=== PATIENT | female | born 1960 | race Caucasian/White ===

== ENCOUNTER 2016-08-21 08:09 | Day surgery (SDC) | payer BC, OTHER ==
[2016-08-13 08:59] VITALS: BMI 27.1
[~2016-08-21 08:09] MED LIST: DEXAMETHASONE SOD PHOSPHATE 10 MG/ML 1 ML VIAL IV ONE; HYDROmorphone 1 MG/ML 1 ML SYRINGE IVP PRN; LACTATED RINGERS 1,000 ML IV SCH; MIDAZOLAM 2 MG/2 ML VIAL IV PRN; ONDANSETRON 4 MG/2 ML VIAL IVP ONE; SCOPOLAMINE 1.5MG/72HR PATCH TRANSDERM ONE; ceFAZolin 2 GM in SODIUM CHLORIDE 0.9% 100 ML IVPB ONE
[2016-08-21 08:30] VITALS: RESP 16; TEMP 97.1
[2016-08-21] MEDS ORDERED: LIDOCAINE 1% 20 ML VIAL (10MG/ML) FOR IV START INTRADERMA ONE (08:32)
[2016-08-21] MEDS ORDERED: SODIUM CHLORIDE 0.9% 100 ML BAG ONE (08:53)
[2016-08-21] MEDS ORDERED: LIDOCAINE 1% INJ 10MG/ML (20 ML MDV) ONE (08:53)
[2016-08-21] MEDS ORDERED: fentaNYL (PF) 50 MCG/ML 2 ML AMP ONE (08:53)
[2016-08-21] MEDS ORDERED: KETAMINE 10 MG/ML 20 ML VIAL ONE (08:53)
[2016-08-21] MEDS ORDERED: PROPOFOL 10 MG/ML 20 ML VIAL IV ONE (08:53)
[2016-08-21] MEDS ORDERED: MIDAZOLAM 2 MG/2 ML VIAL ONE (08:53)
[2016-08-21] MEDS ORDERED: SODIUM CHLORIDE 0.9% 100 ML with CLINDAMYCIN 600 MG IV ONE ×2 (09:00)
[2016-08-21] MEDS ORDERED: BUPIVACAIN-EPI 0.25%-1:200,000 30 ML VIAL SQ ONE ×2 (09:22)
[2016-08-21] MEDS ORDERED: HEPARIN SODIUM,PORCINE 100 UNIT/ML 5 ML VIAL IV ONE ×2 (09:27→09:39)
--- NOTE | 2016-08-21 10:11 | P.OP ---
Date of Procedure: 08/21/16 Preoperative Diagnosis: Locally advanced left breast cancer Postoperative Diagnosis: Same Procedure(s) Performed: Insertion of 8-Bulgarian Mediport, single-lumen right internal jugular vein under fluoroscopic and SonoSite guidance Implants: BARD Powerport 8F Anesthesia: MAC, local Surgeon: Jazlyn Allen Estimated Blood Loss (ml): 5 Pathology: none sent Condition: stable Disposition: PACU Indications for Procedure: 55 years old female with locally advanced breast cancer the left breast presents for neoadjuvant chemotherapy. She elected to undergo right internal jugular Mediport placement under fluoroscopic and SonoSite guidance. The risks , benefits and potential complications including bleeding, infection, inadvertent pneumothorax were explained patient did undergo the procedure Operative Findings: Total fluoroscopy time was 11 minutes. Postprocedure chest x-ray showed good position of the MediPort Description of Procedure: The patient was brought to the operating room and placed in supine position with both arms tucked. A footboard was placed. Chlorhexidine was used to prep the neck followed by application of sterile drapes and an Ioban dressing . A timeout was performed to verify correct patient and correct procedure. Patient was confirmed to receive perioperative IV antibiotics and VTE prophylaxis. An ultrasound was performed of the right neck to identify the carotid artery and internal jugular vein. The internal jugular vein was compressible and patent . Photodocumentation was made. Local anesthetic was infiltrated to create a field block. Seldinger technique was used and the internal jugular vein was accessed under direct ultrasound guidance. There was good backflow of dark venous blood. The guidewire was inserted and fluoroscopic images obtained to confirm the tip in SVC. The needle was removed followed by insertion of a dilator peel-away sheath. Local anesthetic was infiltrated along the inferior aspect of the right clavicle. A 2.5 cm skin incision was made and dissection was carried up to the pectoralis major muscle. A pocket was created for the port. The catheter tubing was connected to the port using the conector after flushing both the port and the catheter with normal saline. The tunneling device was connected to the end of the catheter and after placement of the port in the subcutaneous pocket the tunneling device was passed from the lower incision to the counter incision in the neck. The catheter was measured at the junction of SVC and right atrium. The inner cannula of the peel-away sheath was removed and catheter was gradually inserted. The peel-away sheath was gradually removed. Fluoroscopic image confirmed the tip of the catheter at the junction of SVC and right atrium. There was no kink, fold or torsion of the catheter and the port. The Lyon needle was used to access the port and easy backflow was obtained. This was flushed with 10 mL of normal saline and 10 mL of Hep-Lock was inserted. The skin incision was closed in 3 layers using 3-0 Vicryl interrupted stitches and a running suture of 4-0 Monocryl. Counter incision in the neck was also closed using 3-0 Vicryl followed by 4-0 Monocryl. Dermabond skin glue was applied followed by Telfa and Tegaderm dressing. The sponge, instrument and needle count were correct x 2 Patient tolerated the procedure well and was taken to post anesthesia care unit in stable condition Final chest x-ray showed the tip of the catheter in SVC and no pneumothorax. Total fluoroscopic time was 11 seconds
--- NOTE | 2016-08-21 10:43 | XR ---
EXAMINATION TYPE: XR chest 1V confirm line [facility] DATE OF EXAM: 08/21/2016 10:25 AM COMPARISON: NONE HISTORY: Port placement TECHNIQUE: Single frontal view of the chest is obtained. FINDINGS: There is subsegmental changes at the left lung. There is no Pleural effusion, or pneumotho rax seen. The cardiac silhouette size is within normal limits. The osseous structures are intact. Port is seen overlying the right hemithorax with the tip overlying the SVC. IMPRESSION: 1. Port appears in good position. No postprocedural complication. 2. Subsegmental changes left lung base. Atelectasis favored over infiltrate.
[2016-08-21 10:56] VITALS: BP 127/91; PULSE 80
--- NOTE | 2016-08-21 11:45 | FL ---
EXAMINATION TYPE: FL guidance operating room DATE OF EXAM: 08/21/2016 11:28 AM CLINICAL HISTORY: Port-A-Cath insertion for cancer treatment TECHNIQUE: Fluoroscopy. COMPARISON: None. FINDINGS: Fluoroscopic guidance was provided during Port-A-Cath insertion procedure performed by Dr. Allen. A total of 11 seconds of fluoroscopic time was utilized during the procedure and one spot image is acquired. Single intraoperative image acquired shows right internal jugular Mediport cathet er with tip in SVC. IMPRESSION: As Above.
== END 2016-08-21 11:13 | disposition home or self-care (01) ==
LOC: OR 08:09
PROVIDERS: ATTEND Surgery
DX: Z45.2 Encounter for adjustment and management of vascular access device (principal); C50.912 Malignant neoplasm of unspecified site of left female breast; C76.1 Malignant neoplasm of thorax; F17.200 Nicotine dependence, unspecified, uncomplicated; Z79.891 Long term (current) use of opiate analgesic; Z79.899 Other long term (current) drug therapy; Z88.5 Allergy status to narcotic agent; Z88.0 Allergy status to penicillin
CPT/HCPCS: 36561; C1788; J2250; J1642; J1100; J2405; J2001; J3010; J2704; 99152; 99153

== ENCOUNTER → 2016-08-27 | Outpatient (CLI) | payer BC, OTHER ==
--- NOTE | 2016-08-28 00:28 | MR ---
EXAMINATION TYPE: MR liver wo/w con DATE OF EXAM: 08/27/2016 7:17 PM COMPARISON: NONE HISTORY: Breast ca 2016, spot seen on liver CONTRAST: Standard multiplanar, multisequence MRI departmental protocol utilizing 15 mL intravenous MultiHance gadolinium contrast. FINDINGS: Liver has normal size and contour. Spleen appears normal. There is no sign of a pancreatic mass. Bile ducts are not dilated. There is a rounded area of slight increased signal on the T2 images in the lower pole left kidney and measures 1.5 cm and is probably a cortical cyst. There is a 1 cm high signal focus in the anterior left lobe of the liver consistent with simple cyst. There is a 2 cm rounded and oval-shaped mass in the superior posterior right lobe of the liver. This shows enhancement with the contrast and central vasculature. This is most likely a hemangioma. There is noted a multilobulated large mass involving the left breast. There is no evidence of retroperitoneal adenopathy. There is no hydronephrosis. IMPRESSION: Small cyst in the anterior left lobe of the liver. 2 cm enhancing mass in the right lobe of the liver most likely related to hemangioma. I do not see a ring enhancement pattern to suggest metastatic disease.
== END | disposition home or self-care (01) ==
LOC: RADMRIMAIN 18:00
PROVIDERS: ATTEND Internal Medicine Hematology & Oncology
DX: K76.89 Other specified diseases of liver (principal); R16.0 Hepatomegaly, not elsewhere classified
CPT/HCPCS: 74183; A9577

== ENCOUNTER 2016-09-06 23:14 | Emergency (ER) | payer BC, OTHER ==
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
[2016-09-07 02:19] VITALS: BP 128/89; PULSE 100; RESP 16; TEMP 98.3
== END 2016-09-07 02:29 | disposition home or self-care (01) ==
LOC: SUPCPDRO 23:14 → EC 23:14
DX: N64.52 Nipple discharge (principal); D05.92 Unspecified type of carcinoma in situ of left breast; Z88.5 Allergy status to narcotic agent; Z88.0 Allergy status to penicillin; Z79.899 Other long term (current) drug therapy; Z87.891 Personal history of nicotine dependence
CPT/HCPCS: 99282

== ENCOUNTER → 2016-12-01 | Outpatient (CLI) | payer BC ==
[2016-12-01 11:19] LABS: Blood Urea Nitrogen 13 mg/dL (7-17); Non-African American GFR(MDRD) >60 (>60 ml/min/1.73 sqM)
--- NOTE | 2016-12-01 12:16 | CT ---
EXAMINATION TYPE: CT angio chest DATE OF EXAM: 12/01/2016 12:08 PM COMPARISON: NONE HISTORY: Breast cancer, tachycardia, SOB CT DLP: 519 mGycm CONTRAST: CT chest with contrast and 3D reconstruction with MIP imaging is performed with IV Contrast, patient injected with 100 mL of Omnipaque 350. Contrast-enhanced CT of the chest was performed through the course of the pulmonary arteries with charlie g and mediastinal window settings submitted. 3D reconstruction with MIP imaging was also performed. PULMONARY ARTERIES: The pulmonary arteries and their major tributaries are patent. I do not see ha dence for sizable filling defect to suggest pulmonary embolic process. LUNGS: The lungs are clear and free of infiltrate. No evidence for atelectasis. No pulmonary nodule or mass is detected. No pleural effusion. MEDIASTINUM: Thoracic aorta is of normal caliber . The heart is not enlarged. No evidence for media stinal mass. No mediastinal lymph nodes greater than 1cm. HILAR STRUCTURES: No evidence for mass. No hilar lymph nodes greater than 1 cm. UPPER ABDOMEN: Stable hyperdense lesion within the liver may reflect hemangioma. Other: Soft tissue density left breast as well as skin thickening. IMPRESSION: 1. No evidence for Pulmonary embolism at this time.
== END | disposition home or self-care (01) ==
LOC: RADPROMAIN 10:26
PROVIDERS: ATTEND Internal Medicine Hematology & Oncology
DX: C50.812 Malignant neoplasm of overlapping sites of left female breast (principal); R00.0 Tachycardia, unspecified
CPT/HCPCS: 82565; 84520; 71275; Q9967

== ENCOUNTER 2016-12-24 13:11 | Emergency (ER) | payer BC ==
[2016-12-24] MEDS ORDERED: SODIUM CHLORIDE 0.9% 1,000 ML IV STA ×2 (13:47)
[2016-12-24] MEDS ORDERED: ONDANSETRON 4 MG/2 ML VIAL IVP STA (13:47)
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
[2016-12-24 14:45] LABS: Anisocytosis Slight; Basophils % (A) 0 %; CH 35.9; CHCM 34.7; Eosinophils % (A) 0 %; HCT 31.7 % (34.0-46.0); HDW 3.56; HGB 10.8 gm/dL (11.4-16.0); Luc # (Auto) 0.04; Luc % (Auto) 1; Lymphocytes # (A) 0.3 k/uL (1.0-4.8); Lymphocytes % (A) 8 %; MCH 35.2 pg (25.0-35.0); MCV 103.7 fL (80.0-100.0); Macrocytosis Moderate; Mean Platelet Volume 8.1; Monocytes # (A) 0.2 k/uL (0-1.0); Monocytes % (A) 4 %; Neutrophils # (A) 3.7 k/uL (1.3-7.7); Neutrophils % (A) 87 %; Poikilocytosis Slight; RBC 3.06 m/uL (3.80-5.40); RDW 16.6 % (11.5-15.5); WBC 4.2 k/uL (3.8-10.6); WBC (Perox) 4.22
[2016-12-24 14:53] LABS: ALT 29 U/L (9-52); AST 25 U/L (14-36); Alkaline Phosphatase 77 U/L (38-126); Amylase 36 U/L (30-110); Anion Gap 9 mmol/L; Blood Urea Nitrogen 16 mg/dL (7-17); Carbon Dioxide 26 mmol/L (22-30); Chloride 101 mmol/L (98-107); Non-African American GFR(MDRD) >60 (>60 ml/min/1.73 sqM); Sodium 136 mmol/L (137-145); Total Bilirubin 0.6 mg/dL (0.2-1.3); Total Protein 5.7 g/dL (6.3-8.2)
[2016-12-24 15:00] LABS: Glucose 120 mg/dL (74-99)
[2016-12-24] MEDS ORDERED: POTASSIUM CHLORIDE ER 20 MEQ TAB.ER PO STA ×2 (15:15→16:01)
--- NOTE | 2016-12-24 15:37 | XR ---
EXAMINATION TYPE: XR chest 2V DATE OF EXAM: 12/24/2016 3:31 PM COMPARISON: August 21, 2016 HISTORY: Shortness of breath TECHNIQUE: Frontal and lateral views of the chest are obtained. FINDINGS: Scattered senescent parenchymal changes noted. Hyperinflation compatible with COPD. Prominent perihilar interstitial markings may reflect pneumonitis or viral pneumonia. Correlate clini lizzette and consider progress studies. Heart size is stable. Mediastinal structures are stable and grossly unremarkable. No evidence for hilar prominence. Degenerative changes dorsal spine. Mediport catheter unchanged. Left mastectomy changes. IMPRESSION: 1. Prominent perihilar interstitial markings may reflect pneumonitis or viral pneumonia. Correlate cl inically and consider progress studies.
[2016-12-24 16:20] VITALS: BP 106/70; PULSE 94; RESP 18; TEMP 97.7
[2016-12-25 05:45] LABS: Potassium 2.9 mmol/L (3.5-5.1)
== END 2016-12-24 16:20 | disposition home or self-care (01) ==
LOC: EC 13:11
DX: J18.9 Pneumonia, unspecified organism (principal); E87.6 Hypokalemia; R11.2 Nausea with vomiting, unspecified; R19.7 Diarrhea, unspecified; R00.0 Tachycardia, unspecified; Z87.891 Personal history of nicotine dependence; Z79.899 Other long term (current) drug therapy; Z88.0 Allergy status to penicillin; Z88.5 Allergy status to narcotic agent; Z88.8 Allergy status to other drugs, medicaments and biological substances; Z85.3 Personal history of malignant neoplasm of breast; Z95.828 Presence of other vascular implants and grafts
CPT/HCPCS: 99284; 96374; 96361 ×3; 36415; 80053; 82150; 83690; 85025; 71020; J2405

== ENCOUNTER → 2017-02-09 | Outpatient (CLI) | payer BC ==
--- NOTE | 2017-02-09 13:56 | BMR ---
EXAMINATION TYPE: MR breast BILAT wo/w con DATE OF EXAM: 02/09/2017 COMPARISON: MR liver 08/27/2016 CT 08/14/2016, mammogram 07/20/2016, left breast ultrasound 07/20/2016 HISTORY: Breast Ca TECHNIQUE: A series of fat and water weighted images in the long and short axis views of both breasts are obtained in conjunction with dynamic contrast MRI with subtraction technique. The patient was i njected with 15 mL intravenous MultiHance gadolinium contrast. Three-dimensional and additional pos tprocessing imaging is created on independent workstation and reviewed during official interpretation of this study. FINDINGS: Right breast: No suspicious abnormal enhancement. There is no evident adenopathy. Mild fibr oglandular tissue noted. Port-A-Cath present in the right chest. Left breast: Extensive T2 weighted signal abnormality present corresponding to patient's known tumor burden, there is extension of the abnormal signal to the muscle wall as noted on prior CT. There is s kin thickening, nipple retraction. Abnormal multiple nodular enhancement is present within the left b reast compatible with patient's known breast carcinoma. Abnormal soft tissue extends to the muscle of the anterior chest wall. There is interval improvement in the size of the patient's left axillary no glen. No evident internal mammary adenopathy. IMPRESSION: Left breast BI-RADS 6, known carcinoma. Findings suggestive of chest wall involvement. Axillary adeno katherine appears to have improved in the interval, nodes show fatty hilus and are not enlarged. Right breast benign, BI-RADS 2 Recommendation surgical and oncologic follow up
== END | disposition home or self-care (01) ==
LOC: RADMRIMAIN 09:37
PROVIDERS: ATTEND Surgery
DX: C50.912 Malignant neoplasm of unspecified site of left female breast (principal); R59.9 Enlarged lymph nodes, unspecified
CPT/HCPCS: 77059; 0159T; A9577

== ENCOUNTER 2017-07-14 08:10 | Day surgery (SDC) | payer BC ==
[2017-07-14 08:46] VITALS: TEMP 98.1
--- NOTE | 2017-07-14 09:36 | US ---
Ultrasound-guided seroma drainage catheter insertion. DATE OF EXAM: 07/14/2017 CLINICAL HISTORY: Post left mastectomy seroma The procedure was discussed with the patient. The risks, complications, benefits, and alternatives we re discussed and any questions were answered. Informed consent was obtained. The patient was placed s upine on the ultrasound table and prepped and draped in the usual sterile fashion. All elements of maximal barrier technique were utilized. Under ultrasound guidance, access into the left chest wall seroma was obtained, and risks placement 8 Turkish drainage catheter. Repeat imaging d emonstrated ideal placement of the catheter. The patient was stable throughout the procedure and remained stable upon discharge from Department o f Radiology. IMPRESSION: Successful ultrasound-guided seroma catheter insertion..
[2017-07-14 09:59] VITALS: BP 139/77; PULSE 68; RESP 18
== END 2017-07-14 09:45 | disposition home or self-care (01) ==
LOC: RADPROMAIN 08:10
PROVIDERS: ATTEND Surgery
DX: M96.843 Postprocedural seroma of a musculoskeletal structure following other procedure (principal); Y83.8 Other surgical procedures as the cause of abnormal reaction of the patient, or of later complication, without mention of misadventure at the time of the procedure
CPT/HCPCS: 10030; 76942

== ENCOUNTER 2017-08-11 08:03 | Day surgery (SDC) | payer BC ==
[2017-08-11 08:45] VITALS: PULSE 90; RESP 16; TEMP 97.8
[2017-08-11 10:15] VITALS: BP 141/89
--- NOTE | 2017-08-11 11:26 | US ---
EXAMINATION TYPE: US guided soft tissue drainage DATE OF EXAM: 08/11/2017 HISTORY: Seroma postmastectomy FINDINGS: Maximal barrier technique was utilized. Indwelling drain was removed without incident. The skin overlying a suitable path to the fluid was localized with ultrasound and the overlying skin prep ped and draped. Lidocaine was used for local anesthesia. A skin pamela made with a scalpel. Access w as gained under direct ultrasound guidance to the fluid with a 21-gauge needle. Ultrasound was utiliz ed using sterile technique. A 0.018 inch wire was advanced. Access site was dilated and an 8.5-Fren ch catheter advanced into the seroma. Sanguinous serous fluid returned. Catheter fixed to the skin. Hemostasis achieved. No immediate complication and the patient remained in stable condition. IMPRESSION: STATUS POST ULTRASOUND GUIDED SEROMA DRAINAGE, THIS PROCEDURE WAS PERFORMED BY THE UNDERS IGNED.
== END 2017-08-11 09:55 | disposition home or self-care (01) ==
LOC: RADPROMAIN 08:03
PROVIDERS: ATTEND Radiology Diagnostic Radiology
DX: L76.34 Postprocedural seroma of skin and subcutaneous tissue following other procedure (principal)
CPT/HCPCS: 10030; 76942

== ENCOUNTER 2017-08-25 07:51 | Day surgery (SDC) | payer BC ==
[2017-08-25 08:28] VITALS: BP 125/94; PULSE 96; RESP 14; TEMP 98.1
--- NOTE | 2017-08-25 09:24 | USB ---
Reason for exam: clinical finding. History: Patient is postmenopausal and has history of breast cancer at age 55. Malignant US breast needle core addl LT of the left breast, July 23, 2016. Malignant US biopsy breast VAD LT of the left breast, July 23, 2016. US Breast Axilla LT Left breast axilla ultrasound demonstrates fluid collection with drainage tube visualized, probable abscess. Assessed real time by Dr. Allen. These results were verbally communicated with the patient and result sheet given to the patient on 08/25/17. ASSESSMENT: Probably benign, BI-RAD 3 RECOMMENDATION: Clinical management of the left breast. Manage patient on a clinical basis. Consider open surgical management. MTDD
--- NOTE | 2017-08-25 11:38 | P.PN ---
Progress Note - Text Progress Note Date: 08/25/17 Patient examined in ultrasound department. Drainage catheter has minimal output. Ultrasound performed at bedside showed complex multiloculated fluid collection. The drainage catheter was removed. There was some serosanguineous fluid that was expressed out from the drain site. A urostomy bag was applied. Persistent redness and pain along the left chest wall. Discussed findings with patient and her . Plan for surgical exploration with incision and drainage and possible drain placement.
== END 2017-08-25 10:05 | disposition home or self-care (01) ==
LOC: RADPROMAIN 07:51
PROVIDERS: ATTEND Radiology Diagnostic Radiology
DX: N64.59 Other signs and symptoms in breast (principal); Z46.89 Encounter for fitting and adjustment of other specified devices; L53.8 Other specified erythematous conditions; R07.89 Other chest pain; Z78.0 Asymptomatic menopausal state; Z85.3 Personal history of malignant neoplasm of breast
CPT/HCPCS: 76642; A5071

== ENCOUNTER → 2017-08-27 | Day surgery (SDC) | payer BC ==
[2017-08-26 10:01] VITALS: BMI 28.6
[~2017-08-27] MED LIST changes: +CLINDAMYCIN 600 MG in DEXTROSE 5% IN WATER 50 ML IVPB STA; -HYDROmorphone 1 MG/ML 1 ML SYRINGE IVP PRN; +LIDOCAINE 1% 20 ML VIAL (10MG/ML) FOR IV START INTRADERMA ONE; +LIDOCAINE 1% INJ 10MG/ML (20 ML MDV) ONE; +PHENYLEPHRINE-0.9% NACL SYG 1 MG/10 ML SYRINGE ONE; +PROPOFOL 10 MG/ML 20 ML VIAL IV ONE; +Pre Op ABX Message 1 EACH MISC MISCELLANE ONE; +SUCCINYLCHOLINE CHLORIDE 100 MG/5 ML SYR IV ONE; +VANCOMYCIN 1,000 MG in SODIUM CHLORIDE 0.9% 250 ML IVPB STA; -ceFAZolin 2 GM in SODIUM CHLORIDE 0.9% 100 ML IVPB ONE; +ePHEDrine SULFATE/0.9% NACL/PF 50 MG/5 ML SYRINGE IV ONE; +fentaNYL (PF) 50 MCG/ML 2 ML AMP ONE
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
[2017-08-27] MEDS: MORPHINE SULFATE 4 MG/ML SYRINGE IV PRN ×2 (17:53→18:04)
[2017-08-27 17:57] VITALS: RESP 16; TEMP 97
[2017-08-27 18:39] VITALS: BP 129/78; PULSE 87
--- NOTE | 2017-08-30 12:57 | P.OP ---
Date of Procedure: 08/27/17 Preoperative Diagnosis: Left chest wall cellulitis Left breast cancer status post neoadjuvant chemo and radiation and left modified radical mastectomy Postoperative Diagnosis: Same Procedure(s) Performed: Incision and drainage of left chest wall seroma Anesthesia: ANAY Surgeon: Jazlyn Allen Pathology: other Condition: stable Disposition: PACU Indications for Procedure: 56 years old female status post left wrist cancer treatment. She had neoadjuvant chemotherapy and radiation therapy followed by left modified radical mastectomy. She had left chest wall seroma which was drained and catheter was replaced . She then developed increasing cellulitis, redness, pain and fever and hypotension requiring hospital admission and IV antibiotics. Patient was discharged home on by mouth antibiotics and continues to have redness along the left chest spreading toward the right breast. Informed consent obtained and patient elected to undergo incision and drainage of left chest wall seroma, cultures and drain placement. The risks, benefits and potential complications including bleeding, infection, open wound and poor wound healing secondary to preoperative radiation were discussed with the patient. Operative Findings: The old surgical incision was opened up at 2 sites. Suction catheter was inserted and 50 mL of serosanguineous blood drained. Aerobic and anaerobic cultures sent. Description of Procedure: This was brought to the operating room and placed in supine position with both arms out. Gen. anesthesia with endotracheal intubation was performed as per anesthesia team . A timeout was performed to verify correct patient and correct procedure. There is persistent cellulitis of the left chest wall spreading across the midline towards the right breast. Chlorhexidine was used to prep the skin followed by application of sterile drapes. A 1.5 cm incision was made along the medial corner of the incision. A small elliptical skin incision was made and sent as full-thickness skin biopsy .Suction drainage catheter was inserted. 10 mL of serosanguineous fluid drained. Aerobic and anaerobic cultures sent. The incision was approximated using skin radha. Along the lateral aspect of the incision another 1.5 cm full-thickness skin incision was made. A drainage catheter inserted and additional 40 mL of serosanguineous fluid drained. There was no purulent drainage. Aerobic and anaerobic cultures sent. The redness did regress but did not resolve completely. A EDISON drain was left in the left chest wall and was sutured to the skin. The drain was attached to bulb suction. Clean dressings applied. The sponge, instrument and needle count were correct 2. Patient tolerated the procedure well and was discharged home with home health care. Infectious disease doctor Dr. Carmona was consulted and recommended IV vancomycin via left MediPort
== END | disposition home health service (06) ==
LOC: OR 13:18
PROVIDERS: ATTEND Surgery
DX: M96.842 Postprocedural seroma of a musculoskeletal structure following a musculoskeletal system procedure (principal); L03.313 Cellulitis of chest wall; K21.9 Gastro-esophageal reflux disease without esophagitis; M19.90 Unspecified osteoarthritis, unspecified site; Z85.3 Personal history of malignant neoplasm of breast; Z79.899 Other long term (current) drug therapy; Z88.6 Allergy status to analgesic agent; Z88.5 Allergy status to narcotic agent; Z88.0 Allergy status to penicillin; Z87.891 Personal history of nicotine dependence; Z92.21 Personal history of antineoplastic chemotherapy; Z92.3 Personal history of irradiation; Z90.12 Acquired absence of left breast and nipple; Z90.711 Acquired absence of uterus with remaining cervical stump
CPT/HCPCS: 10060; 88305; 87070; 87205; 87075; J3370; J2270; J1100; J2405; J2001; J3010; J2370; J0330; J2704

== ENCOUNTER → 2017-09-16 | Outpatient (CLI) | payer BC ==
[~2017-09-16] MED LIST changes: -CLINDAMYCIN 600 MG in DEXTROSE 5% IN WATER 50 ML IVPB STA; -DEXAMETHASONE SOD PHOSPHATE 10 MG/ML 1 ML VIAL IV ONE; -LACTATED RINGERS 1,000 ML IV SCH; -LIDOCAINE 1% 20 ML VIAL (10MG/ML) FOR IV START INTRADERMA ONE; -LIDOCAINE 1% INJ 10MG/ML (20 ML MDV) ONE; -MIDAZOLAM 2 MG/2 ML VIAL IV PRN; -ONDANSETRON 4 MG/2 ML VIAL IVP ONE; -PHENYLEPHRINE-0.9% NACL SYG 1 MG/10 ML SYRINGE ONE; -PROPOFOL 10 MG/ML 20 ML VIAL IV ONE; -Pre Op ABX Message 1 EACH MISC MISCELLANE ONE; -SCOPOLAMINE 1.5MG/72HR PATCH TRANSDERM ONE; +SODIUM CHLORIDE 0.9% 500 ML in EMPTY BAG 1 BAG IV PRN; -SUCCINYLCHOLINE CHLORIDE 100 MG/5 ML SYR IV ONE; -VANCOMYCIN 1,000 MG in SODIUM CHLORIDE 0.9% 250 ML IVPB STA; +ZOLEDRONIC ACID 4 MG in SODIUM CHLORIDE 0.9% 100 ML IV ONE; -ePHEDrine SULFATE/0.9% NACL/PF 50 MG/5 ML SYRINGE IV ONE; -fentaNYL (PF) 50 MCG/ML 2 ML AMP ONE
[2017-09-16 14:33] VITALS: BP 150/85; PULSE 84; RESP 16; TEMP 97.7
== END | disposition home or self-care (01) ==
LOC: PROCWHC3 11:51
PROVIDERS: ATTEND Internal Medicine Hematology & Oncology
DX: C50.812 Malignant neoplasm of overlapping sites of left female breast (principal); Z79.811 Long term (current) use of aromatase inhibitors
CPT/HCPCS: 96365; J1642; J3489

== ENCOUNTER 2017-09-17 02:03 | Emergency (ER) | payer BC ==
[2017-09-17] MEDS ORDERED: MORPHINE SULFATE 2 MG/ML SYRINGE IVP ONE (02:20)
[2017-09-17] MEDS ORDERED: SODIUM CHLORIDE 0.9% 1,000 ML IV ONE (02:20)
[2017-09-17] MEDS ORDERED: ONDANSETRON 4 MG/2 ML VIAL IVP STA ×2 (02:20→03:44)
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
[2017-09-17 02:47] LABS: HCT 41.2 % (34.0-46.0); HGB 13.9 gm/dL (11.4-16.0); MCHC 33.6 g/dL (31.0-37.0); MCV 92.2 fL (80.0-100.0); Mean Platelet Volume 6.9; Platelet Count 186 k/uL (150-450); RBC 4.47 m/uL (3.80-5.40); RDW 13.5 % (11.5-15.5); WBC 7.3 k/uL (3.8-10.6)
[2017-09-17 02:58] LABS: ALT 34 U/L (9-52); AST 26 U/L (14-36); Albumin 3.8 g/dL (3.5-5.0); Alkaline Phosphatase 92 U/L (38-126); Anion Gap 9 mmol/L; Blood Urea Nitrogen 13 mg/dL (7-17); Calcium 9.6 mg/dL (8.4-10.2); Carbon Dioxide 26 mmol/L (22-30); Chloride 105 mmol/L (98-107); Glucose 116 mg/dL (74-99); Potassium 3.7 mmol/L (3.5-5.1); Sodium 140 mmol/L (137-145); Total Bilirubin 0.2 mg/dL (0.2-1.3); Total Protein 6.5 g/dL (6.3-8.2)
[2017-09-17 03:05] LABS: Eosinophils # (M) 1.39 k/uL (0-0.7); Lymphocytes # (M) 1.02 k/uL (1.0-4.8); Monocytes # (M) 0.44 k/uL (0-1.0); Neutrophils # (M) 4.45 k/uL (1.3-7.7); Neutrophils % (M) 61 %; Nucleated Red Blood Cells 0 /100 WBC (0-0); Total Cells Counted 100
--- NOTE | 2017-09-17 03:33 | CT ---
EXAM: CT Head Without Intravenous Contrast CLINICAL HISTORY: Reason: pain TECHNIQUE: Axial computed tomography images of the head/brain without intravenous contrast. CTDI is 57.4 mGy and DLP is 943.8 mGy-cm. This CT exam was performed using one or more of the following dose reduction techniques: automated exposure control, adjustment of the mA and/or kV according to patient size, and/or use of iterative reconstruction technique. COMPARISON: No relevant prior studies available. FINDINGS: Brain: There is a 3.1 x 4.0 x 3.5 cm heterogeneous circumscribed mass in the right temporal lobe with a large amount of vasogenic edema. There is associated right to left midline shift of approximately 1.1 cm. There is near complete effacement of the right lateral ventricle and ambient cistern. No hemorrhage. No significant white matter disease. Bones/joints: Unremarkable. No acute fracture. Soft tissues: Unremarkable. Sinuses: Unremarkable as visualized. No acute sinusitis. Mastoid air cells: Unremarkable as visualized. No mastoid effusion. IMPRESSION: 4.0 cm heterogeneous mass in the right temporal lobe with a large amount of vasogenic edema. Concerning for metastatic lesion given clinical history of breast cancer. There is associated midline shift to the left of approximately 1.1 cm. Near complete effacement of the right lateral ventricle and ambient cistern. Recommend neurosurgical consultation and consider follow-up MRI to further characterize as clinically warranted. EXAM: CT Cervical Spine Without Intravenous Contrast CLINICAL HISTORY: Reason: pain TECHNIQUE: Axial computed tomography images of the cervical spine without intravenous contrast. CTDI is 15.7 mGy and DLP is 286.5 mGy-cm. This CT exam was performed using one or more of the following dose reduction techniques: automated exposure control, adjustment of the mA and/or kV according to patient size, and/or use of iterative reconstruction technique. COMPARISON: No relevant prior studies available. FINDINGS: Vertebrae: There is loss of cervical lordosis. No acute fracture. Discs/spinal canal/neural foramina: Moderate degenerative diseases disease at the C5-C6 level. No spinal canal stenosis. Soft tissues: Unremarkable. Lung apices: Unremarkable as visualized. IMPRESSION: No fracture or subluxation. Loss of cervical lordosis may be due to patient positioning versus muscle spasm. Degenerative disc disease at the C5-C6 level. . [employer] 09/17/17 03:31 Call Doctor Regarding Brain or Cord Tumor with Significant Mass Effect, called XIOMARA Gallagher on 09/17 03:31 (-05:00)
[2017-09-17] MEDS ORDERED: HYDROmorphone 4 MG/ML 1 ML SYRINGE IVP STA (03:37)
[2017-09-17] MEDS ORDERED: DEXAMETHASONE SOD PHOSPHATE 10 MG/ML 1 ML VIAL IV STA (03:49)
[2017-09-17 03:51] VITALS: RESP 18; TEMP 98.2
[2017-09-17] MEDS ORDERED: METOCLOPRAMIDE 5 MG/ML 2 ML VIAL IVP STA (04:38)
[2017-09-17 04:40] VITALS: BP 141/90; PULSE 84
== END 2017-09-17 04:40 | disposition other institution (70) ==
LOC: EC 02:03
DX: C79.31 Secondary malignant neoplasm of brain (principal); Z85.3 Personal history of malignant neoplasm of breast; K21.9 Gastro-esophageal reflux disease without esophagitis; Z87.891 Personal history of nicotine dependence; Z79.899 Other long term (current) drug therapy; Z88.6 Allergy status to analgesic agent; Z88.5 Allergy status to narcotic agent; Z88.8 Allergy status to other drugs, medicaments and biological substances; Z88.0 Allergy status to penicillin
CPT/HCPCS: 99285; 96374; 96375 ×4; 96376; 96361 ×2; 36415; 80053; 83605; 85025; 87040; 72125; 70450; J1100; J2765; J2405; J2270; J1170

== ENCOUNTER → 2017-10-08 | Outpatient (CLI) | payer BC ==
--- NOTE | 2017-10-08 13:24 | CT ---
EXAMINATION TYPE: CT ChestAbdPelvis w con DATE OF EXAM: 10/08/2017 COMPARISON: Prior CT chest dated 12/01/2016, 02/17/2017 and breast MR 02/09/2017 HISTORY: breast CA CT DLP: 676.2 mGycm Automated exposure control for dose reduction was used. CONTRAST: CT scan of the chest, abdomen and pelvis is performed with Oral Contrast and with IV Contrast, patien t injected with 100 mL of Omnipaque 300. FINDINGS: Patient is status post left mastectomy, there is associated chest wall defect, minimal sero ma may be present, surgical clips present in the left axilla, there is a small enhancing mass likely lymph node present in the left axilla measuring approximately 12 mm x 10 mm x 15 mm central low atten uation compatible with residual node which is thought likely to be increased in size, an interval fin ding. LUNGS: The lungs are remarkable for some interstitial changes at the level of the patient's mastectom y likely due to post radiation change., there is no concerning parenchymal mass or nodule identified. There is no pleural effusion or pneumothorax seen. The tracheobronchial tree is patent. MEDIASTINUM: There are no greater than 1 cm hilar or mediastinal lymph nodes. No pericardial effusi on is seen. AORTA: No significant abnormality is seen. OTHER: Small focus of increased soft tissue present along the left pleural margin posterior laterall y on axial image 27, 26 and 28 is indeterminate and measures approximately 1 cm x 3 mm in size adjace nt to the sixth rib. LIVER/GB: Gallbladder shows stones. On prior CT chest there was an ill-defined focus of increased att enuation in the posterior right lobe of the liver which is not seen definitively on today's exam, sarai er MRI may be of benefit for increased sensitivity. PANCREAS: No significant abnormality is seen. SPLEEN: No significant abnormality is seen. ADRENALS: No significant abnormality is seen. KIDNEYS: Cortical cyst present at the lower pole left kidney. It measures approximately 15 mm, smalle r subcentimeter cysts present in the posterior mid pole left kidney REPRODUCTIVE ORGANS: Not seen is the uterus, ovaries thought to be present and unremarkable BOWEL: No significant abnormality is seen. FREE AIR: No Free Air visible. ASCITES: None seen. RETROPERITONEAL ADENOPATHY: No retroperitoneal adenopathy is seen. LYMPH NODES: No greater than 1 cm abdominal or pelvic lymph nodes are appreciated. URINARY BLADDER: No significant abnormality is seen. PELVIC ADENOPATHY: None visualized. OSSEOUS STRUCTURES: No significant abnormality is seen. IMPRESSION: There is a lymph node in the left axilla not seen on prior exam as described above which is indeterminate. Postop changes to the left chest, post radiation change suspected in the lung. Chol elithiasis. Indeterminate abnormality seen in the posterior right lobe of liver on prior CTA of the c hest is not seen on today's exam as described. Pleural abnormality was not seen on prior exam as desc ribed above adjacent to the sixth rib. Follow-up is recommended.
--- NOTE | 2017-10-08 15:19 | NM ---
EXAMINATION TYPE: NM bone scan whole body DATE OF EXAM: 10/08/2017 COMPARISON: CT chest abdomen pelvis same date HISTORY: Breast cancer Delayed whole-body scanning was performed following the injection of 23.0 mCi Tc 99m MDP. Images acq uired 3 hours post injection. FINDINGS: No areas of abnormal increased or decreased reaffirms of uptake to suggest metastatic disease. Soft t issue uptake is normal. There is a mild spinal curvature. Uptake within the sternoclavicular joints, shoulders, wrists, cervical spine and feet is likely degenerative. IMPRESSION: Metastatic disease is not evident.
== END | disposition home or self-care (01) ==
LOC: RADNMMAIN 10:43
PROVIDERS: ATTEND Internal Medicine Hematology & Oncology
DX: K80.20 Calculus of gallbladder without cholecystitis without obstruction (principal); C50.812 Malignant neoplasm of overlapping sites of left female breast; Z98.890 Other specified postprocedural states
CPT/HCPCS: 71260; 74177; 78306; A9503; Q9967; J1642

== ENCOUNTER → 2017-12-14 | Outpatient (CLI) | payer BC ==
--- NOTE | 2017-12-15 10:48 | MR ---
EXAMINATION TYPE: MR brain wo/w con DATE OF EXAM: 12/14/2017 COMPARISON: Outside report from MR brain dated 09/17/2017 demonstrating intra-axial right temporal lobe mass with large amount of vasogenic edema and midline shift. Outside report dated 09/22/[address] MR brain dated 09/23/2017 demonstrating irregular peripheral enhancement around the postsurgic al bed and 8 mm midline shift. HISTORY: Secondary malignant neoplasm of brain. History of breast cancer with intracranial metastasis . TECHNIQUE: Multiplanar, multisequence images of the brain and brainstem is performed without and with IV contras t, utilizing 7.5 mL intravenous Gadavist . FINDINGS: Diffusion weighted images demonstrate no evidence of a recent infarct or other diffusion ab normality. There is a nonenhancing right temporal extra-axial fluid collection that is entirely T2 hyperintense and T1 hypointense likely representing a postsurgical subdural seroma/hygroma. There remains nodular enhancement along the postsurgical cavity with the postsurgical bed measuring approximately 3.5 x 1.9 x 2.7 cm (measured at 3.4 x 3.2 x 3.9 cm on the outside report). At the inferior margin of the posts urgical bed such as on image 45 there is more homogeneous enhancement. There is also focal dural enha ncement along the superior postsurgical margin and along the temporal lobe. The remainder of the lept omeninges demonstrate no abnormal enhancement. There is no precontrast T1 hyperintensity to indicate hemorrhage. Surrounding vasogenic edema is seen without effacement of the temporal horn of the right lateral ventricle. The previously seen midline shift has resolved in the interim. The bone marrow appears unremarkable in signal. No new enhancing intracranial foci are seen to sugges t new sites of intracranial metastasis. No new areas of vasogenic edema are noted. Within the subcuta neous tissues overlying the craniotomy defect susceptibility artifact is seen from metallic surgical clips. Intracranial vasculature unremarkable. Intracranial flow voids are maintained. Polypoid mucosal thickening is seen within the bilateral maxillary sinuses, moderate degree on the le ft and mild degree on the right. Remaining paranasal sinuses and mastoid air cells are well aerated. Orbits and midline structures are grossly unremarkable. IMPRESSION: 1. Nodular enhancement along the right temporal postsurgical bed measures approximately 3.5 x 1.9 x 2 .7 cm and previously measured 3.4 x 3.2 x 3.9 cm on the outside report (Note images are not available for comparison). Given the decrease in size findings may represent treatment necrosis and granulatio n tissue. However, nodular enhancement and more solid inferior enhancement are present therefore resi dual tumor remains possible. Continued follow-up could be performed. Alternatively reevaluation with MR spectroscopy could be performed. Some surrounding vasogenic edema is seen although in comparison t o the prior report this is thought to have decreased in the interim. Additionally the previously seen surgical cavity hemorrhage and midline shift have resolved in the interim. 2. No new enhancing intracranial masses to suggest new metastatic foci. 3. Pachymeningeal enhancement along the postsurgical cavity, likely related to granulation tissue rat her than metastasis. Remainder the brain demonstrates no leptomeningeal or pachymeningeal enhancement . 4. Small extra-axial nonenhancing simple appearing temporal subdural likely postsurgical seroma/hygro ma.
== END | disposition home or self-care (01) ==
LOC: RADMRIMAIN 14:47
PROVIDERS: ATTEND Radiology Radiation Oncology
DX: C79.31 Secondary malignant neoplasm of brain (principal)
CPT/HCPCS: 70553; A9581

== ENCOUNTER → 2017-12-30 | Outpatient (CLI) | payer BC ==
[2017-12-30 14:02] VITALS: BP 150/92; PULSE 96; RESP 18
--- NOTE | 2017-12-30 14:27 | P.PAINPG ---
Subjective Principal diagnosis: Myofascial pain syndrome Is a very pleasant 57 history of metastatic breast cancer who has undergone left radical mastectomy and lymph node dissection. She complains of pain in her posterior scapular area as well as latissimus and the left side. She also complains of significant sensitivity over the breast bed. She reports being involved in physical therapy and performing lots of stretches and maneuvers. She says that this ends of hurting her quite a lot. She also uses ice over her breast area and occasionally puts heat on her posterior scapula. She says that heat is helpful but she has been advised not to do this by her physical therapy practitioners. She also has her rub icy hot over her back shoulder and latissimus area. She says this is very helpful too. She currently takes morphine as this was started less than 2 weeks ago and hydrocodone. Objective - Vital Signs Vital signs: Vital Signs Temp Pulse 96 12/30/17 13:51 Resp 18 12/30/17 13:51 BP 150/92 12/30/17 13:51 Pulse Ox 95 12/30/17 13:51 Intake & Output 12/29/17 12/30/17 12/30/17 18:59 06:59 18:59 Weight 76.204 kg - Exam Gen: WDWN, AAOx3, NAD HEENT: NCAT, EOMI, hearing grossly normal Pulm: resp unlabored Abd: soft, NT, ND Neck: supple, trachea midline ROM in flexion cervical spine: Normal ROM in extension cervical spine: Normal Cervical paravertebral tenderness: Minimal in the cervical region Cervical Facet tenderness: No Cervical facet tenderness The patient has well-healed scars on her left breast area from previous mastectomy and lymph node dissection. There is some fullness and swelling in her left axilla. She demonstrates a decreased range of motion for shoulder abduction. She is very tender to palpation over her scapular border on the left side. She does have some allodynia over the breast bed. Neuro: normal strength in the upper and lower extremities PQRS Measure Charge Sheet Measure #130: Documentation of Current Meds in Medical Chart: Patient's medications documented in chart Measure #226: Tobacco Use: Screen & Cessation Intervention: Pt not a tobacco user Measure #111: Pneumonia Vaccination: Pneumococcal vaccine NOT administered or previously given Measure #47: Advance Care Plan: Advance care planning discussed & documented, pt chose/unable to give Measure #412: Opioid Treatment Agreement: No documentation of signed opioid treatment agreement Measure #408: Opioid Therapy Follow-up Evaluation: Patient had NO f/u eval minimum every 3 months during opioid therapy Measure #317: Preventitive Care & Scrn High Bld Press & F/U: Pre-hypertensive or hypertensive BP documented, pt will f/u with PCP Measure #128: Body Mass Index (BMI) Screening & Follow-up: BMI documented ABOVE normal parameters - f/u documented Measure #131: Pain Assessment & Follow-up: Pain positive & plan documented Measure #431: Unhealthy Alcohol Use Preventative Care & Scrn: Patient not identified as an unhealthy alcohol user PQRS Narrative: Smoking Status Former smoker Do You Want the Pneumonia No Vaccine AT THIS TIME? Blood Pressure 150/92 Pain Intensity [Generalized] 8 Scale Used Numeric (1 - 10) Hx Alcohol Use (MH) No Home Medications: Ambulatory Orders Ibuprofen [Motrin] 200 - 400 mg PO Q4-6H PRN 01/05/17 Anastrozole [Arimidex] 1 mg PO DAILY 08/11/17 Cholecalciferol [Vitamin D3] 2,000 unit PO DAILY 08/12/17 Omeprazole [PriLOSEC] 40 mg PO DAILY 08/12/17 levETIRAcetam [Keppra] 750 mg PO BID 11/03/17 HYDROcodone/APAP 10-325MG [[place] 10-325] 1 tab PO Q6H PRN 12/30/17 Morphine Sulfate ER [Ms Contin] 1 tab PO Q12H 12/30/17 Controlled Substance Measures - Controlled Substance Measures Is patient prescribed a controlled substance at discharge?: No If prescribed controlled substance>3 days was MAPS reviewed?: No When asked, does pt state using other controlled substances?: No Vital Signs - Respirations Respiratory Rate: 18 O2 Sat by Pulse Oximetry: 95
== END | disposition home or self-care (01) ==
LOC: PNWHC3 13:06
PROVIDERS: ATTEND Pain Medicine Pain Medicine
DX: M79.1 Myalgia (principal); M25.512 Pain in left shoulder; Z85.3 Personal history of malignant neoplasm of breast; Z79.891 Long term (current) use of opiate analgesic; Z79.1 Long term (current) use of non-steroidal anti-inflammatories (NSAID); Z87.891 Personal history of nicotine dependence; Z90.12 Acquired absence of left breast and nipple; Z79.899 Other long term (current) drug therapy
CPT/HCPCS: 99211

== ENCOUNTER 2018-01-27 06:58 | Day surgery (SDC) | payer BC ==
[2018-01-21 12:25] VITALS: BMI 27.0
[~2018-01-27 06:58] MED LIST changes: +LACTATED RINGERS 1,000 ML IV SCH; -SODIUM CHLORIDE 0.9% 500 ML in EMPTY BAG 1 BAG IV PRN; -ZOLEDRONIC ACID 4 MG in SODIUM CHLORIDE 0.9% 100 ML IV ONE
[2018-01-27 07:19] VITALS: RESP 16; TEMP 97.8
[2018-01-27] MEDS ORDERED: LACTATED RINGERS 1,000 ML IV ONE (07:23)
[2018-01-27] MEDS ORDERED: IV FLUID CONTINUATION 1,000 ML IV ONE (07:50)
--- NOTE | 2018-01-27 07:54 | P.PCN ---
Date of Procedure: 01/27/18 Preoperative Diagnosis: Post-mastectomy neuralgia Postoperative Diagnosis: Post-mastectomy neuralgia Procedure(s) Performed: PECS I and II Block under ultrasound guidance Condition: stable Disposition: no change Description of Procedure: Patient was brought to procedure room after physical exam identified likely post -mastectomy neuralgia, ultrasound was utilized to visualize the pectoralis major and pectoralis minor muscles as well as a second and third intercostal space. The area was prepped with ChloraPrep, sterile gloves mask and Were utilized. Under direct ultrasound guidance, local anesthesia was used with 25- gauge 1-1/2 inch needle 3 ML's was injected under direct visualization. Then a 21-gauge 2 inch pajunke needle was advanced between the pectoralis major and pectoralis minor muscles under direct ultrasound visualization. A solution consisting of 9 ML's of 0.25% ropivacaine +40 mg Kenalog was formulated, and 5 mL was injected just lateral to the thoraco-acromial artery after aspiration was negative for blood between the pectoralis major and pectoralis minor muscles. Needle was then advanced into the plane between the pectoralis minor and the serratus anterior at the third intercostal space under direct ultrasound guidance after negative aspiration 5 ML's of solution was injected. Patient tolerated procedure well with no complications. VAS pre-procedure: 10/10 VAS post-procedure: 0/10 Disposition: Patient return to clinic in 4 weeks to evaluate effectiveness of pectoralis 1 and 2 blocks. ,
[2018-01-27 08:12] VITALS: BP 136/78; PULSE 81
== END 2018-01-27 08:25 | disposition home or self-care (01) ==
LOC: ORPAIN 06:58
PROVIDERS: ATTEND Anesthesiology
DX: G89.28 Other chronic postprocedural pain (principal); M79.2 Neuralgia and neuritis, unspecified; Z90.12 Acquired absence of left breast and nipple; Z88.6 Allergy status to analgesic agent; Z88.0 Allergy status to penicillin; Z88.8 Allergy status to other drugs, medicaments and biological substances
CPT/HCPCS: 64450; J2250; J3301; J2001; J3010; Q9966

== ENCOUNTER → 2018-02-08 | Outpatient (CLI) | payer BC ==
--- NOTE | 2018-02-08 15:20 | BD ---
EXAMINATION TYPE: Axial Bone Density DATE OF EXAM: 02/08/2018 CLINICAL HISTORY: C50.812Breast CA..Z79.890 Post mami w/hrt Height: 65 Weight: 162 FRAX RISK QUESTIONS: Alcohol (3 or more units per day): no Family History (Parent hip fracture): unsure Glucocorticoids (More than 3mos): no (Ex: prednisone, prednisolone, methylprednisolone, dexamethasone, and hydrocortisone). History of Fracture in Adulthood: clavicle, hip (with pin), knee(with pin)-left in [place] as child... Secondary Osteoporosis: 1. Type 1 Diabetes: no 2. Hyperthyroidism: no 3. Menopause before 45: hysterectomy age 34, menopause age 51 4. Malnutrition: no 5. Chronic liver disease: no Rheumatoid Arthritis: no Current Tobacco Use: not now RISK FACTORS HISTORY OF: Hip Fracture (Left): yes When: as child...AA Surgery to Hip(left): yes When: as child Family History of Osteoporosis: no Active: yes Diet low in dairy products/other sources of calcium: no Postmenopausal woman: yes Take estrogen and/or progesterone medications: no Lost more than 2 inches in height since high school: no Frequent falls: no Poor Health: somewhat Hyperparathyroidism: no Adrenal Insufficiency: no MEDICATIONS: Prednisone or other steroids: no Thyroid Medications: no Osteoporosis Medications: no Additional Medications: VitD ; unable to recall meds other than pain pills...may be taking an antineo plastic Additional History: Breast CA...radiation/chemo; secondary malignant neoplasm of brain EXAM MEASUREMENTS: Bone mineral densitometry was performed using the [employer] System. Bone mineral density as measured about the Lumbar spine is: ----- L1-L4(G/cm2): 1.121 T Score Values are as follows: ----- L2: -0.4 ----- L3: 0.4 ----- L4: -0.9 ----- L1-L4: -0.5 Bone mineral density has: Decreased -0.9% since study of:06/20/2014 Bone mineral density about the R hip (g/cm2): 0.914 T Score values are as follows: -----R Neck: -0.9 -----R Total: -0.1 Bone mineral density has: Increased 2.1% since study of: 06/20/2014 IMPRESSION: No evidence for osteoporosis or osteopenia NOTE: T-SCORE=SD OF THE YOUNG ADULT MEAN.
== END | disposition home or self-care (01) ==
LOC: RADBDWWP 09:43
PROVIDERS: ATTEND Internal Medicine Hematology & Oncology
DX: C50.812 Malignant neoplasm of overlapping sites of left female breast (principal); N95.1 Menopausal and female climacteric states; Z88.0 Allergy status to penicillin; Z88.5 Allergy status to narcotic agent
CPT/HCPCS: 77080

== ENCOUNTER → 2018-02-17 | Outpatient (CLI) | payer BC ==
[2018-02-17 14:48] VITALS: PULSE 89; RESP 16
--- NOTE | 2018-02-19 21:57 | P.PAINPG ---
Subjective Progress Note Date: 02/17/18 Principal diagnosis: chest wall pain This is a very pleasant 57-year-old woman with a history of metastatic breast cancer. This includes brain metastasis. She has been in remission since August according to her report. I saw her a short time ago in the office related her left chest wall pain. I assessed her and believe she had significant myofascial components to this pain. I recommended she undergo injection therapy. She did this. She presents today complaining of worsening pain after this procedure. This includes paying down her arm on the left side. She reports her functional capacity has been reduced since the time of her injection procedure. She denies a problem with our bladder dysfunction. She denies any other radicular symptoms in her arms or legs. She is tearful and frustrated. She reports that her pain level did reduce after she had the procedure for a few hours. Then a few hours after the procedure she experienced the intense pain she is currently dealing with. It has been unremittingly since then. Objective - Vital Signs Vital signs: Vital Signs Temp Pulse 89 02/17/18 14:35 Resp 16 02/17/18 14:35 BP Pulse Ox - Exam General: patient is alert and oriented. She is upset. She is not sedated. She answered all questions appropriately. She appears at this appointment with her . HEENT: NCNT respiratory: no audible wheezes cardiac: regular in rate and rhythm abdomen: nontender nondistended chest: well healed scars consistent with previous surgical history. Tender to palpation over the pectoralis muscle. The area is not warm or reddened. Extremities: no clubbing cyanosis or edema musculoskeletal: the patient has a difficult time abducting her left shoulder. This appears due to discomfort. She also is globally weaker in her left arm. Much of this seems to be related to pain she experiences while activating these motor groups. Assessment and Plan (1) Chest wall pain following surgery Narrative/Plan: At this time, my working diagnosis is an inflammation from her procedure on top of her baseline pain. I advised patient to watch for signs or symptoms of any infection. Currently, none of these exist. I will discontinue the patient's [place] and start her on Percocet. Hopefully the stronger pain medication will help with her symptoms. I reviewed her mass report as well as her most recent urine drug screen. These reveal no unexpected results. I will also prescribe a Medrol Dosepak to help with her inflammation. She feels receive benefit from this treatment plan, we will order an EMG of her left upper extremity. Imaging might also be indicated that point time. Given the patient's previous history of breast cancer, one of my concerns in addition to complications related to the procedure would include Recurrence of metastatic disease. She will follow-up in our clinic in 2 to 3 weeks time. She is welcome to call us earlier if something in her clinical condition changes. Current Visit: Yes Status: Acute Code(s): R07.89 - OTHER CHEST PAIN; G89.18 - OTHER ACUTE POSTPROCEDURAL PAIN SNOMED Code(s): 068834740 (2) Myofascial pain syndrome Current Visit: Yes Status: Acute Code(s): M79.1 - MYALGIA SNOMED Code(s): 422037817 (3) Breast cancer, left breast Current Visit: No Status: Acute Code(s): C50.912 - MALIGNANT NEOPLASM OF UNSPECIFIED SITE OF LEFT FEMALE BREAST SNOMED Code(s): 855673839 PQRS Measure Charge Sheet Measure #130: Documentation of Current Meds in Medical Chart: Patient's medications documented in chart Measure #226: Tobacco Use: Screen & Cessation Intervention: Pt not a tobacco user Measure #111: Pneumonia Vaccination: Pneumococcal vaccine NOT administered or previously given Measure #47: Advance Care Plan: Advance care planning discussed & documented, pt chose/unable to give Measure #412: Opioid Treatment Agreement: Documented signed opioid trtmnt agreemnt min once during opioid trtmnt Measure #408: Opioid Therapy Follow-up Evaluation: Patient had f/u eval minimum every 3 months during opioid therapy Measure #317: Preventitive Care & Scrn High Bld Press & F/U: Normal blood pressure, f/u not required Measure #128: Body Mass Index (BMI) Screening & Follow-up: BMI documented within normal parameters Measure #131: Pain Assessment & Follow-up: Pain positive & plan documented Measure #431: Unhealthy Alcohol Use Preventative Care & Scrn: Patient not identified as an unhealthy alcohol user PQRS Narrative: Smoking Status Former smoker Do You Want the Pneumonia No Vaccine AT THIS TIME? Pain Intensity [Left Arm] 4 Pain Intensity [Left Chest] 9 Scale Used Numeric (1 - 10) Hx Alcohol Use (MH) No Home Medications: Ambulatory Orders Ibuprofen [Motrin] 200 - 400 mg PO Q4-6H PRN 01/05/17 Anastrozole [Arimidex] 1 mg PO DAILY 08/11/17 Cholecalciferol [Vitamin D3] 2,000 unit PO DAILY 08/12/17 Omeprazole [PriLOSEC] 40 mg PO DAILY 08/12/17 HYDROcodone/APAP 10-325MG [[place] 10-325] 1 tab PO Q6H PRN 12/30/17 methylPREDNISolone Dose Pack [Medrol Dose Pack] 4 mg PO DIRECTED 02/17/18 oxyCODONE-APAP 10-325MG [Percocet 10-325 mg] 1 tab PO Q8HR PRN 02/17/18 Controlled Substance Measures - Controlled Substance Measures Is patient prescribed a controlled substance at discharge?: Yes When asked, does pt state using other controlled substances?: No If Rx opioid, was Start Talking consent form obtained?: Yes
== END | disposition home or self-care (01) ==
LOC: PNWHC3 13:43
PROVIDERS: ATTEND Pain Medicine Pain Medicine
DX: R07.89 Other chest pain (principal); M79.1 Myalgia; C50.912 Malignant neoplasm of unspecified site of left female breast; Z87.891 Personal history of nicotine dependence; Z79.891 Long term (current) use of opiate analgesic; Z79.1 Long term (current) use of non-steroidal anti-inflammatories (NSAID); Z79.811 Long term (current) use of aromatase inhibitors
CPT/HCPCS: 99211

== ENCOUNTER → 2018-02-21 | Outpatient (CLI) | payer BC ==
--- NOTE | 2018-02-22 06:38 | MR ---
EXAMINATION TYPE: MR brain wo/w con DATE OF EXAM: 02/21/2018 COMPARISON: Prior MRI brain December 14, 2017. HISTORY: Metastatic breast cancer TECHNIQUE: Multiplanar, multisequence imaging of the brain and brainstem is performed without IV cont rast. FINDINGS: Current exam noted suboptimal as is degraded by patient motion. Diffusion weighted images demonstrate no evidence of a recent infarct or other diffusion abnormality. There is redemonstration of a irregular thick walled enhancing lateral right temporal lesion of T1 hy pointensity and slight T2 hyperintensity measuring approximately 4.1 x 1.9 cm axial image 27, stable or slightly smaller versus prior exam. Area shows surrounding T2 hyperintensity or suspected vasogeni c edema similar prior. Slightly more homogeneous enhancement inferiorly is redemonstrated. Superiorly there is redemonstration of dural enhancement or extension near axial images 35 through 38 similar t o the prior. No midline shift is seen currently. Slight ex vacuo dilatation of temporal horn right la teral ventricle near axial image 12 series 4 1 remains present without significant interval change. There is new vague area of enhancement difficult to accurately characterize due to motion artifact bu t is in region of fourth ventricle along right aspect axial image 22 correlating with sagittal postco ntrast image 41, this area appears isointense on T1 and T2-weighted images near level of the yecenia and cerebellar peduncle. There is believed extra-axial in nature. Cannot exclude new leptomeningeal focu s. The craniocervical junction appears within normal limits. Normal vascular flow voids are present. The visualized sinuses are clear and the globes are intact. IMPRESSION: Suspicious lateral right temporal region is grossly stable, residual tumor cannot be excl uded and is suspected as detailed above. New extra-axial leptomeningeal focus is suspected though the re is significant artifact degradation seen making evaluation suboptimal.
== END | disposition home or self-care (01) ==
LOC: RADMRIMAIN 15:52
PROVIDERS: ATTEND Radiology Radiation Oncology
DX: C79.31 Secondary malignant neoplasm of brain (principal)
CPT/HCPCS: 70553; A9581

== ENCOUNTER → 2018-02-26 | Outpatient (CLI) | payer BC ==
--- NOTE | 2018-02-26 17:30 | PE ---
EXAMINATION TYPE: PET CT fusion skull to thigh DATE OF EXAM: 02/26/2018 COMPARISON: CT chest abdomen and pelvis and bone scan October 08, 2017. HISTORY: Left-sided breast cancer diagnosed July 2016 completed chemotherapy February 2017 with radia tion to the head September 2017 due to metastatic disease . TECHNIQUE: Following the intravenous administration of 14.963 mCi of F-18 FDG, whole body images are performed from the skull base to the midthigh. Images are reviewed on the computer in the coronal, axial, and sagittal planes. Reconstructed rotating images are created on independent workstation and reviewed on the computer. A noncontrast CT is performed in conjunction with the PET scan. SCAN: Subsequent Scan ?? FINDINGS: SKULL BASE AND NECK: There appears to be asymmetric increased metabolic uptake lateral right tempora l region axial image 8 and 13 at sites of suspicious enhancement on recent MRI brain study. There are abnormal left supraclavicular hypermetabolic masses including largest superior anterior lat eral 2.3 x 1.6 cm lesion axial image 52 with max SUV of 24.92. CHEST, MEDIASTINUM, AND HILAR REGION: There is abnormal hypermetabolic right axillary lymph nodes or metastatic lesions, for reference inferior lesion measures 1.2 x 1.1 cm axial image 96 with max SUV o f 6.96. These are new from prior CT. There are multifocal abnormal areas of hypermetabolic uptake involving the left pleura, for reference curvilinear hypermetabolic lesion is seen at level of left T5 neural foramina measuring 2.1 x 1.1 cm on axial image 76 with max SUV of 20.28. Areas of involvement lateral left lung pleura are identifie d. There is involvement in the anterior chest wall with 1.3 x 0.8 cm hypermetabolic nodule axial imag e 102, max SUV is 5.28. There are abnormal hypermetabolic supraclavicular masses bilaterally, left greater than right. ABDOMEN AND PELVIS: There is new heterogeneous hypodense liver lesion axial image 120 measuring roug hly 4.6 cm long axis, max SUV is 15.8. There is abnormal metastatic mass or adenopathy anterior to right adrenal gland measuring 2.6 x 1.5 c m axial image 135 with max SUV of 16.44. There are prominent but subcentimeter hypermetabolic retroperitoneal lymph nodes near level of aorta axial image 152. Max SUV is 6.61 left periaortic level. OSSEOUS STRUCTURES: There is early new osseous metastatic disease, for reference there is sclerotic h ypermetabolic right proximal femur lesion axial image 233 with max SUV of 8.16. OTHER CT: Right temporal craniotomy changes are redemonstrated. There is persistent right internal jugular Mediport catheter. There is 4 mm calculus left kidney lower pole level axial image 145 redemonstrated. There is mild calcified plaque of aorta extending into branch vessels. Uterus is surgically absent. Scattered pelvic phleboliths are seen. There is sigmoid diverticulosis redemonstrated. IMPRESSION: Further marked progression from CT October 08 of diffuse metastatic disease as detailed above.
== END | disposition home or self-care (01) ==
LOC: RADPETMAIN 11:42
PROVIDERS: ATTEND Internal Medicine Hematology & Oncology
DX: C50.812 Malignant neoplasm of overlapping sites of left female breast (principal)
CPT/HCPCS: 78815; A9552

== ENCOUNTER 2018-02-28 08:00 | Day surgery (SDC) | payer BC ==
[2018-02-28 08:33] VITALS: RESP 20; TEMP 97.7
[2018-02-28 10:05] VITALS: BP 144/97; PULSE 85
--- NOTE | 2018-02-28 10:52 | US ---
EXAMINATION TYPE: US biopsy lymph node DATE OF EXAM: 02/28/2018 HISTORY: Left supraclavicular mass. FINDINGS: Maximal barrier technique was utilized. The skin overlying a suitable path to the patient' s mass was localized with ultrasound and the overlying skin prepped and draped. Ultrasound was utili zed with sterile technique. Lidocaine was used for local anesthesia. A skin pamela was made with a sc alpel. An 20-gauge needle was advanced under direct ultrasound guidance and core specimen obtained o f the mass. Specimen submitted in formalin to Pathology. Following the procedure, hemostasis achiev ed and the patient is discharged in stable condition without complication. IMPRESSION:STATUS POST ULTRASOUND GUIDED CORE BIOPSY OF left supraclavicular MASS, PATHOLOGY IS PENDI NG. THIS PROCEDURE IS PERFORMED BY THE UNDERSIGNED.
== END 2018-02-28 10:08 | disposition home or self-care (01) ==
LOC: RADPROMAIN 08:00
PROVIDERS: ATTEND Internal Medicine Hematology & Oncology
DX: C77.0 Secondary and unspecified malignant neoplasm of lymph nodes of head, face and neck (principal); C50.812 Malignant neoplasm of overlapping sites of left female breast; Z88.5 Allergy status to narcotic agent; Z88.0 Allergy status to penicillin
CPT/HCPCS: 38505; 76942; 88305; 88341; 88342

== ENCOUNTER → 2018-03-09 | Outpatient (CLI) | payer BC ==
[2018-03-09 15:31] VITALS: BP 145/98; PULSE 91
--- NOTE | 2018-03-09 15:46 | P.PN ---
Progress Note - Text Progress Note Date: 03/09/18 This is a very pleasant 57-year-old woman with a history of metastatic breast cancer. Patient has recurrence of cancer along the area of her previous metastatic breast cancer location. 2 months back she had a PEC block which reduced her pain on the day of the procedure however she did have complaints afterward of worsening pain in that area and also numbness and tingling down her left arm. She reports complete weakness in her left arm, states that she can even utilize it or even rest it straight down. She states that she has sharp shooting pain down her left arm to her fingers, also pain that radiates from the suprascapular area to her posterior scapular area. She had further workup to the causes of her recurrent left chest pain and an pain down her arm. She has a left supraclavicular mass that has been enlarging over the past few months. A biopsy was taken and was shown to be positive for cancer. Her signs and symptoms to correlate with compression of the supraclavicular nerve bundle. She was given a prescription for Percocet on her last visit and states that it helps with her pain overall. Also prescribe her Neurontin 300 mg 3 times a day to help the sharp shooting pain associated with compression of the supraclavicular nerve bundle. She denies any side effects of the medication Objective Vital signs reviewed and in EMR - Exam General: patient is alert and oriented. She is upset. She is not sedated. She answered all questions appropriately. She appears at this appointment with her . HEENT: NCNT respiratory: no audible wheezes cardiac: regular in rate and rhythm abdomen: nontender nondistended chest: well healed scars consistent with previous surgical history. Tender to palpation over the pectoralis muscle. The area is not warm or reddened. Extremities: no clubbing cyanosis or edema musculoskeletal: the patient has a difficult time abducting her left shoulder. Arm is in a sling This appears due to discomfort. She also is globally weaker in her left arm. Much of this seems to be related to pain she experiences while activating these motor groups. There is a large mass above her clavicle on her left Assessment and Plan (1) Chest wall pain following surgery Narrative/Plan: At this time, my working diagnosis is an inflammation from her procedure on top of her baseline pain. I advised patient to watch for signs or symptoms of any infection. Currently, none of these exist. I will discontinue the patient's [place] and start her on Percocet. Hopefully the stronger pain medication will help with her symptoms. I reviewed her mass report as well as her most recent urine drug screen. These reveal no unexpected results. I will also prescribe a Medrol Dosepak to help with her inflammation. She feels receive benefit from this treatment plan, we will order an EMG of her left upper extremity. Imaging might also be indicated that point time. Given the patient's previous history of breast cancer, one of my concerns in addition to complications related to the procedure would include Recurrence of metastatic disease. She will follow-up in our clinic in 2 to 3 weeks time. She is welcome to call us earlier if something in her clinical condition changes. Current Visit: Yes Status: Acute Code(s): R07.89 - OTHER CHEST PAIN; G89.18 - OTHER ACUTE POSTPROCEDURAL PAIN SNOMED Code(s): 297109285 (2) Myofascial pain syndrome Current Visit: Yes Status: Acute Code(s): M79.1 - MYALGIA SNOMED Code(s): 892335404 (3) Breast cancer, left breast Current Visit: No Status: Acute Code(s): C50.912 - MALIGNANT NEOPLASM OF UNSPECIFIED SITE OF LEFT FEMALE BREAST SNOMED Code(s): 497304368 PQRS Measure Charge Sheet Measure #130: Documentation of Current Meds in Medical Chart: Patient's medications documented in chart Measure #226: Tobacco Use: Screen & Cessation Intervention: Pt not a tobacco user Measure #111: Pneumonia Vaccination: Pneumococcal vaccine NOT administered or previously given Measure #47: Advance Care Plan: Advance care planning discussed & documented, pt chose/unable to give Measure #412: Opioid Treatment Agreement: Documented signed opioid trtmnt agreemnt min once during opioid trtmnt Measure #408: Opioid Therapy Follow-up Evaluation: Patient had f/u eval minimum every 3 months during opioid therapy Measure #317: Preventitive Care & Scrn High Bld Press & F/U: Normal blood pressure, f/u not required Measure #128: Body Mass Index (BMI) Screening & Follow-up: BMI documented within normal parameters Measure #131: Pain Assessment & Follow-up: Pain positive & plan documented Measure #431: Unhealthy Alcohol Use Preventative Care & Scrn: Patient not identified as an unhealthy alcohol user PQRS Narrative: Smoking Status Former smoker Do You Want the Pneumonia No Vaccine AT THIS TIME? Pain Intensity [Left Arm] 4 Pain Intensity [Left Chest] 9 Scale Used Numeric (1 - 10) Hx Alcohol Use (MH) No Home Medications: Ambulatory Orders Ibuprofen [Motrin] 200 - 400 mg PO Q4-6H PRN 01/05/17 Anastrozole [Arimidex] 1 mg PO DAILY 08/11/17 Cholecalciferol [Vitamin D3] 2,000 unit PO DAILY 08/12/17 Omeprazole [PriLOSEC] 40 mg PO DAILY 08/12/17 HYDROcodone/APAP 10-325MG [[place] 10-325] 1 tab PO Q6H PRN 12/30/17 methylPREDNISolone Dose Pack [Medrol Dose Pack] 4 mg PO DIRECTED 02/17/18 oxyCODONE-APAP 10-325MG [Percocet 10-325 mg] 1 tab PO Q8HR PRN 02/17/18 Controlled Substance Measures - Controlled Substance Measures Is patient prescribed a controlled substance at discharge?: Yes When asked, does pt state using other controlled substances?: No If Rx opioid, was Start Talking consent form obtained?: Yes
== END | disposition home or self-care (01) ==
LOC: PNWHC3 13:31
PROVIDERS: ATTEND Anesthesiology
DX: C50.912 Malignant neoplasm of unspecified site of left female breast (principal); R07.89 Other chest pain; M79.1 Myalgia; Z87.891 Personal history of nicotine dependence; Z79.1 Long term (current) use of non-steroidal anti-inflammatories (NSAID); Z79.811 Long term (current) use of aromatase inhibitors; Z79.899 Other long term (current) drug therapy; Z79.891 Long term (current) use of opiate analgesic
CPT/HCPCS: 99211

== ENCOUNTER → 2018-03-18 | Outpatient (CLI) | payer BC ==
--- NOTE | 2018-03-20 13:59 | MR ---
EXAMINATION TYPE: MR brain wo/w con DATE OF EXAM: 03/18/2018 COMPARISON: 02/21/2018 HISTORY: Prior brain tumor, Secondary malignant neoplasm of brain CONTRAST: Performed utilizing 7.5 mL intravenous Gadavist gadolinium contrast. TECHNIQUE: Multiplanar, multiecho imaging on a 3.0 Lola magnet is performed through the brain. Stud y is performed within 24 hours of arrival to the hospital. The craniovertebral junction is normal. The pituitary is normal. Diffusion-weighted imaging is performed. No abnormal hyperintensity is present to suggest an acute i ntracranial infarct or acute ischemic change. Within the anterior and lateral aspects of the right temporal lobe there is heterogenous increased si gnal on T2 and inversion recovery weighted sequences. This appears more confluent on T2 and FLAIR leesa ges. Postcontrast imaging is performed which has some mild enhancement through the inferior right tem poral lobe extending towards the anterior lateral aspect. An area of enhancement extending from the d istal right middle cerebral artery branches along the extra-axial space at the anterior lateral right temporal lobe measures approximately 1.1 x 2.8 cm. This is slightly longer than prior examination of normal though thickening has occurred over the interval. Previous masslike area which was irregular thick-walled enhancement more inferior to the dural area of enhancement just described is not identif ied. There appear to be postsurgical changes in this region. Previous right posterior lateral irregular enhancement to the yecenia is not identified on the current s tudy. Prior temporal craniotomy is evident. The temporal horn of the right lateral ventricle appears normal . Lateral ventricles are normal and symmetrical. Third ventricle is midline. Vascular structures exte nding towards this heterogenous signal area appear normal. Ventricles and sulci away from the right temporal lobe are appropriate for the patient age. There is mild prominence of sulci in the region of the abnormal signal within the right temporal lobe. IMPRESSIONS: 1. Essentially stable area of dural enhancement right temporal region. 2. Inferior lateral right temporal mass is not clearly identified. There is heterogenous signal in th is region felt to most likely be postsurgical change. Suspicious focal enhancement is not identified. Small amounts of residual metastasis be difficult to exclude. Continued monitoring is recommended.
== END | disposition home or self-care (01) ==
LOC: RADMRIMAIN 16:31
PROVIDERS: ATTEND Radiology Radiation Oncology
DX: R90.89 Other abnormal findings on diagnostic imaging of central nervous system (principal); C79.31 Secondary malignant neoplasm of brain; C50.412 Malignant neoplasm of upper-outer quadrant of left female breast; Z17.0 Estrogen receptor positive status [ER+]; Z90.12 Acquired absence of left breast and nipple
CPT/HCPCS: 70553; A9581

== ENCOUNTER 2018-04-06 10:37 | Inpatient (IN) | payer BC ==
[2018-04-06] MEDS ORDERED: SODIUM CHLORIDE 0.9% 500 ML IV STA (11:01)
[2018-04-06] MEDS ORDERED: HYDROmorphone 1 MG/ML 1 ML SYRINGE IVP STA (11:01)
[2018-04-06] MEDS ORDERED: ONDANSETRON 4 MG/2 ML VIAL IVP STA (11:01)
[2018-04-06] MEDS ORDERED: SODIUM CHLORIDE 0.9% 500 ML IV ONE (11:16)
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
[2018-04-06 11:26] LABS: Basophils % (A) 0 %; Eosinophils % (A) 1 %; HGB 18.3 gm/dL (11.4-16.0); Lymphocytes # (A) 0.3 k/uL (1.0-4.8); Lymphocytes % (A) 4 %; MCH 30.5 pg (25.0-35.0); MCHC 32.2 g/dL (31.0-37.0); MCV 94.9 fL (80.0-100.0); Mean Platelet Volume 6.8; Monocytes # (A) 0.1 k/uL (0-1.0); Monocytes % (A) 1 %; Neutrophils # (A) 7.1 k/uL (1.3-7.7); Neutrophils % (A) 94 %; Platelet Count 178 k/uL (150-450); RBC 5.99 m/uL (3.80-5.40); RDW 14.1 % (11.5-15.5); WBC 7.6 k/uL (3.8-10.6)
[2018-04-06 11:27] LABS: HCT 56.8 % (34.0-46.0)
[2018-04-06 11:28] LABS: ALT 164 U/L (9-52); AST 41 U/L (14-36); Alkaline Phosphatase 160 U/L (38-126); Amylase <30 U/L (30-110); Anion Gap 11 mmol/L; Blood Urea Nitrogen 22 mg/dL (7-17); Calcium 8.4 mg/dL (8.4-10.2); Carbon Dioxide 25 mmol/L (22-30); Chloride 99 mmol/L (98-107); Glucose 157 mg/dL (74-99); Lipase 15 U/L (23-300); Potassium 3.9 mmol/L (3.5-5.1); Sodium 135 mmol/L (137-145); Total Bilirubin 1.4 mg/dL (0.2-1.3); Total Protein 5.5 g/dL (6.3-8.2)
--- NOTE | 2018-04-06 11:48 | CT ---
EXAMINATION TYPE: CT abdomen pelvis w con DATE OF EXAM: 04/06/2018 COMPARISON: 11/05/2017 HISTORY: dehydration, constipation, breast CA CT DLP: 1158 mGycm CONTRAST: CT scan of the abdomen and pelvis is performed without Oral Contrast and with IV Contrast, patient in jected with 100 mL of Isovue 300. FINDINGS: LUNG BASES-: No visible nodule. No infiltrate. Pneumomediastinum. LIVER/GB: No calcified gallstones. Hepatic mass medial segment left hepatic lobe measuring 5.9 x 4.2 cm compatible with metastatic disea se. Additional new lesion within the dome of the liver measuring 1.4 cm and an adjacent nodule measur ing 2 cm. Biliary tree is of normal caliber. PANCREAS: No inflammation. No distinct mass. SPLEEN: No splenic enlargement. No lesion seen. ADRENALS: No nodule. No thickening. KIDNEYS/BLADDER: No hydronephrosis. No nephrolithiasis. Subcentimeter cyst lower pole left kidney. Urinary bladder grossly unremarkable. BOWEL: There is wall thickening at the rectosigmoid junction with extensive surrounding inflammatory change. There is abscess noted to the left of midline measuring 5.8 x 4.0 cm with internal foci of ai r. There is also air identified adjacent to the rectum and the cecum extending into the retroperitone um, about the left kidney and into the epigastric region. There is evidence of pneumomediastinum. SPE CT and additional smaller abscess adjacent to the sigmoid colon measuring 3.1 x 2.4 cm. Moderate feca l stasis. Small bowel is of normal caliber. GENITAL ORGANS: No gross abnormality. LYMPH NODES: No greater than 1cm abdominal or pelvic lymph nodes are appreciated. AORTA: No significant abnormality. OSSEOUS STRUCTURES: No significant abnormality is seen. OTHER: No significant additional abnormality is seen. IMPRESSION: 1. Suspect perforated diverticulitis at the rectosigmoid junction with adjacent dominant abscess and smaller superior abscess. There is perforation with air extending into the retroperitoneum with air dissection into the mediastinum. Perforated neoplasm is difficult to exclude. Correlate clinically. 2. New lesions within the liver are felt to reflect metastatic disease. Site of origin is difficult t o elucidate although the patient has a history of breast carcinoma. Colonic neoplasm additional possi bility.
[2018-04-06] MEDS ORDERED: LEVOFLOXACIN 750MG-D5W PMX 750 MG in DEXTROSE/WATER 1 150ML.BAG IVPB STA (12:23)
[2018-04-06] MEDS ORDERED: SODIUM CHLORIDE 0.9% 1,200 ML IV STA (12:32)
[2018-04-06 12:50] LABS: Appearance,Urine Clear (Clear); Bilirubin,Urine Negative (Negative); Blood,Urine Negative (Negative); Color,Urine Yellow; Glucose,Urine (UA) Negative (Negative); Ketones,Urine Negative (Negative); Leukocyte Esterase,Urine Negative (Negative); Nitrite,Urine Negative (Negative); PH, Urine 6.5 (5.0-8.0); Protein,Urine Trace (Negative)
[2018-04-06 13:19] LABS: Specific Gravity,Urine >1.050 (1.001-1.035)
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
[2018-04-06] MEDS ORDERED: IV FLUID CONTINUATION 1,000 ML IV ONE (15:41)
[2018-04-06] MEDS ORDERED: LACTATED RINGERS 1,000 ML IV ONE ×2 (15:50→16:12)
[2018-04-06] MEDS: ONDANSETRON 4 MG/2 ML VIAL IVP PRN (15:55)
[2018-04-06] MEDS ORDERED: SCOPOLAMINE 1.5MG/72HR PATCH TRANSDERM ONE (15:55)
[2018-04-06] MEDS ORDERED: fentaNYL (PF) 50 MCG/ML 2 ML AMP IVP ONE ×2 (16:17→16:28)
[2018-04-06] MEDS: HYDROmorphone 1 MG/ML 1 ML SYRINGE IVP ONE ×4 (20:45→21:15)
[2018-04-06] MEDS ORDERED: NALOXONE 0.4 MG/ML 1 ML VIAL IV PRN (20:49)
[2018-04-06] MEDS ORDERED: ACETAMINOPHEN IV (For NPO) 1,000 MG in EMPTY BAG 1 BAG IVPB ONE (20:49)
--- NOTE | 2018-04-06 21:13 | P.OP ---
Date of Procedure: 04/06/18 Description of Procedure: SURGEON: JACOB PEREZ MD PREOPERATIVE DIAGNOSES: 1. Perforated viscus 2. History of left breast cancer with metastases 3. New liver lesions suspicious for metastases 4. Chronic pain syndrome 5. History of recent chemoradiation 6. Gastro-esophageal reflux disease 7. Chronic constipation 8. Family history colon cancer POSTOPERATIVE DIAGNOSES: 1. Perforated viscus 2. History of left breast cancer with metastases 3. New liver lesions suspicious for metastases 4. Chronic pain syndrome 5. History of recent chemoradiation 6. Gastro-esophageal reflux disease 7. Chronic constipation 8. Family history colon cancer 9. Perforated mid to proximal rectum ANESTHESIA: General ESTIMATED BLOOD LOSS: 250 mL. SPECIMENS REMOVED: Sigmoid colon, aerobic and anaerobic culture pelvic abscess COMPLICATIONS: None. OPERATION: 1. Exploratory laparotomy with sigmoid resection for perforated proximal to mid rectum 2. Descending colostomy. 3. Devitalized rectal stump. 4. Fred's procedure for perforated rectum 5. Peritoneal lavage over 6 liters 6. Placement of intraabdominal #19 James drain along the right lower pelvis. 7. Placement of 25-cm PREVENA wound VAC system FINDINGS: 1. Perforated viscus along the mid to proximal rectum 2. Moderate stool found within the colon consistent with chronic constipation. 3. Moderate redundant sigmoid colon with contained olman stool content/abscess in the pelvis INDICATIONS: The patient is a 57-year-old female is currently undergoing chemoradiation. She is a personal history of positive results from left breast cancer. She regular sees her oncologist. She reports lysed by developing acute onset lower pelvic abdominal pain. Separately, she has a strong family history of colon cancer in her mother. Last colonoscopy was more than 5-10 years ago. She had additional studies including a CT of the abdomen and pelvis confirmed free air including on the retroperitoneum. Surgical intervention was described. All questions were answered and risks were reviewed with the patient including her at bedside. Informed consent was obtained. DESCRIPTION: Patient was brought to the operating room after moderate IV hydration. She was started on IV antibiotics as well. The patient was placed in supine position whereby general induction was performed. Abdomen had been prepped and draped in the standard sterile fashion with placement of nasogastric tube and Mendenhall catheter. Ioban draping was also placed to minimize any contamination to the skin. Next, using #10 blade, the abdomen was entered along the midline whereby an incision was made just above the umbilicus down to the pubis. The abdomen was inspected whereby the small bowel was unremarkable. The mesentery was also unremarkable. Moderate stool was palpated along the ascending transverse and descending colon. Separately, the liver surface was palpated and a unremarkable. No peritoneal studding was identified. No diverticular disease was found along the colon. Next, self-retaining [place] retractor was placed with a bladder blade. The descending colon and sigmoid colon was mobilized along the medial and lateral attachments with care to avoid any injury to the ureters along the usual anatomical landmarks. Carefully the sigmoid colon was identified and mobilized. The sigmoid colon was moderately redundant with a contained perforation just above the bladder deep into the pelvis. Using digital palpation and pocket was entered and olman stool was evacuated from the abdominal cavity. Moderate inflammation was found along the mesentery including of the bowel wall which was also thickened. The sigmoid colon was mobilized along the mesentery where a window was made along the mesentery and the colon was divided such that the descending colon was prepared for maturation of a colostomy. Next, the rest of the colon was mobilized down to the rectum. Just distal to the edematous changes of the mesenteric thickened bowel wall, along the sigmoid colon, the rectum was encountered. Perforation was confirmed along the mid to distal rectum. The colon was divided just proximal using [employer]ien End[employer] [place] 2 black radha and a contour stapler. The specimen was passed off. Hemostasis was checked with electro Bovie cautery including Enseal. To address the low perforation, the pocket was copiously irrigated with 6 L of normal saline solution. With these findings, a permanent colostomy was proposed. A round #19 drain was placed after tagging the rectal stump using 0 Prolene. The perforated site was addressed with placement of drain. Next, attention was brought to the delivering and creating of the descending colostomy. A point along the abdominal wall and rectus muscle was selected for the colostomy. Lin was used to elevate the skin and a #10 blade was taken across in tangential manner to create the skin defect of approximately quarter-size. The fat of the skin was mobilized using a small rich. The rectus muscle was identified and scored with a cruciate scoring of electro- Bovie cautery. Next, using a muscle-splitting technique with a hemostat, the peritoneum was entered. The peritoneum was widened such that 2 fingerbreadths could easily pass for delivering and evaginating the descending portion of the colon through the skin. The abdominal cavity was copiously irrigated as described until completely clear. Round number #19 James drain was entered along the right lower abdomen and exited through the skin. The drain was placed along the pelvis as all irrigation fluid was accounted for. Next, the EDISON drain was tacked along the skin using a 2-0 nylon. The midline incision was closed using double-stranded 0 PDS. Next, the subcutaneous tissue was copiously irrigated with normal saline and hydrogen peroxide. About the umbilicus interrupted 3-0 Vicryl dermal sutures were placed as to avoid any radha around the umbilicus. For the rest of the incision, stainless steel skin radha were applied. The midline incision was covered using PREVENA wound VAC and attention was brought to maturation of the colostomy. The staple edge was divided and removed. Next quadrant sutures at 12 o'clock, 3 o'clock, 6 o'clock, and 9 o'clock position was made using serosa, mucosal and dermal bites using 2-0 Vicryl. Interrupted 3-0 Vicryl was placed in between all quadrants sutures to completely mature the ostomy. Hemostasis was checked. A Coloplast was then placed. At the end of the procedure, needle, sponge, and instrument count had been verified correct by cardiovascular surgical tech. The patient's family was updated on level of care.
[2018-04-06 22:04] VITALS: BMI 25.2
[2018-04-06] MEDS: HYDROmorphone 1 MG/ML 1 ML SYRINGE IVP PRN (22:08)
[2018-04-06] MEDS: KETOROLAC 30 MG/ML 1 ML VIAL IVP SCH (22:18)
[2018-04-06] MEDS: SODIUM CHLORIDE 0.9% 1,000 ML IV SCH ×2 (22:18→22:28)
[2018-04-06] MEDS: D5-0.45% NACL WITH KCL 20MEQ/L 1,000 ML IV SCH (22:19)
[2018-04-06] MEDS: metroNIDAZOLE-NS PMX 500 MG in SALINE 1 100ML.BAG IVPB SCH (23:10)
[2018-04-07] MEDS: HYDROmorphone 1 MG/ML 1 ML SYRINGE IVP PRN ×2 (01:34→05:30)
[2018-04-07] MEDS: KETOROLAC 30 MG/ML 1 ML VIAL IVP SCH ×4 (03:11→21:33)
[2018-04-07] MEDS: metroNIDAZOLE-NS PMX 500 MG in SALINE 1 100ML.BAG IVPB SCH ×3 (05:27→21:35)
[2018-04-07 07:12] LABS: Basophils % (A) 0 %; Eosinophils % (A) 0 %; HCT 43.8 % (34.0-46.0); Lymphocytes # (A) 0.2 k/uL (1.0-4.8); Lymphocytes % (A) 4 %; MCH 31.4 pg (25.0-35.0); MCHC 33.5 g/dL (31.0-37.0); MCV 93.8 fL (80.0-100.0); Mean Platelet Volume 7.3; Monocytes # (A) 0.1 k/uL (0-1.0); Monocytes % (A) 1 %; Neutrophils # (A) 4.2 k/uL (1.3-7.7); Neutrophils % (A) 94 %; Platelet Count 129 k/uL (150-450); RBC 4.67 m/uL (3.80-5.40); RDW 13.7 % (11.5-15.5); WBC 4.5 k/uL (3.8-10.6)
[2018-04-07 07:15] LABS: HGB 14.7 gm/dL (11.4-16.0)
[2018-04-07 07:31] LABS: Anion Gap 4 mmol/L; Blood Urea Nitrogen 16 mg/dL (7-17); Calcium 6.6 mg/dL (8.4-10.2); Carbon Dioxide 25 mmol/L (22-30); Chloride 106 mmol/L (98-107); Glucose 132 mg/dL (74-99); Magnesium 1.9 mg/dL (1.6-2.3); Phosphorus 1.9 mg/dL (2.5-4.5); Potassium 3.8 mmol/L (3.5-5.1); Sodium 135 mmol/L (137-145)
[2018-04-07] MEDS: SODIUM CHLORIDE 0.9% 1,000 ML IV SCH ×3 (08:14→22:59)
[2018-04-07] MEDS: D5-0.45% NACL WITH KCL 20MEQ/L 1,000 ML IV SCH ×2 (08:16→21:35)
[2018-04-07] MEDS: PANTOPRAZOLE 40 MG/10 ML VIAL IVP SCH (08:19)
[2018-04-07] MEDS: ENOXAPARIN 40 MG/0.4 ML SYRINGE SQ SCH (08:19)
[2018-04-07] MEDS: LEVOFLOXACIN 500MG-D5W PMX 500 MG in DEXTROSE/WATER 1 100ML.BAG IVPB SCH (08:28)
[2018-04-07] MEDS ORDERED: SODIUM CHLORIDE 0.9% 1,000 ML IV ONE (13:08)
[2018-04-07] MEDS ORDERED: Phosphorus Replacement Protoco 1 EACH MISC MISCELLANE PRN (13:34)
--- NOTE | 2018-04-07 13:49 | P.PN ---
Subjective Progress Note Date: 04/07/18 57-year-old female who presented to the emergency room after she had some blood work completed at the [facility] secondary to history of breast cancer. Apparently, the patient told the staff she was having a lot of abdominal pain. She was referred to the emergency room for further evaluation. The patient states she has been having abdominal pain for about seven days. Reports constipation. She states her appetite has been good but has been experiencing some nausea. Denies emesis. Denies shortness of breath or cough. Denies chest pain or pressure. Denies fever or chills. The patient has a history of left breast cancer with mastectomy. She underwent chemo and radiation. She also has a history of GERD and osteoarthritis. The patient is a former cigarette smoker and quit smoking in 2016. CT abdomen and pelvis: suspect perforated diverticulitis at the rectosigmoid junction with adjacent dominant abscess and smaller superior abscess. There is perforation with air extending into the retroperitoneum with dissection into the mediastinum. Perforated neoplasm is difficult to exclude. New lesions within the liver are felt to reflect metastatic disease. Laboratory data upon admission reveals white count of 7.6. Hemoglobin 18.3. Platelet count 178. Sodium 135. Potassium 3.9. BUN 22. Creatinine 0.96. Glucose 154. total bilirubin 1.4. AST 41. ALT 164. Alkaline phosphatase 160. Amylase less than 30. Lipase 15. Lactic acid 4.2. The patient was admitted to the hospital under the care of Dr. Angel. Consultations were placed to Dr. Yates, who was present at the bedside as well. Patient is scheduled for exploratory laparotomy with colostomy and possible liver biopsy this afternoon. 04/07/2018 Patient seen and examined at the bedside on rounds with Dr. Angel. Patient underwent exploratory laparotomy with sigmoid resection secondary to perforated rectum with creation of colostomy. Pathology pending. Patient has NG tube intact to LIS. Patient tolerating ice chips. Xiong intact. EDISON drain to right lower quadrant with serosanguineous drainage noted. Prevena wound vac to surgical site. Colostomy with small amount of soft brown stool noted. Patient states her pain is tolerable at this time. Denies nausea. Denies shortness of breath. Denies chest pain. Objective - Vital Signs Vital signs: Vital Signs Temp 97.9 F 04/07/18 08:30 Pulse 100 04/07/18 08:30 Resp 16 04/07/18 08:30 BP 110/77 04/07/18 08:30 Pulse Ox 95 04/07/18 08:30 Intake & Output 04/06/18 04/07/18 04/07/18 18:59 06:59 18:59 Intake Total 1400 250 100 Output Total 800 Balance 1400 -550 100 Weight 68.946 kg Intake: IV 1400 Intake, IV Titration 250 100 Amount Levofloxacin 500Mg-D5w 100 Pmx 500 mg In Dextrose/ Water 1 100ml.bag @ 100 mls/hr IVPB Q24HR [facility] Rx# :[id number] Sodium Chloride 0.9% 1, 250 000 ml @ 125 mls/hr IV . Q8H [facility] Rx#:[id number] Output: Drainage 50 Abdomen 50 Urine 500 Estimated Blood Loss 250 Other: Voiding Method Indwelling Catheter Indwelling Catheter - Exam GENERAL: This is a 57-year-old female in no apparent distress at the time of examination. Pleasant and cooperative. HEENT: NG tube intact to low intermittent suction. Head is atraumatic, normocephalic. Pupils are equal, round, and reactive to light. Sclerae anicteric. Conjunctivae are clear. Mucus membranes of the mouth are moist. Neck is supple. RESPIRATORY: Clear to ausculation. No wheezes, rales, or rhonchi. No use of accessory muscles. Patient maintaining oxygen saturation greater than 92%. No chest wall tenderness is noted on palpation or with deep breathing. CARDIOVASCULAR: Regular rate and rhythm. S1 and S2 noted. No systolic or diastolic murmur auscultated. No JVD noted. No S3 or S4 noted. GASTROINTESTINAL/: Hypoactive bowel sounds auscultated. Colostomy with small amount of soft brown stool noted. NG to low intermittent suction. EDISON drain to right lower quadrant with serosanguineous drainage. Prevena wound vac to midline. Xiong intact. INTEGUMENTARY: No cyanosis. No jaundice. No rashes noted. No cellulitis noted. EXTREMITIES: 2+ peripheral pulses. No evidence of peripheral edema. No calf tenderness noted. NEUROLOGIC: Cranial nerves II-XII intact. PSYCHIATRIC: Awake, alert, and oriented X 3. Appropriate affect. Intact judgement and insight. - Labs CBC & Chem 7: 04/07/18 06:26 08/23/18 06:26 Labs: Abnormal Lab Results - Last 24 Hours (Table) 04/06/18 04/06/18 04/06/18 Range/Units 10:50 10:50 11:50 RBC 5.99 H (3.80-5.40) m/uL Hgb 18.3 H (11.4-16.0) gm/dL Hct 56.8 H (34.0-46.0) % Plt Count (150-450) k/uL Lymphocytes # 0.3 L (1.0-4.8) k/uL Sodium 135 L (137-145) mmol/L BUN 22 H (7-17) mg/dL Glucose 157 H (74-99) mg/dL Plasma Lactic Acid Angel 4.2 H* (0.7-2.0) mmol/L Calcium (8.4-10.2) mg/dL Phosphorus (2.5-4.5) mg/dL Total Bilirubin 1.4 H (0.2-1.3) mg/dL AST 41 H (14-36) U/L ALT 164 H (9-52) U/L Alkaline Phosphatase 160 H (38-126) U/L Total Protein 5.5 L (6.3-8.2) g/dL Albumin 3.0 L (3.5-5.0) g/dL Amylase <30 L (30-110) U/L Lipase 15 L (23-300) U/L Ur Specific [place] (1.001-1.035) Urine Protein (Negative) 04/06/18 04/07/18 04/07/18 Range/Units 12:35 06:26 06:26 RBC (3.80-5.40) m/uL Hgb (11.4-16.0) gm/dL Hct (34.0-46.0) % Plt Count 129 L (150-450) k/uL Lymphocytes # 0.2 L (1.0-4.8) k/uL Sodium 135 L (137-145) mmol/L BUN (7-17) mg/dL Glucose 132 H (74-99) mg/dL Plasma Lactic Acid Angel (0.7-2.0) mmol/L Calcium 6.6 L (8.4-10.2) mg/dL Phosphorus 1.9 L (2.5-4.5) mg/dL Total Bilirubin (0.2-1.3) mg/dL AST (14-36) U/L ALT (9-52) U/L Alkaline Phosphatase (38-126) U/L Total Protein (6.3-8.2) g/dL Albumin (3.5-5.0) g/dL Amylase (30-110) U/L Lipase (23-300) U/L Ur Specific [place] >1.050 H (1.001-1.035) Urine Protein Trace H (Negative) Microbiology - Last 24 Hours (Table) 04/06/18 19:19 Gram Stain - Preliminary Other - Other Wound Culture - Preliminary 04/06/18 19:19 Anaerobic Culture - Preliminary Other - Other Assessment and Plan Plan: ASSESSMENT: Perforated bowel at the rectosigmoid junction with adjacent abscess, possible neoplasm, s/p exploratory laparotomy with sigmoid resection secondary to perforated rectum with creation of colostomy Lactic acidosis and sepsis, present on admission, secondary to above, improving Metastatic lesions to the liver, pt to follow up outpatient with oncology History of left breast cancer with mastectomy, chemotherapy, and radiation Gastroesophageal reflux disease Osteoarthritis History of nicotine dependence, patient quit smoking in 2015 PLAN: [place] on consult. Consult appreciated. NPO except for ice chips and popsicles per surgery. Hold home meds at this time. Patient to follow up with oncology outpatient regarding metastatic liver lesions Ostomy nurse on consult Continue xiong until patient is ambulatory or until discontinued per surgery Pain control Monitor labs Replace phosphorus per protocol GI prophylaxis: Protonix 40 mg IV daily DVT prophylaxis: SCDs to bilateral LE and Lovenox 40mg sq daily Monitor vital signs and address as appropriate Discharge planning: Patient to return home when stable Further recommendations pending patient's course Nurse practitioner note has been reviewed by physician. Signing provider agrees with the documented findings, assessment, and plan of care.
[2018-04-07] MEDS: POTASSIUM PHOSPHATE 10 MMOL in SODIUM CHLORIDE 0.9% 100 ML IV SCH ×2 (15:27→18:03)
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
--- NOTE | 2018-04-07 17:49 | P.PN ---
Subjective Progress Note Date: 04/07/18 The patient is status post exploratory laparotomy including permanent descending colostomy due to perforated rectum, postoperative day 1. She is doing remarkably well. She has stool in ostomy. Her pain is controlled. She is tolerating ice chips. She is ambulating. She does have baseline confusion. I had the opportunity to speak to the patient's over the phone. Objective - Vital Signs Vital signs: Vital Signs Temp 98.4 F 04/07/18 15:00 Pulse 66 04/07/18 15:00 Resp 16 04/07/18 15:00 BP 113/76 04/07/18 15:00 Pulse Ox 93 L 04/07/18 15:00 Intake & Output 04/06/18 04/07/18 04/07/18 18:59 06:59 18:59 Intake Total 1400 250 100 Output Total 800 10 Balance 1400 -550 90 Weight 68.946 kg Intake: IV 1400 Intake, IV Titration 250 100 Amount Levofloxacin 500Mg-D5w 100 Pmx 500 mg In Dextrose/ Water 1 100ml.bag @ 100 mls/hr IVPB Q24HR [facility] Rx# :[id number] Sodium Chloride 0.9% 1, 250 000 ml @ 125 mls/hr IV . Q8H [facility] Rx#:[id number] Output: Drainage 50 10 Abdomen 50 10 Urine 500 Estimated Blood Loss 250 Other: Voiding Method Indwelling Catheter Indwelling Catheter - Exam GENERAL: Well developed and in no acute distress. Pleasant. HEENT: No sclera icterus. Extraocular movements grossly intact. Moist buccal mucosa. Head is atraumatic, normocephalic. Hears conversational speech. No nasal drainage. NECK: Supple without lymphadenopathy. CHEST: Non-labored respirations and equal bilateral excursions. CARDIOVASCULAR: Regular rate and rhythm. Palpable 2+ radial pulses. ABDOMEN: Soft, nondistended. Improved midline incisional pain compared to yesterday. Ostomy pink patent functioning at the left lower quadrant with stool. Minimal flatus in Coloplast. Ostomy nurse present during assessment. MUSCULOSKELETAL: No clubbing, cyanosis or edema. NEUROLOGIC: No focal or lateralizing signs. : Clear urine. Mendenhall catheter present PSYCH: Appropriate affect. Alert and oriented to person. SKIN: Good skin turgor. Well perfused. - Labs CBC & Chem 7: 04/07/18 06:26 04/07/18 06:26 Labs: Abnormal Lab Results - Last 24 Hours (Table) 04/07/18 04/07/18 Range/Units 06:26 06:26 Plt Count 129 L (150-450) k/uL Lymphocytes # 0.2 L (1.0-4.8) k/uL Sodium 135 L (137-145) mmol/L Glucose 132 H (74-99) mg/dL Calcium 6.6 L (8.4-10.2) mg/dL Phosphorus 1.9 L (2.5-4.5) mg/dL Microbiology - Last 24 Hours (Table) 04/06/18 19:19 Gram Stain - Preliminary Other - Other Wound Culture - Preliminary 04/06/18 19:19 Anaerobic Culture - Preliminary Other - Other Assessment and Plan (1) Intra-abdominal abscess Current Visit: Yes Status: Acute Code(s): K65.1 - PERITONEAL ABSCESS SNOMED Code(s): 86311119 (2) Metastatic cancer to liver Current Visit: Yes Status: Acute Code(s): C78.7 - SECONDARY MALIG NEOPLASM OF LIVER AND INTRAHEPATIC BILE DUCT SNOMED Code(s): 47757569 (3) Perforated bowel Current Visit: Yes Status: Acute Code(s): K63.1 - PERFORATION OF INTESTINE ( NONTRAUMATIC) SNOMED Code(s): 24835639 (4) Breast cancer, left breast Current Visit: No Status: Acute Code(s): C50.912 - MALIGNANT NEOPLASM OF UNSPECIFIED SITE OF LEFT FEMALE BREAST SNOMED Code(s): 832023128 Plan: 1. NG tube discontinued at bedside. 2. Clear liquid diet. 3. Plan for ostomy change including dressing change on Wednesday, postoperative day 4 4. Discontinue Mendenhall in the morning 5. Potentially cleared for discharge by surgery by Wednesday/Wednesday
[2018-04-08] MEDS: metroNIDAZOLE-NS PMX 500 MG in SALINE 1 100ML.BAG IVPB SCH ×5 (01:45→23:13)
[2018-04-08] MEDS: D5-0.45% NACL WITH KCL 20MEQ/L 1,000 ML IV SCH (04:01)
[2018-04-08] MEDS: KETOROLAC 30 MG/ML 1 ML VIAL IVP SCH ×3 (04:03→15:53)
[2018-04-08] MEDS: ONDANSETRON 4 MG/2 ML VIAL IVP PRN ×2 (04:10→23:22)
[2018-04-08 07:57] LABS: Basophils % (A) 0 %; Eosinophils % (A) 0 %; HCT 41.2 % (34.0-46.0); HGB 13.2 gm/dL (11.4-16.0); Lymphocytes # (A) 0.2 k/uL (1.0-4.8); Lymphocytes % (A) 4 %; MCV 93.9 fL (80.0-100.0); Mean Platelet Volume 6.7; Monocytes # (A) 0.1 k/uL (0-1.0); Monocytes % (A) 2 %; Neutrophils # (A) 3.5 k/uL (1.3-7.7); Neutrophils % (A) 93 %; Platelet Count 112 k/uL (150-450); RBC 4.38 m/uL (3.80-5.40); RDW 14.2 % (11.5-15.5); WBC 3.8 k/uL (3.8-10.6)
[2018-04-08] MEDS: SODIUM CHLORIDE 0.9% 1,000 ML IV SCH (08:11)
[2018-04-08 08:40] LABS: Anion Gap 6 mmol/L; Blood Urea Nitrogen 15 mg/dL (7-17); Carbon Dioxide 20 mmol/L (22-30); Chloride 107 mmol/L (98-107); Glucose 105 mg/dL (74-99); Potassium 3.6 mmol/L (3.5-5.1); Sodium 133 mmol/L (137-145)
[2018-04-08] MEDS ORDERED: MAG HYDROX/AL HYDROX/SIMETH 30 ML CUP PO PRN (08:49)
[2018-04-08 08:50] LABS: Calcium 6.3 mg/dL (8.4-10.2)
[2018-04-08] MEDS: LEVOFLOXACIN 500MG-D5W PMX 500 MG in DEXTROSE/WATER 1 100ML.BAG IVPB SCH (09:06)
[2018-04-08] MEDS: ENOXAPARIN 40 MG/0.4 ML SYRINGE SQ SCH (09:06)
[2018-04-08] MEDS: PANTOPRAZOLE 40 MG/10 ML VIAL IVP SCH (09:07)
[2018-04-08] MEDS: ANASTROZOLE 1 MG TAB PO SCH (09:07)
[2018-04-08 10:41] LABS: Albumin 1.9 g/dL (3.5-5.0); Magnesium 1.9 mg/dL (1.6-2.3)
[2018-04-08 11:04] LABS: Phosphorus 1.1 mg/dL (2.5-4.5)
[2018-04-08 11:24] LABS: Ionized Calcium 4.1 mg/dL (4.5-5.3)
[2018-04-08] MEDS: POTASSIUM PHOSPHATE 10 MMOL in SODIUM CHLORIDE 0.9% 250 ML IV SCH ×3 (11:37→15:53)
[2018-04-08] MEDS ORDERED: CALCIUM GLUCONATE 1,000 MG in SODIUM CHLORIDE 0.9% 100 ML IVPB ONE (12:00)
[2018-04-08] MEDS: DEXTROSE 5%-LACTATED RINGERS 1,000 ML IV SCH ×2 (12:41→20:24)
--- NOTE | 2018-04-08 12:42 | P.PN ---
Subjective Progress Note Date: 04/08/18 57-year-old female who presented to the emergency room after she had some blood work completed at the [facility] secondary to history of breast cancer. Apparently, the patient told the staff she was having a lot of abdominal pain. She was referred to the emergency room for further evaluation. The patient states she has been having abdominal pain for about seven days. Reports constipation. She states her appetite has been good but has been experiencing some nausea. Denies emesis. Denies shortness of breath or cough. Denies chest pain or pressure. Denies fever or chills. The patient has a history of left breast cancer with mastectomy. She underwent chemo and radiation. She also has a history of GERD and osteoarthritis. The patient is a former cigarette smoker and quit smoking in 2016. CT abdomen and pelvis: suspect perforated diverticulitis at the rectosigmoid junction with adjacent dominant abscess and smaller superior abscess. There is perforation with air extending into the retroperitoneum with dissection into the mediastinum. Perforated neoplasm is difficult to exclude. New lesions within the liver are felt to reflect metastatic disease. Laboratory data upon admission reveals white count of 7.6. Hemoglobin 18.3. Platelet count 178. Sodium 135. Potassium 3.9. BUN 22. Creatinine 0.96. Glucose 154. total bilirubin 1.4. AST 41. ALT 164. Alkaline phosphatase 160. Amylase less than 30. Lipase 15. Lactic acid 4.2. The patient was admitted to the hospital under the care of Dr. Angel. Consultations were placed to Dr. Yates, who was present at the bedside as well. Patient is scheduled for exploratory laparotomy with colostomy and possible liver biopsy this afternoon. 04/07/2018 Patient seen and examined at the bedside on rounds with Dr. Angel. Patient underwent exploratory laparotomy with sigmoid resection secondary to perforated rectum with creation of colostomy. Pathology pending. Patient has NG tube intact to LIS. Patient tolerating ice chips. Mendenhall intact. EDISON drain to right lower quadrant with serosanguineous drainage noted. Prevena wound vac to surgical site. Colostomy with small amount of soft brown stool noted. Patient states her pain is tolerable at this time. Denies nausea. Denies shortness of breath. Denies chest pain. 04/08/2018 Patient seen and examined at the bedside. Patient is awake and alert. Patient reports her pain is controlled. Urinary catheter was discontinued this morning. Patient is due to void. NG tube was discontinued yesterday evening. Patient c/o heartburn after eating a purple popsicle. Denies nausea or vomiting. Prevena wound vac intact. EDISON drain to RLQ intact. Patient reports she was running a fever last night, but per nursing documentation patient has been afebrile. Objective - Vital Signs Vital signs: Vital Signs Temp 97.7 F 04/08/18 01:31 Pulse 94 04/08/18 01:31 Resp 18 04/08/18 01:31 BP 145/93 04/08/18 01:31 Pulse Ox 94 L 04/08/18 01:31 Intake & Output 04/07/18 04/08/18 04/08/18 18:59 06:59 18:59 Intake Total 100 800 Output Total 10 820 500 Balance 90 -20 -500 Intake: Intake, IV Titration 100 800 Amount D5-0.45% NaCl with KCl 800 20Meq/l 1,000 ml @ 100 mls/hr IV .Q10H [facility] Rx#: [id number] Levofloxacin 500Mg-D5w 100 Pmx 500 mg In Dextrose/ Water 1 100ml.bag @ 100 mls/hr IVPB Q[facility]HR [facility] Rx# :[id number] Output: Drainage 10 20 Abdomen 10 20 Urine 800 500 Uretheral (Mendenhall) 500 Other: Voiding Method Indwelling Catheter Indwelling Catheter - Exam GENERAL: This is a 57-year-old female in no apparent distress at the time of examination. Pleasant and cooperative. HEENT: Head is atraumatic, normocephalic. Pupils are equal, round, and reactive to light. Sclerae anicteric. Conjunctivae are clear. Mucus membranes of the mouth are moist. Neck is supple. RESPIRATORY: Clear to ausculation. No wheezes, rales, or rhonchi. No use of accessory muscles. Patient maintaining oxygen saturation greater than 92%. No chest wall tenderness is noted on palpation or with deep breathing. CARDIOVASCULAR: Regular rate and rhythm. S1 and S2 noted. No systolic or diastolic murmur auscultated. No JVD noted. No S3 or S4 noted. GASTROINTESTINAL/: Bowel sounds auscultated x 4 quadrants. Colostomy with small amount of soft brown stool noted. EDISON drain to right lower quadrant with serosanguineous drainage. Prevena wound vac to midline. Mendenhall intact. INTEGUMENTARY: No cyanosis. No jaundice. No rashes noted. No cellulitis noted. EXTREMITIES: 2+ peripheral pulses. No evidence of peripheral edema. No calf tenderness noted. NEUROLOGIC: Cranial nerves II-XII intact. PSYCHIATRIC: Awake, alert, and oriented X 3. Appropriate affect. Intact judgement and insight. - Labs CBC & Chem 7: 04/08/18 07:22 04/08/18 07:22 Labs: Abnormal Lab Results - Last 24 Hours (Table) 04/08/18 Range/Units 07:22 Plt Count 112 L (150-450) k/uL Lymphocytes # 0.2 L (1.0-4.8) k/uL Microbiology - Last 24 Hours (Table) 04/06/18 19:19 Gram Stain - Preliminary Other - Other Wound Culture - Preliminary Gram Neg Bacilli Assessment and Plan Plan: ASSESSMENT: Perforated bowel at the rectosigmoid junction with adjacent abscess, s/p exploratory laparotomy with sigmoid resection secondary to perforated rectum with creation of permanent colostomy Lactic acidosis and sepsis, present on admission, secondary to above, improving Metastatic lesions to the liver, pt to follow up outpatient with oncology History of left breast cancer with mastectomy, chemotherapy, and radiation Gastroesophageal reflux disease Osteoarthritis History of nicotine dependence, patient quit smoking in 2016 Hypocalcemia Hypophosphatemia Hypoalbuminemia Mild hyponatremia PLAN: Dr. Yates on consult. Consult appreciated. Continue clear liquid diet. Advance per surgery. Patient to follow up with oncology outpatient regarding metastatic liver lesions Patient may continue Arimidex, but hold Ibrance per oncology Ostomy nurse on consult Replace phosphorus 1 g calcium gluconate x 1 Change IV fluids to D5LR at 100cc/hr Consult dietitian to evaluate. Recommend protein supplements Pain control Monitor labs GI prophylaxis: Protonix 40 mg IV daily DVT prophylaxis: SCDs to bilateral LE and Lovenox 40mg sq daily Monitor vital signs and address as appropriate Discharge planning: Patient to return home when stable Further recommendations pending patient's course Nurse practitioner note has been reviewed by physician. Signing provider agrees with the documented findings, assessment, and plan of care.
[2018-04-08] MEDS: NYSTATIN 100,000 UNIT/ML SUSP 500,000 UNIT/5 ML CUP PO SCH ×3 (13:45→20:23)
[2018-04-08] MEDS ORDERED: PANTOPRAZOLE 40 MG/10 ML VIAL IVP SCH (13:45)
--- NOTE | 2018-04-08 13:52 | P.PN ---
<Peggy Nguyenne M - Last Filed: 04/08/18 13:52> Subjective Progress Note Date: 04/08/18 57 show female seen on rounds current resting comfortably in bed states pain medication effective for pain control chief complaint heartburn sensation states taking the Maalox helps but it still elena and hurts to swallow has been ongoing for the past several days states urinating no difficulty. States no nausea no vomiting and tolerating a clear liquid diet Status post April 08 Fred procedure for perforated rectum, exploratory laparotomy with sigmoid resection for perforated proximal to mid rectum placement prevena wound VAC system for perforated viscus. Objective - Vital Signs Vital signs: Vital Signs Temp 98.7 F 04/08/18 07:10 Pulse 98 04/08/18 07:10 Resp 18 04/08/18 07:10 BP 153/101 04/08/18 07:10 Pulse Ox 94 L 04/08/18 07:10 Intake & Output 04/07/18 04/08/18 04/08/18 18:59 06:59 18:59 Intake Total 100 800 240 Output Total 10 820 500 Balance 90 -20 -260 Intake: Intake, IV Titration 100 800 Amount D5-0.45% NaCl with KCl 800 20Meq/l 1,000 ml @ 100 mls/hr IV .Q10H [facility] Rx#: [id number] Levofloxacin 500Mg-D5w 100 Pmx 500 mg In Dextrose/ Water 1 100ml.bag @ 100 mls/hr IVPB Q24HR [facility] Rx# :[id number] Oral 240 Output: Drainage 10 20 Abdomen 10 20 Urine 800 500 Uretheral (Mendenhall) 500 Other: Voiding Method Indwelling Catheter Indwelling Catheter Indwelling Catheter - Exam Physical exam 57-year-old female resting in bed states has been up ambulating 3 times this morning Lungs adequate air movement bilaterally room air Heart S1-S2 audible regular no murmur Abdomen surgical dressing site dry. Ostomy left lower quadrant scant amount of brown liquid stool noted surgical dressing dry tolerating clear liquid diet prevena system in place with a EDISON drain nondistended surgical tenderness appropriate Extremities no edema noted - Labs CBC & Chem 7: 04/08/18 07:22 04/08/18 07:22 Labs: Abnormal Lab Results - Last 24 Hours (Table) 04/08/18 04/08/18 04/08/18 Range/Units 07:22 07:22 09:45 Plt Count 112 L (150-450) k/uL Lymphocytes # 0.2 L (1.0-4.8) k/uL Sodium 133 L (137-145) mmol/L Carbon Dioxide 20 L (22-30) mmol/L Creatinine 0.48 L (0.52-1.04) mg/dL Glucose 105 H (74-99) mg/dL Calcium 6.3 L* (8.4-10.2) mg/dL Ionized Calcium Jolynn 4.1 L (4.5-5.3) mg/dL Phosphorus 1.1 L* (2.5-4.5) mg/dL Albumin 1.9 L (3.5-5.0) g/dL Microbiology - Last 24 Hours (Table) 04/06/18 19:19 Gram Stain - Preliminary Other - Other Wound Culture - Preliminary Gram Neg Bacilli Assessment and Plan Assessment: Impression Perforated bowel at the rectosigmoid junction with adjacent abscess, s/p exploratory laparotomy with sigmoid resection secondary to perforated rectum with creation of permanent colostomy done on April 07 Lactic acidosis and sepsis, present on admission, secondary to above, improving History of left breast cancer with metastasis to the liver Gastroesophageal reflux disease Osteoarthritis Chronic pain History of nicotine dependence, patient quit smoking in 2015 Perforated bowel Hypocalcemia Hypophosphatemia Hypoalbuminemia Mild hyponatremia Chronic pain opiate dependency Plan Electrolytes have been corrected will follow Continue postop surgical care Continue wound care as ordered Pain control Continue the PPI as ordered Will add nystatin swish and swallow DVT and GI prophylaxis Increase activity as tolerated The above impression and plan of care have been discussed and directed by signing physician. Nohemi Nguyen nurse practitioner acting as scribe for signing physician. <Connie aYtes N - Last Filed: 04/08/18 19:40> Objective - Vital Signs Vital signs: Vital Signs Temp 99.8 F H 04/08/18 14:51 Pulse 104 H 04/08/18 14:51 Resp 16 04/08/18 14:51 BP 150/91 04/08/18 14:51 Pulse Ox 95 04/08/18 14:51 Intake & Output 04/08/18 04/08/18 04/09/18 06:59 18:59 06:59 Intake Total 800 480 Output Total 820 530 Balance -20 -50 Weight 68.946 kg Intake: Intake, IV Titration 800 Amount D5-0.45% NaCl with KCl 800 20Meq/l 1,000 ml @ 100 mls/hr IV .Q10H [facility] Rx#: [id number] Oral 480 Output: Drainage 20 30 Abdomen 20 30 Urine 800 500 Uretheral (Mendenhall) 500 Other: Voiding Method Indwelling Catheter Indwelling Catheter # Voids 3 - Labs CBC & Chem 7: 04/08/18 07:22 04/08/18 07:22 Labs: Abnormal Lab Results - Last 24 Hours (Table) 04/08/18 04/08/18 04/08/18 Range/Units 07:22 07:22 09:45 Plt Count 112 L (150-450) k/uL Lymphocytes # 0.2 L (1.0-4.8) k/uL Sodium 133 L (137-145) mmol/L Carbon Dioxide 20 L (22-30) mmol/L Creatinine 0.48 L (0.52-1.04) mg/dL Glucose 105 H (74-99) mg/dL Calcium 6.3 L* (8.4-10.2) mg/dL Ionized Calcium Jolynn 4.1 L (4.5-5.3) mg/dL Phosphorus 1.1 L* (2.5-4.5) mg/dL Albumin 1.9 L (3.5-5.0) g/dL Microbiology - Last 24 Hours (Table) 04/06/18 19:19 Gram Stain - Preliminary Other - Other Wound Culture - Preliminary Gram Neg Bacilli Assessment and Plan (1) Intra-abdominal abscess Current Visit: Yes Status: Acute Code(s): K65.1 - PERITONEAL ABSCESS SNOMED Code(s): 61163935 (2) Metastatic cancer to liver Current Visit: Yes Status: Acute Code(s): C78.7 - SECONDARY MALIG NEOPLASM OF LIVER AND INTRAHEPATIC BILE DUCT SNOMED Code(s): 91663639 (3) Perforated bowel Current Visit: Yes Status: Acute Code(s): K63.1 - PERFORATION OF INTESTINE ( NONTRAUMATIC) SNOMED Code(s): 92638819 (4) Breast cancer, left breast Current Visit: No Status: Acute Code(s): C50.912 - MALIGNANT NEOPLASM OF UNSPECIFIED SITE OF LEFT FEMALE BREAST SNOMED Code(s): 566745937
--- NOTE | 2018-04-08 15:20 | P.PN ---
Subjective Progress Note Date: 04/08/18 Principal diagnosis: Pneumoperitoneum status Post surgical intervention Patient seen and examined this am, at bedside Objective - Vital Signs Vital signs: Vital Signs Temp 99.8 F H 04/08/18 14:51 Pulse 104 H 04/08/18 14:51 Resp 16 04/08/18 14:51 BP 150/91 04/08/18 14:51 Pulse Ox 95 04/08/18 14:51 Intake & Output 04/07/18 04/08/18 04/08/18 18:59 06:59 18:59 Intake Total 100 800 480 Output Total 10 820 500 Balance 90 -20 -20 Weight 68.946 kg Intake: Intake, IV Titration 100 800 Amount D5-0.45% NaCl with KCl 800 20Meq/l 1,000 ml @ 100 mls/hr IV .Q10H [facility] Rx#: [id number] Levofloxacin 500Mg-D5w 100 Pmx 500 mg In Dextrose/ Water 1 100ml.bag @ 100 mls/hr IVPB Q24HR [facility] Rx# :[id number] Oral 480 Output: Drainage 10 20 Abdomen 10 20 Urine 800 500 Uretheral (Mendenhall) 500 Other: Voiding Method Indwelling Catheter Indwelling Catheter Indwelling Catheter # Voids 3 - Exam - Constitutional General appearance: cooperative, no acute distress, obese - EENT Eyes: anicteric sclerae, EOMI, normal appearance ENT: hearing grossly normal, normal oropharynx - Neck Neck: no lymphadenopathy - Respiratory Respiratory: bilateral: CTA - Cardiovascular Heart sounds: normal: S1, S2 leg Peripheral Edema: bilateral: None - Gastrointestinal midline incision approximated, LLQ ostomy has brown stool, no blood noted in ostomy. Mild abd distension General gastrointestinal: decreased bowel sounds, tenderness (mild, not unrealistic) - Integumentary Integumentary: normal - Neurologic Neurologic: CNII-XII intact - Musculoskeletal Musculoskeletal: strength equal bilaterally - Psychiatric some difficulties with past dates Psychiatric: A&O x's 3, appropriate affect, intact judgment & insight - Labs CBC & Chem 7: 04/08/18 07:22 04/08/18 07:22 Labs: Abnormal Lab Results - Last 24 Hours (Table) 04/08/18 04/08/18 04/08/18 Range/Units 07:22 07:22 09:45 Plt Count 112 L (150-450) k/uL Lymphocytes # 0.2 L (1.0-4.8) k/uL Sodium 133 L (137-145) mmol/L Carbon Dioxide 20 L (22-30) mmol/L Creatinine 0.48 L (0.52-1.04) mg/dL Glucose 105 H (74-99) mg/dL Calcium 6.3 L* (8.4-10.2) mg/dL Ionized Calcium Jolynn 4.1 L (4.5-5.3) mg/dL Phosphorus 1.1 L* (2.5-4.5) mg/dL Albumin 1.9 L (3.5-5.0) g/dL Microbiology - Last 24 Hours (Table) 04/06/18 19:19 Gram Stain - Preliminary Other - Other Wound Culture - Preliminary Gram Neg Bacilli Assessment and Plan Plan: Assessment and Plan (1) Metastatic breast cancer Narrative/Plan: Pt just finished radiation to metastatic disease in the brain, she was started on Ibrance and arimidex 7 days ago, last dose was Wednesday. - Plan is to continue arimidex, hold Ibrance until surgical incision healed. CBC reviewed, pt was not on meds long enough to impact CBC but, will monitor while inpatient. - Pain in abdomen still present, post-surgical pain. - Continue monitoring and post-operative care
[2018-04-09] MEDS: HYDROmorphone 1 MG/ML 1 ML SYRINGE IVP PRN ×2 (03:56→14:59)
[2018-04-09] MEDS: metroNIDAZOLE-NS PMX 500 MG in SALINE 1 100ML.BAG IVPB SCH ×4 (05:09→23:52)
[2018-04-09 07:30] LABS: Anion Gap 7 mmol/L; Basophils % (A) 0 %; Blood Urea Nitrogen 15 mg/dL (7-17); Calcium 6.7 mg/dL (8.4-10.2); Carbon Dioxide 20 mmol/L (22-30); Chloride 105 mmol/L (98-107); Eosinophils % (A) 1 %; Glucose 104 mg/dL (74-99); HCT 36.4 % (34.0-46.0); Lymphocytes # (A) 0.2 k/uL (1.0-4.8); Lymphocytes % (A) 8 %; MCH 30.9 pg (25.0-35.0); MCHC 32.9 g/dL (31.0-37.0); MCV 93.8 fL (80.0-100.0); Mean Platelet Volume 7.8; Monocytes # (A) 0.1 k/uL (0-1.0); Monocytes % (A) 3 %; Neutrophils # (A) 1.7 k/uL (1.3-7.7); Neutrophils % (A) 88 %; Phosphorus 1.3 mg/dL (2.5-4.5); Potassium 3.4 mmol/L (3.5-5.1); RBC 3.88 m/uL (3.80-5.40); RDW 14.2 % (11.5-15.5); Sodium 132 mmol/L (137-145)
[2018-04-09 07:32] LABS: WBC 1.9 k/uL (3.8-10.6)
[2018-04-09 07:53] LABS: Platelet Count 70 k/uL (150-450); Polychromasia Present
[2018-04-09] MEDS: ANASTROZOLE 1 MG TAB PO SCH (09:11)
[2018-04-09] MEDS: ENOXAPARIN 40 MG/0.4 ML SYRINGE SQ SCH (09:12)
[2018-04-09] MEDS: PANTOPRAZOLE 40 MG/10 ML VIAL IVP SCH (09:12)
[2018-04-09] MEDS: LEVOFLOXACIN 500MG-D5W PMX 500 MG in DEXTROSE/WATER 1 100ML.BAG IVPB SCH (09:13)
[2018-04-09] MEDS: NYSTATIN 100,000 UNIT/ML SUSP 500,000 UNIT/5 ML CUP PO SCH ×4 (09:14→21:35)
[2018-04-09] MEDS: DEXTROSE 5%-LACTATED RINGERS 1,000 ML IV SCH ×3 (10:17→13:31)
--- NOTE | 2018-04-09 10:42 | P.PN ---
Subjective Progress Note Date: 04/09/18 Metastatic breast cancer. Bowel perforation status post surgery. The patient is progressing well clinically. She is having some output in her ostomy. She is tolerating her diet. Pain is controlled. No fever/chills/ nausea/vomiting/change in respiratory status Objective - Vital Signs Vital signs: Vital Signs Temp 98.8 F 04/09/18 07:00 Pulse 102 H 04/09/18 07:00 Resp 18 04/09/18 07:00 BP 134/82 04/09/18 07:00 Pulse Ox 96 04/09/18 07:00 Intake & Output 04/08/18 04/09/18 04/09/18 18:59 06:59 18:59 Intake Total 480 1600 Output Total 530 30 Balance -50 1570 Weight 68.946 kg Intake: Intake, IV Titration 1600 Amount Dextrose 5%-Lactated 1600 Ringers 1,000 ml @ 100 mls/hr IV .Q10H [facility] Rx#: [id number] Oral 480 Output: Drainage 30 30 Abdomen 30 30 Urine 500 Uretheral (Mendenhall) 500 Other: Voiding Method Indwelling Catheter # Voids 3 4 - Constitutional General appearance: Present: no acute distress - EENT Eyes: Present: EOMI ENT: Present: hearing grossly normal, normal oropharynx - Respiratory Respiratory: bilateral: CTA - Cardiovascular Rhythm: regular Heart sounds: normal: S1, S2 - Gastrointestinal Gastrointestinal Comment(s): Ostomy left lower quadrant, with semisolid stool General gastrointestinal: Present: normal bowel sounds - Integumentary Integumentary: Present: normal - Neurologic Neurologic: Present: CNII-XII intact - Musculoskeletal Musculoskeletal: Present: generalized weakness, strength equal bilaterally - Psychiatric Psychiatric: Present: A&O x's 3, appropriate affect - Labs CBC & Chem 7: 04/09/18 06:21 04/09/18 06:21 Labs: Abnormal Lab Results - Last 24 Hours (Table) 04/08/18 04/09/18 04/09/18 Range/Units 09:45 06:21 06:21 WBC 1.9 L* (3.8-10.6) k/uL Plt Count 70 L (150-450) k/uL Lymphocytes # 0.2 L (1.0-4.8) k/uL Sodium 132 L (137-145) mmol/L Potassium 3.4 L (3.5-5.1) mmol/L Carbon Dioxide 20 L (22-30) mmol/L Creatinine 0.40 L (0.52-1.04) mg/dL Glucose 104 H (74-99) mg/dL Calcium 6.7 L (8.4-10.2) mg/dL Ionized Calcium Jolynn 4.1 L (4.5-5.3) mg/dL Phosphorus 1.1 L* 1.3 L (2.5-4.5) mg/dL Albumin 1.9 L (3.5-5.0) g/dL Microbiology - Last 24 Hours (Table) 04/06/18 19:19 Gram Stain - Final Other - Other Wound Culture - Final Escherichia coli Assessment and Plan (1) Perforated bowel Narrative/Plan: The patient is progressing well with repair and ostomy placement. Bowel function has returned. Pain is well controlled. She is tolerating diet well. Defer to surgery for continued management Current Visit: Yes Status: Acute Code(s): K63.1 - PERFORATION OF INTESTINE ( NONTRAUMATIC) SNOMED Code(s): 33052947 (2) Bicytopenia Narrative/Plan: The patient was noted to have a significant drop in her white count and platelets today. She has been on the evidence only for a short period, but this is likely due to Ibrance effect, as well as additional inflammation in the postsurgical state. Counts are will within a safe range. Filgrastim will be started to prevent further drops in the WBC. Continue to monitor Current Visit: Yes Status: Acute Code(s): D75.89 - OTHER SPECIFIED DISEASES OF BLOOD AND BLOOD-FORMING ORGANS SNOMED Code(s): 855163471 (3) Metastatic breast cancer Narrative/Plan: As bowel function has returned, the patient can resume aromatase inhibitor. Continue to hold Ibrance, till she is felt to have recovered sufficiently from the surgery Current Visit: Yes Status: Acute Priority: High Code(s): C50.919 - MALIGNANT NEOPLASM OF UNSP SITE OF UNSPECIFIED FEMALE BREAST SNOMED Code(s): 153008464
[2018-04-09] MEDS: FILGRASTIM-SNDZ 300 MCG/0.5 ML SYRINGE SQ SCH (11:44)
--- NOTE | 2018-04-09 12:33 | P.PN ---
Subjective 57-year-old female who presented to the emergency room after she had some blood work completed at the [facility] secondary to history of breast cancer. Apparently, the patient told the staff she was having a lot of abdominal pain. She was referred to the emergency room for further evaluation. The patient states she has been having abdominal pain for about seven days. Reports constipation. She states her appetite has been good but has been experiencing some nausea. Denies emesis. Denies shortness of breath or cough. Denies chest pain or pressure. Denies fever or chills. The patient has a history of left breast cancer with mastectomy. She underwent chemo and radiation. She also has a history of GERD and osteoarthritis. The patient is a former cigarette smoker and quit smoking in 2016. CT abdomen and pelvis: suspect perforated diverticulitis at the rectosigmoid junction with adjacent dominant abscess and smaller superior abscess. There is perforation with air extending into the retroperitoneum with dissection into the mediastinum. Perforated neoplasm is difficult to exclude. New lesions within the liver are felt to reflect metastatic disease. Laboratory data upon admission reveals white count of 7.6. Hemoglobin 18.3. Platelet count 178. Sodium 135. Potassium 3.9. BUN 22. Creatinine 0.96. Glucose 154. total bilirubin 1.4. AST 41. ALT 164. Alkaline phosphatase 160. Amylase less than 30. Lipase 15. Lactic acid 4.2. The patient was admitted to the hospital under the care of Dr. Angel. Consultations were placed to Dr. Yates, who was present at the bedside as well. Patient is scheduled for exploratory laparotomy with colostomy and possible liver biopsy this afternoon. 04/07/2018 Patient seen and examined at the bedside on rounds with Dr. Angel. Patient underwent exploratory laparotomy with sigmoid resection secondary to perforated rectum with creation of colostomy. Pathology pending. Patient has NG tube intact to LIS. Patient tolerating ice chips. Mendenhall intact. EDISON drain to right lower quadrant with serosanguineous drainage noted. Prevena wound vac to surgical site. Colostomy with small amount of soft brown stool noted. Patient states her pain is tolerable at this time. Denies nausea. Denies shortness of breath. Denies chest pain. 04/08/2018 Patient seen and examined at the bedside. Patient is awake and alert. Patient reports her pain is controlled. Urinary catheter was discontinued this morning. Patient is due to void. NG tube was discontinued yesterday evening. Patient c/o heartburn after eating a purple popsicle. Denies nausea or vomiting. Prevena wound vac intact. EDISON drain to RLQ intact. Patient reports she was running a fever last night, but per nursing documentation patient has been afebrile. 04/09/2018: Patient remains afebrile. Blood pressure minimally elevated. Pulse ox adequate at greater than 93% on room air. Pulse is borderline tachycardic. She is tolerating clear liquids at this time. Colostomy bag and site are intact. Pain is controlled with Dilaudid, currently 08/25. She is tolerating Levaquin and Flagyl antibiotics. She is passing flatus. She denies any chest pains, pressures, shortness of breath, nausea or recent vomiting. Objective - Vital Signs Vital signs: Vital Signs Temp 98.8 F 04/09/18 07:00 Pulse 102 H 04/09/18 07:00 Resp 18 04/09/18 07:00 BP 134/82 04/09/18 07:00 Pulse Ox 96 04/09/18 07:00 Intake & Output 04/08/18 04/09/18 04/09/18 18:59 06:59 18:59 Intake Total 480 1600 Output Total 530 30 Balance -50 1570 Weight 68.946 kg Intake: Intake, IV Titration 1600 Amount Dextrose 5%-Lactated 1600 Ringers 1,000 ml @ 100 mls/hr IV .Q10H [facility] Rx#: [id number] Oral 480 Output: Drainage 30 30 Abdomen 30 30 Urine 500 Uretheral (Mendenhall) 500 Other: Voiding Method Indwelling Catheter # Voids 3 4 - Exam GENERAL: This is a 57-year-old female in no apparent distress at the time of examination. Pleasant and cooperative. She is supine in bed HEENT: Mucus membranes of the mouth are moist. Neck:supple. No thyromegaly, no lymphadenopathy RESPIRATORY: Clear to ausculation. No wheezes, rales, or rhonchi. No use of accessory muscles. Patient maintaining oxygen saturation greater than 92%. No chest wall tenderness is noted on palpation or with deep breathing. CARDIOVASCULAR: Regular rate and rhythm. S1 and S2 noted. No systolic or diastolic murmur auscultated. No JVD noted. No S3 or S4 noted. GASTROINTESTINAL/: Bowel sounds auscultated x 4 quadrants. Colostomy with small amount of soft brown stool noted. EDISON drain to right lower quadrant with serosanguineous drainage. Prevena wound vac to midline. Mendenhall intact. INTEGUMENTARY: No cyanosis. No jaundice. No rashes noted. No cellulitis noted. EXTREMITIES: 2+ peripheral pulses. No evidence of peripheral edema. No calf tenderness noted. NEUROLOGIC: Cranial nerves II-XII intact. PSYCHIATRIC: Awake, alert, and oriented X 3. Appropriate affect. Intact judgement and insight. - Labs CBC & Chem 7: 04/09/18 06:21 04/09/18 06:21 Labs: Abnormal Lab Results - Last 24 Hours (Table) 04/09/18 04/09/18 Range/Units 06:21 06:21 WBC 1.9 L* (3.8-10.6) k/uL Plt Count 70 L (150-450) k/uL Lymphocytes # 0.2 L (1.0-4.8) k/uL Sodium 132 L (137-145) mmol/L Potassium 3.4 L (3.5-5.1) mmol/L Carbon Dioxide 20 L (22-30) mmol/L Creatinine 0.40 L (0.52-1.04) mg/dL Glucose 104 H (74-99) mg/dL Calcium 6.7 L (8.4-10.2) mg/dL Phosphorus 1.3 L (2.5-4.5) mg/dL Microbiology - Last 24 Hours (Table) 04/06/18 19:19 Gram Stain - Final Other - Other Wound Culture - Final Escherichia coli Assessment and Plan (1) Hypophosphatemia Current Visit: Yes Status: Acute Code(s): E83.39 - OTHER DISORDERS OF PHOSPHORUS METABOLISM SNOMED Code(s): 6252392 (2) Mild protein malnutrition Current Visit: Yes Status: Acute Code(s): E44.1 - MILD PROTEIN-CALORIE MALNUTRITION SNOMED Code(s): 325017515 (3) Hypocalcemia Current Visit: Yes Status: Acute Code(s): E83.51 - HYPOCALCEMIA SNOMED Code(s): 9521783 (4) Bicytopenia Current Visit: Yes Status: Acute Code(s): D75.89 - OTHER SPECIFIED DISEASES OF BLOOD AND BLOOD-FORMING ORGANS SNOMED Code(s): 813184659 (5) Intra-abdominal abscess Current Visit: Yes Status: Acute Code(s): K65.1 - PERITONEAL ABSCESS SNOMED Code(s): 65874073 (6) Metastatic breast cancer Current Visit: Yes Status: Acute Priority: High Code(s): C50.919 - MALIGNANT NEOPLASM OF UNSP SITE OF UNSPECIFIED FEMALE BREAST SNOMED Code(s): 587214184 (7) Metastatic cancer to liver Current Visit: Yes Status: Acute Code(s): C78.7 - SECONDARY MALIG NEOPLASM OF LIVER AND INTRAHEPATIC BILE DUCT SNOMED Code(s): 17625166 (8) Perforated bowel Current Visit: Yes Status: Acute Code(s): K63.1 - PERFORATION OF INTESTINE ( NONTRAUMATIC) SNOMED Code(s): 74100640 (9) Chest wall pain following surgery Current Visit: No Status: Acute Code(s): R07.89 - OTHER CHEST PAIN; G89.18 - OTHER ACUTE POSTPROCEDURAL PAIN SNOMED Code(s): 158337857 (10) GERD (gastroesophageal reflux disease) Current Visit: No Status: Acute Code(s): K21.9 - GASTRO-ESOPHAGEAL REFLUX DISEASE WITHOUT ESOPHAGITIS SNOMED Code(s): 451589343 Plan: Dr. Yates on consult. Consult appreciated. Continue clear liquid diet. Advance per surgery. Patient to follow up with oncology regarding metastatic liver lesions and bicytopenia. Patient may continue Arimidex, but hold Ibrance per oncology Ostomy nurse on consult On her calcium and phosphorus Change IV fluids to D5LR at 100cc/hr Consult dietitian to evaluate. Recommend protein supplements Pain control Monitor labs GI prophylaxis: Protonix 40 mg IV daily DVT prophylaxis: SCDs to bilateral LE and Lovenox 40mg sq daily Monitor vital signs and address as appropriate Discharge planning: Patient to return home when stable She will be reevaluated in the next 24 hours
[2018-04-09] MEDS ORDERED: Phosphorus Replacement Protoco 1 EACH MISC MISCELLANE PRN (14:53)
--- NOTE | 2018-04-09 15:16 | P.PN ---
Subjective Progress Note Date: 04/09/18 The patient is status post exploratory laparotomy including permanent descending colostomy due to perforated rectum, postoperative day 3. Her is at bedside. She has flatus in her ostomy. She is eager to start diet. She has been transferred to the oncology floor for leukopenia precautions. Objective - Vital Signs Vital signs: Vital Signs Temp 98.8 F 04/09/18 07:00 Pulse 102 H 04/09/18 07:00 Resp 18 04/09/18 07:00 BP 134/82 04/09/18 07:00 Pulse Ox 96 04/09/18 07:00 Intake & Output 04/08/18 04/09/18 04/09/18 18:59 06:59 18:59 Intake Total 480 1600 800 Output Total 530 30 Balance -50 1570 800 Weight 68.946 kg Intake: Intake, IV Titration 1600 800 Amount Dextrose 5%-Lactated 1600 600 Ringers 1,000 ml @ 100 mls/hr IV .Q10H [facility] Rx#: [id number] Levofloxacin 500Mg-D5w 100 Pmx 500 mg In Dextrose/ Water 1 100ml.bag @ 100 mls/hr IVPB Q24HR [facility] Rx# :[id number] metroNIDAZOLE-NS PMX 500 100 mg In Saline 1 100ml.bag @ 100 mls/hr IVPB Q6HR [facility] Rx#:[id number] Oral 480 Output: Drainage 30 30 Abdomen 30 30 Urine 500 Uretheral (Mendenhall) 500 Other: Voiding Method Indwelling Catheter # Voids 3 4 - Exam GENERAL: Well developed and in no acute distress. Pleasant. HEENT: No sclera icterus. Extraocular movements grossly intact. Moist buccal mucosa. Head is atraumatic, normocephalic. Hears conversational speech. No nasal drainage. NECK: Supple without lymphadenopathy. CHEST: Non-labored respirations and equal bilateral excursions. CARDIOVASCULAR: Regular rate and rhythm. Palpable 2+ radial pulses. ABDOMEN: Soft, nondistended. Ostomy pink patent and functioning with stool and flatus in the bag. Wound VAC dressing clean dry and intact. MUSCULOSKELETAL: No clubbing, cyanosis or edema. NEUROLOGIC: No focal or lateralizing signs. : Clear urine. Mendenhall catheter present PSYCH: Appropriate affect. Alert and oriented to person. SKIN: Good skin turgor. Well perfused. - Labs CBC & Chem 7: 04/09/18 06:21 04/09/18 06:21 Labs: Abnormal Lab Results - Last 24 Hours (Table) 04/09/18 04/09/18 Range/Units 06:21 06:21 WBC 1.9 L* (3.8-10.6) k/uL Plt Count 70 L (150-450) k/uL Lymphocytes # 0.2 L (1.0-4.8) k/uL Sodium 132 L (137-145) mmol/L Potassium 3.4 L (3.5-5.1) mmol/L Carbon Dioxide 20 L (22-30) mmol/L Creatinine 0.40 L (0.52-1.04) mg/dL Glucose 104 H (74-99) mg/dL Calcium 6.7 L (8.4-10.2) mg/dL Phosphorus 1.3 L (2.5-4.5) mg/dL Microbiology - Last 24 Hours (Table) 04/06/18 19:19 Gram Stain - Final Other - Other Wound Culture - Final Escherichia coli Assessment and Plan (1) Intra-abdominal abscess Current Visit: Yes Status: Acute Code(s): K65.1 - PERITONEAL ABSCESS SNOMED Code(s): 43818714 (2) Metastatic cancer to liver Current Visit: Yes Status: Acute Code(s): C78.7 - SECONDARY MALIG NEOPLASM OF LIVER AND INTRAHEPATIC BILE DUCT SNOMED Code(s): 60339617 (3) Perforated bowel Current Visit: Yes Status: Acute Code(s): K63.1 - PERFORATION OF INTESTINE ( NONTRAUMATIC) SNOMED Code(s): 68503577 (4) Breast cancer, left breast Current Visit: No Status: Acute Code(s): C50.912 - MALIGNANT NEOPLASM OF UNSPECIFIED SITE OF LEFT FEMALE BREAST SNOMED Code(s): 933749426 (5) Leukopenia due to antineoplastic chemotherapy Current Visit: Yes Status: Acute Code(s): D70.1 - AGRANULOCYTOSIS SECONDARY TO CANCER CHEMOTHERAPY; T45.1X5A - ADVERSE EFFECT OF ANTINEOPLASTIC AND IMMUNOSUP DRUGS, INIT SNOMED Code(s): 019808984 Plan: 1. Recommend infectious disease for antibiotic management, including history of immunosuppression and multiple drug ALLERGIES 2. May start regular diet. 3. Discharge management pending medical stability. 4. Patient may be clear for discharge from a surgical standpoint after antibiotic management.
[2018-04-09] MEDS: POTASSIUM PHOSPHATE 10 MMOL in SODIUM CHLORIDE 0.9% 100 ML IV SCH ×3 (15:26→20:46)
[2018-04-10] MEDS: HYDROmorphone 1 MG/ML 1 ML SYRINGE IVP PRN ×4 (00:38→21:27)
[2018-04-10] MEDS: DEXTROSE 5%-LACTATED RINGERS 1,000 ML IV SCH ×3 (03:18→22:38)
[2018-04-10] MEDS: metroNIDAZOLE-NS PMX 500 MG in SALINE 1 100ML.BAG IVPB SCH ×4 (05:58→23:34)
[2018-04-10 07:36] LABS: Basophils % (A) 0 %; Eosinophils % (A) 1 %; HCT 38.2 % (34.0-46.0); HGB 12.4 gm/dL (11.4-16.0); Lymphocytes # (A) 0.2 k/uL (1.0-4.8); Lymphocytes % (A) 6 %; MCH 30.4 pg (25.0-35.0); MCHC 32.4 g/dL (31.0-37.0); MCV 93.8 fL (80.0-100.0); Mean Platelet Volume 7.8; Monocytes # (A) 0.1 k/uL (0-1.0); Monocytes % (A) 3 %; Neutrophils # (A) 2.4 k/uL (1.3-7.7); Neutrophils % (A) 90 %; RBC 4.07 m/uL (3.80-5.40); RDW 14.4 % (11.5-15.5); WBC 2.6 k/uL (3.8-10.6)
[2018-04-10 07:37] LABS: Platelet Count 79 k/uL (150-450)
[2018-04-10 07:44] LABS: Anion Gap 5 mmol/L; Blood Urea Nitrogen 10 mg/dL (7-17); Calcium 6.7 mg/dL (8.4-10.2); Carbon Dioxide 22 mmol/L (22-30); Chloride 105 mmol/L (98-107); Glucose 89 mg/dL (74-99); Magnesium 1.8 mg/dL (1.6-2.3); Phosphorus 1.3 mg/dL (2.5-4.5); Potassium 3.6 mmol/L (3.5-5.1); Sodium 132 mmol/L (137-145)
[2018-04-10] MEDS: NYSTATIN 100,000 UNIT/ML SUSP 500,000 UNIT/5 ML CUP PO SCH ×4 (08:42→21:35)
[2018-04-10] MEDS: LEVOFLOXACIN 500MG-D5W PMX 500 MG in DEXTROSE/WATER 1 100ML.BAG IVPB SCH (08:42)
[2018-04-10] MEDS: PANTOPRAZOLE 40 MG/10 ML VIAL IVP SCH (08:43)
[2018-04-10] MEDS: ENOXAPARIN 40 MG/0.4 ML SYRINGE SQ SCH (08:43)
[2018-04-10] MEDS: ANASTROZOLE 1 MG TAB PO SCH (08:43)
--- NOTE | 2018-04-10 09:54 | P.PN ---
Subjective 57-year-old female who presented to the emergency room after she had some blood work completed at the [facility] secondary to history of breast cancer. Apparently, the patient told the staff she was having a lot of abdominal pain. She was referred to the emergency room for further evaluation. The patient states she has been having abdominal pain for about seven days. Reports constipation. She states her appetite has been good but has been experiencing some nausea. Denies emesis. Denies shortness of breath or cough. Denies chest pain or pressure. Denies fever or chills. The patient has a history of left breast cancer with mastectomy. She underwent chemo and radiation. She also has a history of GERD and osteoarthritis. The patient is a former cigarette smoker and quit smoking in 2016. CT abdomen and pelvis: suspect perforated diverticulitis at the rectosigmoid junction with adjacent dominant abscess and smaller superior abscess. There is perforation with air extending into the retroperitoneum with dissection into the mediastinum. Perforated neoplasm is difficult to exclude. New lesions within the liver are felt to reflect metastatic disease. Laboratory data upon admission reveals white count of 7.6. Hemoglobin 18.3. Platelet count 178. Sodium 135. Potassium 3.9. BUN 22. Creatinine 0.96. Glucose 154. total bilirubin 1.4. AST 41. ALT 164. Alkaline phosphatase 160. Amylase less than 30. Lipase 15. Lactic acid 4.2. The patient was admitted to the hospital under the care of Dr. Angel. Consultations were placed to Dr. Yates, who was present at the bedside as well. Patient is scheduled for exploratory laparotomy with colostomy and possible liver biopsy this afternoon. 04/07/2018 Patient seen and examined at the bedside on rounds with Dr. Angel. Patient underwent exploratory laparotomy with sigmoid resection secondary to perforated rectum with creation of colostomy. Pathology pending. Patient has NG tube intact to LIS. Patient tolerating ice chips. Mendenhall intact. EDISON drain to right lower quadrant with serosanguineous drainage noted. Prevena wound vac to surgical site. Colostomy with small amount of soft brown stool noted. Patient states her pain is tolerable at this time. Denies nausea. Denies shortness of breath. Denies chest pain. 04/08/2018 Patient seen and examined at the bedside. Patient is awake and alert. Patient reports her pain is controlled. Urinary catheter was discontinued this morning. Patient is due to void. NG tube was discontinued yesterday evening. Patient c/o heartburn after eating a purple popsicle. Denies nausea or vomiting. Prevena wound vac intact. EDISON drain to RLQ intact. Patient reports she was running a fever last night, but per nursing documentation patient has been afebrile. 04/09/2018: Patient remains afebrile. Blood pressure minimally elevated. Pulse ox adequate at greater than 93% on room air. Pulse is borderline tachycardic. She is tolerating clear liquids at this time. Colostomy bag and site are intact. Pain is controlled with Dilaudid, currently 1/10. She is tolerating Levaquin and Flagyl antibiotics. She is passing flatus. She denies any chest pains, pressures, shortness of breath, nausea or recent vomiting. 04/10/2018: Patient remains afebrile. Blood pressure minimally elevated. Pulse ox adequate at greater than 93% on room air. Pulse is borderline tachycardic. She is somewhat tolerating regular diets at this time. Colostomy bag and site are intact with feces noted. Pain is controlled with Dilaudid, currently 0/10. She is tolerating Levaquin and Flagyl antibiotics. Cultures + for ECOLI, susceptible to LEvaquin. Surery requesting ID consult She denies any chest pains, pressures, shortness of breath. She has had min nausea and recent vomiting this AM.. Objective - Vital Signs Vital signs: Vital Signs Temp 97.1 F L 04/09/18 22:30 Pulse 118 H 04/09/18 22:30 Resp 16 04/09/18 22:30 BP 120/81 04/09/18 22:30 Pulse Ox 93 L 04/09/18 22:30 Intake & Output 04/09/18 04/10/18 04/10/18 18:59 06:59 18:59 Intake Total 800 1989 Output Total 30 Balance 770 1989 Intake: Intake, IV Titration 800 1400 Amount Dextrose 5%-Lactated 600 1000 Ringers 1,000 ml @ 100 mls/hr IV .Q10H [facility] Rx#: [id number] Levofloxacin 500Mg-D5w 100 Pmx 500 mg In Dextrose/ Water 1 100ml.bag @ 100 mls/hr IVPB Q24HR [facility] Rx# :[id number] Potassium Phosphate 10 200 mmol In Sodium Chloride 0 .9% 100 ml @ 50 mls/hr IV Q2H [facility] Rx#:[id number] metroNIDAZOLE-NS PMX 500 100 200 mg In Saline 1 100ml.bag @ 100 mls/hr IVPB Q6HR [facility] Rx#:[id number] Oral 590 Output: Drainage 30 Abdomen 30 Other: Voiding Method Toilet # Voids 2 - Exam GENERAL: This is a 57-year-old female in no apparent distress at the time of examination. Pleasant and cooperative. She is supine in bed HEENT: Mucus membranes of the mouth are moist. Neck:supple. No thyromegaly, no lymphadenopathy RESPIRATORY: Clear to ausculation. No wheezes, rales, or rhonchi. No use of accessory muscles. Patient maintaining oxygen saturation greater than 92%. No chest wall tenderness is noted on palpation or with deep breathing. CARDIOVASCULAR: Regular rate and rhythm. S1 and S2 noted. No systolic or diastolic murmur auscultated. No JVD noted. No S3 or S4 noted. GASTROINTESTINAL/: Bowel sounds auscultated x 4 quadrants. Colostomy with small amount of soft brown stool noted. EDISON drain to right lower quadrant with serosanguineous drainage. wound vac to midline. Mendenhall intact. INTEGUMENTARY: No cyanosis. No jaundice. No rashes noted. No cellulitis noted. EXTREMITIES: 2+ peripheral pulses. No evidence of peripheral edema. No calf tenderness noted. NEUROLOGIC: Cranial nerves II-XII intact. PSYCHIATRIC: Awake, alert, and oriented X 3. Appropriate affect. Intact judgement and insight. - Labs CBC & Chem 7: 04/10/18 07:16 04/10/18 07:16 Labs: Abnormal Lab Results - Last 24 Hours (Table) 04/10/18 04/10/18 Range/Units 07:16 07:16 WBC 2.6 L (3.8-10.6) k/uL Plt Count 79 L (150-450) k/uL Lymphocytes # 0.2 L (1.0-4.8) k/uL Sodium 132 L (137-145) mmol/L Creatinine 0.44 L (0.52-1.04) mg/dL Calcium 6.7 L (8.4-10.2) mg/dL Phosphorus 1.3 L (2.5-4.5) mg/dL Microbiology - Last 24 Hours (Table) 04/06/18 19:19 Anaerobic Culture - Final Other - Other Anaerobic Gm Negative Bacilli Assessment and Plan (1) Hypophosphatemia Current Visit: Yes Status: Acute Code(s): E83.39 - OTHER DISORDERS OF PHOSPHORUS METABOLISM SNOMED Code(s): 0466484 (2) Mild protein malnutrition Current Visit: Yes Status: Acute Code(s): E44.1 - MILD PROTEIN-CALORIE MALNUTRITION SNOMED Code(s): 312604234 (3) Hypocalcemia Current Visit: Yes Status: Acute Code(s): E83.51 - HYPOCALCEMIA SNOMED Code(s): 5245447 (4) Bicytopenia Current Visit: Yes Status: Acute Code(s): D75.89 - OTHER SPECIFIED DISEASES OF BLOOD AND BLOOD-FORMING ORGANS SNOMED Code(s): 819508464 (5) Intra-abdominal abscess Current Visit: Yes Status: Acute Code(s): K65.1 - PERITONEAL ABSCESS SNOMED Code(s): 70714820 (6) Metastatic breast cancer Current Visit: Yes Status: Acute Priority: High Code(s): C50.919 - MALIGNANT NEOPLASM OF UNSP SITE OF UNSPECIFIED FEMALE BREAST SNOMED Code(s): 848729325 (7) Metastatic cancer to liver Current Visit: Yes Status: Acute Code(s): C78.7 - SECONDARY MALIG NEOPLASM OF LIVER AND INTRAHEPATIC BILE DUCT SNOMED Code(s): 53601427 (8) Perforated bowel Current Visit: Yes Status: Acute Code(s): K63.1 - PERFORATION OF INTESTINE ( NONTRAUMATIC) SNOMED Code(s): 74039331 (9) Chest wall pain following surgery Current Visit: No Status: Acute Code(s): R07.89 - OTHER CHEST PAIN; G89.18 - OTHER ACUTE POSTPROCEDURAL PAIN SNOMED Code(s): 591364816 (10) GERD (gastroesophageal reflux disease) Current Visit: No Status: Acute Code(s): K21.9 - GASTRO-ESOPHAGEAL REFLUX DISEASE WITHOUT ESOPHAGITIS SNOMED Code(s): 420315587 Plan: Dr. Yates on consult, Pt s/p EXP LAP with Colostomy POD 4 Continue regular diet as tolerated ID consult requested from surgery for + cultures and immunosupression Hx Patient to follow up with oncology regarding metastatic liver lesions and bicytopenia. Patient may continue Arimidex, but hold Ibrance per oncology Ostomy nurse on consult Replace calcium and phosphorus continue IV fluids to D5LR at 100cc/hr Pain control Monitor labs GI prophylaxis: Protonix 40 mg IV daily DVT prophylaxis: SCDs to bilateral LE and Lovenox 40mg sq daily Discharge planning: Patient to return home when stable She will be reevaluated in the next 24 hours
[2018-04-10] MEDS: FILGRASTIM-SNDZ 300 MCG/0.5 ML SYRINGE SQ SCH (13:34)
--- NOTE | 2018-04-10 13:57 | P.PN ---
Subjective Progress Note Date: 04/10/18 The patient is status post exploratory laparotomy including permanent descending colostomy due to perforated rectum, postoperative day 4. Her is at bedside. She reports tolerating regular diet. From a surgical standpoint, she have recovered very well. Today, dressing changes are being performed. Her pain is well-controlled. No reports of fevers or chills. She does have underlying leukopenia. Cultures and growth are available. Infectious disease consultation is obtained secondary to severe immunosuppression following chemotherapy and appropriate post discharge antibiotics management. Objective - Vital Signs Vital signs: Vital Signs Temp 97.1 F L 04/09/18 22:30 Pulse 118 H 04/09/18 22:30 Resp 16 04/09/18 22:30 BP 120/81 04/09/18 22:30 Pulse Ox 93 L 04/09/18 22:30 Intake & Output 04/09/18 04/10/18 04/10/18 18:59 06:59 18:59 Intake Total 800 1989 Output Total 30 Balance 770 1989 Intake: Intake, IV Titration 800 1400 Amount Dextrose 5%-Lactated 600 1000 Ringers 1,000 ml @ 100 mls/hr IV .Q10H [facility] Rx#: [id number] Levofloxacin 500Mg-D5w 100 Pmx 500 mg In Dextrose/ Water 1 100ml.bag @ 100 mls/hr IVPB Q24HR [facility] Rx# :[id number] Potassium Phosphate 10 200 mmol In Sodium Chloride 0 .9% 100 ml @ 50 mls/hr IV Q2H [facility] Rx#:[id number] metroNIDAZOLE-NS PMX 500 100 200 mg In Saline 1 100ml.bag @ 100 mls/hr IVPB Q6HR [facility] Rx#:[id number] Oral 590 Output: Drainage 30 Abdomen 30 Other: Voiding Method Toilet Toilet # Voids 2 - Exam GENERAL: Well developed and in no acute distress. Pleasant. HEENT: No sclera icterus. Extraocular movements grossly intact. Moist buccal mucosa. Head is atraumatic, normocephalic. Hears conversational speech. No nasal drainage. NECK: Supple without lymphadenopathy. CHEST: Non-labored respirations and equal bilateral excursions. CARDIOVASCULAR: Regular rate and rhythm. Palpable 2+ radial pulses. ABDOMEN: Soft, nondistended. Midline dressing discontinued of PREVENA. New Optifoam dressing placed. EDISON serosanguineous. Ostomy pink patent and functioning with stool and air in Coloplast MUSCULOSKELETAL: No clubbing, cyanosis or edema. NEUROLOGIC: No focal or lateralizing signs. : Clear urine. Mendenhall catheter present PSYCH: Appropriate affect. Alert and oriented to person. SKIN: Good skin turgor. Well perfused. - Labs CBC & Chem 7: 04/10/18 07:16 04/10/18 07:16 Labs: Abnormal Lab Results - Last 24 Hours (Table) 04/10/18 04/10/18 Range/Units 07:16 07:16 WBC 2.6 L (3.8-10.6) k/uL Plt Count 79 L (150-450) k/uL Lymphocytes # 0.2 L (1.0-4.8) k/uL Sodium 132 L (137-145) mmol/L Creatinine 0.44 L (0.52-1.04) mg/dL Calcium 6.7 L (8.4-10.2) mg/dL Phosphorus 1.3 L (2.5-4.5) mg/dL Microbiology - Last 24 Hours (Table) 04/06/18 19:19 Anaerobic Culture - Final Other - Other Anaerobic Gm Negative Bacilli Assessment and Plan (1) Intra-abdominal abscess Current Visit: Yes Status: Acute Code(s): K65.1 - PERITONEAL ABSCESS SNOMED Code(s): 80420364 (2) Metastatic cancer to liver Current Visit: Yes Status: Acute Code(s): C78.7 - SECONDARY MALIG NEOPLASM OF LIVER AND INTRAHEPATIC BILE DUCT SNOMED Code(s): 12857153 (3) Perforated bowel Current Visit: Yes Status: Acute Code(s): K63.1 - PERFORATION OF INTESTINE ( NONTRAUMATIC) SNOMED Code(s): 55846167 (4) Breast cancer, left breast Current Visit: No Status: Acute Code(s): C50.912 - MALIGNANT NEOPLASM OF UNSPECIFIED SITE OF LEFT FEMALE BREAST SNOMED Code(s): 693442848 (5) Leukopenia due to antineoplastic chemotherapy Current Visit: Yes Status: Acute Code(s): D70.1 - AGRANULOCYTOSIS SECONDARY TO CANCER CHEMOTHERAPY; T45.1X5A - ADVERSE EFFECT OF ANTINEOPLASTIC AND IMMUNOSUP DRUGS, INIT SNOMED Code(s): 658692144 Plan: 1. Please review infectious disease recommendations regarding antibiotic management as patient is ALLERGIC to penicillin and is immune compromised 2. Saud will continue at least 2 weeks postprocedure and removed through the patient's family. 3. Patient will be discharged with EDISON drain. 4. Diet as tolerated. 5. Ostomy care per ostomy nurse 6. Patient is clear for discharge from a surgical standpoint when medically stable. 7. Anticipated follow-up in the office 04/26/18
[2018-04-10] MEDS ORDERED: SODIUM CHLORIDE 0.9% 1,000 ML IV ONE (13:58)
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
[2018-04-10] MEDS: METOPROLOL TARTRATE 25 MG TAB PO SCH (22:38)
[2018-04-11] MEDS: HYDROmorphone 1 MG/ML 1 ML SYRINGE IVP PRN ×2 (01:16→05:40)
[2018-04-11] MEDS: metroNIDAZOLE-NS PMX 500 MG in SALINE 1 100ML.BAG IVPB SCH (05:40)
[2018-04-11 07:21] LABS: Basophils % (A) 0 %; Eosinophils % (A) 1 %; HCT 34.2 % (34.0-46.0); HGB 11.7 gm/dL (11.4-16.0); Lymphocytes # (A) 0.2 k/uL (1.0-4.8); Lymphocytes % (A) 8 %; MCH 31.7 pg (25.0-35.0); MCHC 34.3 g/dL (31.0-37.0); MCV 92.5 fL (80.0-100.0); Mean Platelet Volume 8.6; Monocytes # (A) 0.1 k/uL (0-1.0); Monocytes % (A) 4 %; Neutrophils # (A) 1.6 k/uL (1.3-7.7); Neutrophils % (A) 86 %; RDW 14.1 % (11.5-15.5)
[2018-04-11 07:31] LABS: ALT 52 U/L (9-52); AST 33 U/L (14-36); Albumin 1.9 g/dL (3.5-5.0); Alkaline Phosphatase 119 U/L (38-126); Anion Gap 4 mmol/L; Blood Urea Nitrogen 9 mg/dL (7-17); Calcium 6.6 mg/dL (8.4-10.2); Carbon Dioxide 25 mmol/L (22-30); Chloride 104 mmol/L (98-107); Glucose 89 mg/dL (74-99); Magnesium 1.7 mg/dL (1.6-2.3); Phosphorus 1.4 mg/dL (2.5-4.5); Potassium 3.3 mmol/L (3.5-5.1); Sodium 133 mmol/L (137-145); Total Bilirubin 0.6 mg/dL (0.2-1.3); Total Protein 3.8 g/dL (6.3-8.2)
[2018-04-11 07:36] LABS: WBC 1.8 k/uL (3.8-10.6)
[2018-04-11 07:37] LABS: Platelet Count 58 k/uL (150-450)
[2018-04-11] MEDS: METOPROLOL TARTRATE 25 MG TAB PO SCH (07:52)
[2018-04-11] MEDS: LEVOFLOXACIN 500MG-D5W PMX 500 MG in DEXTROSE/WATER 1 100ML.BAG IVPB SCH (07:54)
[2018-04-11] MEDS: ANASTROZOLE 1 MG TAB PO SCH (07:55)
[2018-04-11] MEDS: ENOXAPARIN 40 MG/0.4 ML SYRINGE SQ SCH (07:55)
[2018-04-11] MEDS: NYSTATIN 100,000 UNIT/ML SUSP 500,000 UNIT/5 ML CUP PO SCH ×2 (07:55→07:58)
[2018-04-11] MEDS: PANTOPRAZOLE 40 MG/10 ML VIAL IVP SCH (07:55)
[2018-04-11] MEDS: POTASSIUM CHLORIDE ER 20 MEQ TAB.ER PO SCH ×2 (10:36→11:38)
[2018-04-11] MEDS: FILGRASTIM-SNDZ 300 MCG/0.5 ML SYRINGE SQ SCH (10:36)
[2018-04-11] MEDS: POTASSIUM PHOSPHATE 10 MMOL in SODIUM CHLORIDE 0.9% 250 ML IV SCH ×3 (10:36→15:08)
--- NOTE | 2018-04-11 13:33 | P.DS ---
Providers Date of admission: 04/06/18 12:56 Expected date of discharge: 04/11/18 Attending physician: Kushal Angel Consults: 04/06/18 12:56 Consult Physician Urgent Consulting Provider: Connie Yaets Consult Reason/Comments: Abdominal Abscess, Free Air Do you want consulting provider notified?: Yes 04/06/18 14:41 Consult Physician Routine Consulting Provider: Nika Martinez Consult Reason/Comments: liver lesions, possible colon neoplasm, hx of breast cancer Do you want consulting provider notified?: Yes 04/09/18 11:22 Consult Physician Urgent Consulting Provider: Niraj Aguillon Consult Reason/Comments: leukopenia Do you want consulting provider notified?: Yes Primary care physician: [facility] Course: 57-year-old female who presented to the emergency room after she had some blood work completed at the [facility] secondary to history of breast cancer. Apparently, the patient told the staff she was having a lot of abdominal pain. She was referred to the emergency room for further evaluation. The patient states she has been having abdominal pain for about seven days. Reports constipation. She states her appetite has been good but has been experiencing some nausea. Denies emesis. Denies shortness of breath or cough. Denies chest pain or pressure. Denies fever or chills. The patient has a history of left breast cancer with mastectomy. She underwent chemo and radiation. She also has a history of GERD and osteoarthritis. The patient is a former cigarette smoker and quit smoking in 2016. CT abdomen and pelvis: suspect perforated diverticulitis at the rectosigmoid junction with adjacent dominant abscess and smaller superior abscess. There is perforation with air extending into the retroperitoneum with dissection into the mediastinum. Perforated neoplasm is difficult to exclude. New lesions within the liver are felt to reflect metastatic disease. Laboratory data upon admission reveals white count of 7.6. Hemoglobin 18.3. Platelet count 178. Sodium 135. Potassium 3.9. BUN 22. Creatinine 0.96. Glucose 154. total bilirubin 1.4. AST 41. ALT 164. Alkaline phosphatase 160. Amylase less than 30. Lipase 15. Lactic acid 4.2. The patient underwent exploratory laparotomy with sigmoid resection secondary to perforated rectum with creation of colostomy. Pathology is benign. No liver biopsy was performed during OR. Patient had an NG tube which was removed. She is tolerating PO intake. No nausea or vomiting. Prevena wound vac was discontinued per surgery. Colostomy teaching was performed per ostomy nurse. EDISON drain remains intact and patient to be discharged home with EDISON drain. Oncology was following due to patients history. Patient is to continue her Arimidex but discontinue her Ibrance until she is evaluated by her oncologist outpatient. Patients WBC did decline during hospitalization. She was started on Neupogen. Patient is to follow up at her oncologist office tomorrow for another neupogen shot. Patient was evaluated by Dr. Aguillon during hospitalization. Dr. Aguillon recommends patient continue Levaquin and Flagyl for 14 days at the time of discharge. The patient was deemed stable for discharge home today with home care. Prescriptions were sent to the patients preferred pharmacy for Levaquin, Flagyl , Lopressor, and Nystatin swish and swallow. The patients electrolytes were supplemented on the day of discharge. Patient is to have a CBC, CMP, and phosphorus drawn in 3 days. Script for blood work given to patient. DISCHARGE DIAGNOSIS: Perforated bowel at the rectosigmoid junction with adjacent abscess, s/p exploratory laparotomy with sigmoid resection secondary to perforated rectum with creation of permanent colostomy Lactic acidosis and sepsis, present on admission, secondary to above, resolved Bicytopenia, secondary to Ibrance Metastatic lesions to the liver, pt to follow up outpatient with oncology History of left breast cancer with mastectomy, chemotherapy, and radiation Gastroesophageal reflux disease Osteoarthritis History of nicotine dependence, patient quit smoking in 2016 Hypocalcemia Hypophosphatemia Hypoalbuminemia Mild hyponatremia Nurse practitioner note has been reviewed by physician. Signing provider agrees with the documented findings, assessment, and plan of care. Plan - Discharge Summary Discharge Rx Participant: Yes New Discharge Prescriptions: New Levofloxacin [Levaquin] 500 mg PO DAILY 14 Days #14 tab metroNIDAZOLE [Flagyl] 500 mg PO QID #56 tab Metoprolol Tartrate [Lopressor] 25 mg PO BID #60 tab Nystatin 100,000 Unit/ml Susp [Mycostatin Oral Susp] 500,000 unit PO QID #40 cup Continue Ibuprofen [Motrin] 200 - 400 mg PO Q4-6H PRN PRN Reason: Mild To Moderate Pain Anastrozole [Arimidex] 1 mg PO DAILY Cholecalciferol [Vitamin D3] 1,000 unit PO BID Omeprazole [PriLOSEC] 40 mg PO DAILY HYDROcodone/APAP 10-325MG [Bayside 10-325] 1 tab PO Q6H PRN PRN Reason: Pain Control oxyCODONE-APAP 10-325MG [Percocet 10-325 mg] 1 tab PO Q8HR PRN PRN Reason: Moderate To Severe Pain Discontinued Palbociclib [Ibrance] 125 mg PO DAILY Discharge Medication List Ibuprofen [Motrin] 200 - 400 mg PO Q4-6H PRN 01/05/17 [History] Anastrozole [Arimidex] 1 mg PO DAILY 08/11/17 [History] Cholecalciferol [Vitamin D3] 1,000 unit PO BID 08/12/17 [History] Omeprazole [PriLOSEC] 40 mg PO DAILY 08/12/17 [History] HYDROcodone/APAP 10-325MG [Bayside 10-325] 1 tab PO Q6H PRN 12/30/17 [History] oxyCODONE-APAP 10-325MG [Percocet 10-325 mg] 1 tab PO Q8HR PRN 02/17/18 [History ] Levofloxacin [Levaquin] 500 mg PO DAILY 14 Days #14 tab 04/11/18 [Rx] Metoprolol Tartrate [Lopressor] 25 mg PO BID #60 tab 04/11/18 [Rx] Nystatin 100,000 Unit/ml Susp [Mycostatin Oral Susp] 500,000 unit PO QID #40 cup 04/11/18 [Rx] metroNIDAZOLE [Flagyl] 500 mg PO QID #56 tab 04/11/18 [Rx] Follow up Appointment(s)/Referral(s): Leland Haro Jr, DO [Primary Care Provider] - 1 Week Connie Yates MD [STAFF PHYSICIAN] - 04/26/18 [facility], [NON-STAFF] - Nika Martinez MD [STAFF PHYSICIAN] - 04/13/18 3:30 pm Ambulatory/Diagnostic Orders: Complete Blood Count w/diff [LAB.AMB] Time Frame: 3 Days, Location: None Selected Comprehensive Metabolic Panel [LAB.AMB] Time Frame: 3 Days, Location: None Selected Patient Instructions/Handouts: Colostomy Care (GEN), Emmanuel-Auguste Drain Care ( GEN), Colectomy Diet (DC) Activity/Diet/Wound Care/Special Instructions: Continue Arimdex at discharge. Do not take your Ibrance until you are evaluated by your oncologist. NESSA Whiting from oncology to make appointment for patient to receive Neupogen injection tomorrow at their office DO NOT REMOVE ABDOMINAL SURGICAL DRESSING UNTIL 04/17/18. NO BATH TUB SOAKS. SPONGE BATH ONLY. EDISON drain to remain in place at discharge until evaluated by Dr. Yates outpatient. Empty when 1/2 full. Keep a log of amount drained and bring with you to follow up appointment. Saud to remain in place for at least two weeks per Dr. Yates Colostomy Care Instructions for Discharge: Last Day of Colostomy pouching system change: 04/10/2018 Mrs Mckay will have the following ostomy supplies for home: Convatec flange (wafers) #[id number] (three from the hospital) Convatec pouch with filter #[id number] (three from the hospital) Also One piece Convatec Cut to fit appliance #[id number] (two from the hospital) No Sting prep pads (12 from the hospital) Ostomy powder (1 from the hospital) Change the entire pouching system every 3-5 days Empty the pouch sitting on the toilet or facing the toilet when the pouch is 1/ 2 to 1/3 full. Mrs Mckay will be receiving sample supplies from [employer] of both one piece cut to fit and two piece appliances in 4- 6 days post discharge to her home.. Mrs Mckay desires transparent pouches with filter Home Health please assist Mrs Mckay in two weeks to arrange for her permanent osotmy applaince prescription with Dr Randall. (Precut appliances) Discharge Disposition: HOME WITH HOME HEALTH SERVICES
--- NOTE | 2018-04-11 13:52 | P.PN ---
Subjective Progress Note Date: 04/11/18 Principal diagnosis: Pneumoperitoneum status Post surgical intervention Patient seen and examined this am, she is overall feeling better. There is pink tinged fluid from ostomy. pain is controlled hemoglobin stable. Her WBC have not recovered, actually decreased mildly, although not dangerously low as they are above 1.2. She will receive Zarxio today and if discharged home will be set up to receive in office Wednesday and Wednesday and see ANIMATION ARTIST in office on Wednesday to re-assess CBC and continue on CSF if needed. Objective - Vital Signs Vital signs: Vital Signs Temp 98.7 F 04/11/18 06:00 Pulse 117 H 04/11/18 07:55 Resp 16 04/11/18 07:55 BP 120/81 04/11/18 06:00 Pulse Ox 92 L 04/11/18 06:00 Intake & Output 04/10/18 04/11/18 04/11/18 18:59 06:59 18:59 Intake Total 825 Output Total 75 10 50 Balance -75 815 -50 Weight 68.946 kg Intake: Intake, IV Titration 825 Amount Dextrose 5%-Lactated 825 Ringers 1,000 ml @ 75 mls /hr IV .[id number] [facility] Rx#: [id number] Output: Drainage 25 10 Abdomen 25 10 Stool 50 50 Other: Voiding Method Toilet Toilet Toilet - Exam - Constitutional General appearance: cooperative, no acute distress, obese - EENT Eyes: anicteric sclerae, EOMI, normal appearance ENT: hearing grossly normal, normal oropharynx - Neck Neck: no lymphadenopathy - Respiratory Respiratory: bilateral: CTA - Cardiovascular Heart sounds: normal: S1, S2 leg Peripheral Edema: bilateral: None - Gastrointestinal midline incision approximated, LLQ ostomy has brown stool, no blood noted in ostomy. Mild abd distension General gastrointestinal: decreased bowel sounds, tenderness (mild, not unrealistic) - Integumentary Integumentary: normal - Neurologic Neurologic: CNII-XII intact - Musculoskeletal Musculoskeletal: strength equal bilaterally - Psychiatric some difficulties with past dates Psychiatric: A&O x's 3, appropriate affect, intact judgment & insight - Labs CBC & Chem 7: 04/11/18 06:35 04/11/18 06:35 Labs: Abnormal Lab Results - Last 24 Hours (Table) 04/11/18 04/11/18 Range/Units 06:35 06:35 WBC 1.8 L* (3.8-10.6) k/uL RBC 3.70 L (3.80-5.40) m/uL Plt Count 58 L (150-450) k/uL Lymphocytes # 0.2 L (1.0-4.8) k/uL Sodium 133 L (137-145) mmol/L Potassium 3.3 L (3.5-5.1) mmol/L Creatinine 0.45 L (0.52-1.04) mg/dL Calcium 6.6 L (8.4-10.2) mg/dL Phosphorus 1.4 L (2.5-4.5) mg/dL Total Protein 3.8 L (6.3-8.2) g/dL Albumin 1.9 L (3.5-5.0) g/dL Microbiology - Last 24 Hours (Table) 04/06/18 19:19 Anaerobic Culture - Final Other - Other Anaerobic Gm Negative Bacilli Anaerobic Gm Negative Bacilli#2 Anaerobic Gram Positive Cocci Assessment and Plan Plan: Assessment and Plan (1) Metastatic breast cancer Narrative/Plan: Pt just finished radiation to metastatic disease in the brain, she was started on Ibrance and arimidex 7 days ago, last dose was Wednesday. - Plan is to continue arimidex, hold Ibrance until surgical incision healed. CBC reviewed, pt was not on meds long enough to impact CBC but, will monitor while inpatient. - Pain in abdomen still present, post-surgical pain. - Continue monitoring and post-operative care - We will continue to hold Ibrance, Contiue on Arimidex at discharge - She will be seen in office in 2 days for recheck CBC. (2) Pancytopenia: - Multifactoral, Recent Acute Illness, stress on body and recent exposure to Ibrance - Zarxio prior to discharge and set up in office for zarxio on Wednesday and Wednesday, see ANIMATION ARTIST in office to recheck CBC and assess for continuing or discontinuing Zarxio at that time.
[2018-04-11] MEDS ORDERED: HYDROcodone/APAP 10-325MG 1 EACH TAB PO PRN (14:30)
--- NOTE | 2018-04-11 14:45 | P.PN ---
Subjective Progress Note Date: 04/11/18 57-year-old female sitting up in bed. Did note the white blood cell count is down to 1.8 with a potassium 3.3 phosphorus at 1.4 Patient states she's anxious to be discharged today. Is passing stool and gas through the ostomy. EDISON drain putting out serous drainage surgical dressing dry status post exploratory laparotomy including permanent descending colostomy due to perforated rectum, postoperative day 5 done on April 06 Objective - Vital Signs Vital signs: Vital Signs Temp 98.7 F 04/11/18 06:00 Pulse 117 H 04/11/18 07:55 Resp 16 04/11/18 07:55 BP 120/81 04/11/18 06:00 Pulse Ox 92 L 04/11/18 06:00 Intake & Output 04/10/18 04/11/18 04/11/18 18:59 06:59 18:59 Intake Total 825 Output Total 75 10 50 Balance -75 815 -50 Weight 68.946 kg Intake: Intake, IV Titration 825 Amount Dextrose 5%-Lactated 825 Ringers 1,000 ml @ 75 mls /hr IV .[id number] [facility] Rx#: [id number] Output: Drainage 25 10 Abdomen 25 10 Stool 50 50 Other: Voiding Method Toilet Toilet Toilet - Exam Physical exam 57-year-old female resting in bed family at bedside Lungs adequate air movement bilaterally room air Heart S1-S2 audible regular no murmur Abdomen surgical dressing site dry. Ostomy left lower moderate amount brown liquid stool noted surgical dressing dry with a EDISON drain nondistended surgical tenderness appropriate Extremities no edema noted - Labs CBC & Chem 7: 04/11/18 06:35 04/11/18 06:35 Labs: Abnormal Lab Results - Last 24 Hours (Table) 04/11/18 04/11/18 Range/Units 06:35 06:35 WBC 1.8 L* (3.8-10.6) k/uL RBC 3.70 L (3.80-5.40) m/uL Plt Count 58 L (150-450) k/uL Lymphocytes # 0.2 L (1.0-4.8) k/uL Sodium 133 L (137-145) mmol/L Potassium 3.3 L (3.5-5.1) mmol/L Creatinine 0.45 L (0.52-1.04) mg/dL Calcium 6.6 L (8.4-10.2) mg/dL Phosphorus 1.4 L (2.5-4.5) mg/dL Total Protein 3.8 L (6.3-8.2) g/dL Albumin 1.9 L (3.5-5.0) g/dL Microbiology - Last 24 Hours (Table) 04/06/18 19:19 Anaerobic Culture - Final Other - Other Anaerobic Gm Negative Bacilli Anaerobic Gm Negative Bacilli#2 Anaerobic Gram Positive Cocci Assessment and Plan Assessment: Impression Perforated bowel at the rectosigmoid junction with adjacent abscess, s/p exploratory laparotomy with sigmoid resection secondary to perforated rectum with creation of permanent colostomy done on April 07 Lactic acidosis and sepsis, present on admission, secondary to above, improving History of left breast cancer with metastasis to the liver Gastroesophageal reflux disease Osteoarthritis Chronic pain History of nicotine dependence, patient quit smoking in 2015 Perforated bowel Hypocalcemia Hypophosphatemia Hypoalbuminemia Mild hyponatremia Chronic pain opiate dependency Leukopenia Plan Okay to proceed with a discharge from a surgical perspective defer to the timing to the attending Ostomy teaching reinforced Continue postop surgical care Continue wound care as ordered Pain control The above impression and plan of care have been discussed and directed by signing physician. Nohemi Nguyen nurse practitioner acting as scribe for signing physician.
[2018-04-11 14:59] VITALS: BP 129/89; PULSE 119; RESP 15; TEMP 98.1
--- NOTE | 2018-04-11 19:52 | P.PN ---
Subjective Progress Note Date: 04/11/18 Very pleasant 57-year-old female who is a very complex past medical history regarding her history of left breast carcinoma that was treated with chemotherapy and radiation in 2016 at the time of the diagnosis. The patient is been doing modestly well however she presents to the emergency center complaining of severe abdominal pain that was associated with several days of constipation she was having nausea but no significant emesis does not believe she had high-grade fever or chills and no rigors were noted. There was feeling poorly enough that she presents the emergency center where computed tomography scan was performed that revealed evidence of a perforated diverticuli at the rectosigmoid junction evidence of abscess at that area that evidence of free air in the peritoneum. The patient was seen by Dr. Randall of surgery and with her acute status she was taken to the operating room and an exploratory laparotomy was performed. There was evidence of the perforated viscus at the sigmoid colon or sigmoid resection was performed and a descending colostomy was placed. Jade's procedure was performed for the perforated rectum. The PREVENA wound system was applied and is now been removed. The patient is feeling modestly well now 4 days after surgery. There was concerns to a new liver mass and apparently this will be addressed in the outpatient setting with interventional biopsy being performed. The patient at this time is denying acute pain. She has been able to sit up and get to the commode. The wound ostomy nurses present to change her ostomy pouch entrained patient and . 04/11/2018 patient is now considerably improved. The abdominal pain that she was suffering from is much improved. The silver foam dressing has been effective for the midline incision. She is doing well with her ostomy care. She denying difficulties such as fevers or chills. Objective - Vital Signs Vital signs: Vital Signs Temp 98.1 F 04/11/18 14:58 Pulse 119 H 04/11/18 15:47 Resp 15 04/11/18 15:47 BP 129/89 04/11/18 14:58 Pulse Ox 94 L 04/11/18 14:58 Intake & Output 04/11/18 04/11/18 04/12/18 06:59 18:59 06:59 Intake Total 825 350 Output Total 10 60 Balance 815 290 Weight 68.946 kg Intake: Intake, IV Titration 825 350 Amount Dextrose 5%-Lactated 825 Ringers 1,000 ml @ 75 mls /hr IV .[id number] [facility] Rx#: [id number] Potassium Phosphate 10 250 mmol In Sodium Chloride 0 .9% 250 ml @ 125 mls/hr IV Q2H [facility] Rx#:[id number] metroNIDAZOLE-NS PMX 500 100 mg In Saline 1 100ml.bag @ 100 mls/hr IVPB Q6HR [facility] Rx#:[id number] Output: Drainage 10 10 Abdomen 10 10 Stool 50 Other: Voiding Method Toilet Toilet - Exam Pleasant 57-year-old woman who is in no acute distress at this time HEENT: Anicteric conjunctiva are pink and moist nasal mucosa grossly intact without significant lesions, there is no thrush. Neck: The neck is supple without significant lymphadenopathy or thyromegaly. Lungs: Good bilateral air entry without significant crackles or wheezing. There is no significant bronchial sounds. There is no egophony or dullness. Heart: Regular rate and rhythm with an audible S1-S2, no S3 no S4. There is no significant murmur click or rub, PMI was nondisplaced. Abdomen: Positive bowel sounds are noted, abdomen is soft there's only minimal tenderness. The ostomy is intact with evidence of thin pasty brown stool. Midline incision is intact without significant amounts of drainage at this time. No palpable masses are noted. Abdomen is nonrigid in the postoperative time frame. Extremities: The upper extremities have excellent pulses they are symmetric, no significant petechiae or telangiectasia. No splinter hemorrhages were noted. The lower extremities are free from significant edema. The peripheral pulses were 2+ and symmetric. Neuro: Awake alert oriented to person place and time. - Labs CBC & Chem 7: 04/11/18 06:35 04/11/18 06:35 Labs: Abnormal Lab Results - Last 24 Hours (Table) 04/10/18 04/11/18 04/11/18 Range/Units 07:16 06:35 06:35 WBC 1.8 L* (3.8-10.6) k/uL RBC 3.70 L (3.80-5.40) m/uL Plt Count 58 L (150-450) k/uL Lymphocytes # 0.2 L (1.0-4.8) k/uL Sodium 133 L (137-145) mmol/L Potassium 3.3 L (3.5-5.1) mmol/L Creatinine 0.45 L (0.52-1.04) mg/dL Calcium 6.6 L (8.4-10.2) mg/dL Phosphorus 1.4 L (2.5-4.5) mg/dL Total Protein 3.8 L (6.3-8.2) g/dL Albumin 1.9 L (3.5-5.0) g/dL Prealbumin <5.0 L (18.0-42.0) mg/dL Microbiology - Last 24 Hours (Table) 04/06/18 19:19 Anaerobic Culture - Final Other - Other Anaerobic Gm Negative Bacilli Anaerobic Gm Negative Bacilli#2 Anaerobic Gram Positive Cocci Laboratory Results WBC 1.8 k/uL (3.8-10.6) L* 04/11/18 06:35 RBC 3.70 m/uL (3.80-5.40) L 04/11/18 06:35 Hgb 11.7 gm/dL (11.4-16.0) 04/11/18 06:35 Hct 34.2 % (34.0-46.0) 04/11/18 06:35 MCV 92.5 fL (80.0-100.0) 04/11/18 06:35 MCH 31.7 pg (25.0-35.0) 04/11/18 06:35 MCHC 34.3 g/dL (31.0-37.0) 04/11/18 06:35 RDW 14.1 % (11.5-15.5) 04/11/18 06:35 Plt Count 58 k/uL (150-450) L 04/11/18 06:35 Neutrophils % 86 % 04/11/18 06:35 Lymphocytes % 8 % 04/11/18 06:35 Monocytes % 4 % 04/11/18 06:35 Eosinophils % 1 % 04/11/18 06:35 Basophils % 0 % 04/11/18 06:35 Neutrophils # 1.6 k/uL (1.3-7.7) 04/11/18 06:35 Lymphocytes # 0.2 k/uL (1.0-4.8) L 04/11/18 06:35 Monocytes # 0.1 k/uL (0-1.0) 04/11/18 06:35 Eosinophils # 0.0 k/uL (0-0.7) 04/11/18 06:35 Basophils # 0.0 k/uL (0-0.2) 04/11/18 06:35 Manual Slide Review Performed 04/06/18 10:50 RBC Morphology Normal 04/06/18 10:50 Polychromasia Present 04/09/18 06:21 Sodium 133 mmol/L (137-145) L 04/11/18 06:35 Potassium 3.3 mmol/L (3.5-5.1) L 04/11/18 06:35 Chloride 104 mmol/L (98-107) 04/11/18 06:35 Carbon Dioxide 25 mmol/L (22-30) 04/11/18 06:35 Anion Gap 4 mmol/L 04/11/18 06:35 BUN 9 mg/dL (7-17) 04/11/18 06:35 Creatinine 0.45 mg/dL (0.52-1.04) L 04/11/18 06:35 Est GFR (CKD-EPI)AfAm >90 (>60 ml/min/1.73 sqM) 04/11/18 06:35 Est GFR (CKD-EPI)NonAf >90 (>60 ml/min/1.73 sqM) 04/11/18 06:35 Glucose 89 mg/dL (74-99) 04/11/18 06:35 Lactic Ac Sepsis Rflx Y 04/06/18 12:30 Plasma Lactic Acid Angel 1.6 mmol/L (0.7-2.0) 04/06/18 16:25 Calcium 6.6 mg/dL (8.4-10.2) L 04/11/18 06:35 Ionized Calcium Jolynn 4.1 mg/dL (4.5-5.3) L 04/08/18 09:45 Phosphorus 1.4 mg/dL (2.5-4.5) L 04/11/18 06:35 Magnesium 1.7 mg/dL (1.6-2.3) 04/11/18 06:35 Total Bilirubin 0.6 mg/dL (0.2-1.3) 04/11/18 06:35 AST 33 U/L (14-36) 04/11/18 06:35 ALT 52 U/L (9-52) 04/11/18 06:35 Alkaline Phosphatase 119 U/L (38-126) 04/11/18 06:35 Total Protein 3.8 g/dL (6.3-8.2) L 04/11/18 06:35 Albumin 1.9 g/dL (3.5-5.0) L 04/11/18 06:35 Prealbumin <5.0 mg/dL (18.0-42.0) L 04/10/18 07:16 Amylase <30 U/L (30-110) L 04/06/18 10:50 Lipase 15 U/L (23-300) L 04/06/18 10:50 Urine Color Yellow 04/06/18 12:35 Urine Appearance Clear (Clear) 04/06/18 12:35 Urine pH 6.5 (5.0-8.0) 04/06/18 12:35 Ur Specific [place] >1.050 (1.001-1.035) H 04/06/18 12:35 Urine Protein Trace (Negative) H 04/06/18 12:35 Urine Glucose (UA) Negative (Negative) 04/06/18 12:35 Urine Ketones Negative (Negative) 04/06/18 12:35 Urine Blood Negative (Negative) 04/06/18 12:35 Urine Nitrite Negative (Negative) 04/06/18 12:35 Urine Bilirubin Negative (Negative) 04/06/18 12:35 Urine Urobilinogen 2.0 mg/dL (<2.0) 04/06/18 12:35 Ur Leukocyte Esterase Negative (Negative) 04/06/18 12:35 Blood Type A Negative 04/06/18 14:20 Blood Type Confirm A Negative 04/06/18 14:22 Blood Type Recheck CABO Indicated 04/06/18 14:20 Antibody Screen NEGATIVE 04/06/18 14:20 Spec Expiration Date 04/09/2018 - 7840 04/06/18 14:20 Microbiology 04/06/18 19:19 Other - Other Anaerobic Culture - Final Anaerobic Gm Negative Bacilli Anaerobic Gm Negative Bacilli#2 Anaerobic Gram Positive Cocci 04/06/18 19:19 Other - Other Gram Stain - Final 04/06/18 19:19 Other - Other Wound Culture - Final Escherichia coli Assessment and Plan (1) Intra-abdominal abscess Narrative/Plan: 57 year old female who presented to hospital with abdominal pain. Without evidence of rectosigmoid perforation requiring placement of the colostomy and Jade's procedure to the rectal stump. She is feeling considerably better at this time. Will be receiving further training of her ostomy care at home from the ostomy nurse at this time. The patient has had some difficulty with leukopenia and has been seen by oncology and thought to be from her Imbrance therapy which is now on hold. We'll expect with nutrition and resolution of infection that her low white count should improve rapidly. She has been given some filgrastim to stimulate her marrow to help her recover more rapidly from this acute issue. She fortunately responded very well to antimicrobial therapy of Levaquin and metronidazole. She does not have ALLERGIES to penicillin , in the current regiment will be ideal because it will transition well to oral therapy for home which should be continued for a total of 14 days given her relative immunocompromise status. Wound care is currently with the silver foam dressing and this will likely continue when she is discharged home with the care of home care. The cultures do show evidence of E. coli that is prather susceptible and anaerobic gram-negative bacilli likely Bacteroides for which the metronidazole will be effective for. 04/11/2018 patient has now had significant overall improvement after her surgical intervention. She has had good recovery she is eating without difficulties and is able to ambulate independently. Surgery is clear for discharge to home. For the abdominal sepsis with E. coli and the anaerobic gram -negative bacilli oral outpatient antibiotic therapy has been center pharmacy with Levaquin and metronidazole. She'll follow up with the surgeon in the office if there is any further needs. Home care is been arranged to help with the ostomy needs in the outpatient setting as she is adjusting, as well as for local wound care. Is been followed by the oncologist and is having medications held which should allow her relative neutropenia to resolve, she also received a few doses of zarixo should allow further recovery of the lower limits of held and will be following up with the oncologist in the future. Status: Acute Code(s): K65.1 - PERITONEAL ABSCESS SNOMED Code(s): 31468356 (2) Perforated rectum Status: Acute Code(s): K63.1 - PERFORATION OF INTESTINE (NONTRAUMATIC) SNOMED Code(s): 91356717 (3) Colostomy in place Status: Acute Code(s): Z93.3 - COLOSTOMY STATUS SNOMED Code(s): 622610527 (4) Leukopenia Status: Acute Code(s): D72.819 - DECREASED WHITE BLOOD CELL COUNT, UNSPECIFIED SNOMED Code(s): 95220036
== END 2018-04-11 17:53 | disposition home health service (06) | DRG 853 ==
LOC: EC 10:37 → 3SUR 12:56 → 5ONC 04-09 09:40
PROVIDERS: ADMIT Family Medicine; ATTEND Family Medicine
PROC: 0D1M0Z4 Bypass Descending Colon to Cutaneous, Open Approach (ICD-10-PCS; principal; 2018-04-06 13:20)
PROC: 0DTN0ZZ Resection of Sigmoid Colon, Open Approach (ICD-10-PCS; principal; 2018-04-06 13:20)
DX: A41.51 Sepsis due to Escherichia coli [E. coli] (principal); K65.1 Peritoneal abscess; K63.1 Perforation of intestine (nontraumatic); C78.7 Secondary malignant neoplasm of liver and intrahepatic bile duct; Q43.8 Other specified congenital malformations of intestine; E87.1 Hypo-osmolality and hyponatremia; F11.20 Opioid dependence, uncomplicated; E87.2 Acidosis; C79.31 Secondary malignant neoplasm of brain; E44.1 Mild protein-calorie malnutrition; G89.4 Chronic pain syndrome; K21.9 Gastro-esophageal reflux disease without esophagitis; M19.90 Unspecified osteoarthritis, unspecified site; E83.51 Hypocalcemia; E83.39 Other disorders of phosphorus metabolism; E88.09 Other disorders of plasma-protein metabolism, not elsewhere classified; D70.1 Agranulocytosis secondary to cancer chemotherapy; T45.1X5A Adverse effect of antineoplastic and immunosuppressive drugs, initial encounter; E86.0 Dehydration; K59.09 Other constipation; Z85.3 Personal history of malignant neoplasm of breast; Z80.0 Family history of malignant neoplasm of digestive organs; Z92.3 Personal history of irradiation; Z92.21 Personal history of antineoplastic chemotherapy; Z90.12 Acquired absence of left breast and nipple; Z87.891 Personal history of nicotine dependence; Z90.710 Acquired absence of both cervix and uterus; Z88.5 Allergy status to narcotic agent; Z88.0 Allergy status to penicillin; Z88.8 Allergy status to other drugs, medicaments and biological substances; Z17.0 Estrogen receptor positive status [ER+]; Z79.811 Long term (current) use of aromatase inhibitors
CPT/HCPCS: 36415; 74177; 80048; 80053; 81003; 82040; 82150; 82330; 83605; 83690; 83735; 84100; 84134; 85025; 86850; 86900; 86901; 87070; 87075; 87077; 87186; 87205; 88307; 93005; 96361; 96365; 96375; 99285

== ENCOUNTER 2018-04-29 21:47 | Inpatient (IN) | payer BC ==
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
[2018-04-29] MEDS ORDERED: IOPAMIDOL-300 CONTRAST 30 ML VIAL (ORAL USE) PO PRN (22:28)
[2018-04-29] MEDS ORDERED: SODIUM CHLORIDE 0.9% 2,000 ML IV STA (22:28)
[2018-04-29] MEDS ORDERED: LEVOFLOXACIN 500MG-D5W PMX 500 MG in DEXTROSE/WATER 1 100ML.BAG IVPB STA (22:33)
[2018-04-29] MEDS ORDERED: metroNIDAZOLE-NS PMX 500 MG in SALINE 1 100ML.BAG IVPB STA (22:33)
[2018-04-29 22:39] LABS: Anisocytosis Slight; Basophils % (A) 0 %; Eosinophils # (A) 0.1 k/uL (0-0.7); Eosinophils % (A) 1 %; HCT 34.3 % (34.0-46.0); Lymphocytes # (A) 0.4 k/uL (1.0-4.8); Lymphocytes % (A) 5 %; MCH 30.5 pg (25.0-35.0); MCHC 32.1 g/dL (31.0-37.0); MCV 94.8 fL (80.0-100.0); Mean Platelet Volume 8.3; Monocytes # (A) 0.4 k/uL (0-1.0); Monocytes % (A) 5 %; Neutrophils % (A) 86 %; Platelet Count 320 k/uL (150-450); RBC 3.62 m/uL (3.80-5.40); RDW 16.1 % (11.5-15.5); WBC 8.1 k/uL (3.8-10.6)
[2018-04-29 22:48] LABS: ALT 24 U/L (9-52); AST 51 U/L (14-36); Albumin 2.4 g/dL (3.5-5.0); Alkaline Phosphatase 180 U/L (38-126); Anion Gap 9 mmol/L; Blood Urea Nitrogen 8 mg/dL (7-17); Calcium 8.8 mg/dL (8.4-10.2); Carbon Dioxide 27 mmol/L (22-30); Chloride 95 mmol/L (98-107); Glucose 109 mg/dL (74-99); Potassium 2.9 mmol/L (3.5-5.1); Sodium 131 mmol/L (137-145); Total Bilirubin 0.5 mg/dL (0.2-1.3); Total Protein 4.5 g/dL (6.3-8.2)
[2018-04-29] MEDS ORDERED: Potassium Replacement Protocol 1 EACH MISC MISCELLANE PRN (23:17)
[2018-04-29] MEDS: POTASSIUM CHLORIDE 10 MEQ in WATER FOR INJECTION 1 100ML.BAG IVPB SCH (23:51)
[2018-04-30] MEDS ORDERED: MORPHINE SULFATE 4 MG/ML SYRINGE IVP STA (00:13)
[2018-04-30] MEDS: POTASSIUM CHLORIDE ER 20 MEQ TAB.ER PO SCH ×4 (01:03→16:40)
--- NOTE | 2018-04-30 01:05 | CT ---
EXAMINATION TYPE: CT abdomen pelvis w con DATE OF EXAM: 04/30/2018 COMPARISON: 04/06/2018 HISTORY: Abdominal pain. Colostomy. CT DLP: mGycm Automated exposure control for dose reduction was used. TECHNIQUE: Helical acquisition of images was performed from the lung bases through the pelvis. CONTRAST: Isovue 100 mL. FINDINGS: The lung bases are clear of consolidation. There is no pleural effusion. There are multiple variable- sized hypodense masses in the liver consistent with metastatic disease. The largest measures 5.5 cm. The bile ducts are not dilated. Spleen appears normal. There is no pancreatic mass. Gallbladder is co ntracted. There is no ascites. There is a left mid abdominal colostomy. This is at the descending colon. There is drainage catheter in the abdomen with the tip in the pelvis posteriorly on the left side. There is complex fluid in the pelvis posteriorly on the left side. There appears to be a 5 cm extraluminal co mplex fluid collection adjacent to the drainage catheter and consistent with an abscess. There appear s to be some surgical clips at the rectosigmoid junction. The sigmoid colon ends blindly. There is no evidence of a bowel obstruction. There is no free air. There is small ventral hernia that contains f at. Kidneys show satisfactory contrast opacification. There is no hydronephrosis. There is no adrenal mas s. There is no retroperitoneal adenopathy. IMPRESSION: COMPLEX FLUID COLLECTION IN THE PELVIS CONSISTENT WITH AN ABSCESS THAT IS SMALLER THAN OLD CT SCAN. T HERE IS APPARENT RESECTION OF THE SIGMOID COLON. THERE IS A DESCENDING COLOSTOMY THAT APPEARS FUNCTIO GISSELLE. NO EVIDENCE OF A BOWEL OBSTRUCTION. THERE IS EVIDENCE OF EXTENSIVE HEPATIC METASTATIC DISEASE W ITH MASSES THAT APPEAR LARGER THAN OLD CT SCAN. DRAINAGE CATHETER IS ADJACENT TO THE APPARENT PELVIC ABSCESS.
[2018-04-30] MEDS: POTASSIUM CHLORIDE 10 MEQ in WATER FOR INJECTION 1 100ML.BAG IVPB SCH ×5 (01:06→12:00)
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
[2018-04-30] MEDS ORDERED: NALOXONE 0.4 MG/ML 1 ML VIAL IV PRN (01:47)
[2018-04-30 03:12] VITALS: BMI 25.8
[2018-04-30] MEDS: METOPROLOL TARTRATE 25 MG TAB PO SCH ×2 (08:35→19:41)
[2018-04-30] MEDS: 0.9% NACL WITH KCL 20 MEQ/L 1,000 ML IV SCH ×2 (14:10→19:37)
--- NOTE | 2018-04-30 14:37 | P.PN ---
Subjective Progress Note Date: 04/30/18 CHIEF COMPLAINT: Right lower quadrant abdominal pain HISTORY OF PRESENT ILLNESS: The patient is a 57-year-old female who is over 3 weeks out following perforation of the rectum after getting chemotherapy and descending colostomy creation. She had a complicated course where she has intolerance to multiple antibiotics. She had completed a course of antibiotics less than 48 hours ago when she developed acute onset right lower quadrant abdominal pain. She started to develop more purulent drainage from her EDISON in the last 4 days as well. She was admitted for severe hypokalemia and tachycardia. Since admission, abdominal pain has improved. Her ostomy is now functioning with flatus and stool. She has changed this twice. Family is at bedside. Incidentally, is pending to see Dr. Aguillon for potential adjustment of her antibiotics. PHYSICAL EXAM: GENERAL: Well-developed in no distress. HEENT: No scleral icterus. Extraocular movements grossly intact. Hears conversational speech. No nasal drainage. NECK: Supple without lymphadenopathy. CHEST: Nonlabored respirations with equal bilateral excursions. CARDIOVASCULAR: Regular rate and regular rhythm. Distal 2+ pulses. ABDOMEN: His tenderness right lower quadrant. No peritonitis. Midline incision granulated. Ostomy pink patent function with stool and flatus and Coloplast. MUSCULOSKELETAL: No clubbing, cyanosis, or edema. Gross strength 5/5 distal lower extremities. NEURO: No focal or lateralizing signs. Cranial nerves 2 through 12 grossly within normal limits. PSYCH: Appropriate affect. Alert and oriented to person, place and time. SKIN: Good skin turgor. Well perfused. ASSESSMENT: 1. Hypokalemia 2. History of perforated rectum with descending colostomy 3. Pelvic abscess 4. History of chemotherapy with sequelae of perforated rectum 5. Breast cancer PLAN: 1. Recommend consultation to infectious disease with complicated pelvic abscess and continued antibiotic treatment 2. Correction of hypokalemia 3. Abdominal binder for comfort 4. Diet as tolerated 5. For pelvic abscess, EDISON drain is in communication with the area. No additional surgical intervention needed Objective - Vital Signs Vital signs: Vital Signs Temp 98 F 04/30/18 03:13 Pulse 117 H 04/30/18 03:13 Resp 17 04/30/18 03:13 BP 121/83 04/30/18 03:13 Pulse Ox 95 04/30/18 03:13 Intake & Output 04/29/18 04/30/18 04/30/18 18:59 06:59 18:59 Intake Total 300 Balance 300 Weight 70.5 kg Intake: Intake, IV Titration 300 Amount Potassium Chloride 10 meq 200 In Water For Injection 1 100ml.bag @ 100 mls/hr IVPB Q1HR [facility] Rx#: [id number] Sodium Chloride 0.9% 2, 100 000 ml @ 999 mls/hr IV . Q2H1M [facility] Rx#:[id number] Other: Voiding Method Toilet # Voids 2 - Labs CBC & Chem 7: 04/29/18 22:30 04/29/18 22:30 Labs: Abnormal Lab Results - Last 24 Hours (Table) 04/29/18 04/29/18 Range/Units 22:30 22:30 RBC 3.62 L (3.80-5.40) m/uL Hgb 11.0 L (11.4-16.0) gm/dL RDW 16.1 H (11.5-15.5) % Lymphocytes # 0.4 L (1.0-4.8) k/uL Sodium 131 L (137-145) mmol/L Potassium 2.9 L (3.5-5.1) mmol/L Chloride 95 L (98-107) mmol/L Creatinine 0.42 L (0.52-1.04) mg/dL Glucose 109 H (74-99) mg/dL AST 51 H (14-36) U/L Alkaline Phosphatase 180 H (38-126) U/L Total Protein 4.5 L (6.3-8.2) g/dL Albumin 2.4 L (3.5-5.0) g/dL - Imaging and Cardiology CT scan - abdomen: report reviewed, image reviewed CT scan - pelvis: report reviewed, image reviewed (Pelvic abscess with communication with EDISON drain) Assessment and Plan (1) Pelvic abscess Current Visit: Yes Status: Acute Code(s): HFD5384 - SNOMED Code(s): 688256374 (2) Abdominal pain Current Visit: Yes Status: Acute Code(s): R10.9 - UNSPECIFIED ABDOMINAL PAIN SNOMED Code(s): 94238815 (3) Breast cancer, left breast Current Visit: Yes Status: Acute Code(s): C50.912 - MALIGNANT NEOPLASM OF UNSPECIFIED SITE OF LEFT FEMALE BREAST SNOMED Code(s): 034127216 (4) Colostomy in place Current Visit: Yes Status: Acute Code(s): Z93.3 - COLOSTOMY STATUS SNOMED Code(s): 733667301 (5) Hypokalemia due to inadequate potassium intake Current Visit: Yes Status: Acute Code(s): E87.6 - HYPOKALEMIA SNOMED Code( s): 71040661 (6) Metastatic cancer to liver Current Visit: Yes Status: Acute Code(s): C78.7 - SECONDARY MALIG NEOPLASM OF LIVER AND INTRAHEPATIC BILE DUCT SNOMED Code(s): 36223843 (7) Perforated rectum Current Visit: No Status: Acute Code(s): K63.1 - PERFORATION OF INTESTINE ( NONTRAUMATIC) SNOMED Code(s): 84463172 (8) Tachycardia Current Visit: Yes Status: Acute Code(s): R00.0 - TACHYCARDIA, UNSPECIFIED SNOMED Code(s): 8281812
[2018-04-30] MEDS ORDERED: cefTRIAXone 2,000 MG in SODIUM CHLORIDE 0.9% 100 ML IVPB SCH (15:15)
[2018-04-30 16:06] LABS: Anion Gap 4 mmol/L; Blood Urea Nitrogen 6 mg/dL (7-17); Calcium 8.3 mg/dL (8.4-10.2); Carbon Dioxide 25 mmol/L (22-30); Chloride 106 mmol/L (98-107); Glucose 98 mg/dL (74-99); Potassium 4.9 mmol/L (3.5-5.1); Sodium 135 mmol/L (137-145)
[2018-04-30] MEDS: MAGNESIUM SULFATE-D5W PMX 1 GM in DEXTROSE/WATER 1 100ML.BAG IVPB SCH ×2 (16:44→19:43)
[2018-04-30] MEDS: cefTRIAXone IN SWFI 2,000 MG/20 ML SYRINGE IVP SCH (16:44)
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
[2018-04-30] MEDS: metroNIDAZOLE-NS PMX 500 MG in SALINE 1 100ML.BAG IVPB SCH ×2 (18:17→23:17)
[2018-04-30] MEDS ORDERED: LEVOFLOXACIN 500MG-D5W PMX 500 MG in DEXTROSE/WATER 1 100ML.BAG IVPB SCH (21:00)
[2018-05-01] MEDS: 0.9% NACL WITH KCL 20 MEQ/L 1,000 ML IV SCH ×3 (00:51→16:18)
[2018-05-01] MEDS: HYDROmorphone 1 MG/ML 1 ML SYRINGE IVP PRN (04:50)
[2018-05-01] MEDS: metroNIDAZOLE-NS PMX 500 MG in SALINE 1 100ML.BAG IVPB SCH ×4 (05:11→23:34)
[2018-05-01 07:32] LABS: Anisocytosis Slight; Basophils % (A) 1 %; Eosinophils # (A) 0.1 k/uL (0-0.7); Eosinophils % (A) 1 %; HCT 32.1 % (34.0-46.0); HGB 9.9 gm/dL (11.4-16.0); Hypochromasia Slight; Lymphocytes # (A) 0.4 k/uL (1.0-4.8); Lymphocytes % (A) 5 %; MCH 30.3 pg (25.0-35.0); MCV 97.6 fL (80.0-100.0); Macrocytosis Slight; Mean Platelet Volume 7.9; Monocytes # (A) 0.4 k/uL (0-1.0); Monocytes % (A) 6 %; Neutrophils # (A) 6.1 k/uL (1.3-7.7); Neutrophils % (A) 85 %; Platelet Count 293 k/uL (150-450); RBC 3.29 m/uL (3.80-5.40); RDW 16.1 % (11.5-15.5); WBC 7.2 k/uL (3.8-10.6)
[2018-05-01 07:45] LABS: Anion Gap 6 mmol/L; Blood Urea Nitrogen 4 mg/dL (7-17); Calcium 7.5 mg/dL (8.4-10.2); Carbon Dioxide 22 mmol/L (22-30); Chloride 108 mmol/L (98-107); Glucose 88 mg/dL (74-99); Potassium 4.3 mmol/L (3.5-5.1); Sodium 136 mmol/L (137-145)
[2018-05-01] MEDS: METOPROLOL TARTRATE 25 MG TAB PO SCH ×2 (08:33→21:07)
--- NOTE | 2018-05-01 08:56 | CONS ---
CONSULTATION DATE OF SERVICE: 04/30/2018. REASON FOR CONSULTATION: Pelvic abscess. HISTORY OF PRESENT ILLNESS: The patient is a 57 -year-old female with past medical history significant for metastatic breast cancer with metastases to the brain in a patient who did have a recently admitted to the hospital with colonic perforation requiring emergent colectomy. The patient who did have exploratory laparotomy with sigmoid resection for perforated rectum and descending colostomy devitalized . The procedure was done on 04/06/[address] Yates. Patient cultures from abdomen was positive for an E coli that was sensitive pathogen in addition to the anaerobic gram-negative bacilli. The patient was discharged to rehab on 04/11/2018 with a 2 week course of oral Levaquin and Flagyl which the patient has been tolerating. Patient seems to have right lower quadrant abdominal pain, severe and unbearable pain has pain dull at times colicky, almost 7 to 8 out of 10 and no radiation. The patient denies having any vomiting. Did have some nausea with it, did not have any output from the colostomy bag. the description of EDISON drainage. With these symptoms, the patient was brought back to the hospital. The patient did have a CT of abdomen and pelvis completed which did show complex fluid collection in the pelvis consistent with an abscess that is smaller CT scan, appears resection of the sigmoid colon. Evidence of extensive hepatic metastatic disease with that appears larger than old CT scan. Drainage catheter is adjacent to the apparent pelvic abscess. The patient did not have any fever during this admission. White count was 8.1. The patient has been started on Levaquin and Flagyl. Infectious Disease was consulted for further recommendation regarding this pelvic abscess. REVIEW OF SYSTEMS: CONSTITUTIONAL: Positive for weakness and chills. No high-grade fever. Eyes no complaint. ENT no complaint. Respiratory no complaint. Cardiovascular no complaint. Genitourinary no complaint. Gastrointestinal: As per HPI. Musculoskeletal no complaint. INTEGUMENTARY: No complaint. PSYCHOLOGICAL: No complaint. ENDOCRINE: No complaint. Neurologic no complaint. PAST MEDICAL HISTORY: Left breast cancer, metastatic with mets to the brain. The patient did have a perforated rectum and secondary peritonitis and pelvic abscess, gastroesophageal reflux disease, osteoarthritis. PAST SURGICAL HISTORY: Hysterectomy, breast surgery, tonsillectomy, laparotomy with perforated bowel. SOCIAL HISTORY: Quit smoking in July 2016, has pack years of smoking. No drinking or drug use. FAMILY HISTORY: Mother with history of colon cancer. Father history of lung cancer. ALLERGIES: DIPHENHYDRAMINE, PENICILLIN, CODEINE, TYLENOL. MEDICATION: Medications include the patient is currently on Levaquin, Lopressor, Flagyl, Narcan, and IV fluids. PHYSICAL EXAMINATION: Her blood pressure is 134/93 with a pulse of 137, temperature 97.4. She is 98% on room air. General description is a middle aged female lying in bed in no distress. No tachypnea or accessory muscle of respiration use. HEENT: Shows pallor. No scleral icterus. Oral mucosa membranes are moist. No pharyngeal erythema or thrush. NECK: Trachea central. No thyromegaly. LUNGS: Unlabored breathing. Decreased breath sounds. No wheeze. No wheeze or crackle. Heart S1, S2. Tachycardic. ABDOMEN: Soft, no guarding. No rigidity. No organomegaly. Extremities: No edema of the feet. Skin examination: No rash or mass palpable. Neurological: Patient is awake, alert, oriented times three. Mood and affect normal. LABS: Hemoglobin is 11, white count 8.1, BUN of 6, creatinine 0.38. CT scan of abdomen and pelvis report as mentioned above. DIAGNOSTIC IMPRESSION AND PLAN: 1. Patient with pelvic abscess in a patient who did have a history of perforated rectum status post laparotomy and drainage of this abscess. Culture done on April 06 did show an E coli and anaerobic gram negative as well as gram-positive cocci that has been treated with a 2 week course of oral Levaquin and Flagyl. The E coli with sensitive pathogen with CT done this admission shows decrease in size but not complete resolution of this abscess. 2. Patient with a PENICILLIN ALLERGY that will limit the number of antibiotics that could be safely used. PLAN: 1. Discontinue the Levaquin. 2. Start the patient on 2 g IV piggyback and continue. 3. Flagyl [address] every [address] will be reviewed with radiologist to see if the fluid is being drained with current drainage catheter or the patient will get a new CT-guided drainage procedure. 5. We will follow up on clinical condition and culture to further adjust medication if needed. Thank you for this consultation. We will follow this patient with you. MMODL / IJN: [id number] /
--- NOTE | 2018-05-01 12:15 | P.PN ---
Subjective Progress Note Date: 05/01/18 CHIEF COMPLAINT: Right lower quadrant abdominal pain HISTORY OF PRESENT ILLNESS: The patient is a 57-year-old female who is over 3 weeks out following perforation of the rectum after getting chemotherapy and descending colostomy creation. The right lower quadrant abdominal pain is resolved. She has moderate output from her ostomy including liquid stool and flatus. EDISON purulent with over 30 mL drainage in 12 hours. PHYSICAL EXAM: GENERAL: Well-developed in no distress. HEENT: No scleral icterus. Extraocular movements grossly intact. Hears conversational speech. No nasal drainage. NECK: Supple without lymphadenopathy. CHEST: Nonlabored respirations with equal bilateral excursions. CARDIOVASCULAR: Regular rate and regular rhythm. Distal 2+ pulses. ABDOMEN: Right lower quadrant tenderness resolved No peritonitis. Midline incision granulated. Ostomy pink patent function with stool and flatus in Coloplast. MUSCULOSKELETAL: No clubbing, cyanosis, or edema. NEURO: No focal or lateralizing signs. Cranial nerves 2 through 12 grossly within normal limits. PSYCH: Appropriate affect. Alert and oriented to person, place and time. SKIN: Good skin turgor. Well perfused. ASSESSMENT: 1. History of perforated rectum with descending colostomy 2. Pelvic abscess 3. History of chemotherapy with sequelae of perforated rectum 4. Breast cancer PLAN: 1. Continue EDISON for drainage of pelvic abscess. Outputs and recordings needed for goals of care 2. Infectious disease consultation for antibiotic management 3. Abdominal binder for comfort 4. Disposition home pending adjustment of antibiotics. Objective - Vital Signs Vital signs: Vital Signs Temp 97.8 F 05/01/18 05:00 Pulse 128 H 05/01/18 05:00 Resp 16 05/01/18 05:00 BP 126/75 05/01/18 05:00 Pulse Ox 92 L 05/01/18 05:00 Intake & Output 04/30/18 05/01/18 05/01/18 18:59 06:59 18:59 Intake Total 300 1010 Balance 300 1010 Intake: Intake, IV Titration 300 Amount Potassium Chloride 10 meq 300 In Water For Injection 1 100ml.bag @ 100 mls/hr IVPB Q1HR [facility] Rx#: [id number] Oral 1010 Other: Voiding Method Toilet Toilet Toilet # Voids 3 - Labs CBC & Chem 7: 05/01/18 06:57 09/16/18 06:57 Labs: Abnormal Lab Results - Last 24 Hours (Table) 04/30/18 05/01/18 05/01/18 Range/Units 15:34 06:57 06:57 RBC 3.29 L (3.80-5.40) m/uL Hgb 9.9 L (11.4-16.0) gm/dL Hct 32.1 L (34.0-46.0) % RDW 16.1 H (11.5-15.5) % Lymphocytes # 0.4 L (1.0-4.8) k/uL Sodium 135 L 136 L (137-145) mmol/L Chloride 108 H (98-107) mmol/L BUN 6 L 4 L (7-17) mg/dL Creatinine 0.38 L 0.41 L (0.52-1.04) mg/dL Calcium 8.3 L 7.5 L (8.4-10.2) mg/dL Assessment and Plan (1) Pelvic abscess Current Visit: Yes Status: Acute Code(s): MNK4114 - SNOMED Code(s): 153695669 (2) Abdominal pain Current Visit: Yes Status: Acute Code(s): R10.9 - UNSPECIFIED ABDOMINAL PAIN SNOMED Code(s): 21327839 (3) Breast cancer, left breast Current Visit: Yes Status: Acute Code(s): C50.912 - MALIGNANT NEOPLASM OF UNSPECIFIED SITE OF LEFT FEMALE BREAST SNOMED Code(s): 198606144 (4) Colostomy in place Current Visit: Yes Status: Acute Code(s): Z93.3 - COLOSTOMY STATUS SNOMED Code(s): 171930639 (5) Hypokalemia due to inadequate potassium intake Current Visit: Yes Status: Acute Code(s): E87.6 - HYPOKALEMIA SNOMED Code( s): 22473453 (6) Metastatic cancer to liver Current Visit: Yes Status: Acute Code(s): C78.7 - SECONDARY MALIG NEOPLASM OF LIVER AND INTRAHEPATIC BILE DUCT SNOMED Code(s): 54124694 (7) Perforated rectum Current Visit: No Status: Acute Code(s): K63.1 - PERFORATION OF INTESTINE ( NONTRAUMATIC) SNOMED Code(s): 14503679 (8) Tachycardia Current Visit: Yes Status: Acute Code(s): R00.0 - TACHYCARDIA, UNSPECIFIED SNOMED Code(s): 8734067
[2018-05-01] MEDS: cefTRIAXone IN SWFI 2,000 MG/20 ML SYRINGE IVP SCH (16:18)
--- NOTE | 2018-05-01 17:17 | P.PN ---
Subjective Inna is a 57-year-old female with new h/o medical history of metastatic breast cancer to the liver and recent colonic perforation requiring an emergent colectomy and subsequent admission to hospital. Patient returned to the emergency department yesterday with complaint of worsening abdominal pain and no stool in colostomy. She also had redness to her drain site, oposite her osotmy and RLQ pain for the past one day. she's been drinking plenty of fluids and states that she drinks multiple large bottles of water every day. However she has been having difficulty eating solid foods, she states that there is been some taste changes and that most foods don't taste well and have an odd mouth feel which is secondary to the chemotherapy. This has limited her her desire to eat solid foods. She also c/o trouble swallowing meat. Patient denies any fevers, chills, nausea or vomiting. She has has a h/o chemotherapy and radiation. currently, she feels better. He last K was 2.9 on admission. Replacement protocol in place 05/01/2018: Patient continues to complain of some dysphagia with meats. Her potassium is now 4.3. She is on replace protocol. Infectious disease consult and new antibiotics noted Flagyl and Rocephin. I discussed the case with Dr. Yates. Early Inna has no chest pains, pressures, shortness of breath, or abdominal pain. He is complaining of some pain with urination. Objective - Vital Signs Vital signs: Vital Signs Temp 98 F 05/01/18 13:00 Pulse 112 H 05/01/18 13:00 Resp 16 05/01/18 13:00 BP 116/82 05/01/18 13:00 Pulse Ox 95 05/01/18 13:00 Intake & Output 04/30/18 05/01/18 05/01/18 18:59 06:59 18:59 Intake Total 300 1010 Output Total 315 Balance 300 1010 -315 Intake: Intake, IV Titration 300 Amount Potassium Chloride 10 meq 300 In Water For Injection 1 100ml.bag @ 100 mls/hr IVPB Q1HR [facility] Rx#: [id number] Oral 1010 Output: Drainage 15 Abdomen 15 Urine/Stool Mix 300 Other: Voiding Method Toilet Toilet Bedside Commode # Voids 3 3 - Exam General: The patient is awake and alert, in no distress, and does not appear acutely ill. Neck: The neck is supple, there is no thyromegaly, lymphadenopathy, tenderness or JVD. Cardiovascular: S1S2 is normal, There is a regular rate and rhythm. No murmur, rub or gallop is appreciated. Respiratory: Lungs are clear to auscultation bilaterally, respirations are non -labored, breath sounds are equal. GASTROINTESTINAL/: Bowel sounds auscultated x 4 quadrants. Colostomy with small amount of soft brown stool noted. EDISON drain to right lower quadrant with serosanguineous drainage. Musculoskeletal: Normal ROM, no tenderness, There is no pedal edema. There is no calf tenderness or swelling. No cords were appreciated. Neurological: CN II-XII intact, there are no obvious motor or sensory deficits. Coordination appears grossly intact. Speech is normal. Skin: Skin is warm and dry and no rashes or lesions are noted. - Labs CBC & Chem 7: 05/01/18 06:57 05/01/18 06:57 Labs: Abnormal Lab Results - Last 24 Hours (Table) 05/01/18 05/01/18 Range/Units 06:57 06:57 RBC 3.29 L (3.80-5.40) m/uL Hgb 9.9 L (11.4-16.0) gm/dL Hct 32.1 L (34.0-46.0) % RDW 16.1 H (11.5-15.5) % Lymphocytes # 0.4 L (1.0-4.8) k/uL Sodium 136 L (137-145) mmol/L Chloride 108 H (98-107) mmol/L BUN 4 L (7-17) mg/dL Creatinine 0.41 L (0.52-1.04) mg/dL Calcium 7.5 L (8.4-10.2) mg/dL Assessment and Plan (1) Anemia Current Visit: Yes Status: Acute Code(s): D64.9 - ANEMIA, UNSPECIFIED SNOMED Code(s): 404133100 (2) Abdominal pain Current Visit: Yes Status: Acute Code(s): R10.9 - UNSPECIFIED ABDOMINAL PAIN SNOMED Code(s): 37684263 (3) Breast cancer, left breast Current Visit: Yes Status: Acute Code(s): C50.912 - MALIGNANT NEOPLASM OF UNSPECIFIED SITE OF LEFT FEMALE BREAST SNOMED Code(s): 687870015 (4) Colostomy in place Current Visit: Yes Status: Acute Code(s): Z93.3 - COLOSTOMY STATUS SNOMED Code(s): 599338740 (5) Hypokalemia due to inadequate potassium intake Current Visit: Yes Status: Acute Code(s): E87.6 - HYPOKALEMIA SNOMED Code( s): 14863157 (6) Intra-abdominal abscess Current Visit: Yes Status: Acute Code(s): K65.1 - PERITONEAL ABSCESS SNOMED Code(s): 26772766 (7) Metastatic cancer to liver Current Visit: Yes Status: Acute Code(s): C78.7 - SECONDARY MALIG NEOPLASM OF LIVER AND INTRAHEPATIC BILE DUCT SNOMED Code(s): 80098180 (8) Dysphagia Current Visit: Yes Status: Acute Code(s): R13.10 - DYSPHAGIA, UNSPECIFIED SNOMED Code(s): 32535627 Plan: I'll wait on her swallow evaluation and her urinalysis. She'll continue on antibiotics per infectious disease. Abscess management per Dr. Randall. Recheck her labs in a.m. SHe'll be reevaluated in the next 24 hours.
[2018-05-01 18:41] LABS: Appearance,Urine Clear (Clear); Bilirubin,Urine Negative (Negative); Blood,Urine Negative (Negative); Color,Urine Yellow; Glucose,Urine (UA) Negative (Negative); Ketones,Urine Negative (Negative); Leukocyte Esterase,Urine Negative (Negative); Nitrite,Urine Negative (Negative); Protein,Urine Negative (Negative); Specific Gravity,Urine 1.006 (1.001-1.035); Urobilinogen,Urine <2.0 mg/dL (<2.0)
--- NOTE | 2018-05-01 23:02 | PN ---
PROGRESS NOTE DATE OF SERVICE: 05/01/2018 REASON FOR FOLLOWUP: Pelvic abscess. INTERVAL HISTORY: The patient is afebrile. The patient overall has pain into the lower abdominal area which is improved. Denies having any chest pain. No shortness of breath or cough. No nausea or vomiting. EXAMINATION: Blood pressure 113/82 with a pulse of 112, temperature 98, she is 95% on room air. GENERAL DESCRIPTION: A middle-aged female lying in bed in no distress. RESPIRATORY SYSTEM: Unlabored breathing. Clear to auscultation anteriorly. HEART: S1, S2. Regular rate and rhythm. LABS: UA has been negative. BUN of 4, creatinine 0.41. Hemoglobin 9. White count 7.2. DIAGNOSTIC IMPRESSION AND PLAN: Patient admitted to the hospital with abdominal pain. The patient did have a history of pelvic abscess from perforated rectum, status post operative repair and drainage of the pelvic abscess. Culture did grow E coli and multiple anaerobes including gram- positive with gram-negative and patient treated with Levaquin and Flagyl at this time. At this time the patient continues on Rocephin and Flagyl to which her symptoms have responded and may benefit from a further course of IV oral antibiotic therapy until this abscess has resolved. Continue supportive care. Dr. Aguillon will follow this patient tomorrow. MMODL / IJN: [id number] /
[2018-05-02] MEDS: 0.9% NACL WITH KCL 20 MEQ/L 1,000 ML IV SCH ×2 (02:06→11:17)
[2018-05-02] MEDS: metroNIDAZOLE-NS PMX 500 MG in SALINE 1 100ML.BAG IVPB SCH ×4 (06:04→23:49)
[2018-05-02 08:05] LABS: Anisocytosis Slight; Basophils % (A) 1 %; Eosinophils % (A) 1 %; HCT 33.3 % (34.0-46.0); HGB 10.5 gm/dL (11.4-16.0); Hypochromasia Slight; Lymphocytes # (A) 0.4 k/uL (1.0-4.8); Lymphocytes % (A) 6 %; MCH 31.1 pg (25.0-35.0); MCHC 31.5 g/dL (31.0-37.0); MCV 98.7 fL (80.0-100.0); Macrocytosis Slight; Mean Platelet Volume 7.5; Monocytes # (A) 0.4 k/uL (0-1.0); Monocytes % (A) 6 %; Neutrophils # (A) 5.4 k/uL (1.3-7.7); Neutrophils % (A) 85 %; Platelet Count 280 k/uL (150-450); RBC 3.37 m/uL (3.80-5.40); RDW 16.6 % (11.5-15.5); WBC 6.3 k/uL (3.8-10.6)
[2018-05-02 08:24] LABS: Anion Gap 5 mmol/L; Blood Urea Nitrogen 3 mg/dL (7-17); Calcium 7.4 mg/dL (8.4-10.2); Carbon Dioxide 20 mmol/L (22-30); Chloride 111 mmol/L (98-107); Glucose 88 mg/dL (74-99); Sodium 136 mmol/L (137-145)
[2018-05-02] MEDS: METOPROLOL TARTRATE 25 MG TAB PO SCH ×2 (08:24→22:40)
[2018-05-02] MEDS: HYDROmorphone 1 MG/ML 1 ML SYRINGE IVP PRN ×3 (08:32→22:40)
[2018-05-02] MEDS ORDERED: ONDANSETRON 4 MG/2 ML VIAL IVP PRN (10:08)
--- NOTE | 2018-05-02 10:24 | P.PN ---
Subjective Progress Note Date: 05/02/18 Inna is a 57-year-old female with new h/o medical history of metastatic breast cancer to the liver and recent colonic perforation requiring an emergent colectomy and subsequent admission to hospital. Patient returned to the emergency department yesterday with complaint of worsening abdominal pain and no stool in colostomy. She also had redness to her drain site, oposite her osotmy and RLQ pain for the past one day. she's been drinking plenty of fluids and states that she drinks multiple large bottles of water every day. However she has been having difficulty eating solid foods, she states that there is been some taste changes and that most foods don't taste well and have an odd mouth feel which is secondary to the chemotherapy. This has limited her her desire to eat solid foods. She also c/o trouble swallowing meat. Patient denies any fevers, chills, nausea or vomiting. She has has a h/o chemotherapy and radiation. currently, she feels better. He last K was 2.9 on admission. Replacement protocol in place 05/01/2018: Patient continues to complain of some dysphagia with meats. Her potassium is now 4.3. She is on replace protocol. Infectious disease consult and new antibiotics noted Flagyl and Rocephin. I discussed the case with Dr. Yates. Early Inna has no chest pains, pressures, shortness of breath, or abdominal pain. He is complaining of some pain with urination. Above notes per Dr. Angel 05/02/2018 Patient seen and examined at the bedside. Patient is awake and alert. She states she drank some of her ensure this morning and then had an episode of emesis. She denies nausea at the time of examination. Patient did undergo swallow evaluation at the bedside by nursing which she passed. However, she continues to complain of occasional dysphasia. Patient remains on Rocephin and Flagyl. Infectious disease on consult. Objective - Vital Signs Vital signs: Vital Signs Temp 98.2 F 05/02/18 05:00 Pulse 72 05/02/18 05:00 Resp 16 05/02/18 05:00 BP 133/84 05/02/18 05:00 Pulse Ox 95 05/02/18 05:00 Intake & Output 09/16/18 09/17/18 09/17/18 18:59 06:59 18:59 Intake Total 1375 Output Total 315 Balance -315 1375 Intake: Intake, IV Titration 1375 Amount 0.9% NaCl with KCl 20 Meq 1275 /l 1,000 ml @ 125 mls/hr IV .Q8H [facility] Rx#:[id number] metroNIDAZOLE-NS PMX 500 100 mg In Saline 1 100ml.bag @ 100 mls/hr IVPB Q6HR [facility] Rx#:[id number] Output: Drainage 15 Abdomen 15 Urine/Stool Mix 300 Other: Voiding Method Bedside Commode Bedside Commode # Voids 3 - Exam GENERAL: This is a 57-year-old in no apparent distress at the time of examination. HEENT: Head is atraumatic, normocephalic. Sclerae anicteric. Conjunctivae are clear. Mucus membranes of the mouth are moist. Neck is supple. RESPIRATORY: Clear to ausculation. No wheezes, rales, or rhonchi. No use of accessory muscles. Patient maintaining oxygen saturation greater than 92% CARDIOVASCULAR: Regular rate and rhythm. S1 and S2 noted. No systolic or diastolic murmur auscultated. No JVD noted. No S3 or S4 noted. GASTROINTESTINAL: Colostomy to left lower quadrant with stool noted. EDISON drain to right lower quadrant with purulent drainage noted. No distention noted. Abdomen soft and round. Normal active bowel sounds auscultated x 4 quadrants. No pain or tenderness noted upon palpation. INTEGUMENTARY: No cyanosis. No jaundice. No rashes noted. No cellulitis noted. EXTREMITIES: 2+ peripheral pulses. No evidence of peripheral edema. No calf tenderness noted. NEUROLOGIC: Cranial nerves grossly intact. PSYCHIATRIC: Awake, alert, and oriented X 2-3. Appropriate affect. - Labs CBC & Chem 7: 05/02/18 07:34 05/02/18 07:34 Labs: Abnormal Lab Results - Last 24 Hours (Table) 05/02/18 05/02/18 Range/Units 07:34 07:34 RBC 3.37 L (3.80-5.40) m/uL Hgb 10.5 L (11.4-16.0) gm/dL Hct 33.3 L (34.0-46.0) % RDW 16.6 H (11.5-15.5) % Lymphocytes # 0.4 L (1.0-4.8) k/uL Sodium 136 L (137-145) mmol/L Chloride 111 H (98-107) mmol/L Carbon Dioxide 20 L (22-30) mmol/L BUN 3 L (7-17) mg/dL Creatinine 0.37 L (0.52-1.04) mg/dL Calcium 7.4 L (8.4-10.2) mg/dL Assessment and Plan Plan: ASSESSMENT: Intra-abdominal abscess Recent hospitalization for perforated bowel with adjacent abscess, status post expiratory laparotomy with sigmoid resection secondary to perforated rectum with creation of permanent colostomy, March 2018 Hypokalemia Dysphasia History of left breast cancer with mastectomy, chemotherapy, and radiation with metastatic lesions to the liver Gastroesophageal reflux disease Osteoarthritis History of nicotine dependence, patient quit smoking in 2015 PLAN: General surgery, Dr. Yates on consult. Appreciate recommendations and input Continue to monitor EDISON drainage and record amount Infectious disease on consult Continue Rocephin and Flagyl Await further recommendations from ID regarding antibiotic regimen and possibility of midline catheter Consult speech for swallow evaluation Home meds as appropriate Monitor labs GI prophylaxis: Pepcid 20mg IV BID DVT prophylaxis: SCDs to bilateral lower extremities Monitor vital signs and address as appropriate Discharge planning: Patient to return home when stable. With home care if IV antibiotics are ordered. Further recommendations pending patient's course Nurse practitioner note has been reviewed by physician. Signing provider agrees with the documented findings, assessment, and plan of care.
[2018-05-02] MEDS: SODIUM CHLORIDE 0.9% 1,000 ML IV SCH (11:20)
--- NOTE | 2018-05-02 13:37 | CDI ---
Last Revision, July 2017 Documentation Clarification Form Date: 05/02/2018 1:27:23 PM From: Nely Tri RN, CCDS Admit Date: 04/30/2018 1:58:00 AM Patient Name: Inna Mckay Visit Number: [id number] ATTENTION: The Clinical Documentation Specialists (CDI) and [facility] Coding Staff appreciate your assistance in clarifying documentation. Please respond to the clarification below the line at the bottom and electronically sign. The CDI & [facility] Coding staff will review the response and follow-up if needed. Please note: Queries are made part of the Legal Health Record. If you have any questions, please contact the author of this message via ITS. Kushal Butcher MD A diagnosis of anemia lacks specificity to accurately reflect your patients severity of condition and clarification is needed. History/Risk Factors: Hx of perf rectum following chemo w a colostomy, fecal Peritonitis, immunocompromised state Clinical indicators: 05/01 Att: "Anemia" Hemoglobin: 11/9.9/10.5 Hematocrit: 34.3/32.1/33.3 Treatment: Lab monitoring daily 0.9% NS @ 50 cc/hr In order to capture the severity of condition, please clarify the type of anemia and etiology if known: Acute blood loss anemia Acute on chronic blood loss anemia Chronic blood loss anemia Iron deficiency anemia Drug induced anemia --------->>>>>>>>>>>>>>>>>>>>>>>>>>>>>>>>>>Anemia due to malignancy Nutritional anemia Anemia of chronic disease Unable to determine Other, please specify Please continue to document in your progress notes and discharge summary in order to capture severity of illness and risk of mortality. Include clinical findings that support your diagnosis. MTDD
[2018-05-02] MEDS: cefTRIAXone IN SWFI 2,000 MG/20 ML SYRINGE IVP SCH (16:48)
--- NOTE | 2018-05-02 20:59 | P.PN ---
Subjective Progress Note Date: 05/02/18 Beth 57-year-old woman well-known to the Service due to her recent hospitalization. She has a very complex past medical history regarding her left breast carcinoma that was treated with chemotherapy and radiation in 2016. She relatively well but March presented emergency center complaining of severe abdominal pain and several days of constipation as well as nausea but not with significant emesis. She thought she was feeling poorly because the constipation she wasn't having significant fevers or chills eventually abdominal pain was severe enough that she presented to the emergency center where there is evidence of the perforated diverticulum of the rectosigmoid junction and evidence of an abscess. There was free air in the peritoneum also being noted. Dr. Randall of surgery saw her and she was taken to the operating room and exploratory laparotomy was performed. The sigmoid colon was perforated and descending colostomy and Jade's procedure was performed for the perforated rectum. She had improvement and was discharged home on Levaquin and Flagyl for the isolated E. coli and anaerobic gram-negative bacilli. Josy comes back to Hospital worse fever and abdominal pain, but also having tachycardia as well as markedly decreased output from her colostomy. Subsequent was admitted there was concerns for ileus and concerns antibiotic therapy was ineffective. He was seen by the ID service and antibiotic therapy was changed to Rocephin and Flagyl. Tolerating this well. Objective - Vital Signs Vital signs: Vital Signs Temp 98.6 F 05/02/18 13:00 Pulse 110 H 05/02/18 16:00 Resp 16 05/02/18 16:00 BP 117/82 05/02/18 13:00 Pulse Ox 96 05/02/18 13:00 Intake & Output 05/02/18 05/02/18 05/03/18 06:59 18:59 06:59 Intake Total 1375 Output Total 25 Balance 1375 -25 Weight 70.5 kg Intake: Intake, IV Titration 1375 Amount 0.9% NaCl with KCl 20 Meq 1275 /l 1,000 ml @ 60 mls/hr IV .[id number] ABHISHEK Rx#: [id number] metroNIDAZOLE-NS PMX 500 100 mg In Saline 1 100ml.bag @ 100 mls/hr IVPB Q6HR ABH[facility]K Rx#:[id number] Output: Drainage 25 Abdomen 25 Other: Voiding Method Bedside Commode Bedside Commode # Voids 3 - Exam Pleasant 57-year-old woman who is in no acute distress at this time HEENT: Anicteric conjunctiva are pink and moist nasal mucosa grossly intact without significant lesions, there is no thrush. Neck: The neck is supple without significant lymphadenopathy or thyromegaly. Lungs: Good bilateral air entry without significant crackles or wheezing. There is no significant bronchial sounds. There is no egophony or dullness. Heart: Regular rate and rhythm with an audible S1-S2, no S3 no S4. There is no significant murmur click or rub, PMI was nondisplaced. Abdomen: Positive bowel sounds are noted, abdomen is soft there's only minimal tenderness. The ostomy is intact with evidence of thin pasty brown stool. Midline incision is healing well without any significant drainage No palpable masses are noted. Abdomen is nonrigid in the postoperative time frame. Extremities: The upper extremities have excellent pulses they are symmetric, no significant petechiae or telangiectasia. No splinter hemorrhages were noted. The lower extremities are free from significant edema. The peripheral pulses were 2+ and symmetric. Neuro: Awake alert oriented to person place and time. There are no acute new gross focal sensory motor deficits. - Labs CBC & Chem 7: 05/02/18 07:34 05/02/18 07:34 Labs: Abnormal Lab Results - Last 24 Hours (Table) 05/02/18 05/02/18 Range/Units 07:34 07:34 RBC 3.37 L (3.80-5.40) m/uL Hgb 10.5 L (11.4-16.0) gm/dL Hct 33.3 L (34.0-46.0) % RDW 16.6 H (11.5-15.5) % Lymphocytes # 0.4 L (1.0-4.8) k/uL Sodium 136 L (137-145) mmol/L Chloride 111 H (98-107) mmol/L Carbon Dioxide 20 L (22-30) mmol/L BUN 3 L (7-17) mg/dL Creatinine 0.37 L (0.52-1.04) mg/dL Calcium 7.4 L (8.4-10.2) mg/dL Laboratory Results WBC 6.3 k/uL (3.8-10.6) 05/02/18 07:34 RBC 3.37 m/uL (3.80-5.40) L 05/02/18 07:34 Hgb 10.5 gm/dL (11.4-16.0) L 05/02/18 07:34 Hct 33.3 % (34.0-46.0) L 05/02/18 07:34 MCV 98.7 fL (80.0-100.0) 05/02/18 07:34 MCH 31.1 pg (25.0-35.0) 05/02/18 07:34 MCHC 31.5 g/dL (31.0-37.0) 05/02/18 07:34 RDW 16.6 % (11.5-15.5) H 05/02/18 07:34 Plt Count 280 k/uL (150-450) 05/02/18 07:34 Neutrophils % 85 % 05/02/18 07:34 Lymphocytes % 6 % 05/02/18 07:34 Monocytes % 6 % 05/02/18 07:34 Eosinophils % 1 % 05/02/18 07:34 Basophils % 1 % 05/02/18 07:34 Neutrophils # 5.4 k/uL (1.3-7.7) 05/02/18 07:34 Lymphocytes # 0.4 k/uL (1.0-4.8) L 05/02/18 07:34 Monocytes # 0.4 k/uL (0-1.0) 05/02/18 07:34 Eosinophils # 0.0 k/uL (0-0.7) 05/02/18 07:34 Basophils # 0.0 k/uL (0-0.2) 05/02/18 07:34 Hypochromasia Slight 05/02/18 07:34 Anisocytosis Slight 05/02/18 07:34 Macrocytosis Slight 05/02/18 07:34 Sodium 136 mmol/L (137-145) L 05/02/18 07:34 Potassium 4.0 mmol/L (3.5-5.1) 05/02/18 07:34 Chloride 111 mmol/L (98-107) H 05/02/18 07:34 Carbon Dioxide 20 mmol/L (22-30) L 05/02/18 07:34 Anion Gap 5 mmol/L 05/02/18 07:34 BUN 3 mg/dL (7-17) L 05/02/18 07:34 Creatinine 0.37 mg/dL (0.52-1.04) L 05/02/18 07:34 Est GFR (CKD-EPI)AfAm >90 (>60 ml/min/1.73 sqM) 05/02/18 07:34 Est GFR (CKD-EPI)NonAf >90 (>60 ml/min/1.73 sqM) 05/02/18 07:34 Glucose 88 mg/dL (74-99) 05/02/18 07:34 Calcium 7.4 mg/dL (8.4-10.2) L 05/02/18 07:34 Magnesium 1.9 mg/dL (1.6-2.3) 04/29/18 22:30 Total Bilirubin 0.5 mg/dL (0.2-1.3) 04/29/18 22:30 AST 51 U/L (14-36) H 04/29/18 22:30 ALT 24 U/L (9-52) 04/29/18 22:30 Alkaline Phosphatase 180 U/L (38-126) H 04/29/18 22:30 Total Protein 4.5 g/dL (6.3-8.2) L 04/29/18 22:30 Albumin 2.4 g/dL (3.5-5.0) L 04/29/18 22:30 Urine Color Yellow 05/01/18 18:31 Urine Appearance Clear (Clear) 05/01/18 18:31 Urine pH 7.0 (5.0-8.0) 05/01/18 18:31 Ur Specific [place] 1.006 (1.001-1.035) 05/01/18 18:31 Urine Protein Negative (Negative) 05/01/18 18:31 Urine Glucose (UA) Negative (Negative) 05/01/18 18:31 Urine Ketones Negative (Negative) 05/01/18 18:31 Urine Blood Negative (Negative) 05/01/18 18:31 Urine Nitrite Negative (Negative) 05/01/18 18:31 Urine Bilirubin Negative (Negative) 05/01/18 18:31 Urine Urobilinogen <2.0 mg/dL (<2.0) 05/01/18 18:31 Ur Leukocyte Esterase Negative (Negative) 05/01/18 18:31 Assessment and Plan (1) Abdominal pain Narrative/Plan: 57-year-old female presents to Hospital increasing abdominal pain which is very significant given her recent history of intra-abdominal infection related to a perforated rectum and surgical intervention. She is feeling relatively well until the severe worsening of her symptoms was thought to have at least a partial difficulty with ileus. Now feeling slightly better, with no further fever or chills. Abdominal pains improved. Able to ingest some full liquids without nausea or emesis. With failure of oral outpatient antibiotic therapy will arrange for PICC line to be placed and initiate outpatient intravenous antibiotic therapy likely with Invanz with once a day. We'll have close follow-up with oncology and radiation oncology and her surgeon. Current Visit: Yes Status: Acute Code(s): R10.9 - UNSPECIFIED ABDOMINAL PAIN SNOMED Code(s): 71346789 (2) Metastatic cancer to liver Current Visit: Yes Status: Acute Code(s): C78.7 - SECONDARY MALIG NEOPLASM OF LIVER AND INTRAHEPATIC BILE DUCT SNOMED Code(s): 47474597
[2018-05-02] MEDS: FAMOTIDINE 20 MG/2 ML VIAL IV SCH (22:40)
[2018-05-03] MEDS: metroNIDAZOLE-NS PMX 500 MG in SALINE 1 100ML.BAG IVPB SCH (05:48)
[2018-05-03 05:53] VITALS: BP 119/81; PULSE 136; RESP 16; TEMP 99.1
[2018-05-03 08:32] LABS: Anion Gap 6 mmol/L; Carbon Dioxide 16 mmol/L (22-30); Chloride 113 mmol/L (98-107); Glucose 89 mg/dL (74-99); Sodium 135 mmol/L (137-145)
[2018-05-03 08:34] LABS: Potassium 4.9 mmol/L (3.5-5.1)
[2018-05-03 08:35] LABS: Blood Urea Nitrogen 4 mg/dL (7-17); Calcium 8.3 mg/dL (8.4-10.2)
[2018-05-03 08:43] LABS: Anisocytosis Slight; Basophils # (A) 0.1 k/uL (0-0.2); Basophils % (A) 1 %; Eosinophils # (A) 0.1 k/uL (0-0.7); Eosinophils % (A) 1 %; HCT 33.6 % (34.0-46.0); HGB 10.7 gm/dL (11.4-16.0); Hypochromasia Slight; Lymphocytes # (A) 0.4 k/uL (1.0-4.8); Lymphocytes % (A) 6 %; MCH 31.1 pg (25.0-35.0); MCHC 31.7 g/dL (31.0-37.0); Macrocytosis Slight; Mean Platelet Volume 7.6; Monocytes # (A) 0.4 k/uL (0-1.0); Monocytes % (A) 6 %; Neutrophils # (A) 5.2 k/uL (1.3-7.7); Neutrophils % (A) 84 %; Platelet Count 283 k/uL (150-450); RBC 3.43 m/uL (3.80-5.40); RDW 16.4 % (11.5-15.5); WBC 6.1 k/uL (3.8-10.6)
[2018-05-03] MEDS ORDERED: ERTAPENEM 1 GM in SODIUM CHLORIDE 0.9% 50 ML IVPB STA (08:47)
[2018-05-03] MEDS: METOPROLOL TARTRATE 25 MG TAB PO SCH (09:17)
[2018-05-03] MEDS: FAMOTIDINE 20 MG/2 ML VIAL IV SCH (09:17)
[2018-05-03] MEDS: SODIUM CHLORIDE 0.9% 1,000 ML IV SCH (10:34)
--- NOTE | 2018-05-03 12:44 | P.DS ---
Providers Date of admission: 04/30/18 01:58 Expected date of discharge: 05/03/18 Attending physician: Kushal Angel Consults: 04/30/18 01:48 Consult Physician Routine Consulting Provider: Connie Yates Consult Reason/Comments: established patient, post op Do you want consulting provider notified?: Already Contacted 04/30/18 14:01 Consult Physician Routine Consulting Provider: Niraj Aguillon Consult Reason/Comments: Antibiotic management pelvic abscess Do you want consulting provider notified?: Yes Primary care physician: [facility] Course: Inna is a 57-year-old female with new h/o medical history of metastatic breast cancer to the liver and recent colonic perforation requiring an emergent colectomy and subsequent admission to hospital. Patient returned to the emergency department yesterday with complaint of worsening abdominal pain and no stool in colostomy. She also had redness to her drain site, oposite her osotmy and RLQ pain for the past one day. she's been drinking plenty of fluids and states that she drinks multiple large bottles of water every day. However she has been having difficulty eating solid foods, she states that there is been some taste changes and that most foods don't taste well and have an odd mouth feel which is secondary to the chemotherapy. This has limited her her desire to eat solid foods. She also c/o trouble swallowing meat. Patient denies any fevers, chills, nausea or vomiting. She has has a h/o chemotherapy and radiation. currently, she feels better. He last K was 2.9 on admission. Replacement protocol in place 05/01/2018: Patient continues to complain of some dysphagia with meats. Her potassium is now 4.3. She is on replace protocol. Infectious disease consult and new antibiotics noted Flagyl and Rocephin. I discussed the case with Dr. Yates. Early Inna has no chest pains, pressures, shortness of breath, or abdominal pain. He is complaining of some pain with urination. Above notes per Dr. Angel 05/02/2018 Patient seen and examined at the bedside. Patient is awake and alert. She states she drank some of her ensure this morning and then had an episode of emesis. She denies nausea at the time of examination. Patient did undergo swallow evaluation at the bedside by nursing which she passed. However, she continues to complain of occasional dysphasia. Patient remains on Rocephin and Flagyl. Infectious disease on consult. 05/03/2018 Patient was evaluated by Dr. Aguillon yesterday who recommends Invanz 1 gram daily for 14 days. Patient has port in place for antibiotic infusion. EDISON drain with minimal purulent fluid. Patient denies any further episodes of emesis. Patient underwent a swallow evaluation yesterday by speech therapy which she passed. is at the bedside who states he is familiar with IV antibiotic infusions as he has done them before for the patient. The patient was deemed stable for discharge. She is to follow up on an outpatient basis with her PCP and all consulting providers. 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 Signing provider agrees with the documented findings, assessment, and plan of care. Patient Condition at Discharge: Stable Plan - Discharge Summary Discharge Rx Participant: Yes New Discharge Prescriptions: New Ertapenem [INVanz] 1 gm IVPB Q24H #14 bag Continue RX: Cholecalciferol [Vitamin D3] 1,000 unit PO BID RX: Metoprolol Tartrate [Lopressor] 25 mg PO BID #60 tab RX: Nystatin 100,000 Unit/ml Susp [Mycostatin Oral Susp] 500,000 unit PO QID #40 cup Discharge Medication List RX: Cholecalciferol [Vitamin D3] 1,000 unit PO BID 08/12/17 [History] RX: Metoprolol Tartrate [Lopressor] 25 mg PO BID #60 tab 04/11/18 [Rx] RX: Nystatin 100,000 Unit/ml Susp [Mycostatin Oral Susp] 500,000 unit PO QID # 40 cup 04/11/18 [Rx] Ertapenem [INVanz] 1 gm IVPB Q24H #14 bag 05/03/18 [Rx] Follow up Appointment(s)/Referral(s): Leland Haro Jr, [Primary Care Provider] - 05/09/18 1:00 pm Niraj Aguillon MD [STAFF PHYSICIAN] - 05/18/18 10:15 am Connie Yates MD [STAFF PHYSICIAN] - 05/17/18 9:15 am [facility], [NON-STAFF] - Nika Martinez MD [STAFF PHYSICIAN] - 05/17/18 11:45 am Ambulatory/Diagnostic Orders: Complete Blood Count w/diff [LAB.AMB] Time Frame: 1 Week, Location: None Selected Comprehensive Metabolic Panel [LAB.AMB] Time Frame: 1 Week, Location: None Selected Patient Instructions/Handouts: Ertapenem (By injection), Colostomy Care (DC), Colectomy (DC), Abscess (GEN) Activity/Diet/Wound Care/Special Instructions: [facility] will be providing the in home antibiotics. If any questions you can reach them through Dr Aguillon office at [phone]. Discharge Disposition: HOME WITH HOME HEALTH SERVICES
--- NOTE | 2018-05-04 07:04 | P.PN ---
Subjective Progress Note Date: 05/02/18 CHIEF COMPLAINT: Right lower quadrant abdominal pain HISTORY OF PRESENT ILLNESS: The patient is a 57-year-old female who is over 3 weeks out following perforation of the rectum after getting chemotherapy and descending colostomy creation. No further abdominal pain. EDISON is draining her pelvic abscess. No fevers or chills. PHYSICAL EXAM: GENERAL: Well-developed in no distress. HEENT: No scleral icterus. Extraocular movements grossly intact. Hears conversational speech. No nasal drainage. NECK: Supple without lymphadenopathy. CHEST: Nonlabored respirations with equal bilateral excursions. CARDIOVASCULAR: Regular rate and regular rhythm. Distal 2+ pulses. ABDOMEN: Soft. Non-tender. Ostomy pink patent with stool and flatus MUSCULOSKELETAL: No clubbing, cyanosis, or edema. NEURO: No focal or lateralizing signs. Cranial nerves 2 through 12 grossly within normal limits. PSYCH: Appropriate affect. Alert and oriented to person, place and time. SKIN: Good skin turgor. Well perfused. ASSESSMENT: 1. History of perforated rectum with descending colostomy 2. Pelvic abscess 3. History of chemotherapy with sequelae of perforated rectum 4. Breast cancer PLAN: 1. Antibiotic management per infectious disease 2. Abdominal binder for comfort 3. Patient stable from a surgical standpoint Objective - Vital Signs Vital signs: Vital Signs Temp 98.2 F 05/02/18 05:00 Pulse 72 05/02/18 05:00 Resp 16 05/02/18 05:00 BP 133/84 05/02/18 05:00 Pulse Ox 95 05/02/18 05:00 Intake & Output 05/01/18 05/02/18 05/02/18 18:59 06:59 18:59 Intake Total 1375 Output Total 315 Balance -315 1375 Intake: Intake, IV Titration 1375 Amount 0.9% NaCl with KCl 20 Meq 1275 /l 1,000 ml @ 125 mls/hr IV .Q8H [facility]HISHEK Rx#:[id number] metroNIDAZOLE-NS PMX 500 100 mg In Saline 1 100ml.bag @ 100 mls/hr IVPB Q6HR [facility]HIS[facility]K Rx#:[id number] Output: Drainage 15 Abdomen 15 Urine/Stool Mix 300 Other: Voiding Method Bedside Commode Bedside Commode # Voids 3 - Labs CBC & Chem 7: 05/03/18 08:25 05/03/18 07:43 Labs: Abnormal Lab Results - Last 24 Hours (Table) 05/03/18 05/03/18 Range/Units 07:43 08:25 RBC 3.43 L (3.80-5.40) m/uL Hgb 10.7 L (11.4-16.0) gm/dL Hct 33.6 L (34.0-46.0) % RDW 16.4 H (11.5-15.5) % Lymphocytes # 0.4 L (1.0-4.8) k/uL Sodium 135 L (137-145) mmol/L Chloride 113 H (98-107) mmol/L Carbon Dioxide 16 L (22-30) mmol/L BUN 4 L (7-17) mg/dL Creatinine 0.43 L (0.52-1.04) mg/dL Calcium 8.3 L (8.4-10.2) mg/dL Labs CBC & Chem 7: 05/02/18 07:34 Labs: Abnormal Lab Results - Last 24 Hours (Table) 05/02/18 05/02/18 Range/Units 07:34 07:34 RBC 3.37 L (3.80-5.40) m/uL Hgb 10.5 L (11.4-16.0) gm/dL Hct 33.3 L (34.0-46.0) % RDW 16.6 H (11.5-15.5) % Lymphocytes # 0.4 L (1.0-4.8) k/uL Sodium 136 L (137-145) mmol/L Chloride 111 H (98-107) mmol/L Carbon Dioxide 20 L (22-30) mmol/L BUN 3 L (7-17) mg/dL Creatinine 0.37 L (0.52-1.04) mg/dL Calcium 7.4 L (8.4-10.2) mg/dL Assessment and Plan (1) Pelvic abscess Status: Acute Code(s): RMS6715 - SNOMED Code(s): 622526515 (2) Abdominal pain Status: Acute Code(s): R10.9 - UNSPECIFIED ABDOMINAL PAIN SNOMED Code(s): 09834005 (3) Breast cancer, left breast Status: Acute Code(s): C50.912 - MALIGNANT NEOPLASM OF UNSPECIFIED SITE OF LEFT FEMALE BREAST SNOMED Code(s): 691354917 (4) Colostomy in place Status: Acute Code(s): Z93.3 - COLOSTOMY STATUS SNOMED Code(s): 184551778 (5) Hypokalemia due to inadequate potassium intake Status: Acute Code(s): E87.6 - HYPOKALEMIA SNOMED Code(s): 72420184 (6) Metastatic cancer to liver Status: Acute Code(s): C78.7 - SECONDARY MALIG NEOPLASM OF LIVER AND INTRAHEPATIC BILE DUCT SNOMED Code(s): 60136557 (7) Perforated rectum Status: Acute Code(s): K63.1 - PERFORATION OF INTESTINE (NONTRAUMATIC) SNOMED Code(s): 83785788 (8) Tachycardia Status: Acute Code(s): R00.0 - TACHYCARDIA, UNSPECIFIED SNOMED Code(s): 5815156
== END 2018-05-03 14:00 | disposition home health service (06) | DRG 372 ==
LOC: EC 21:47 → 5ONC 04-30 01:58
PROVIDERS: ADMIT Family Medicine; ATTEND Family Medicine
DX: K65.1 Peritoneal abscess (principal); C78.7 Secondary malignant neoplasm of liver and intrahepatic bile duct; C79.31 Secondary malignant neoplasm of brain; C50.912 Malignant neoplasm of unspecified site of left female breast; D63.0 Anemia in neoplastic disease; D64.81 Anemia due to antineoplastic chemotherapy; E87.6 Hypokalemia; K21.9 Gastro-esophageal reflux disease without esophagitis; K59.00 Constipation, unspecified; M19.90 Unspecified osteoarthritis, unspecified site; R13.10 Dysphagia, unspecified; R47.02 Dysphasia; R63.3 Feeding difficulties; T45.1X5A Adverse effect of antineoplastic and immunosuppressive drugs, initial encounter; Z79.811 Long term (current) use of aromatase inhibitors; Z80.0 Family history of malignant neoplasm of digestive organs; Z80.1 Family history of malignant neoplasm of trachea, bronchus and lung; Z87.891 Personal history of nicotine dependence; Z88.0 Allergy status to penicillin; Z90.12 Acquired absence of left breast and nipple; Z90.710 Acquired absence of both cervix and uterus; Z92.3 Personal history of irradiation; Z93.3 Colostomy status
CPT/HCPCS: 36415; 74177; 80048; 80053; 81003; 83735; 85025; 93005; 96365; 96366; 96367; 99285

== ENCOUNTER 2018-05-10 04:57 | Emergency (ER) | payer BC ==
[2018-05-10] MEDS ORDERED: SODIUM CHLORIDE 0.9% 500 ML IV STA (04:59)
[2018-05-10] MEDS ORDERED: LORazepam 2 MG/ML INJ IV STA (05:00)
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
[2018-05-10 05:07] VITALS: TEMP 98.8
[2018-05-10 05:11] LABS: Glucose,Whole Blood 156 mg/dL (75-99)
[2018-05-10] MEDS ORDERED: levETIRAcetam IV 1,500 MG in SALINE 1 100ML.BAG IVPB STA (05:28)
[2018-05-10] MEDS ORDERED: SODIUM CHLORIDE 0.9% 1,000 ML IV ONE (05:34)
[2018-05-10 05:35] LABS: Anisocytosis Slight; Basophils % (A) 0 %; Eosinophils % (A) 0 %; HGB 12.5 gm/dL (11.4-16.0); Lymphocytes # (A) 0.3 k/uL (1.0-4.8); Lymphocytes % (A) 3 %; MCH 31.8 pg (25.0-35.0); MCV 96.1 fL (80.0-100.0); Mean Platelet Volume 7.4; Monocytes # (A) 0.3 k/uL (0-1.0); Monocytes % (A) 3 %; Neutrophils # (A) 9.4 k/uL (1.3-7.7); Neutrophils % (A) 92 %; Platelet Count 361 k/uL (150-450); RBC 3.95 m/uL (3.80-5.40); WBC 10.1 k/uL (3.8-10.6)
--- NOTE | 2018-05-10 05:38 | CT ---
EXAMINATION TYPE: CT brain wo con DATE OF EXAM: 05/10/2018 COMPARISON: None HISTORY: seizure activity CT DLP: 892.10 mGycm Automated exposure control for dose reduction was used. FINDINGS: There is right temporal craniotomy defect. There is patchy hypodensity involving most of the right te mporal lobe consistent with white matter edema and encephalomalacia. Ventricles of normal size. There is no midline shift. There is no sign of intracranial hemorrhage. The calvarium is intact. IMPRESSION: THERE IS RIGHT TEMPORAL LOBE EDEMA WITH RIGHT TEMPORAL CRANIOTOMY DEFECT NOTED. NO HEMORRHAGE. NO MAS S EFFECT. EDEMA IS PROBABLY WORSE THAN PREVIOUS MR SCAN OF 03/18/2018.
[2018-05-10] MEDS ORDERED: DEXAMETHASONE SOD PHOSPHATE 10 MG/ML 1 ML VIAL IV STA (05:45)
[2018-05-10 05:49] LABS: ALT 105 U/L (9-52); AST 130 U/L (14-36); Albumin 3.2 g/dL (3.5-5.0); Alkaline Phosphatase 407 U/L (38-126); Anion Gap 8 mmol/L; Blood Urea Nitrogen 11 mg/dL (7-17); Calcium 8.8 mg/dL (8.4-10.2); Carbon Dioxide 25 mmol/L (22-30); Chloride 98 mmol/L (98-107); Glucose 168 mg/dL (74-99); Potassium 3.5 mmol/L (3.5-5.1); Sodium 131 mmol/L (137-145); Total Bilirubin 0.5 mg/dL (0.2-1.3); Total Protein 6.2 g/dL (6.3-8.2)
[2018-05-10 05:53] LABS: INR 1.1 (<1.2); Prothrombin Time 10.4 sec (9.0-12.0)
[2018-05-10 05:57] VITALS: BP 156/111; PULSE 150; RESP 16
[2018-05-10 07:00] LABS: Partial Thromboplastin Time 20.3 sec (22.0-30.0)
== END 2018-05-10 06:30 | disposition other institution (70) ==
LOC: EC 04:57
DX: G93.6 Cerebral edema (principal); R56.9 Unspecified convulsions; Z85.3 Personal history of malignant neoplasm of breast; Z85.841 Personal history of malignant neoplasm of brain; Z92.21 Personal history of antineoplastic chemotherapy; Z87.891 Personal history of nicotine dependence; Z90.710 Acquired absence of both cervix and uterus; Z98.890 Other specified postprocedural states
CPT/HCPCS: 99291; 96374; 96375; 96361; 36415; 93005; 80053; 83605; 83735; 84484; 85025; 85610; 85730; 70450; J2060; J1100; J1953

== ENCOUNTER → 2018-05-26 | Outpatient (CLI) | payer BC ==
[2018-05-26 08:53] LABS: Blood Urea Nitrogen 22 mg/dL (7-17)
--- NOTE | 2018-05-26 10:18 | CT ---
EXAMINATION TYPE: CT abdomen pelvis w con DATE OF EXAM: 05/26/2018 HISTORY: Patient has peritoneal abscess. Follow-up exam. CT DLP: 508.7mGycm Automated Exposure Control for Dose Reduction was Utilized. CONTRAST: CT scan of the abdomen and pelvis is performed with IV Contrast, patient injected with 100 mL of Isov ue 300. COMPARISON: 04/30/2018. FINDINGS: LUNG BASES: Bilateral pleural thickening is redemonstrated with punctate pleural calcification on the right. LIVER/GB: Multiple heterogenous but predominantly hypoattenuated hepatic lesions are seen again carolynn tible with metastatic disease, the largest of which is seen in segment 8 measuring approximately 5.8 x 5.5 cm which appears to have enlarged in comparison to the prior of 04/30/2018. Gallbladder wall hyp eremia and is likely reactive and partially due to gallbladder contraction. PANCREAS: No significant abnormality is seen. SPLEEN: No significant abnormality is seen. ADRENALS: Slight nodularity is seen in the inferior lateral limb of the left adrenal gland on image 2 7 measuring 8 mm this is nonspecific.. KIDNEYS: Nonobstructing 3 mm calculus is present within the left lower pole. Kidneys enhance homogene ously. BOWEL: Left-sided ostomy is again present. Large and small bowel loops are prominent but nondilated l ikely related to mild ileus. LYMPH NODES: Periportal adenopathy is present with 1 cm short axis lymph nodes. OSSEOUS STRUCTURES: Degenerative changes of the lumbosacral junction are present. OTHER: There is decrease in size of the pelvic abscess with only minimal central fluid attenuation an d small foci of air remaining. There are predominantly phlegmonous changes. This measures up to 4.1 x 2.9 cm. Punctate amount of contrast abuts the peripheral posterior margin however no direct fistulou s communication is identified. There is an adjacent surgical drain extending from the right lower richi drant subcutaneous soft tissues. Distal tip of the surgical drain abuts the anterior left lateral mar gin of the abscess. Phlegmonous changes extend to the left pelvic sidewall musculature creating myosi tis. Moderate calcific and noncalcific atheromatous changes are seen of the abdominal aorta and its branch es. Subcutaneous air within the left gluteal musculature likely relates to subcutaneous injections. S mall ventral hernia is seen right paracentrally with a subcentimeter neck on image 44. Ventral diasta ses recti and postsurgical midline incisional change is seen within the subcutaneous tissues. IMPRESSION: 1. Decrease in size of the pelvic abscess, decrease in central fluid component, and decrease in infla mmatory change surrounding the pelvis abscess with adjacent surgical drain. 2. Interval enlargement of the largest metastatic hepatic lesion now measuring up to to 5.8 cm. Perip ortal adenopathy is also present. 3. Prominent size of the large and small bowel compatible with ileus.
== END ==
LOC: RADCTMAIN 07:47
PROVIDERS: ATTEND Surgery Plastic and Reconstructive Surgery
DX: C78.7 Secondary malignant neoplasm of liver and intrahepatic bile duct (principal); N73.9 Female pelvic inflammatory disease, unspecified; Z88.5 Allergy status to narcotic agent; Z88.0 Allergy status to penicillin
CPT/HCPCS: 82565; 84520; 74177; 36415; Q9967

== ENCOUNTER 2018-05-27 09:56 | Inpatient (IN) | payer BC ==
[2018-05-27] MEDS ORDERED: ONDANSETRON 4 MG/2 ML VIAL IVP STA (10:18)
[2018-05-27] MEDS ORDERED: SODIUM CHLORIDE 0.9% 500 ML 500 ML IV STA (10:18)
[2018-05-27] MEDS ORDERED: HYDROmorphone 1 MG/ML 1 ML SYRINGE IVP STA (10:18)
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
[2018-05-27 11:04] LABS: Basophils % (A) 0 %; Eosinophils % (A) 0 %; HCT 42.1 % (34.0-46.0); HGB 14.2 gm/dL (11.4-16.0); Lymphocytes # (A) 0.2 k/uL (1.0-4.8); Lymphocytes % (A) 1 %; MCH 32.8 pg (25.0-35.0); MCHC 33.8 g/dL (31.0-37.0); MCV 96.8 fL (80.0-100.0); Mean Platelet Volume 7.2; Monocytes # (A) 0.3 k/uL (0-1.0); Monocytes % (A) 2 %; Neutrophils # (A) 17.1 k/uL (1.3-7.7); Neutrophils % (A) 97 %; RBC 4.35 m/uL (3.80-5.40); RDW 15.8 % (11.5-15.5); WBC 17.7 k/uL (3.8-10.6)
[2018-05-27 11:07] LABS: Platelet Count 157 k/uL (150-450)
[2018-05-27 11:08] LABS: ALT 333 U/L (9-52); AST 86 U/L (14-36); Albumin 2.4 g/dL (3.5-5.0); Alkaline Phosphatase 238 U/L (38-126); Amylase 101 U/L (30-110); Anion Gap 5 mmol/L; Blood Urea Nitrogen 19 mg/dL (7-17); Calcium 8.4 mg/dL (8.4-10.2); Carbon Dioxide 25 mmol/L (22-30); Chloride 106 mmol/L (98-107); Glucose 147 mg/dL (74-99); Lipase 388 U/L (23-300); Potassium 3.5 mmol/L (3.5-5.1); Sodium 136 mmol/L (137-145); Total Bilirubin 0.4 mg/dL (0.2-1.3); Total Protein 4.5 g/dL (6.3-8.2)
--- NOTE | 2018-05-27 11:49 | CT ---
EXAMINATION TYPE: CT brain wo con DATE OF EXAM: 05/27/2018 HISTORY: weakness, history of breast and brain CA CT DLP: 1020.3 mGycm. Automated Exposure Control for Dose Reduction was Utilized. TECHNIQUE: CT scan of the head is performed without contrast. COMPARISON: CT brain May 10, 2018 and older study September 17, 2017. FINDINGS: There is redemonstration of right temporal craniotomy change with irregular hypodense area redemonstrated. There is sulcal effacement redemonstrated. No residual hyperdense masses seen but per sistent edema at this level is felt present. There is no acute intracranial hemorrhage or midline shift identified. Ventricles and sulci are withi n normal limits in size for patient's age. The globes are intact and the visualized sinuses are krissy r. IMPRESSION: No acute intracranial hemorrhage or midline shift. There is persistent postsurgical juliet nge right temporal region with persistent temporal lobe edema identified. Etiology uncertain. No sign ificant interval change from most recent CT noted.
[2018-05-27] MEDS ORDERED: SODIUM CHLORIDE 0.9% 1,000 ML IV ONE ×2 (11:56→13:48)
[2018-05-27 13:31] LABS: Appearance,Urine Clear (Clear); Bacteria,Urine Rare /hpf; Bilirubin,Urine Negative (Negative); Blood,Urine Negative (Negative); Calcium Oxalate Crystals,Urine Moderate /hpf; Color,Urine Yellow; Glucose,Urine (UA) Negative (Negative); Ketones,Urine Negative (Negative); Leukocyte Esterase,Urine Negative (Negative); Mucus,Urine Rare /hpf; Nitrite,Urine Negative (Negative); Protein,Urine 1+ (Negative); Specific Gravity,Urine 1.024 (1.001-1.035); Squamous Epithelial Cell,Urine 1 /hpf (0-4); Urobilinogen,Urine <2.0 mg/dL (<2.0); WBC,Urine 7 /hpf (0-5)
[2018-05-27] MEDS ORDERED: NALOXONE 0.4 MG/ML 1 ML VIAL IV PRN (15:55)
[2018-05-27] MEDS ORDERED: DEXAMETHASONE 4 MG TAB PO SCH (16:00)
--- NOTE | 2018-05-27 16:03 | P.CONS ---
History of Present Illness - Reason for Consult Consult date: 05/27/18 Metastatic Breast Cancer Requesting physician: Slick Oliveira - Chief Complaint Inability to ambulate, - History of Present Illness This is a very nice 57 year old woman well known to Dr. Martinez for treatment of her metastatic Breast Cancer. SHe originally presented with papable left breast mass,she first noticed in around ,progressed in size,then she started to have bloody nipple discharge and skin changes and pain in left breast. She was evaluated by Dr Allen,had diagnostic mammograms and left breast U/S in revealing a 9 cm retroareolar mass and 4cm left axillary nodes. Core biopsies of breast mass and axilla were positive for poorly differentiated invasive ductal carcinoma,ER+(100%)/LA+(15%),HER2/OSCAR negative by FISH (2+by IHC ). On 08/14/2016,bone scan was negative for metastatic disease,CT scan of CAP revealed a liver lesion,however,liver MRI on 08/28/2016 revealed a benign cyst and hemangioma. On 08/14/2016 echo revealed normal EF. She started neoadjuvant dose dense AC on 09/08/2016 and completed 4 cycles on . She started weekly taxol on 11/03/2016,she completed 12 weeks on 01/19/2017 Repeat breast MRI on 02/09/2017 revealed improvement in her disease,however,the tumor still involving the chest wall. After discussing her care with Dr Allen and rad/onc,it was decided to start neoadjuvant radition therapy and hormonal therapy. Her last menstrual period was in her early 30's after hysterectomy,but she still has her ovaries but she developed postmenopausal symptoms few years prior, her serum estradiol and FSH done on 02/24/2017 were consistent with postmenopause. She started arimidex on 02/17/2017. She completed neoadjuvant radiation therapy on 04/07/2017 She had left mastectomy and axillary nodes resection on 04/28/2017,pathology revealed residual 10mm invasive cancer in breast,one node positive for macrometastasis and one positive for micrometastasis total 6 nodes,negative margins. She presented with severe headaches in ,had a brain CT and MRI found to have a solitary large right temporal lobe mass,had craniotomy on 2017,pathology revealed metastatic breast cancer,ER+/LA-,HER2/OSCAR was 2+,FISH was negative. Repeat CT scan of chest/abdomen/pelvis and bone scan on 10/08/2017 She completed stereotactic brain radiation on 10/20/2017 CT angiogram of chest done on 11/03/2017 (due to chest pain) was negative. On 02/26/2018,PET scan revealed suspicious uptake in left supraclavicular node, right axilla,pleural lesions,largest at level of T5 neural foramina,new liver lesions and new right femur lesion and right adrenal lesion. On 03/07/2018,biopsy of left supraclavicular node was positive for metastatic breast cancer,ER/LA+ and HER2/OSCAR negative (1+ by IHC). She continued to complain of significant left shoulder discomfort,left side upper back pain ,can't raise her arm,her pain is not controlled with percocet 4 times/day, she completed palliative XRT to left supraclavicular node in February 2018 She was started on Faslodex, Xgeva and Ibrance in March 2018. On April 06 she was sent from office after presenting with severe abdominal pain. A CT AP showed perforated viscus, free air and pelvic abscesses, she is s/ p open exp lap with sigmoid resection and colostomy creation. Her ibrance has remained on hold since this episode although XGeva and Faslodex continued (Started 03/28/18) Today 05/27/18 - she presented to Dr. Jon for evaluation of her recent metastatic disease to right temporal lobe brain, although over the past 2-3 weeks she has become weaker and weaker. She is unable to ambulate, Recent fall, and loss of sensation in bilateral lower extremities. A ct scan of head completed without contrast. Stat MRI of spine ordered and dexamethasone 6mg q6 ordered with PPI. THe case was discussed in detail with Dr. Ye today. If cord involvement or progression of brain mets will transfer back to [facility] with her established neurosurgeon. Review of Systems A 14 point review of systems assessed and completed and all negative except HPI Past Medical History Past Medical History: Cancer, GERD/Reflux, Hyperlipidemia, Osteoarthritis (OA) Additional Past Medical History / Comment(s): 2017 left breast cancer/chemo & radiation-pt states the only metastasis she might have is to L sided lymph nodes , 04/06/18 perforated bowel at rectosigmoid junction with adjacent abscess with surgery/colostomy, electrolyte disturbance, lactic acidosis/sepsis, 04/30/18 intraabdominal abscess, dysphasia-passed swallow test, anemia,. 05/10/18 [facility] ER and sent to [facility] d/t L sided weakness, inability to speak/facial twitching/seizure-states she was told she had swelling in the back of her head/ weakness and inability to speak resolved. Other hs: L chest wall cellulitis, generalized arthritis. History of Any Multi-Drug Resistant Organisms: None Reported Past Surgical History: Breast Surgery, Hysterectomy, Orthopedic Surgery, Tonsillectomy Additional Past Surgical History / Comment(s): 03/2018 exploratory laparotomy with sigmoid resection d/t perforated rectum with permanent colostomy, 2016 L breast biopsy and modified radical mastectomy, picc line, mediport, L chest drain Past Anesthesia/Blood Transfusion Reactions: Previous Problems w/ Anesthesia, Motion Sickness, Postoperative Nausea & Vomiting (PONV) Additional Past Anesthesia/Blood Transfusion Reaction / Comm: "hard time coming out" Smoking Status: Former smoker - Past Family History Mother Family Medical History: Cancer Additional Family Medical History / Comment(s): colon CA Father Family Medical History: Cancer Additional Family Medical History / Comment(s): lung cancer Medications and Allergies Home Medications Medication Instructions Recorded Confirmed Type Cholecalciferol [Vitamin D3] 1,000 unit PO BID 08/12/17 05/27/18 History Metoprolol Tartrate [Lopressor] 25 mg PO BID #60 tab 04/11/18 05/27/18 Rx Aspirin [Children's Aspirin] 81 mg PO DAILY 05/27/18 05/27/18 History Atorvastatin [Lipitor] 40 mg PO HS 05/27/18 05/27/18 History Dexamethasone [Decadron] 4 mg PO Q8H 05/27/18 05/27/18 History Ertapenem [INVanz] 1 gm IVPB HS 05/27/18 05/27/18 History levETIRAcetam [Keppra Oral 1,000 mg PO Q12H 05/27/18 05/27/18 History Solution] Allergies Allergy/AdvReac Type Severity Reaction Status Date / Time acetaminophen [From Tylenol] Allergy Mild Rash/Hives Verified 05/27/18 10:32 codeine Allergy Rash/Hives Verified 05/27/18 10:32 diphenhydramine Allergy Swelling Verified 05/27/18 10:32 [From Benadryl] Penicillins Allergy Rash/Hives Verified 05/27/18 10:32 Physical Exam Vitals: Vital Signs Temp Pulse Resp BP Pulse Ox 05/27/18 14:12 97.0 F L 91 18 106/73 97 05/27/18 12:48 97 18 104/74 96 05/27/18 10:15 97.7 F 98 18 101/64 97 Intake and Output 05/27/18 05/27/18 05/27/18 06:59 14:59 22:59 Other: Weight 63.503 kg Gen: Alert and oriented, NAD Head: NC, NT O/P: Endentulous, poor dentition Neck Supple trachea midline Lymph: No Lymphadenopathy cervical or supraclavicular Heart: Tachycardia, Regular Lungs: CTA Bilateral No increased distress or effort noted Abdomen: Evidence of recent surgical intervention, ostomy Neurological: Decreased sensation and strength in BLE, R>L Extremities: BLE Trace edema Positive pulses Skin: No Rash Results Results: ALT = 333, AST = 86 CBC & Chem 7: 05/27/18 10:43 05/27/18 10:44 Labs: Abnormal Lab Results - Last 24 Hours (Table) 05/27/18 05/27/18 05/27/18 Range/Units 10:43 10:44 10:44 WBC 17.7 H (3.8-10.6) k/uL RDW 15.8 H (11.5-15.5) % Neutrophils # 17.1 H (1.3-7.7) k/uL Lymphocytes # 0.2 L (1.0-4.8) k/uL Sodium 136 L (137-145) mmol/L BUN 19 H (7-17) mg/dL Creatinine 0.33 L (0.52-1.04) mg/dL Glucose 147 H (74-99) mg/dL Plasma Lactic Acid Angel 2.5 H* (0.7-2.0) mmol/L AST 86 H (14-36) U/L ALT 333 H (9-52) U/L Alkaline Phosphatase 238 H (38-126) U/L Total Protein 4.5 L (6.3-8.2) g/dL Albumin 2.4 L (3.5-5.0) g/dL Lipase 388 H (23-300) U/L Urine Protein (Negative) Urine WBC (0-5) /hpf Calcium Oxalate Crystal (None) /hpf Urine Bacteria (None) /hpf Urine Mucus (None) /hpf 05/27/18 Range/Units 12:45 WBC (3.8-10.6) k/uL RDW (11.5-15.5) % Neutrophils # (1.3-7.7) k/uL Lymphocytes # (1.0-4.8) k/uL Sodium (137-145) mmol/L BUN (7-17) mg/dL Creatinine (0.52-1.04) mg/dL Glucose (74-99) mg/dL Plasma Lactic Acid Angel (0.7-2.0) mmol/L AST (14-36) U/L ALT (9-52) U/L Alkaline Phosphatase (38-126) U/L Total Protein (6.3-8.2) g/dL Albumin (3.5-5.0) g/dL Lipase (23-300) U/L Urine Protein 1+ H (Negative) Urine WBC 7 H (0-5) /hpf Calcium Oxalate Crystal Moderate H (None) /hpf Urine Bacteria Rare H (None) /hpf Urine Mucus Rare H (None) /hpf Assessment and Plan Plan: 1. Inability to Ambulate, Decreased BLE Sensation: - Concern for Cord involvement - MRI of Spine and Dexamethasone increased with PPI - If evidence of cord/nerve involvement plan for transfer to [place] where established NS relationship is - MRI of Brain with contrast 2. Liver Transiminitis: - Stop Lipitor for now with increased LFTs 3. Metastatic Breast Cancer - Brain, Bone, Liver - Under the care of Dr. Martinez - Current treatment with Faslodex and Xgeva - Overall Prognosis is poor 4. Chronic Illness Myopathy: - Will require rehabilitation on discharge Physician Attestation: I have completed the full history and physical of this patient and agree with above dictation by Johanne Liu NP dictated as a scribe
[2018-05-27] MEDS ORDERED: LORazepam 1 MG TAB PO PRN (16:30)
--- NOTE | 2018-05-27 16:52 | P.HPIM ---
History of Present Illness H&P Date: 05/27/18 Chief Complaint: Abdominal pain, lower extremity weakness 57-year-old female with PMH of left breast cancer, perforated bowel s/p resection and colostomy bag complicated with intra-abdominal abscess s/p EDISON drain (on IV Ertapenem - last day tonight), Seizure disorder (presented on 05/10 and got sent to [facility] for R temporal edema with R temporal craniotomy defect) most recently discharged on 05/07 presents for generalized weakness. is at bedside to relate the story. reports that has experienced profound weakness especially in the bilateral lower extremities since being discharge from [facility] 2 weeks ago. She is unable to get out of bed, ambulate or use of washroom without the assistance of others. Patient reports feeling extremely fatigued and weak since her discharge. She also complains of abdominal pain. Abdominal pain is left-sided, sharp in nature, 8 out of 10 in severity. Pain is located with a EDISON drain is. She denies any nausea or vomiting. She denies any fever but endorses chills. Abdominal pain is not worsened with meals. Patient sees Dr. Martinez for her oncological care. She denies any headaches, cough, chest pain, shortness of breath, palpitations, changes in urination or bowel habits. No numbness or tingling of the extremities. In the ED, patient had a leukocytosis of 17.7. Her lactic acid was 2.5. CMP showed an AST of 86 and ALT of 333 with alkaline phosphatase of 238. Urinalysis showed moderate calcium oxalate crystals. CT of the brain showed no acute intracranial hemorrhage or midline shift, postsurgical right temporal region with persistent temporal lobe edema identified. Review of Systems All systems: negative Past Medical History Past Medical History: Cancer, GERD/Reflux, Hyperlipidemia, Osteoarthritis (OA) Additional Past Medical History / Comment(s): 2017 left breast cancer/chemo & radiation-pt states the only metastasis she might have is to L sided lymph nodes , 04/06/18 perforated bowel at rectosigmoid junction with adjacent abscess with surgery/colostomy, electrolyte disturbance, lactic acidosis/sepsis, 04/30/18 intraabdominal abscess, dysphasia-passed swallow test, anemia,. 05/10/18 [facility] ER and sent to [facility] d/t L sided weakness, inability to speak/facial twitching/seizure-states she was told she had swelling in the back of her head/ weakness and inability to speak resolved. Other hs: L chest wall cellulitis, generalized arthritis. History of Any Multi-Drug Resistant Organisms: None Reported Past Surgical History: Breast Surgery, Hysterectomy, Orthopedic Surgery, Tonsillectomy Additional Past Surgical History / Comment(s): 03/2018 exploratory laparotomy with sigmoid resection d/t perforated rectum with permanent colostomy, 2016 L breast biopsy and modified radical mastectomy, picc line, mediport, L chest drain Past Anesthesia/Blood Transfusion Reactions: Previous Problems w/ Anesthesia, Motion Sickness, Postoperative Nausea & Vomiting (PONV) Additional Past Anesthesia/Blood Transfusion Reaction / Comment(s): "hard time coming out" Smoking Status: Former smoker - Past Family History Mother Family Medical History: Cancer Additional Family Medical History / Comment(s): colon CA Father Family Medical History: Cancer Additional Family Medical History / Comment(s): lung cancer Medications and Allergies Home Medications Medication Instructions Recorded Confirmed Type Cholecalciferol [Vitamin D3] 1,000 unit PO BID 08/12/17 05/27/18 History Metoprolol Tartrate [Lopressor] 25 mg PO BID #60 tab 04/11/18 05/27/18 Rx Aspirin [Children's Aspirin] 81 mg PO DAILY 05/27/18 05/27/18 History Atorvastatin [Lipitor] 40 mg PO HS 05/27/18 05/27/18 History Dexamethasone [Decadron] 4 mg PO Q8H 05/27/18 05/27/18 History Ertapenem [INVanz] 1 gm IVPB HS 05/27/18 05/27/18 History levETIRAcetam [Keppra Oral 1,000 mg PO Q12H 05/27/18 05/27/18 History Solution] Allergies Allergy/AdvReac Type Severity Reaction Status Date / Time acetaminophen [From Tylenol] Allergy Mild Rash/Hives Verified 05/27/18 10:32 codeine Allergy Rash/Hives Verified 05/27/18 10:32 diphenhydramine Allergy Swelling Verified 05/27/18 10:32 [From Benadryl] Penicillins Allergy Rash/Hives Verified 05/27/18 10:32 Physical Exam Vitals: Vital Signs Temp Pulse Resp BP Pulse Ox 05/27/18 14:12 97.0 F L 91 18 106/73 97 05/27/18 12:48 97 18 104/74 96 05/27/18 10:15 97.7 F 98 18 101/64 97 Intake and Output 05/27/18 05/27/18 05/27/18 06:59 14:59 22:59 Other: Weight 63.503 kg General: [non toxic], [no distress], [appears at stated age] Derm: [warm], [dry] Head: [atraumatic], [normocephalic], [symmetric] Eyes: [EOMI], [no lid lag], [anicteric sclera] Mouth: [no lip lesion], [mucus membranes moist] Cardiovascular: [S1S2 reg], [no murmur], [positive posterior tibial pulse bilateral], [R chest port] Lungs: [CTA bilateral], [no rhonchi, no rales] , [no accessory muscle use] Abdominal: [soft], [exquisite tenderness to palpation around the site of EDISON drain without rebound], [no guarding], [no appreciable organomegaly], [midline abdominal scar], [EDISON drain right lower quadrant with white material] Ext: [no gross muscle atrophy], [no edema], [no contractures] Neuro: [2/5 LLE and 1/5 RLE] Psych: [Alert], [oriented], [appropriate affect] Results CBC & Chem 7: 05/27/18 10:43 05/27/18 10:44 Labs: Abnormal Lab Results - Last 24 Hours (Table) 05/27/18 05/27/18 05/27/18 Range/Units 10:43 10:44 10:44 WBC 17.7 H (3.8-10.6) k/uL RDW 15.8 H (11.5-15.5) % Neutrophils # 17.1 H (1.3-7.7) k/uL Lymphocytes # 0.2 L (1.0-4.8) k/uL Sodium 136 L (137-145) mmol/L BUN 19 H (7-17) mg/dL Creatinine 0.33 L (0.52-1.04) mg/dL Glucose 147 H (74-99) mg/dL Plasma Lactic Acid Angel 2.5 H* (0.7-2.0) mmol/L AST 86 H (14-36) U/L ALT 333 H (9-52) U/L Alkaline Phosphatase 238 H (38-126) U/L Total Protein 4.5 L (6.3-8.2) g/dL Albumin 2.4 L (3.5-5.0) g/dL Lipase 388 H (23-300) U/L Urine Protein (Negative) Urine WBC (0-5) /hpf Calcium Oxalate Crystal (None) /hpf Urine Bacteria (None) /hpf Urine Mucus (None) /hpf 05/27/18 Range/Units 12:45 WBC (3.8-10.6) k/uL RDW (11.5-15.5) % Neutrophils # (1.3-7.7) k/uL Lymphocytes # (1.0-4.8) k/uL Sodium (137-145) mmol/L BUN (7-17) mg/dL Creatinine (0.52-1.04) mg/dL Glucose (74-99) mg/dL Plasma Lactic Acid Angel (0.7-2.0) mmol/L AST (14-36) U/L ALT (9-52) U/L Alkaline Phosphatase (38-126) U/L Total Protein (6.3-8.2) g/dL Albumin (3.5-5.0) g/dL Lipase (23-300) U/L Urine Protein 1+ H (Negative) Urine WBC 7 H (0-5) /hpf Calcium Oxalate Crystal Moderate H (None) /hpf Urine Bacteria Rare H (None) /hpf Urine Mucus Rare H (None) /hpf Thrombosis Risk Factor Assmnt - Choose All That Apply Any of the Below Risk Factors Present?: Yes Each Factor Represents 1 point: Age 41-60 years Other Risk Factors: Yes Each Risk Factor Represents 2 Points: Malignancy Other congenital or acquired thrombophilia - If yes, enter type in comment: No Thrombosis Risk Factor Assessment Total Risk Factor Score: 3 Thrombosis Risk Factor Assessment Level: Moderate Risk Assessment and Plan Assessment: Assessment and Plan 1. Sepsis: Intraabdominal abscess. Patient is afebrile but has a leukocytosis of 17.7 (she is also on Decadron at home). Lactic acid 2.5 to 1.8. 05/26 CT AP shows decreased pelvic abscess. Tylenol and Dilaudid IV for pain control. Continue Ertapenem 1g IV QD. Continue NS at 100 cc/h. FU BCx, ID consult 2. LE weakness: Generalized, possibly deconditioning but concerns for spinal abscess or metastatic disease. CT brain negative for metastatic disease to the brain. FU CPK, Vit D, TSH. FU MRI C+T+L spine, PT/OT consult, Neurology 3. Breast CA: Follows Dr. Michelle gomezPT. With likely metastatic disease to the brain and liver. FU Heme-Onc consult 4. Prerenal azotemia: BUN 19 Cr 0.33. Likely due to dehydration. Encourage PO hydration. Continue NS at 100 cc/h. Avoid nephrotoxins. 5. Transaminitis: AST 86, ALT [address] AP on 05/26 shows shows metastatic hepatic lesions measuring up to 5.8. Continue NS at 100 cc/h. Daily CMP 6. Seizure disorder: Keppra 1000 mg PO BID. Ativan 1 mg IV PRN for seizure. Continue Decadron 4 mg IV Q6H for cerebral edema. Seizure and Fall precautions. 7. ASCVD risk: Continue ASA 81 mg PO QD and Lipitor 40 mg PO QHS. 8. Hypertension: BP 106/73. Continue Metoprolol 25 mg PO BID. Monitor vitals, adjust medications as necessary. 9. DVT/GI Prophylaxis: Protonix 40 mg PO BID. Lovenox 40 mg SUBCUT QD.
[2018-05-27] MEDS: PANTOPRAZOLE 40 MG TABLET PO SCH (17:58)
[2018-05-27] MEDS: SODIUM CHLORIDE 0.9% 1,000 ML IV SCH (17:58)
[2018-05-27] MEDS: levETIRAcetam ORAL SOLN 500 MG/5 ML CUP PO SCH (17:59)
[2018-05-27] MEDS ORDERED: DEXAMETHASONE SOD PHOSPHATE 4 MG/ML 1 ML VIAL IV SCH (18:00)
--- NOTE | 2018-05-27 20:45 | MR ---
EXAMINATION TYPE: MR cspine/tspine/lspine wo/w DATE OF EXAM: 05/27/2018 COMPARISON: None HISTORY: Abd pain, sahara leg weakness, breast ca CONTRAST: Standard multiplanar, multisequence MRI departmental protocol utilizing 6.5 mL intravenous Gadavist g adolinium contrast. FINDINGS: The cervical vertebra have normal alignment. There is no significant disc space narrowing. There is minor spurring anteriorly at C5-6. Cervical spinal cord has normal signal pattern. There is no edema. There is small right-sided uncovertebral spurring at C5-6 without significant neural forami nal impingement. There is no cervical compression fracture. Brainstem is intact. There is no cervical paraspinal mass. On the T1 images there is abnormal decreased signal in the vertebral bodies of T1 to the T5 vertebra that could relate to radiation treatment. There is abnormal decreased signal in the posterior superio r aspect T6 vertebral body. There is no thoracic compression fracture. There is normal alignment of t he thoracic vertebra. Thoracic spinal cord has normal signal pattern without evidence of edema. There is 6 mm area of decreased signal on the T1 images in the posterior superior aspect of the T7 vertebr al body. There is no evidence of thoracic disc herniation. There is normal thoracic spinal stenosis. The lumbar vertebra have normal alignment. There is degenerative disc space narrowing at L5-S1. There is no compression fracture. There is no lumbar spinal stenosis. There is posterior disc bulging at L 4-5 and L5-S1. There is developmentally adequate spinal canal and no spinal stenosis. The posterior e lements are intact. Contrast images show no pathologic enhancement in the lumbar spine. Contrast images show inhomogeneous enhancement of the upper thoracic vertebral bodies of T1-T5 Contrast images show no pathologic enhancement of the cervical spine. IMPRESSION: No spinal stenosis. Normal cervical thoracic and lumbar spinal cord. No compression fracture. Decreas ed T1 signal in the upper thoracic vertebra that could relate to radiation treatment. Inhomogeneous e nhancement of these vertebra. It is not clear if there is metastatic disease or variable response to radiation. Minor degenerative disc changes in the lower cervical spine. Correlation with the patient' s medical history is needed. It is possible there is upper thoracic metastatic disease in multiple co ntiguous levels.
[2018-05-27] MEDS: CHOLECALCIFEROL 1,000 UNIT TAB PO SCH (20:59)
[2018-05-27] MEDS: METOPROLOL TARTRATE 25 MG TAB PO SCH (20:59)
[2018-05-27] MEDS: ERTAPENEM 1 GM in SODIUM CHLORIDE 0.9% 50 ML IVPB SCH (20:59)
[2018-05-27] MEDS ORDERED: ATORVASTATIN 40 MG TAB PO SCH (21:00)
[2018-05-27] MEDS: DEXAMETHASONE SOD PHOSPHATE 10 MG/ML 1 ML VIAL IV SCH (23:30)
--- NOTE | 2018-05-27 23:53 | P.CNNES ---
History of Present Illness Consult date: 05/27/18 Reason for Consult: Patient admitted with bilateral leg weakness. History of Present Illness: This patient is a 57-year-old right-handed white female who has a history of left breast cancer which she states was diagnosed about 3 years ago. She states she has stage IV breast cancer and is being followed by several specialists including Dr. Estrella and Dr. Ye in the oncology and radiation oncology section of [facility]. She was diagnosed with metastatic lesions to the brain in April of this year. She was transferred to the [facility] where she had to undergo a right temporal lobe craniotomy for treatment of a metastatic lesion to the brain. Following this she has been making slow progress in her recovery. More recently the patient has been seeing a progressive course of weakness involving both of her lower extremities. Over the last 2 weeks she has been unable to get up out of bed without assistance from her . She is able to stand with assist but is unable to take steps. Since being discharged from the [facility] she has experienced severe and extreme fatigue and weakness. Along with the leg weakness she has been experiencing severe abdominal pain. It is mostly on her left side and she describes it as a sharp pain with an intensity of 8 out of 10 in terms of her pain level. She denies any nausea or vomiting symptoms. She has not had any recent chills or fevers. She does have a previous history of having suffered a intra-abdominal abscess which required a EDISON drain. She has made good recovery from this over the last several months. Since being discharged from [facility] about 2 weeks ago her leg weakness has sharply become more profound. She states she is able to stand with assistance but is unable to take steps. She did mention this to Dr. Estrella who is her primary oncologist locally who recommended that she go to immediately to the emergency room for evaluation. In the emergency room today she was noted to have a mild to moderate leukocytosis with a white count of 17.7. The patient states she has been taking Decadron at home on regular basis since discharge from the [facility]. She did undergo a computed tomography scan of the brain on admission through the ER today. This CAT scan revealed evidence of no acute intracranial hemorrhage or midline shift. There was persistent postsurgical bladder changer the right temporal region with a persistent temporal lobe edema which was identified. Etiology is uncertain. The patient denies any bowel or bladder disturbance. She does have paresthesias in both of her legs. When questioned about the degree of weakness in her legs the patient is very imprecise. She states her condition has been progressively getting worse with time. Given her history of metastatic lesions to the brain and recent resection of the temporal lobe of the brain which now reveals some degree of encephalomalacia. We have recommended patient should be maintained on Keppra 2000 mg by mouth twice a day. We will check her Keppra level tomorrow morning. Patient is to continue on Decadron 6 mg by mouth every 6 hours. We will continue to follow her progress closely during this admission. This patient's overall prognosis at this time remains very guarded. Review of Systems Constitutional: Denies chills, Denies fever Eyes: denies blurred vision, denies pain Ears, nose, mouth and throat: Denies headache, Denies sore throat Cardiovascular: Denies chest pain, Denies shortness of breath Respiratory: Denies cough Gastrointestinal: Denies abdominal pain, Denies diarrhea, Denies nausea, Denies vomiting Genitourinary: Denies dysuria, Denies hematuria Musculoskeletal: Reports arm numbness/tingling, Reports low back pain, Reports muscle cramps, Denies myalgias Integumentary: Denies pruritus, Denies rash Neurological: Reports balance difficulties, Reports burning pain, Reports convulsions, Reports gait dysfunction, Reports headaches, Reports lack of coordination, Reports motor disturbance, Reports paresthesias, Reports tingling , Reports tremors, Denies numbness, Denies weakness Psychiatric: Denies anxiety, Denies depression Endocrine: Denies fatigue, Denies weight change Past Medical History Past Medical History: Cancer, GERD/Reflux, Hyperlipidemia, Osteoarthritis (OA) Additional Past Medical History / Comment(s): 2017 left breast cancer/chemo & radiation-pt states the only metastasis she might have is to L sided lymph nodes , 04/06/18 perforated bowel at rectosigmoid junction with adjacent abscess with surgery/colostomy, electrolyte disturbance, lactic acidosis/sepsis, 04/30/18 intraabdominal abscess, dysphasia-passed swallow test, anemia,. 05/10/18 [facility] ER and sent to [facility] d/t L sided weakness, inability to speak/facial twitching/seizure-states she was told she had swelling in the back of her head/ weakness and inability to speak resolved. Other hs: L chest wall cellulitis, generalized arthritis. History of Any Multi-Drug Resistant Organisms: None Reported Past Surgical History: Breast Surgery, Hysterectomy, Orthopedic Surgery, Tonsillectomy Additional Past Surgical History / Comment(s): 03/2018 exploratory laparotomy with sigmoid resection d/t perforated rectum with permanent colostomy, 2017 L breast biopsy and modified radical mastectomy, picc line, mediport, L chest drain Past Anesthesia/Blood Transfusion Reactions: Previous Problems w/ Anesthesia, Motion Sickness, Postoperative Nausea & Vomiting (PONV) Additional Past Anesthesia/Blood Transfusion Reaction / Comment(s): "hard time coming out" Smoking Status: Former smoker - Past Family History Mother Family Medical History: Cancer Additional Family Medical History / Comment(s): colon CA Father Family Medical History: Cancer Additional Family Medical History / Comment(s): lung cancer Medications and Allergies Home Medications Medication Instructions Recorded Confirmed Type Cholecalciferol [Vitamin D3] 1,000 unit PO BID 08/12/17 05/27/18 History Metoprolol Tartrate [Lopressor] 25 mg PO BID #60 tab 04/11/18 05/27/18 Rx Aspirin [Children's Aspirin] 81 mg PO DAILY 05/27/18 05/27/18 History Atorvastatin [Lipitor] 40 mg PO HS 05/27/18 05/27/18 History Dexamethasone [Decadron] 4 mg PO Q8H 05/27/18 05/27/18 History Ertapenem [INVanz] 1 gm IVPB HS 05/27/18 05/27/18 History levETIRAcetam [Keppra Oral 1,000 mg PO Q12H 05/27/18 05/27/18 History Solution] Allergies Allergy/AdvReac Type Severity Reaction Status Date / Time acetaminophen [From Tylenol] Allergy Mild Rash/Hives Verified 05/27/18 10:32 codeine Allergy Rash/Hives Verified 05/27/18 10:32 diphenhydramine Allergy Swelling Verified 05/27/18 10:32 [From Benadryl] Penicillins Allergy Rash/Hives Verified 05/27/18 10:32 Physical Examination - Vital Signs Vital Signs: Vital Signs Temp Pulse Resp BP Pulse Ox 05/27/18 14:12 97.0 F L 91 18 106/73 97 05/27/18 12:48 97 18 104/74 96 05/27/18 10:15 97.7 F 98 18 101/64 97 Intake and Output 05/27/18 05/27/18 05/27/18 06:59 14:59 22:59 Other: Weight 63.503 kg - Constitutional General appearance: average body habitus, cooperative - EENT EENT: PERRL, mucous membranes moist - Respiratory Respiratory: lungs clear, normal breath sounds - Cardiovascular Cardiovascular: regular rate, normal S1, normal S2 Extremities: no peripheral edema bilaterally - Gastrointestinal Gastrointestinal: normoactive bowel sounds - Integumentary Integumentary: normal - Neurologic Cranial nerve examination: PERRL, EOMI, VFF Speech examination: intact Sensorimotor examination: intact Detailed sensory examination: intact Reflex and gait examination: intact - Musculoskeletal Musculoskeletal: no pain - Psychiatric Psychiatric: mood/affect appropriate, cooperative Results - Laboratory Findings CBC and BMP: 05/27/18 10:43 05/27/18 10:44 Abnormal Lab Findings: Abnormal Labs 05/27/18 05/27/18 05/27/18 10:43 10:44 10:44 WBC 17.7 H RDW 15.8 H Neutrophils # 17.1 H Lymphocytes # 0.2 L Sodium 136 L BUN 19 H Creatinine 0.33 L Glucose 147 H Plasma Lactic Acid Angel 2.5 H* AST 86 H ALT 333 H Alkaline Phosphatase 238 H Total Protein 4.5 L Albumin 2.4 L Lipase 388 H Urine Protein Urine WBC Calcium Oxalate Crystal Urine Bacteria Urine Mucus 05/27/18 12:45 WBC RDW Neutrophils # Lymphocytes # Sodium BUN Creatinine Glucose Plasma Lactic Acid Angel AST ALT Alkaline Phosphatase Total Protein Albumin Lipase Urine Protein 1+ H Urine WBC 7 H Calcium Oxalate Crystal Moderate H Urine Bacteria Rare H Urine Mucus Rare H Assessment and Plan (1) Bilateral leg weakness Current Visit: Yes Status: Acute Code(s): R29.898 - OTH SYMPTOMS AND SIGNS INVOLVING THE MUSCULOSKELETAL SYSTEM SNOMED Code(s): 9002307 (2) Brain metastases Current Visit: Yes Status: Acute Code(s): C79.31 - SECONDARY MALIGNANT NEOPLASM OF BRAIN SNOMED Code(s): 62316992 (3) Breast cancer, left breast Current Visit: No Status: Acute Code(s): C50.912 - MALIGNANT NEOPLASM OF UNSPECIFIED SITE OF LEFT FEMALE BREAST SNOMED Code(s): 634198511 (4) Cerebral edema Current Visit: No Status: Acute Code(s): G93.6 - CEREBRAL EDEMA SNOMED Code(s): 3715471 Plan: This patient is a 57-year-old female with a history of multiple complex medical issues related to her diagnosis of left breast cancer. According to the patient she was diagnosed about 3 years ago as having stage IV breast cancer. She had metastatic lesions to the brain which was recently treated by neurosurgery and [facility] in April this year. She had to undergo a right-sided craniotomy procedure for this. She had been making slow progress but this past few days has been expressing severe abdominal pain. She has a history of intra-abdominal abscess in the past as well. She is being evaluated further for this condition. She has been taking Keppra monotherapy for seizure prophylaxis. She is not aware of her last Keppra blood level. This will be ordered for tomorrow morning for her and her dose will be adjusted as necessary. She is to continue on her current dose of Keppra 1000 mg by mouth twice a day. She is also been placed on Decadron and a dosage of 6 mg every 6 hours. We will continue close neurological follow-up for the patient. She is scheduled to have MRI of the brain tomorrow for further evaluation. Would also recommend routine EEG to be done tomorrow. Her Keppra blood level has been sent to the laboratory and will likely be drawn first thing tomorrow morning. This patient's overall prognosis at this time remains very guarded. We are waiting the results of her MRI of the cervical thoracic and lumbar spine to give further recommendations. Given her history of metastatic stage IV breast cancer we would also recommend to consider number puncture for this patient to do CSF analysis for possible metastatic cancer cells to the CSF. As noted she is scheduled for MRI of the brain tomorrow and we will await those results. We had a long discussion with this patient and she would like to continue aggressive treatment and management of her underlying breast cancer. Her overall prognosis at this time remains very guarded. Time with Patient: Greater than 30
[2018-05-28] MEDS: SODIUM CHLORIDE 0.9% 1,000 ML IV SCH ×2 (00:15→16:34)
[2018-05-28] MEDS: HYDROmorphone 1 MG/ML 1 ML SYRINGE IVP PRN ×2 (04:54→20:40)
[2018-05-28] MEDS: levETIRAcetam ORAL SOLN 500 MG/5 ML CUP PO SCH ×2 (06:23→16:35)
[2018-05-28] MEDS: DEXAMETHASONE SOD PHOSPHATE 10 MG/ML 1 ML VIAL IV SCH ×2 (06:24→10:08)
[2018-05-28] MEDS ORDERED: PANTOPRAZOLE 40 MG TABLET PO SCH (07:30)
[2018-05-28 07:36] LABS: HCT 41.3 % (34.0-46.0); HGB 13.6 gm/dL (11.4-16.0); MCH 32.5 pg (25.0-35.0); MCV 98.4 fL (80.0-100.0); Macrocytosis Slight; Mean Platelet Volume 6.9; Platelet Count 140 k/uL (150-450); RDW 15.4 % (11.5-15.5); WBC 13.2 k/uL (3.8-10.6)
[2018-05-28 08:00] LABS: ALT 229 U/L (9-52); AST 54 U/L (14-36); Albumin 2.2 g/dL (3.5-5.0); Alkaline Phosphatase 187 U/L (38-126); Anion Gap 4 mmol/L; Blood Urea Nitrogen 19 mg/dL (7-17); Calcium 7.8 mg/dL (8.4-10.2); Carbon Dioxide 26 mmol/L (22-30); Chloride 107 mmol/L (98-107); Creatine Kinase 27 U/L (30-135); Glucose 134 mg/dL (74-99); Potassium 3.8 mmol/L (3.5-5.1); Sodium 137 mmol/L (137-145); Total Bilirubin 0.4 mg/dL (0.2-1.3); Total Protein 4.1 g/dL (6.3-8.2)
[2018-05-28] MEDS ORDERED: IOPAMIDOL-300 CONTRAST 30 ML VIAL (ORAL USE) PO PRN ×2 (09:10→10:12)
--- NOTE | 2018-05-28 09:14 | P.GSCN ---
History of Present Illness Consult date: 05/28/18 Reason for Consult: Abdominal abscess History of present illness: This a 57-year-old female with a very complicated medical history. Patient underwent exploratory laparotomy sigmoid resection and end colostomy in March with Dr. Randall. Patient has had persistent drainage of purulent fluid from her EDISON site. Patient is currently mid subcostal for workup of inability to walk.. She has metastatic breast cancer. Patient has some minimal abdominal pain. Past Medical History Past Medical History: Cancer, GERD/Reflux, Hyperlipidemia, Osteoarthritis (OA) Additional Past Medical History / Comment(s): 2016 left breast cancer/chemo & radiation-pt states the only metastasis she might have is to L sided lymph nodes , 04/06/18 perforated bowel at rectosigmoid junction with adjacent abscess with surgery/colostomy, electrolyte disturbance, lactic acidosis/sepsis, 04/30/18 intraabdominal abscess, dysphasia-passed swallow test, anemia,. 05/10/18 [facility] ER and sent to [facility] d/t L sided weakness, inability to speak/facial twitching/seizure-states she was told she had swelling in the back of her head/ weakness and inability to speak resolved. Other hs: L chest wall cellulitis, generalized arthritis. History of Any Multi-Drug Resistant Organisms: None Reported Past Surgical History: Breast Surgery, Hysterectomy, Orthopedic Surgery, Tonsillectomy Additional Past Surgical History / Comment(s): 03/2018 exploratory laparotomy with sigmoid resection d/t perforated rectum with permanent colostomy, 2017 L breast biopsy and modified radical mastectomy, picc line, mediport, L chest drain Past Anesthesia/Blood Transfusion Reactions: Previous Problems w/ Anesthesia, Motion Sickness, Postoperative Nausea & Vomiting (PONV) Additional Past Anesthesia/Blood Transfusion Reaction / Comm: "hard time coming out" Smoking Status: Former smoker - Past Family History Mother Family Medical History: Cancer Additional Family Medical History / Comment(s): colon CA Father Family Medical History: Cancer Additional Family Medical History / Comment(s): lung cancer Medications and Allergies Home Medications Medication Instructions Recorded Confirmed Type Cholecalciferol [Vitamin D3] 1,000 unit PO BID 08/12/17 05/27/18 History Metoprolol Tartrate [Lopressor] 25 mg PO BID #60 tab 04/11/18 05/27/18 Rx Aspirin [Children's Aspirin] 81 mg PO DAILY 05/27/18 05/27/18 History Atorvastatin [Lipitor] 40 mg PO HS 05/27/18 05/27/18 History Dexamethasone [Decadron] 4 mg PO Q8H 05/27/18 05/27/18 History Ertapenem [INVanz] 1 gm IVPB HS 05/27/18 05/27/18 History levETIRAcetam [Keppra Oral 1,000 mg PO Q12H 05/27/18 05/27/18 History Solution] Allergies Allergy/AdvReac Type Severity Reaction Status Date / Time acetaminophen [From Tylenol] Allergy Mild Rash/Hives Verified 05/27/18 10:32 codeine Allergy Rash/Hives Verified 05/27/18 10:32 diphenhydramine Allergy Swelling Verified 05/27/18 10:32 [From Benadryl] Penicillins Allergy Rash/Hives Verified 05/27/18 10:32 Surgical - Exam Vital Signs Temp Pulse Resp BP Pulse Ox 97.7 F 98 18 101/64 97 05/27/18 10:15 05/27/18 10:15 05/27/18 10:15 05/27/18 10:15 05/27/18 10:15 - General well developed, no distress - Eyes PERRL - ENT normal pinna - Neck no masses - Respiratory normal expansion - Cardiovascular Rhythm: regular - Abdomen Colostomy left lower quadrant. There is a EDISON drain with purulent fluid within it. Abdomen: soft Results - Labs 05/28/18 07:21 05/28/18 07:21 Abnormal Lab Results - Last 24 Hours (Table) 05/27/18 05/27/18 05/27/18 Range/Units 10:43 10:44 10:44 WBC 17.7 H (3.8-10.6) k/uL RDW 15.8 H (11.5-15.5) % Plt Count (150-450) k/uL Neutrophils # 17.1 H (1.3-7.7) k/uL Lymphocytes # 0.2 L (1.0-4.8) k/uL Sodium 136 L (137-145) mmol/L BUN 19 H (7-17) mg/dL Creatinine 0.33 L (0.52-1.04) mg/dL Glucose 147 H (74-99) mg/dL Plasma Lactic Acid Angel 2.5 H* (0.7-2.0) mmol/L Calcium (8.4-10.2) mg/dL AST 86 H (14-36) U/L ALT 333 H (9-52) U/L Alkaline Phosphatase 238 H (38-126) U/L Creatine Kinase (30-135) U/L Total Protein 4.5 L (6.3-8.2) g/dL Albumin 2.4 L (3.5-5.0) g/dL Lipase 388 H (23-300) U/L Urine Protein (Negative) Urine WBC (0-5) /hpf Calcium Oxalate Crystal (None) /hpf Urine Bacteria (None) /hpf Urine Mucus (None) /hpf 05/27/18 05/28/18 05/28/18 Range/Units 12:45 07:21 07:21 WBC 13.2 H (3.8-10.6) k/uL RDW (11.5-15.5) % Plt Count 140 L (150-450) k/uL Neutrophils # (1.3-7.7) k/uL Lymphocytes # (1.0-4.8) k/uL Sodium (137-145) mmol/L BUN 19 H (7-17) mg/dL Creatinine 0.38 L (0.52-1.04) mg/dL Glucose 134 H (74-99) mg/dL Plasma Lactic Acid Angel (0.7-2.0) mmol/L Calcium 7.8 L (8.4-10.2) mg/dL AST 54 H (14-36) U/L ALT 229 H (9-52) U/L Alkaline Phosphatase 187 H (38-126) U/L Creatine Kinase 27 L (30-135) U/L Total Protein 4.1 L (6.3-8.2) g/dL Albumin 2.2 L (3.5-5.0) g/dL Lipase (23-300) U/L Urine Protein 1+ H (Negative) Urine WBC 7 H (0-5) /hpf Calcium Oxalate Crystal Moderate H (None) /hpf Urine Bacteria Rare H (None) /hpf Urine Mucus Rare H (None) /hpf Diabetes panel 05/27/18 05/28/18 Range/Units 10:44 07:21 Sodium 136 L 137 (137-145) mmol/L Potassium 3.5 3.8 (3.5-5.1) mmol/L Chloride 106 107 (98-107) mmol/L Carbon Dioxide 25 26 (22-30) mmol/L BUN 19 H 19 H (7-17) mg/dL Creatinine 0.33 L 0.38 L (0.52-1.04) mg/dL Glucose 147 H 134 H (74-99) mg/dL Calcium 8.4 7.8 L (8.4-10.2) mg/dL AST 86 H 54 H (14-36) U/L ALT 333 H 229 H (9-52) U/L Alkaline Phosphatase 238 H 187 H (38-126) U/L Total Protein 4.5 L 4.1 L (6.3-8.2) g/dL Albumin 2.4 L 2.2 L (3.5-5.0) g/dL Thyroid panel 05/28/18 Range/Units 07:21 TSH 0.484 (0.465-4.680) mIU/L Calcium panel 05/27/18 05/28/18 Range/Units 10:44 07:21 Calcium 8.4 7.8 L (8.4-10.2) mg/dL Albumin 2.4 L 2.2 L (3.5-5.0) g/dL Pituitary panel 05/27/18 05/28/18 Range/Units 10:44 07:21 Sodium 136 L 137 (137-145) mmol/L Potassium 3.5 3.8 (3.5-5.1) mmol/L Chloride 106 107 (98-107) mmol/L Carbon Dioxide 25 26 (22-30) mmol/L BUN 19 H 19 H (7-17) mg/dL Creatinine 0.33 L 0.38 L (0.52-1.04) mg/dL Glucose 147 H 134 H (74-99) mg/dL Calcium 8.4 7.8 L (8.4-10.2) mg/dL TSH 0.484 (0.465-4.680) mIU/L Adrenal panel 05/27/18 05/28/18 Range/Units 10:44 07:21 Sodium 136 L 137 (137-145) mmol/L Potassium 3.5 3.8 (3.5-5.1) mmol/L Chloride 106 107 (98-107) mmol/L Carbon Dioxide 25 26 (22-30) mmol/L BUN 19 H 19 H (7-17) mg/dL Creatinine 0.33 L 0.38 L (0.52-1.04) mg/dL Glucose 147 H 134 H (74-99) mg/dL Calcium 8.4 7.8 L (8.4-10.2) mg/dL Total Bilirubin 0.4 0.4 (0.2-1.3) mg/dL AST 86 H 54 H (14-36) U/L ALT 333 H 229 H (9-52) U/L Alkaline Phosphatase 238 H 187 H (38-126) U/L Total Protein 4.5 L 4.1 L (6.3-8.2) g/dL Albumin 2.4 L 2.2 L (3.5-5.0) g/dL Assessment and Plan Assessment: Chronic abdominal abscess. Patient will undergo computed tomography scan of her abscess.
--- NOTE | 2018-05-28 09:37 | P.PN ---
Subjective Progress Note Date: 05/28/18 The patient states that her legs feel somewhat stronger with greater sensation today. She denies any new areas of pain. She denies any headache, nausea, vomiting or seizure activity. She states that she still has retained urinary sensation. Objective - Vital Signs Vital signs: Vital Signs Temp 97.8 F 05/28/18 05:50 Pulse 100 05/28/18 05:50 Resp 18 05/28/18 05:50 BP 95/65 05/28/18 05:50 Pulse Ox 96 05/28/18 05:50 Intake & Output 05/27/18 05/28/18 05/28/18 18:59 06:59 18:59 Intake Total 950 Output Total 4 Balance 946 Weight 63.503 kg Intake: Intake, IV Titration 950 Amount Ertapenem 1 gm In Sodium 50 Chloride 0.9% 50 ml @ 100 mls/hr IVPB DAILY@1600 [facility]K Rx#:[id number] Sodium Chloride 0.9% 1, 900 000 ml @ 100 mls/hr IV . Q10H [facility]K Rx#:[id number] Output: Drainage 3 Right Lower Abdomen 3 Stool 1 Other: Voiding Method Bedpan # Voids 2 # Bowel Movements 2 - Constitutional General appearance: Present: no acute distress - EENT Eyes: Present: EOMI ENT: Present: hearing grossly normal, thrush - Respiratory Respiratory: bilateral: CTA - Cardiovascular Rhythm: regular Heart sounds: normal: S1, S2 - Gastrointestinal Gastrointestinal Comment(s): Ostomy left lower quadrant General gastrointestinal: Present: normal bowel sounds, soft - Integumentary Integumentary: Present: normal - Neurologic Neurologic Comment(s): Bilateral lower extremity weakness. Left - strength proximal 0-1/5, distal 2+/ 5. Right proximal 2+/5, distal 3/5 Could not elicit reflexes at knee Sensation is improved on the right leg, but still diminished on the left Patchy sensation loss in the medial thigh and perineal area - Musculoskeletal Musculoskeletal: Present: right sided weakness, left sided weakness - Psychiatric Psychiatric: Present: A&O x's 3 - Labs CBC & Chem 7: 05/28/18 07:21 05/28/18 07:21 Labs: Abnormal Lab Results - Last 24 Hours (Table) 05/27/18 05/27/18 05/27/18 Range/Units 10:43 10:44 10:44 WBC 17.7 H (3.8-10.6) k/uL RDW 15.8 H (11.5-15.5) % Plt Count (150-450) k/uL Neutrophils # 17.1 H (1.3-7.7) k/uL Lymphocytes # 0.2 L (1.0-4.8) k/uL Sodium 136 L (137-145) mmol/L BUN 19 H (7-17) mg/dL Creatinine 0.33 L (0.52-1.04) mg/dL Glucose 147 H (74-99) mg/dL Plasma Lactic Acid Angel 2.5 H* (0.7-2.0) mmol/L Calcium (8.4-10.2) mg/dL AST 86 H (14-36) U/L ALT 333 H (9-52) U/L Alkaline Phosphatase 238 H (38-126) U/L Creatine Kinase (30-135) U/L Total Protein 4.5 L (6.3-8.2) g/dL Albumin 2.4 L (3.5-5.0) g/dL Lipase 388 H (23-300) U/L Urine Protein (Negative) Urine WBC (0-5) /hpf Calcium Oxalate Crystal (None) /hpf Urine Bacteria (None) /hpf Urine Mucus (None) /hpf 05/27/18 05/28/18 05/28/18 Range/Units 12:45 07:21 07:21 WBC 13.2 H (3.8-10.6) k/uL RDW (11.5-15.5) % Plt Count 140 L (150-450) k/uL Neutrophils # (1.3-7.7) k/uL Lymphocytes # (1.0-4.8) k/uL Sodium (137-145) mmol/L BUN 19 H (7-17) mg/dL Creatinine 0.38 L (0.52-1.04) mg/dL Glucose 134 H (74-99) mg/dL Plasma Lactic Acid Angel (0.7-2.0) mmol/L Calcium 7.8 L (8.4-10.2) mg/dL AST 54 H (14-36) U/L ALT 229 H (9-52) U/L Alkaline Phosphatase 187 H (38-126) U/L Creatine Kinase 27 L (30-135) U/L Total Protein 4.1 L (6.3-8.2) g/dL Albumin 2.2 L (3.5-5.0) g/dL Lipase (23-300) U/L Urine Protein 1+ H (Negative) Urine WBC 7 H (0-5) /hpf Calcium Oxalate Crystal Moderate H (None) /hpf Urine Bacteria Rare H (None) /hpf Urine Mucus Rare H (None) /hpf Assessment and Plan (1) Bilateral leg weakness Narrative/Plan: There appears to be slight improvement today, more on the right compared to the left. He continues to have sensation loss bilaterally, more generalized on the left as opposed to the right today. The patient had MRI of the spine yesterday. Reports were reviewed, and also discussed with radiation oncology. They also reviewed the images personally and discussed with me in detail. There appears to be no evidence of cord compression. The changes noted in the thoracic spine are in the prior radiation field and appeared to be postradiation. MRI of the brain is pending. We will await those results. According to my discussion with radiation oncology, the patient actually had a follow-up MRI of the brain in the last 2 weeks or so at [facility], which showed no evidence of progression. In addition, CT scans of the brain done here have also shown no new lesions or progression. Further, her lesion is in the right frontal lobe, and would not be expected to cause bilateral lower extremity weakness or loss of sensation. Therefore at this time the etiology is not known. Neurology is following. I will order a lumbar puncture to rule out leptomeningeal disease. Would also like neurology input as to whether this could be a demyelinating type of process , possibly paraneoplastic. Continue IV steroids, and continue to monitor Current Visit: Yes Status: Acute Code(s): R29.898 - OTH SYMPTOMS AND SIGNS INVOLVING THE MUSCULOSKELETAL SYSTEM SNOMED Code(s): 9713672 (2) Perforated bowel Narrative/Plan: Ostomy is functioning well. Surgery is on consult, with no acute intervention felt to be needed Current Visit: No Status: Acute Code(s): K63.1 - PERFORATION OF INTESTINE ( NONTRAUMATIC) SNOMED Code(s): 04443934 (3) Metastatic breast cancer Narrative/Plan: The patient is currently on Faslodex injections every 4 weeks. She has not been able to start Ibrance due to her recent bowel perforation, surgery, and post surgical state. Current Visit: No Status: Acute Priority: High Code(s): C50.919 - MALIGNANT NEOPLASM OF UNSP SITE OF UNSPECIFIED FEMALE BREAST SNOMED Code(s): 004270193 Plan: Diflucan will be prescribed for thrush
[2018-05-28] MEDS: ENOXAPARIN 40 MG/0.4 ML SYRINGE SQ SCH (09:54)
[2018-05-28] MEDS: METOPROLOL TARTRATE 25 MG TAB PO SCH ×2 (09:54→20:46)
[2018-05-28] MEDS: ASPIRIN 81 MG PO SCH (09:54)
[2018-05-28] MEDS: PANTOPRAZOLE 40 MG TABLET PO SCH ×2 (09:55→16:35)
[2018-05-28] MEDS: CHOLECALCIFEROL 1,000 UNIT TAB PO SCH ×2 (09:55→20:46)
[2018-05-28] MEDS: FLUCONAZOLE 100 MG TAB PO SCH (10:08)
--- NOTE | 2018-05-28 11:36 | P.PN ---
Subjective Progress Note Date: 05/28/18 Principal diagnosis: lower extremity weakness Patient was seen and examined. No acute events overnight. Patient continues to complain of weakness, in the lower extremities since being discharged from the hospital at [facility] 2 weeks ago. today, she also endorses numbness that extends from the knee downwards into her toes. This is intermittent and she is unable to tell me whether this was present prior to her hospitalization for seizure/ brain mass or after. her abdominal pain is well-controlled with the current pain medications. Patient reports tolerating her diet fine. She has no nausea or vomiting. Objective - Vital Signs Vital signs: Vital Signs Temp 97.8 F 05/28/18 05:50 Pulse 100 05/28/18 05:50 Resp 18 05/28/18 05:50 BP 95/65 05/28/18 05:50 Pulse Ox 96 05/28/18 05:50 Intake & Output 05/27/18 05/28/18 05/28/18 18:59 06:59 18:59 Intake Total 950 Output Total 4 Balance 946 Weight 63.503 kg Intake: Intake, IV Titration 950 Amount Ertapenem 1 gm In Sodium 50 Chloride 0.9% 50 ml @ 100 mls/hr IVPB DAILY@1600 [facility] Rx#:[id number] Sodium Chloride 0.9% 1, 900 000 ml @ 100 mls/hr IV . Q10H [facility] Rx#:[id number] Output: Drainage 3 Right Lower Abdomen 3 Stool 1 Other: Voiding Method Bedpan # Voids 2 # Bowel Movements 2 - Exam General: [non toxic], [no distress], [appears at stated age] Derm: [warm], [dry] Head: [atraumatic], [normocephalic], [symmetric] Eyes: [EOMI], [no lid lag], [anicteric sclera] Mouth: [no lip lesion], [mucus membranes moist] Cardiovascular: [S1S2 reg], [no murmur], [positive posterior tibial pulse bilateral], [R chest port] Lungs: [CTA bilateral], [no rhonchi, no rales] , [no accessory muscle use] Abdominal: [soft], [exquisite tenderness to palpation around the site of EDISON drain without rebound], [no guarding], [no appreciable organomegaly], [midline abdominal scar], [EDISON drain right lower quadrant with white material] Ext: [no gross muscle atrophy], [no edema], [no contractures] Neuro: [2/5 LLE and 1/5 RLE] Psych: [Alert], [oriented], [appropriate affect] - Labs CBC & Chem 7: 05/28/18 07:21 05/28/18 07:21 Labs: Abnormal Lab Results - Last 24 Hours (Table) 05/27/18 05/27/18 05/28/18 Range/Units 10:44 12:45 07:21 WBC (3.8-10.6) k/uL Plt Count (150-450) k/uL BUN (7-17) mg/dL Creatinine (0.52-1.04) mg/dL Glucose (74-99) mg/dL Plasma Lactic Acid Angel 2.5 H* (0.7-2.0) mmol/L Calcium (8.4-10.2) mg/dL AST (14-36) U/L ALT (9-52) U/L Alkaline Phosphatase (38-126) U/L Creatine Kinase (30-135) U/L Total Protein (6.3-8.2) g/dL Albumin (3.5-5.0) g/dL Vitamin D 25-Hydroxy 28.2 L (30.0-100.0) ng/mL Urine Protein 1+ H (Negative) Urine WBC 7 H (0-5) /hpf Calcium Oxalate Crystal Moderate H (None) /hpf Urine Bacteria Rare H (None) /hpf Urine Mucus Rare H (None) /hpf 05/28/18 05/28/18 Range/Units 07:21 07:21 WBC 13.2 H (3.8-10.6) k/uL Plt Count 140 L (150-450) k/uL BUN 19 H (7-17) mg/dL Creatinine 0.38 L (0.52-1.04) mg/dL Glucose 134 H (74-99) mg/dL Plasma Lactic Acid Angel (0.7-2.0) mmol/L Calcium 7.8 L (8.4-10.2) mg/dL AST 54 H (14-36) U/L ALT 229 H (9-52) U/L Alkaline Phosphatase 187 H (38-126) U/L Creatine Kinase 27 L (30-135) U/L Total Protein 4.1 L (6.3-8.2) g/dL Albumin 2.2 L (3.5-5.0) g/dL Vitamin D 25-Hydroxy (30.0-100.0) ng/mL Urine Protein (Negative) Urine WBC (0-5) /hpf Calcium Oxalate Crystal (None) /hpf Urine Bacteria (None) /hpf Urine Mucus (None) /hpf Assessment and Plan Assessment: Assessment and Plan 1. Intraabdominal abscess: Patient is afebrile but has a leukocytosis of 13.2 ( she is also on Decadron at home). Lactic acid 2.5 to 1.8. 05/26 CT AP shows decreased pelvic abscess. Tylenol and Dilaudid IV for pain control. Continue Ertapenem 1g IV QD. Continue NS at 100 cc/h. FU BCx, ID consult, Surgery consult 2. LE weakness: Generalized, possibly deconditioning but concerns for spinal abscess or metastatic disease. CT brain negative for metastatic disease to the brain. CPK and TSH is within normal limits. Vit D 28.2 which is borderline low, will replace. MRI C+T+L spine negative. Neurology consulted - recommended MRI brain and possible LP (to rule out leptomeningeal involvement). Continue Decadron 6 mg IV Q6H. FU PT/OT consult, MRI brain, Neurology 3. Breast CA: Follows Dr. Michelle Urban. With metastatic disease to the brain, liver and bone. Biopsy proven ER+ NM- HER2/OSCAR 2+. Current Rx with Faslodex and Xgeva. FU Heme-Onc consult 4. Prerenal azotemia: BUN 19 Cr 0.38. Likely due to dehydration. Encourage PO hydration. Continue NS at 100 cc/h. Avoid nephrotoxins. 5. Transaminitis: AST 52, ALT 229 ALK 118 (T. Bili OK, appears no obstruction). CT AP on 05/26 shows shows metastatic hepatic lesions measuring up to 5.8. Continue NS at 100 cc/h. Daily CMP 6. Seizure disorder: Keppra 1000 mg PO BID. Ativan 1 mg IV PRN for seizure. Continue Decadron 6 mg IV Q6H for cerebral edema. Seizure and Fall precautions. FU Keppra levels, Neurology consult, MRI brain 7. ASCVD risk: Continue ASA 81 mg PO QD and Lipitor 40 mg PO QHS. 8. Hypertension: BP 95/65. Continue Metoprolol 25 mg PO BID. Monitor vitals, adjust medications as necessary. 9. DVT/GI Prophylaxis: Protonix 40 mg PO BID. Lovenox 40 mg SUBCUT QD. Patient continues to have lower extremity weakness. MRI of the entire spine is negative for cord compression. CT brain is negative for midline shift. Will DC Decadron. MRI brain and possible LP pending. IV ertapenem continued for intra-abdominal abscess. Surgery and ID on consult.
--- NOTE | 2018-05-28 16:28 | P.CONS ---
History of Present Illness - Reason for Consult Consult date: 05/27/18 pelvic abscess Requesting physician: Goldie Estrella - Chief Complaint weakness in the legs x2 weeks - History of Present Illness Patient is a 57 year female with a past medical history significant for metastatic left breast cancer for which the patient has been on chemotherapy the patient recently did have a perforated colon that required emergent exploratory laparotomy with sigmoid resection and descending colostomy the procedure was done on 04/06/[address] Yates patient did have abdominal culture was positive for E. coli and anaerobic gram-negative she was subsequent discharged on a two-week course of oral Levaquin and Flagyl subsequently the patient was readmitted to the hospital 04/30/2018 with the patient did have a CT of abdominal pelvis and it shows abdominal fluid collection consistent with an abscess slight smaller in size during that hospital stay the patient did get a PICC line and is currently getting Invanz 1 g daily, afterwards the patient did have another admission to this facility with patient have a seizure thought to be related to the left temporal lobe metastatic disease for which the patient has been evaluated and treated at [facility], patient now has been brought back to the hospital with generalized weakness especially in the legs that has been going on for about 2 weeks since the patient has been discharged from [facility] requiring significant assistance of the to do any of the activities or walk around otherwise she will fall to the ground she's been coming of some lower abdominal pain intensity about 4-5/ 10 and no radiation she still had purulent drainage from her EDISON the patient did have a CT of abdominal pelvis completed yesterday on 05/26/2022 and we did shows decrease in size of the pelvic abscess and increasing the size of her hepatic metastasis patient has been admitted to the hospital to rule out any metastatic disease to the spinal canal infection disease was consulted for alteration her pelvic abscess patient denies high-grade fever or chills though did have elevated white count was 17.7 on admission and lactic us was 2.5 and elevated liver enzymes Review of Systems Review of system Constitutional: The patient denies any fever or rigors or chills, the patient does complain of weakness. Eyes: No complaint ENT: No complaint Respiratory: No complaint Cardiovascular: No complaint Gastrointestinal: As per history of present illness Genitourinary: No complaint Musculoskeletal: No complaint Integumentary: No complaint Endocrine : No complaint Psycologial : No complaint Neurological: As per history of present illness. Past Medical History Past Medical History: Cancer, GERD/Reflux, Hyperlipidemia, Osteoarthritis (OA) Additional Past Medical History / Comment(s): 2016 left breast cancer/chemo & radiation-pt states the only metastasis she might have is to L sided lymph nodes , 04/06/18 perforated bowel at rectosigmoid junction with adjacent abscess with surgery/colostomy, electrolyte disturbance, lactic acidosis/sepsis, 04/30/18 intraabdominal abscess, dysphasia-passed swallow test, anemia,. 05/10/18 [facility] ER and sent to [facility] d/t L sided weakness, inability to speak/facial twitching/seizure-states she was told she had swelling in the back of her head/ weakness and inability to speak resolved. Other hs: L chest wall cellulitis, generalized arthritis. History of Any Multi-Drug Resistant Organisms: None Reported Past Surgical History: Breast Surgery, Hysterectomy, Orthopedic Surgery, Tonsillectomy Additional Past Surgical History / Comment(s): 03/2018 exploratory laparotomy with sigmoid resection d/t perforated rectum with permanent colostomy, 2016 L breast biopsy and modified radical mastectomy, picc line, mediport, L chest drain Past Anesthesia/Blood Transfusion Reactions: Previous Problems w/ Anesthesia, Motion Sickness, Postoperative Nausea & Vomiting (PONV) Additional Past Anesthesia/Blood Transfusion Reaction / Comm: "hard time coming out" Smoking Status: Former smoker - Past Family History Mother Family Medical History: Cancer Additional Family Medical History / Comment(s): colon CA Father Family Medical History: Cancer Additional Family Medical History / Comment(s): lung cancer Medications and Allergies Home Medications Medication Instructions Recorded Confirmed Type Cholecalciferol [Vitamin D3] 1,000 unit PO BID 08/12/17 05/27/18 History Metoprolol Tartrate [Lopressor] 25 mg PO BID #60 tab 04/11/18 05/27/18 Rx Aspirin [Children's Aspirin] 81 mg PO DAILY 05/27/18 05/27/18 History Atorvastatin [Lipitor] 40 mg PO HS 05/27/18 05/27/18 History Dexamethasone [Decadron] 4 mg PO Q8H 05/27/18 05/27/18 History Ertapenem [INVanz] 1 gm IVPB HS 05/27/18 05/27/18 History levETIRAcetam [Keppra Oral 1,000 mg PO Q12H 05/27/18 05/27/18 History Solution] Allergies Allergy/AdvReac Type Severity Reaction Status Date / Time acetaminophen [From Tylenol] Allergy Mild Rash/Hives Verified 05/27/18 10:32 codeine Allergy Rash/Hives Verified 05/27/18 10:32 diphenhydramine Allergy Swelling Verified 05/27/18 10:32 [From Benadryl] Penicillins Allergy Rash/Hives Verified 05/27/18 10:32 Physical Exam Vitals: Vital Signs Temp Pulse Pulse Resp BP BP Pulse Ox 05/27/18 20:55 98 F 118 H 18 109/72 94 L 05/27/18 14:12 97.0 F L 91 18 106/73 97 05/27/18 12:48 97 18 104/74 96 05/27/18 10:15 97.7 F 98 18 101/64 97 Intake and Output 05/27/18 05/27/18 05/28/18 14:59 22:59 06:59 Other: # Voids 1 Weight 63.503 kg General: The patient is awake and alert, in no distress. Skin: no rashes and no masses palpable. Eye: Pupils are equal, round, there is normal conjunctiva bilaterally. Ears, nose, mouth and throat: There are moist mucous membranes and no oral lesions. Neck: The neck is supple, there is no thyromegaly. Cardiovascular: S1-S2 regular rate and rhythm. No murmur. Respiratory: Unlabored breathing clear to auscultation bilaterally Gastrointestinal: Soft, non-distended, abdominal incision is healed the patient did have a EDISON with purulent secretions mildly tender Neurological: The patient was able to move her lower extremities power is about 3 out of 5, Speech is normal. Psychiatric: Patient is awake and alert and oriented 3, appropriate mood & affect, normal judgment. Results CBC & Chem 7: 05/28/18 07:21 05/28/18 07:21 Labs: Abnormal Lab Results - Last 24 Hours (Table) 05/27/18 05/27/18 05/27/18 Range/Units 10:43 10:44 10:44 WBC 17.7 H (3.8-10.6) k/uL RDW 15.8 H (11.5-15.5) % Neutrophils # 17.1 H (1.3-7.7) k/uL Lymphocytes # 0.2 L (1.0-4.8) k/uL Sodium 136 L (137-145) mmol/L BUN 19 H (7-17) mg/dL Creatinine 0.33 L (0.52-1.04) mg/dL Glucose 147 H (74-99) mg/dL Plasma Lactic Acid Angel 2.5 H* (0.7-2.0) mmol/L AST 86 H (14-36) U/L ALT 333 H (9-52) U/L Alkaline Phosphatase 238 H (38-126) U/L Total Protein 4.5 L (6.3-8.2) g/dL Albumin 2.4 L (3.5-5.0) g/dL Lipase 388 H (23-300) U/L Urine Protein (Negative) Urine WBC (0-5) /hpf Calcium Oxalate Crystal (None) /hpf Urine Bacteria (None) /hpf Urine Mucus (None) /hpf 05/27/18 Range/Units 12:45 WBC (3.8-10.6) k/uL RDW (11.5-15.5) % Neutrophils # (1.3-7.7) k/uL Lymphocytes # (1.0-4.8) k/uL Sodium (137-145) mmol/L BUN (7-17) mg/dL Creatinine (0.52-1.04) mg/dL Glucose (74-99) mg/dL Plasma Lactic Acid Angel (0.7-2.0) mmol/L AST (14-36) U/L ALT (9-52) U/L Alkaline Phosphatase (38-126) U/L Total Protein (6.3-8.2) g/dL Albumin (3.5-5.0) g/dL Lipase (23-300) U/L Urine Protein 1+ H (Negative) Urine WBC 7 H (0-5) /hpf Calcium Oxalate Crystal Moderate H (None) /hpf Urine Bacteria Rare H (None) /hpf Urine Mucus Rare H (None) /hpf Assessment and Plan (1) Intra-abdominal abscess Current Visit: No Status: Acute Code(s): K65.1 - PERITONEAL ABSCESS SNOMED Code(s): 37992799 (2) Leukocytosis Current Visit: Yes Status: Acute Code(s): D72.829 - ELEVATED WHITE BLOOD CELL COUNT, UNSPECIFIED SNOMED Code(s): 622499481 Plan: 1-patient with a history of for pelvic abscess after the patient did have a perforated bowel back in March 2018 culture that was positive for E. coli anaerobic gram-negative for the patient has failed oral Levaquin and Flagyl therapy currently getting IV Invanz for almost a month now 2- patient did have CT of abdominal pelvis completed on 05/26/2018 we did shows decrease in size of the abscess but not completely solution and still have purulent drainage from her EDISON 3- patient at this time we'll continue on IV Invanz 1 g daily 4- we will follow this patient over the weekend and transfer care back to Dr. jha to which the patient is familiar with Time with Patient: Greater than 30
[2018-05-28] MEDS: ERTAPENEM 1 GM in SODIUM CHLORIDE 0.9% 50 ML IVPB SCH (16:33)
[2018-05-28] MEDS: ERGOCALCIFEROL 50,000 UNIT CAP PO SCH (16:34)
--- NOTE | 2018-05-28 23:04 | PN ---
PROGRESS NOTE DATE OF SERVICE: 05/28/2018. REASON FOR FOLLOW UP: Pelvic abscess. INTERVAL HISTORY: The patient is currently afebrile. She is breathing comfortably. Denies significant chest pain, shortness of breath or cough. No worsening abdominal pain. Still complaining of feeling weakness in the legs and is being evaluated by Neurology. EXAMINATION: Blood pressure is 115/81 with a pulse of 93, temperature 97.6. She is 96% on room air. GENERAL DESCRIPTION: A middle-aged female, lying in bed in no distress. RESPIRATORY SYSTEM: Unlabored breathing. Clear to auscultation anteriorly. HEART: S1, S2. Regular rate and rhythm. ABDOMEN: Soft, mildly distended. She continues to have purulent secretions. EXTREMITIES: No edema of the feet. LABS: Hemoglobin 13.4, hematocrit 13.2 with a BUN of 19, creatinine 0.38. Blood culture so far negative. DIAGNOSTIC IMPRESSION AND PLAN: Patient with pelvic abscess from perforated colon, status post surgical drainage. Initial culture positive for an E coli and anaerobic gram-negative bacilli. The patient is currently covered with Invanz to continue for now. Overall prognosis remains to be guarded. Continue supportive care. MMODL / IJN: [id number] /
[2018-05-29] MEDS: SODIUM CHLORIDE 0.9% 1,000 ML IV SCH ×4 (02:18→23:44)
[2018-05-29] MEDS: levETIRAcetam ORAL SOLN 500 MG/5 ML CUP PO SCH ×2 (06:16→15:45)
[2018-05-29] MEDS: HYDROmorphone 1 MG/ML 1 ML SYRINGE IVP PRN ×3 (07:51→23:43)
[2018-05-29] MEDS: PANTOPRAZOLE 40 MG TABLET PO SCH ×2 (09:11→15:46)
[2018-05-29] MEDS: METOPROLOL TARTRATE 25 MG TAB PO SCH ×2 (09:11→20:07)
[2018-05-29] MEDS: CHOLECALCIFEROL 1,000 UNIT TAB PO SCH ×2 (09:11→20:07)
[2018-05-29] MEDS: ASPIRIN 81 MG PO SCH (09:11)
[2018-05-29] MEDS: FLUCONAZOLE 100 MG TAB PO SCH (09:11)
[2018-05-29] MEDS: ENOXAPARIN 40 MG/0.4 ML SYRINGE SQ SCH (09:11)
--- NOTE | 2018-05-29 09:53 | P.PN ---
Subjective Progress Note Date: 05/28/18 This patient is a 57-year-old female who was admitted to Hospital for evaluation of bilateral leg weakness. She has a history of metastatic left breast cancer and is undergone chemotherapy for this condition. She also has history of perforated colon that required an emergent exploratory laparotomy with sigmoid resection and descending colostomy procedure done on 04/06/2018. She developed sepsis during this procedure and was treated aggressively with IV antibiotics. Patient underwent MRI of the lumbar spine yesterday for further evaluation of her bilateral leg weakness. Results were reviewed by Dr. Lopez and radiation oncology. We are awaiting results of MRI of the brain that has also been ordered for this patient. The patient has noticed slight improvement with her leg weakness today but still remained significantly paraparetic. Dr. Lopez is ordered lumbar puncture to be done to further evaluate for possibility of leptomeningeal disease secondary to her breast cancer. MRI of the lumbar spine does reveal some changes suggesting possibility of metastatic disease. We will await further recommendations from radiation oncology and Dr. Lopez. This patient has a rather complex medical history with multiple medical conditions contributing to her overall condition. Would recommend social work consultation to determine long-term management goals. We will await the results of her lumbar puncture and if anything is positive for leptomeningeal disease she may also be considered for paraneoplastic syndrome workup. Her overall prognosis at this time remains very guarded. Objective - Vital Signs Vital signs: Vital Signs Temp 97.6 F 05/28/18 12:51 Pulse 118 H 05/28/18 16:25 Resp 17 05/28/18 16:25 BP 115/81 05/28/18 12:51 Pulse Ox 96 05/28/18 12:51 Intake & Output 05/28/18 05/28/18 05/29/18 06:59 18:59 06:59 Intake Total 950 Output Total 4 3 Balance 946 -3 Intake: Intake, IV Titration 950 Amount Ertapenem 1 gm In Sodium 50 Chloride 0.9% 50 ml @ 100 mls/hr IVPB DAILY@1600 [facility] Rx#:[id number] Sodium Chloride 0.9% 1, 900 000 ml @ 100 mls/hr IV . Q10H [facility] Rx#:[id number] Output: Drainage 3 Right Lower Abdomen 3 Stool 1 3 Other: Voiding Method Bedpan Bedpan # Voids 2 3 # Bowel Movements 2 - Exam Physical examination: PHYSICAL EXAMINATION: Patient is resting comfortably in bed. VITAL SIGNS: Blood pressure is [115/81]. Heart rate is [93]. Respiration is [17] . Temperature is [97.7]. HEENT: Head is atraumatic, neck is supple, there were no carotid bruits. CHEST: Lungs are clear to auscultation and percussion. CARDIAC: S1, S2 normal rate and rhythm. There is no murmur. ABDOMEN: Soft and nontender. Bowel sounds are present. EXTREMITIES: There is no pedal edema. Peripheral pulses are present, Neurological examination: Patient's neurological examination is unchanged from yesterday. The patient has slight improvement with her lower extremity muscle strength as compared to yesterday. - Labs CBC & Chem 7: 05/28/18 07:21 05/28/18 07:21 Labs: Abnormal Lab Results - Last 24 Hours (Table) 05/28/18 05/28/18 05/28/18 Range/Units 07:21 07:21 07:21 WBC 13.2 H (3.8-10.6) k/uL Plt Count 140 L (150-450) k/uL BUN 19 H (7-17) mg/dL Creatinine 0.38 L (0.52-1.04) mg/dL Glucose 134 H (74-99) mg/dL Calcium 7.8 L (8.4-10.2) mg/dL AST 54 H (14-36) U/L ALT 229 H (9-52) U/L Alkaline Phosphatase 187 H (38-126) U/L Creatine Kinase 27 L (30-135) U/L Total Protein 4.1 L (6.3-8.2) g/dL Albumin 2.2 L (3.5-5.0) g/dL Vitamin D 25-Hydroxy 28.2 L (30.0-100.0) ng/mL Microbiology - Last 24 Hours (Table) 05/27/18 10:44 Blood Culture - Preliminary Blood No Growth after 24 hours Assessment and Plan (1) Bilateral leg weakness Current Visit: Yes Status: Acute Code(s): R29.898 - OTH SYMPTOMS AND SIGNS INVOLVING THE MUSCULOSKELETAL SYSTEM SNOMED Code(s): 2855548 (2) Brain metastases Current Visit: Yes Status: Acute Code(s): C79.31 - SECONDARY MALIGNANT NEOPLASM OF BRAIN SNOMED Code(s): 21309364 (3) Breast cancer, left breast Current Visit: No Status: Acute Code(s): C50.912 - MALIGNANT NEOPLASM OF UNSPECIFIED SITE OF LEFT FEMALE BREAST SNOMED Code(s): 608021550 (4) Cerebral edema Current Visit: No Status: Acute Code(s): G93.6 - CEREBRAL EDEMA SNOMED Code(s): 4609290 Plan: This patient is a 57-year-old female with a history of multiple complex medical issues related to her diagnosis of left breast cancer. According to the patient she was diagnosed about 3 years ago as having stage IV breast cancer. She had metastatic lesions to the brain which was recently treated by neurosurgery and [facility] in April this year. She had to undergo a right-sided craniotomy procedure for this. She had been making slow progress but this past few days has been expressing severe abdominal pain. She has a history of intra-abdominal abscess in the past as well. She is being evaluated further for this condition. She has been taking Keppra monotherapy for seizure prophylaxis. She is not aware of her last Keppra blood level. This will be ordered for tomorrow morning for her and her dose will be adjusted as necessary. She is to continue on her current dose of Keppra 1000 mg by mouth twice a day. She is also been placed on Decadron and a dosage of 6 mg every 6 hours. We will continue close neurological follow-up for the patient. She is scheduled to have MRI of the brain tomorrow for further evaluation. Would also recommend routine EEG to be done tomorrow. Her Keppra blood level has been sent to the laboratory and will likely be drawn first thing tomorrow morning. This patient's overall prognosis at this time remains very guarded. We are waiting the results of her MRI of the cervical thoracic and lumbar spine to give further recommendations. Given her history of metastatic stage IV breast cancer we would also recommend to consider lumbar puncture for this patient to do CSF analysis for possible metastatic cancer cells to the CSF. LP is to further evaluate for possibility of leptomeningeal carcinomatosis secondary to her breast cancer. As noted she is scheduled for MRI of the brain tomorrow and we will await those results. MRI of the lumbar spine was reviewed today by Dr. Lopez and radiation oncology. There are some changes suggesting possibility of metastatic spread to the lumbar spine. We will await further recommendations from oncology. We had a long discussion with this patient and she would like to continue aggressive treatment and management of her underlying breast cancer. Her overall prognosis at this time remains very guarded.
--- NOTE | 2018-05-29 10:07 | P.PN ---
Subjective Progress Note Date: 05/29/18 Principal diagnosis: Intra-abdominal abscess, lower extremity weakness Patient was seen and examined. No acute events overnight. Patient reports abdominal pain being well controlled with current medications. She has no complaints this morning. Objective - Vital Signs Vital signs: Vital Signs Temp 97.8 F 05/29/18 06:25 Pulse 102 H 05/29/18 06:25 Resp 18 05/29/18 06:25 BP 105/73 05/29/18 06:25 Pulse Ox 97 05/28/18 19:50 Intake & Output 05/28/18 05/29/18 05/29/18 18:59 06:59 18:59 Intake Total 1000 Output Total 3 1 Balance -3 999 Intake: IV 1000 Sodium Chloride 0.9% 1, 1000 000 ml @ 100 mls/hr IV . Q10H [facility] Rx#:[id number] Output: Stool 3 1 Other: Voiding Method Bedpan Bedpan # Voids 3 1 # Bowel Movements 1 - Exam General: [non toxic], [no distress], [appears at stated age] Derm: [warm], [dry] Head: [atraumatic], [normocephalic], [symmetric] Eyes: [EOMI], [no lid lag], [anicteric sclera] Mouth: [no lip lesion], [mucus membranes moist] Cardiovascular: [S1S2 reg], [no murmur], [positive posterior tibial pulse bilateral], [R chest port] Lungs: [CTA bilateral], [no rhonchi, no rales] , [no accessory muscle use] Abdominal: [soft], [exquisite tenderness to palpation around the site of EDISON drain without rebound], [no guarding], [no appreciable organomegaly], [midline abdominal scar], [Colostomy bag intact with stool] Ext: [no gross muscle atrophy], [no edema], [no contractures] Neuro: [2/5 LLE and 1/5 RLE] Psych: [Alert], [oriented], [appropriate affect] - Labs CBC & Chem 7: 05/28/18 07:21 05/28/18 07:21 Labs: Abnormal Lab Results - Last 24 Hours (Table) 05/28/18 Range/Units 07:21 Vitamin D 25-Hydroxy 28.2 L (30.0-100.0) ng/mL Microbiology - Last 24 Hours (Table) 05/27/18 10:44 Blood Culture - Preliminary Blood No Growth after 24 hours Assessment and Plan Assessment: Assessment and Plan 1. LE weakness: Generalized, possibly deconditioning but concerns for spinal abscess or metastatic disease. CT brain negative for metastatic disease to the brain. CPK and TSH is within normal limits. Vit D 28.2 which is borderline low, will replace. MRI C+T+L spine negative. Neurology consulted - recommended MRI brain and possible LP (to rule out leptomeningeal involvement). DC Decadron, no edema seen on CT head and no mass on MRI spine. FU PT/OT consult, MRI brain, Neurology 2. Intraabdominal abscess: Patient is afebrile but has a leukocytosis of 13.2 ( she is also on Decadron at home). Lactic acid 2.5 to 1.8. 05/26 CT AP shows decreased pelvic abscess. Tylenol and Dilaudid IV for pain control. Continue Ertapenem 1g IV QD. Continue NS at 100 cc/h. BCx prelim negative after 24H. Nurse advised Dr. Mcdonnell that CT AP was taken on 05/26, no need for repeat. ID consulted - recommendation to continue current Abx. FU BCx (final), ID consult, Surgery consult 3. Breast CA: Follows Dr. Michelle Urban. With metastatic disease to the brain, liver and bone. Biopsy proven ER+ [facility]- HER2/OSCAR 2+. Current Rx with Faslodex and Xgeva. FU Heme-Onc consult 4. Prerenal azotemia: BUN 19 Cr 0.38. Likely due to dehydration. Encourage PO hydration. Continue NS at 100 cc/h. Avoid nephrotoxins. 5. Transaminitis: AST 52, ALT 229 ALK 118 (T. Bili OK, appears no obstruction). CT AP on 05/26 shows shows metastatic hepatic lesions measuring up to 5.8. Continue NS at 100 cc/h. Daily CMP 6. Seizure disorder: Keppra 1000 mg PO BID. Ativan 1 mg IV PRN for seizure. Seizure and Fall precautions. FU Keppra levels, Neurology consult, MRI brain 7. ASCVD risk: Continue ASA 81 mg PO QD and Lipitor 40 mg PO QHS. 8. Hypertension: BP 105/73. Continue Metoprolol 25 mg PO BID. Monitor vitals, adjust medications as necessary. 9. DVT/GI Prophylaxis: Protonix 40 mg PO BID. Lovenox 40 mg SUBCUT QD. Patient continues to have lower extremity weakness. MRI of the entire spine is negative for cord compression. CT brain is negative for midline shift. MRI brain and possible LP pending by Neurology. PT and OT on consult. IV Ertapenem continued for intra-abdominal abscess. Surgery and ID on consult.
--- NOTE | 2018-05-29 10:52 | P.PN ---
Subjective Progress Note Date: 05/29/18 The patient complains of improved sensation in her lower extremities. She states that she was actually having pain in both legs more on the right compared to the left. She feels of the legs are slightly stronger. She continues to have intact urinary sensation. No fever/chills/nausea/vomiting or new back pain Objective - Vital Signs Vital signs: Vital Signs Temp 97.8 F 05/29/18 06:25 Pulse 102 H 05/29/18 06:25 Resp 18 05/29/18 06:25 BP 105/73 05/29/18 06:25 Pulse Ox 97 05/28/18 19:50 Intake & Output 05/28/18 05/29/18 05/29/18 18:59 06:59 18:59 Intake Total 1000 Output Total 3 1 Balance -3 999 Intake: IV 1000 Sodium Chloride 0.9% 1, 1000 000 ml @ 100 mls/hr IV . Q10H [facility] Rx#:[id number] Output: Stool 3 1 Other: Voiding Method Bedpan Bedpan # Voids 3 1 # Bowel Movements 1 - Constitutional General appearance: Present: no acute distress - EENT Eyes: Present: EOMI ENT: Present: hearing grossly normal, normal oropharynx - Respiratory Respiratory: bilateral: CTA - Cardiovascular Rhythm: regular Heart sounds: normal: S1, S2 - Gastrointestinal General gastrointestinal: Present: normal bowel sounds, soft - Integumentary Integumentary: Present: normal - Neurologic Neurologic Comment(s): Today the patient reports fairly intact sensation over both lower extremities Neurologic: Present: CNII-XII intact - Musculoskeletal Musculoskeletal Comment(s): Bilateral lower extremity weakness. Proximal strength bilaterally now about 1+- 2/5. Distal strength currently about 3/5 - Psychiatric Psychiatric: Present: A&O x's 3 - Labs CBC & Chem 7: 05/28/18 07:21 05/28/18 07:21 Labs: Microbiology - Last 24 Hours (Table) 05/27/18 10:44 Blood Culture - Preliminary Blood No Growth after 24 hours Assessment and Plan (1) Bilateral leg weakness Narrative/Plan: Etiology remains unclear at this time. As noted MRI of the spine did not show any evidence of cord compression. MRI brain is pending, but given the right- sided location of the known brain lesion, and no evidence of progression on CT or recent MRI, clinically this is felt to be less likely to explain her presentation. The patient has had some improvement in strength and sensation as noted in the exam today. - Continue steroids. Lumbar puncture will be ordered to rule out leptomeningeal disease - If therapy is negative, a possibility could be steroid myopathy and deconditioning. However that would not explain the sensation loss that the patient was complaining of. Urology is following. In that setting situation possibly an EMG can be considered. We'll defer to them in this regard Current Visit: Yes Status: Acute Code(s): R29.898 - OTH SYMPTOMS AND SIGNS INVOLVING THE MUSCULOSKELETAL SYSTEM SNOMED Code(s): 1003834 (2) Perforated bowel Narrative/Plan: Ostomy is working well. Surgery is following with no acute intervention recommended Current Visit: No Status: Acute Code(s): K63.1 - PERFORATION OF INTESTINE ( NONTRAUMATIC) SNOMED Code(s): 29861928 (3) Metastatic breast cancer Current Visit: No Status: Acute Priority: High Code(s): C50.919 - MALIGNANT NEOPLASM OF UNSP SITE OF UNSPECIFIED FEMALE BREAST SNOMED Code(s): 237255089
--- NOTE | 2018-05-29 11:31 | P.PN ---
Progress Note - Text Progress Note Date: 05/29/18 The patient is resting comfortably in her bed. She denies any significant abdominal pain. She still having purulent drainage from her EDISON drain. Her last CAT scan was reviewed. Her abdominal pelvic abscess has decreased in size. Her white count is decreased to 13,000 from 17,000. On exam her vital signs are stable. Her abdomen soft. Status post Fred procedure for perforated diverticulitis. Patient will continue IV antibiotics and EDISON drainage of her pelvic abscess.
[2018-05-29] MEDS: ERTAPENEM 1 GM in SODIUM CHLORIDE 0.9% 50 ML IVPB SCH (17:32)
--- NOTE | 2018-05-30 00:14 | PN ---
PROGRESS NOTE DATE OF SERVICE: 05/29/2018. REASON FOR FOLLOW UP: Pelvic abscess. INTERVAL HISTORY: The patient is currently afebrile. She is breathing comfortably. Denies having any chest pain. No shortness of breath. No cough. No worsening abdominal pain. Complaining of weakness in her legs. EXAMINATION: Blood pressure 100/69, pulse of 101, temperature of 98. She is 95% on room air. General description is a middle aged female lying in bed in no distress. Respiratory system: Unlabored breathing, clear to auscultation anteriorly. Heart S1, S2. Regular rate and rhythm. ABDOMEN: Soft. Mildly distended. Minimal tenderness. No guarding or rigidity. LABS: BUN of 19, creatinine 0.38, hemoglobin is 13.6, white count of 13.2. Blood culture has been negative. DIAGNOSTIC IMPRESSION AND PLAN: Patient with abdominal abscess for perforated bowel. Previous culture positive for E coli and anaerobics. The patient has been on IV Invanz for almost a month with recent left temporal surgery for metastatic lesion and high risk for seizures. We will discontinue Levaquin and start the patient on Rocephin 2 g in addition to oral Flagyl. Continue with supportive care. Family present at bedside. Questions were answered. MMODL / IJN: [id number] /
[2018-05-30] MEDS: HYDROmorphone 1 MG/ML 1 ML SYRINGE IVP PRN ×3 (04:32→17:54)
[2018-05-30] MEDS: levETIRAcetam ORAL SOLN 500 MG/5 ML CUP PO SCH ×2 (05:12→17:51)
[2018-05-30] MEDS: PANTOPRAZOLE 40 MG TABLET PO SCH ×2 (08:08→17:51)
[2018-05-30] MEDS: cefTRIAXone 2,000 MG in SODIUM CHLORIDE 0.9% 100 ML IVPB SCH (08:08)
[2018-05-30] MEDS: ENOXAPARIN 40 MG/0.4 ML SYRINGE SQ SCH (08:08)
[2018-05-30] MEDS: FLUCONAZOLE 100 MG TAB PO SCH (08:08)
[2018-05-30] MEDS: CHOLECALCIFEROL 1,000 UNIT TAB PO SCH ×2 (08:09→21:47)
[2018-05-30] MEDS: METOPROLOL TARTRATE 25 MG TAB PO SCH ×2 (08:10→20:50)
[2018-05-30] MEDS: DEXAMETHASONE 4 MG TAB PO SCH ×3 (08:43→20:50)
[2018-05-30] MEDS: metroNIDAZOLE 500 MG TAB PO SCH ×3 (08:44→21:47)
--- NOTE | 2018-05-30 09:13 | P.PN ---
Subjective Progress Note Date: 05/30/18 Patient is doing fairly well today. There was no acute events overnight. Patient is having good appetite and finished her breakfast tray. She still complaining of chronic lower extremity weakness. She said that this is not new during this admission. She denies any pain at this time. Objective - Vital Signs Vital signs: Vital Signs Temp 97.8 F 05/30/18 05:00 Pulse 121 H 05/30/18 08:15 Resp 16 05/30/18 05:00 BP 92/64 05/30/18 08:15 Pulse Ox 95 05/30/18 05:00 Intake & Output 05/29/18 05/30/18 05/30/18 18:59 06:59 18:59 Intake Total 760 Output Total 1201 600 Balance -1201 160 Intake: IV 400 Sodium Chloride 0.9% 1, 400 000 ml @ 100 mls/hr IV . Q10H [facility] Rx#:[id number] Oral 360 Output: Stool 1201 600 Other: Voiding Method Bedpan Bedpan Bedpan # Voids 5 1 - Exam General: The patient is awake and alert, in no distress Eye: there is normal conjunctiva bilaterally. Neck: The neck is supple, there is no JVD. Cardiovascular: Normal S1-S2, no S3-S4, no murmurs. Respiratory: Lungs clear to auscultation bilaterally Gastrointestinal: Abdomen is soft, nontender Musculoskeletal: There is no pedal edema. Neurological:. Speech is normal. Skin: Skin is warm and dry - Labs CBC & Chem 7: 05/28/18 07:21 05/28/18 07:21 Labs: Microbiology - Last 24 Hours (Table) 05/27/18 10:44 Blood Culture - Preliminary Blood No Growth after 48 hours Assessment and Plan Assessment: 1. LE weakness: Generalized, possibly deconditioning but concerns for spinal abscess or metastatic disease. CT brain negative for metastatic disease to the brain. CPK and TSH is within normal limits. Vit D 28.2 which is borderline low, will replace. MRI C+T+L spine negative. Neurology consulted - recommended MRI brain and possible LP (to rule out leptomeningeal involvement). Continue steroids as ordered. FU PT/OT consult, MRI brain, Neurology 2. Intraabdominal abscess: 05/26 CT AP shows decreased pelvic abscess. Tylenol and Dilaudid IV for pain control. General surgery and infectious disease following. Antibiotic adjusted. Blood culture negative 3. Breast CA: Follows Dr. Martinez outPT. With metastatic disease to the brain, liver and bone. Biopsy proven ER+ [facility]- HER2/OSCAR 2+. Current Rx with Faslodex and Xgeva. FU Heme-Onc consult 4. Seizure prophylaxis: Keppra 1000 mg PO BID. Ativan 1 mg IV PRN for seizure. Seizure and Fall precautions. FU Keppra levels, Neurology consult, MRI brain 5. Transaminitis: Improving slightly since admission. CT AP on 05/26 shows shows metastatic hepatic lesions measuring up to 5.8. 6. ASCVD risk: Continue ASA 81 mg PO QD and Lipitor 40 mg PO QHS. 7. Hypertension: Monitor vitals, adjust medications as necessary. 9. DVT/GI Prophylaxis: Protonix 40 mg PO BID. Lovenox 40 mg SUBCUT QD. Patient is scheduled for MRI of the brain today. Appreciate dairy consultant's recommendations. Awaiting PT/OT evaluation. We will repeat lab work in the morning.
[2018-05-30 11:19] LABS: Basophils % (A) 0 %; Eosinophils # (A) 0.1 k/uL (0-0.7); Eosinophils % (A) 1 %; HCT 38.7 % (34.0-46.0); HGB 13.1 gm/dL (11.4-16.0); Lymphocytes # (A) 0.4 k/uL (1.0-4.8); Lymphocytes % (A) 4 %; MCH 33.4 pg (25.0-35.0); MCHC 33.9 g/dL (31.0-37.0); MCV 98.6 fL (80.0-100.0); Macrocytosis Slight; Mean Platelet Volume 7.3; Monocytes # (A) 0.3 k/uL (0-1.0); Monocytes % (A) 3 %; Neutrophils # (A) 9.9 k/uL (1.3-7.7); Neutrophils % (A) 92 %; Platelet Count 144 k/uL (150-450); RBC 3.92 m/uL (3.80-5.40); RDW 15.5 % (11.5-15.5); WBC 10.8 k/uL (3.8-10.6)
[2018-05-30 11:37] LABS: ALT 154 U/L (9-52); AST 63 U/L (14-36); Alkaline Phosphatase 152 U/L (38-126); Anion Gap 3 mmol/L; Blood Urea Nitrogen 12 mg/dL (7-17); Calcium 7.4 mg/dL (8.4-10.2); Carbon Dioxide 23 mmol/L (22-30); Chloride 110 mmol/L (98-107); Glucose 92 mg/dL (74-99); Potassium 3.5 mmol/L (3.5-5.1); Sodium 136 mmol/L (137-145); Total Bilirubin 0.3 mg/dL (0.2-1.3); Total Protein 3.8 g/dL (6.3-8.2)
[2018-05-30] MEDS ORDERED: LORazepam 0.5 MG TAB PO STA (13:08)
--- NOTE | 2018-05-30 15:54 | MR ---
EXAMINATION TYPE: MR brain wo/w con DATE OF EXAM: 05/30/2018 COMPARISON: Prior MRI brain March 18, 2018 HISTORY: inability to ambulate, Hx of cancer TECHNIQUE: Multiplanar, multisequence images of the brain and brainstem is performed without and with IV contras t, utilizing 6.5 mL intravenous Gadavist . FINDINGS: Diffusion weighted images demonstrate no evidence of a recent infarct or other diffusion ab normality. There is no worrisome extra-axial fluid collection. The ventricular system and cisternal spaces remain normal in size and appearance. The brain volume is age appropriate. Midline structures demonstrate normal morphology. The craniocervical junction appears within normal limits. There is persistent area of dural-based enhancement right temporal region that is more prominent as w ell as more thicker and larger with associated edema throughout the right temporal lobe that shows in creased superior posterior and medial extension. Sulcal effacement is redemonstrated. There is partia l effacement of the right suprasellar cistern near image 13 unchanged from prior. Postsurgical acid changer the right temporal region is again seen. No new areas of enhancement are seen. There is redemonstration of 1.2 cm mucous retention cyst or ruth yp inferior left maxillary sinus with mild to minimal mucosal thickening in both maxillary sinuses in feriorly redemonstrated. Globes are intact bilaterally. IMPRESSION: Worsening enhancement and adjacent edema right temporal region suggest recurrent dural ba sed neoplasm and worsening local mass effect.
[2018-05-30] MEDS ORDERED: ERTAPENEM 1 GM in SODIUM CHLORIDE 0.9% 50 ML IVPB SCH (16:00)
--- NOTE | 2018-05-30 16:05 | MR ---
EXAMINATION TYPE: MR pelvis wo/w con DATE OF EXAM: 05/30/2018 COMPARISON: CT abdomen and pelvis from 4 days ago HISTORY: inability to ambulate, Hx of metastatic breast cancer CONTRAST: Standard multiplanar, multisequence MRI departmental protocol utilizing 6.5 mL intravenous Gadavist g adolinium contrast. FINDINGS: Bladder is felt unremarkable. Uterus is surgically absent. Percutaneous drainage catheter t erminating or pelvic cul-de-sac is unchanged in position no significant residual ascites is identifie d. Suspected small residual left perirectal abscess is better seen on CT as there is indistinct visua lization from adjacent bowel on MRI. No suspicious bowel dilatation is present. No suspicious pelvic adenopathy is noted. Anterior vertical scar in the lower abdomen is redemonstrated. Left-sided ostomy is redemonstrated. Visualized osseous structures show suspected metastatic lesions for reference right greater trochante r level coronal image 10 corresponding to sclerotic lesion on CT and inferior right femoral head lesi on axial image 15. There is partial visualization of mild to moderate diffuse subcutaneous edema over the proximal thighs and pelvis bilaterally. IMPRESSION: Seen better on MRI are suspected osseous metastatic lesions with 2 larger lesions identified in the r ight hip. No additional new or significant findings seen from recent CT.
--- NOTE | 2018-05-30 20:30 | P.PN ---
Subjective Progress Note Date: 05/30/18 Principal diagnosis: NLE pain and weakness, metastatic breast cancer Pt seen today in f/u, she is in good spirits, denies MARKS, fever, nausea, ALEXA, her ostomy is functioning normally, soft brown stool, her RLQ EDISON drain has brown, milky liquid draining that she says smells terrible. The pain in her legs persists, right>left, painful to touch, it hurts to move the legs. Denies any other pain or c/o. Objective - Vital Signs Vital signs: Vital Signs Temp 97.8 F 05/30/18 05:00 Pulse 121 H 05/30/18 08:15 Resp 16 05/30/18 05:00 BP 92/64 05/30/18 08:15 Pulse Ox 95 05/30/18 05:00 Intake & Output 05/29/18 05/30/18 05/30/18 18:59 06:59 18:59 Intake Total 760 Output Total 1201 600 Balance -1201 160 Intake: IV 400 Sodium Chloride 0.9% 1, 400 000 ml @ 100 mls/hr IV . Q10H [facility] Rx#:[id number] Oral 360 Output: Stool 1201 600 Other: Voiding Method Bedpan Bedpan Bedpan # Voids 5 1 - Constitutional General appearance: Present: cooperative, no acute distress, obese - EENT Eyes: Present: anicteric sclerae - Respiratory Respiratory: bilateral: CTA - Cardiovascular Heart sounds: normal: S1, S2 - Gastrointestinal General gastrointestinal: Present: soft, tenderness Localized gastrointestinal: tender: RLQ (area of EDISON drain) - Neurologic Neurologic Comment(s): BLE weakness, R>L, allodynia with neuropathic type pain descriptions given by pt - Musculoskeletal Musculoskeletal Comment(s): BLE weakness - Psychiatric Psychiatric Comment(s): Alert, oriented to self, she gets events confused, some of her conversation does not make sense, speech is clear - Labs CBC & Chem 7: 05/30/18 10:40 05/30/18 10:40 Labs: Abnormal Lab Results - Last 24 Hours (Table) 05/30/18 05/30/18 Range/Units 10:40 10:40 WBC 10.8 H (3.8-10.6) k/uL Plt Count 144 L (150-450) k/uL Neutrophils # 9.9 H (1.3-7.7) k/uL Lymphocytes # 0.4 L (1.0-4.8) k/uL Sodium 136 L (137-145) mmol/L Chloride 110 H (98-107) mmol/L Creatinine 0.39 L (0.52-1.04) mg/dL Calcium 7.4 L (8.4-10.2) mg/dL AST 63 H (14-36) U/L ALT 154 H (9-52) U/L Alkaline Phosphatase 152 H (38-126) U/L Total Protein 3.8 L (6.3-8.2) g/dL Albumin 2.0 L (3.5-5.0) g/dL Microbiology - Last 24 Hours (Table) 05/27/18 10:44 Blood Culture - Preliminary Blood No Growth after 48 hours Assessment and Plan (1) Bilateral leg weakness Narrative/Plan: Spine imaging has been reviewed by several providers, no evidence of cord compression. LP has been ordered to eval CSF for possible leptomeningeal mets CT brain was negative, I see MRI has been ordered, await results Current Visit: Yes Status: Acute Priority: High Code(s): R29.898 - OTH SYMPTOMS AND SIGNS INVOLVING THE MUSCULOSKELETAL SYSTEM SNOMED Code(s): 3068775 (2) Metastatic breast cancer Narrative/Plan: Pt is most recently on faslodex and ibrance, Mar but, treatment was delayed due to GI perforation. It will have to be determined if disease is considered progressive or if too newly on medications to determine regimen a failure. Will cont work up for now, treat symptoms and Dr. Martinez will make decisions as to how treatment will continue. Current Visit: Yes Status: Acute Priority: High Code(s): C50.919 - MALIGNANT NEOPLASM OF UNSP SITE OF UNSPECIFIED FEMALE BREAST SNOMED Code(s): 365366258
--- NOTE | 2018-05-30 22:21 | PN ---
PROGRESS NOTE DATE OF SERVICE: 05/30/2018 REASON FOR FOLLOWUP: Pelvic abscess. INTERVAL HISTORY: The patient is currently afebrile. She seems to be slightly feeling better, breathing comfortably. Denies having any chest pain, shortness of breath or cough. No abdominal pain or any diarrhea. PHYSICAL EXAMINATION: Blood pressure 100/69 with a pulse of 101, temperature 97.8. She is 97% on room air. General description is a middle-aged female lying in bed in no distress. RESPIRATORY SYSTEM: Unlabored breathing. Clear to auscultation anteriorly. HEART: S1, S2. Regular rate and rhythm. ABDOMEN: Soft. No tenderness. EXTREMITIES: No edema of the feet. LABS: Hemoglobin is 13.1, white count 10.8 with a BUN of 12, creatinine 0.39. DIAGNOSTIC IMPRESSION AND PLAN: Patient with abdominal abscess from a perforated bowel. Previous culture positive for an Escherichia coli and anaerobic gram-negative. The patient has been on almost a month of IV Invanz; still has some residual abscess on the CT. Antibiotic has been adjusted to Rocephin 2 grams daily and oral Flagyl. In view of recent seizure activity from a metastatic lesion to the left temporal lobe, to continue with these antibiotics for a couple of weeks now with close outpatient followup. Continue with supportive care. MMODL / IJN: [id number] /
--- NOTE | 2018-05-30 22:42 | P.PN ---
Subjective Progress Note Date: 05/30/18 This patient is a 57-year-old female who was admitted to Hospital for evaluation of bilateral leg weakness. She has a history of metastatic left breast cancer and is undergone chemotherapy for this condition. She also has history of perforated colon that required an emergent exploratory laparotomy with sigmoid resection and descending colostomy procedure done on 04/06/2018. She developed sepsis during this procedure and was treated aggressively with IV antibiotics. Patient underwent MRI of the lumbar spine yesterday for further evaluation of her bilateral leg weakness. Results were reviewed by Dr. Lopez and radiation oncology. We are awaiting results of MRI of the brain that has also been ordered for this patient. The patient has noticed slight improvement with her leg weakness today but still remained significantly paraparetic. Dr. Lopez is ordered lumbar puncture to be done to further evaluate for possibility of leptomeningeal disease secondary to her breast cancer. MRI of the lumbar spine does reveal some changes suggesting possibility of metastatic disease. We will await further recommendations from radiation oncology and Dr. Lopez. This patient has a rather complex medical history with multiple medical conditions contributing to her overall condition. Would recommend social work consultation to determine long-term management goals. We will await the results of her lumbar puncture and if anything is positive for leptomeningeal disease she may also be considered for paraneoplastic syndrome workup. Lumbar puncture could not be completed today as a patient was given Lovenox yesterday. LP will be reattempted tomorrow for further evaluation of possible leptomeningeal carcinomatosis. The patient has noticed slight improvement in her leg strength as compared to a few days ago. She was sent for MRI of the brain today with and without gadolinium. 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 The patient is a 81 currently being treated with Decadron. Would consider possible neurosurgical consultation for this patient and transferred to a tertiary neurosurgical unit for their expert opinion. Would also consider radiation therapy to her lumbar spine due to the recent MRI results suggesting diffuse bony changes. Patient also underwent MRI of the pelvis today which reveals osseous metastatic lesions in the right hip. This patient has evidence of metastatic breast cancer. Imaging studies done thus far show widespread metastatic spread of her disease. Would need to consider cold status with this patient and also whether further neurosurgical evaluation is of any benefit given her recent MRI finding of the brain. We will await further discussion between Dr. Lopez and the patient regarding her wishes for further treatment. Would also await further recommendations from Jerica Wilkinson who is working with Dr. Lopez in terms of long- term management for this patient. The patient is resting comfortably in bed. She has noted improvement with her leg strength as compared to a few days ago. She appears to be in very good spirits but still has some episodes of mild confusion. Given her MRI findings of the brain once again we will await further decision from the family and Dr. Lopez as to whether they would like to seek out neurosurgical evaluation and treatment. Her overall prognosis at this time remains very guarded. Her overall prognosis at this time remains very guarded. Objective - Vital Signs Vital signs: Vital Signs Temp 98.2 F 05/30/18 21:00 Pulse 117 H 05/30/18 21:00 Resp 16 05/30/18 21:00 BP 93/58 05/30/18 21:00 Pulse Ox 97 05/30/18 21:00 Intake & Output 05/30/18 05/30/18 05/31/18 06:59 18:59 06:59 Intake Total 760 700 Output Total 600 Balance 160 700 Intake: IV 400 600 Sodium Chloride 0.9% 1, 400 600 000 ml @ 100 mls/hr IV . Q10H [facility] Rx#:[id number] Intake, IV Titration 100 Amount cefTRIAXone 2,000 mg In 100 Sodium Chloride 0.9% 100 ml @ 100 mls/hr IVPB Q24HR [facility] Rx#:[id number] Oral 360 Output: Stool 600 Other: Voiding Method Bedpan Bedpan # Voids 1 - Exam Physical examination: PHYSICAL EXAMINATION: Patient is resting comfortably in bed. VITAL SIGNS: Blood pressure is [93/58]. Heart rate is [117]. Respiration is [16] . Temperature is [98.2]. HEENT: Head is atraumatic, neck is supple, there were no carotid bruits. CHEST: Lungs are clear to auscultation and percussion. CARDIAC: S1, S2 normal rate and rhythm. There is no murmur. ABDOMEN: Soft and nontender. Bowel sounds are present. EXTREMITIES: There is no pedal edema. Peripheral pulses are present, Neurological examination: Patient's neurological examination is unchanged from yesterday. The patient has slight improvement with her lower extremity muscle strength as compared to yesterday. - Labs CBC & Chem 7: 05/30/18 10:40 05/30/18 10:40 Labs: Abnormal Lab Results - Last 24 Hours (Table) 05/30/18 05/30/18 Range/Units 10:40 10:40 WBC 10.8 H (3.8-10.6) k/uL Plt Count 144 L (150-450) k/uL Neutrophils # 9.9 H (1.3-7.7) k/uL Lymphocytes # 0.4 L (1.0-4.8) k/uL Sodium 136 L (137-145) mmol/L Chloride 110 H (98-107) mmol/L Creatinine 0.39 L (0.52-1.04) mg/dL Calcium 7.4 L (8.4-10.2) mg/dL AST 63 H (14-36) U/L ALT 154 H (9-52) U/L Alkaline Phosphatase 152 H (38-126) U/L Total Protein 3.8 L (6.3-8.2) g/dL Albumin 2.0 L (3.5-5.0) g/dL Microbiology - Last 24 Hours (Table) 05/27/18 10:44 Blood Culture - Preliminary Blood No Growth after 72 hours Assessment and Plan (1) Bilateral leg weakness Current Visit: Yes Status: Acute Priority: High Code(s): R29.898 - OTH SYMPTOMS AND SIGNS INVOLVING THE MUSCULOSKELETAL SYSTEM SNOMED Code(s): 9367556 (2) Brain metastases Current Visit: Yes Status: Acute Code(s): C79.31 - SECONDARY MALIGNANT NEOPLASM OF BRAIN SNOMED Code(s): 71951171 (3) Breast cancer, left breast Current Visit: No Status: Acute Code(s): C50.912 - MALIGNANT NEOPLASM OF UNSPECIFIED SITE OF LEFT FEMALE BREAST SNOMED Code(s): 059938504 (4) Cerebral edema Current Visit: No Status: Acute Code(s): G93.6 - CEREBRAL EDEMA SNOMED Code(s): 5079560 Plan: This patient is a 57-year-old female with a history of multiple complex medical issues related to her diagnosis of left breast cancer. According to the patient she was diagnosed about 3 years ago as having stage IV breast cancer. She had metastatic lesions to the brain which was recently treated by neurosurgery and [facility] in April this year. She had to undergo a right-sided craniotomy procedure for this. She had been making slow progress but this past few days has been expressing severe abdominal pain. She has a history of intra-abdominal abscess in the past as well. She is being evaluated further for this condition. She has been taking Keppra monotherapy for seizure prophylaxis. She is not aware of her last Keppra blood level. This will be ordered for tomorrow morning for her and her dose will be adjusted as necessary. She is to continue on her current dose of Keppra 1000 mg by mouth twice a day. She is also been placed on Decadron and a dosage of 6 mg every 6 hours. We will continue close neurological follow-up for the patient. She is scheduled to have MRI of the brain tomorrow for further evaluation. Would also recommend routine EEG to be done tomorrow. Her Keppra blood level has been sent to the laboratory and will likely be drawn first thing tomorrow morning. This patient's overall prognosis at this time remains very guarded. We are waiting the results of her MRI of the cervical thoracic and lumbar spine to give further recommendations. Given her history of metastatic stage IV breast cancer we would also recommend to consider lumbar puncture for this patient to do CSF analysis for possible metastatic cancer cells to the CSF. LP is to further evaluate for possibility of leptomeningeal carcinomatosis secondary to her breast cancer. Lumbar puncture could not be performed today as a patient was given Lovenox yesterday. Lumbar puncture will be reattempted tomorrow for further evaluation of leptomeningeal carcinomatosis in this patient. As noted she is scheduled for MRI of the brain tomorrow and we will await those results. MRI of the lumbar spine was reviewed today by Dr. Lopze and radiation oncology. There are some changes suggesting possibility of metastatic spread to the lumbar spine. Patient may need to be reconsidered for possible radiation therapy to the lumbar spine. The patient underwent MRI of the brain today the results of which are noted above. MRI shows worsening enhancement in the right temporal lobe. This is just recurrence of neoplasm involving the dural surface. MRI of the pelvis also reveals 2 large metastatic lesions involving the right hip. This may be also contributing to her difficulty in walking and ambulation. We strongly recommend Dr. Lopez and Dr. Ye to discuss all of these findings with the patient and her in detail. Would consider neurosurgical consultation and evaluation of her MRI findings today if they wish to be more aggressive for treatment. Once again we' ll defer to Dr. Lopez and Dr. Ye in terms of further ongoing treatment of her underlying cancer. Her overall prognosis at this time remains very guarded. We will await further recommendations from oncology. We had a long discussion with this patient and she would like to continue aggressive treatment and management of her underlying breast cancer. Her overall prognosis at this time remains very guarded.
[2018-05-31] MEDS: HYDROmorphone 1 MG/ML 1 ML SYRINGE IVP PRN ×2 (03:21→08:18)
[2018-05-31] MEDS: levETIRAcetam ORAL SOLN 500 MG/5 ML CUP PO SCH ×2 (06:18→17:24)
[2018-05-31] MEDS: ENOXAPARIN 40 MG/0.4 ML SYRINGE SQ SCH (07:12)
[2018-05-31 07:51] LABS: Basophils % (A) 0 %; Eosinophils % (A) 0 %; HCT 35.7 % (34.0-46.0); HGB 11.8 gm/dL (11.4-16.0); Lymphocytes # (A) 0.3 k/uL (1.0-4.8); Lymphocytes % (A) 3 %; MCH 32.6 pg (25.0-35.0); MCHC 33.1 g/dL (31.0-37.0); MCV 98.4 fL (80.0-100.0); Mean Platelet Volume 7.8; Monocytes # (A) 0.2 k/uL (0-1.0); Monocytes % (A) 2 %; Neutrophils # (A) 8.2 k/uL (1.3-7.7); Neutrophils % (A) 94 %; Platelet Count 125 k/uL (150-450); RBC 3.62 m/uL (3.80-5.40); RDW 15.4 % (11.5-15.5); WBC 8.7 k/uL (3.8-10.6)
[2018-05-31 08:11] LABS: ALT 132 U/L (9-52); AST 49 U/L (14-36); Albumin 1.9 g/dL (3.5-5.0); Alkaline Phosphatase 133 U/L (38-126); Anion Gap 3 mmol/L; Blood Urea Nitrogen 14 mg/dL (7-17); Calcium 7.5 mg/dL (8.4-10.2); Carbon Dioxide 25 mmol/L (22-30); Chloride 107 mmol/L (98-107); Glucose 142 mg/dL (74-99); Potassium 3.6 mmol/L (3.5-5.1); Sodium 135 mmol/L (137-145); Total Bilirubin 0.3 mg/dL (0.2-1.3); Total Protein 3.8 g/dL (6.3-8.2)
[2018-05-31] MEDS: cefTRIAXone 2,000 MG in SODIUM CHLORIDE 0.9% 100 ML IVPB SCH (08:17)
[2018-05-31] MEDS: PANTOPRAZOLE 40 MG TABLET PO SCH ×2 (08:17→17:24)
[2018-05-31] MEDS: CHOLECALCIFEROL 1,000 UNIT TAB PO SCH ×2 (08:17→21:20)
[2018-05-31] MEDS: METOPROLOL TARTRATE 25 MG TAB PO SCH ×2 (08:17→21:20)
[2018-05-31] MEDS: DEXAMETHASONE 4 MG TAB PO SCH ×3 (08:18→21:20)
[2018-05-31] MEDS: metroNIDAZOLE 500 MG TAB PO SCH ×3 (08:18→21:20)
[2018-05-31] MEDS: FLUCONAZOLE 100 MG TAB PO SCH (08:18)
--- NOTE | 2018-05-31 08:43 | P.PN ---
Subjective Progress Note Date: 05/31/18 Patient is doing fairly well today. There was no acute events overnight. She believes that lower extremity weaknesses relatively better compared to yesterday. She said that she did not discuss MRI findings with any doctors and she is waiting for her to arrive to have a meeting with oncology. Objective - Vital Signs Vital signs: Vital Signs Temp 97.7 F 05/31/18 07:52 Pulse 101 H 05/31/18 07:55 Resp 18 05/31/18 07:52 BP 108/75 05/31/18 07:52 Pulse Ox 96 05/31/18 05:00 Intake & Output 05/30/18 05/31/18 05/31/18 18:59 06:59 18:59 Intake Total 700 590 Output Total 250 Balance 700 590 -250 Intake: IV 600 Sodium Chloride 0.9% 1, 600 000 ml @ 100 mls/hr IV . Q10H [facility] Rx#:[id number] Intake, IV Titration 100 Amount cefTRIAXone 2,000 mg In 100 Sodium Chloride 0.9% 100 ml @ 100 mls/hr IVPB Q24HR [facility] Rx#:[id number] Oral 590 Output: Urine 250 Other: Voiding Method Bedpan Bedpan Bedpan # Voids 3 - Exam General: The patient is awake and alert, in no distress Eye: there is normal conjunctiva bilaterally. Neck: The neck is supple, there is no JVD. Cardiovascular: Normal S1-S2, no S3-S4, no murmurs. Respiratory: Lungs clear to auscultation bilaterally Gastrointestinal: Abdomen is soft, nontender Musculoskeletal: There is no pedal edema. Neurological:. Speech is normal. Skin: Skin is warm and dry - Labs CBC & Chem 7: 05/31/18 07:33 05/31/18 07:33 Labs: Abnormal Lab Results - Last 24 Hours (Table) 05/30/18 05/30/18 05/31/18 Range/Units 10:40 10:40 07:33 WBC 10.8 H (3.8-10.6) k/uL RBC 3.62 L (3.80-5.40) m/uL Plt Count 144 L 125 L (150-450) k/uL Neutrophils # 9.9 H 8.2 H (1.3-7.7) k/uL Lymphocytes # 0.4 L 0.3 L (1.0-4.8) k/uL Sodium 136 L (137-145) mmol/L Chloride 110 H (98-107) mmol/L Creatinine 0.39 L (0.52-1.04) mg/dL Glucose (74-99) mg/dL Calcium 7.4 L (8.4-10.2) mg/dL AST 63 H (14-36) U/L ALT 154 H (9-52) U/L Alkaline Phosphatase 152 H (38-126) U/L Total Protein 3.8 L (6.3-8.2) g/dL Albumin 2.0 L (3.5-5.0) g/dL 05/31/18 Range/Units 07:33 WBC (3.8-10.6) k/uL RBC (3.80-5.40) m/uL Plt Count (150-450) k/uL Neutrophils # (1.3-7.7) k/uL Lymphocytes # (1.0-4.8) k/uL Sodium 135 L (137-145) mmol/L Chloride (98-107) mmol/L Creatinine 0.34 L (0.52-1.04) mg/dL Glucose 142 H (74-99) mg/dL Calcium 7.5 L (8.4-10.2) mg/dL AST 49 H (14-36) U/L ALT 132 H (9-52) U/L Alkaline Phosphatase 133 H (38-126) U/L Total Protein 3.8 L (6.3-8.2) g/dL Albumin 1.9 L (3.5-5.0) g/dL Microbiology - Last 24 Hours (Table) 05/27/18 10:44 Blood Culture - Preliminary Blood No Growth after 72 hours Assessment and Plan Assessment: 1. 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 CT brain was negative for metastatic disease to the brain. CPK and TSH is within normal limits. Vit D 28.2 which is borderline low, will replace. MRI C+T+ L spine negative. Neurology consulted - recommend LP (to rule out leptomeningeal involvement). Continue steroids as ordered. FU PT/OT consult 2. Intraabdominal abscess: 05/26 CT AP shows decreased pelvic abscess. Tylenol and Dilaudid IV for pain control. General surgery and infectious disease following. Antibiotic adjusted. Blood culture negative 3. Breast CA: Follows Dr. Michelle gomezPT. With metastatic disease to the brain, liver and bone. Biopsy proven ER+ GA- HER2/OSCAR 2+. Current Rx with Faslodex and Xgeva. FU Heme-Onc consult 4. Seizure prophylaxis: Keppra 1000 mg PO BID. Ativan 1 mg IV PRN for seizure. Seizure and Fall precautions. FU Keppra levels, Neurology consult, MRI brain 5. Transaminitis: Improving slightly since admission. CT AP on 05/26 shows shows metastatic hepatic lesions measuring up to 5.8. 6. ASCVD risk: Continue ASA 81 mg PO QD and Lipitor 40 mg PO QHS. 7. Hypertension: Monitor vitals, adjust medications as necessary. 9. DVT/GI Prophylaxis: Protonix 40 mg PO BID. Lovenox 40 mg SUBCUT QD. Patient is scheduled for meeting with oncology today along with her to discuss plan of care. This patient wanted to pursue aggressive management then she will probably need to be transferred back to [facility] for neurosurgery evaluation.. Appreciate hr shared services consultant's recommendations. PT/OT evaluation. Repeat lab work in the morning. Continue supportive care.
--- NOTE | 2018-05-31 11:45 | P.PN ---
Subjective Progress Note Date: 05/31/18 Principal diagnosis: BLE pain and weakness, metastatic breast cancer Patient seen today in follow-up. She states improvement in her lower extremity pain as well as improved strength, there is less swelling. She does have to lift her left lower extremity for examination, she is sitting up in the chair, states eating well, no headaches, nausea, difficulty swallowing, shortness of breath or cough, abdominal distention or discomfort, changes in bowel or bladder habits. Objective - Vital Signs Vital signs: Vital Signs Temp 97.7 F 05/31/18 07:52 Pulse 101 H 05/31/18 07:55 Resp 18 05/31/18 07:55 BP 108/75 05/31/18 07:52 Pulse Ox 96 05/31/18 05:00 Intake & Output 05/30/18 05/31/18 05/31/18 18:59 06:59 18:59 Intake Total 700 590 Output Total 450 Balance 700 590 -450 Intake: IV 600 Sodium Chloride 0.9% 1, 600 000 ml @ 100 mls/hr IV . Q10H [facility] Rx#:[id number] Intake, IV Titration 100 Amount cefTRIAXone 2,000 mg In 100 Sodium Chloride 0.9% 100 ml @ 100 mls/hr IVPB Q24HR [facility] Rx#:[id number] Oral 590 Output: Urine 450 Other: Voiding Method Bedpan Bedpan Bedpan # Voids 3 - Constitutional General appearance: Present: average body habitus, cooperative, no acute distress - EENT Eyes: Present: anicteric sclerae ENT: Present: hearing grossly normal - Respiratory Respiratory: bilateral: CTA - Cardiovascular Heart sounds: normal: S1, S2 - Peripheral edema leg Peripheral Edema: bilateral: Trace - Gastrointestinal General gastrointestinal: Present: normal bowel sounds, soft - Neurologic Neurologic Comment(s): No allodynia today when touching the patient's lower extremities, patient is actually able to move the right lower extremity better today than yesterday, she has to lift the left lower extremity today. - Musculoskeletal Musculoskeletal: Present: generalized weakness - Psychiatric Psychiatric: Present: A&O x's 3, appropriate affect - Labs CBC & Chem 7: 05/31/18 07:33 05/31/18 07:33 Labs: Abnormal Lab Results - Last 24 Hours (Table) 05/31/18 05/31/18 Range/Units 07:33 07:33 RBC 3.62 L (3.80-5.40) m/uL Plt Count 125 L (150-450) k/uL Neutrophils # 8.2 H (1.3-7.7) k/uL Lymphocytes # 0.3 L (1.0-4.8) k/uL Sodium 135 L (137-145) mmol/L Creatinine 0.34 L (0.52-1.04) mg/dL Glucose 142 H (74-99) mg/dL Calcium 7.5 L (8.4-10.2) mg/dL AST 49 H (14-36) U/L ALT 132 H (9-52) U/L Alkaline Phosphatase 133 H (38-126) U/L Total Protein 3.8 L (6.3-8.2) g/dL Albumin 1.9 L (3.5-5.0) g/dL Microbiology - Last 24 Hours (Table) 05/27/18 10:44 Blood Culture - Preliminary Blood No Growth after 72 hours - Imaging and Cardiology MRI - head: report reviewed MRI of the pelvis report reviewed. Assessment and Plan (1) Bilateral leg weakness Narrative/Plan: Multiple images of the spine have been reviewed by physicians, no evidence of cord compression. Plan is for lumbar puncture today for CSF evaluation to rule out leptomeningeal metastases. Current Visit: Yes Status: Acute Priority: High Code(s): R29.898 - OTH SYMPTOMS AND SIGNS INVOLVING THE MUSCULOSKELETAL SYSTEM SNOMED Code(s): 9051194 (2) Metastatic breast cancer Narrative/Plan: Reviewed with patient MRI of the brain and the noted changes. Radiation oncology has been consulted to review images, evaluate patient and make recommendations. Patient will need to follow up with Primary Oncologist for evaluation of treatment. Patient had just started a new regimen, she has had at most 2 cycles and likely the treatment has not had a chance to impact malignancy. Follow-up outpatient. Current Visit: Yes Status: Acute Priority: High Code(s): C50.919 - MALIGNANT NEOPLASM OF UNSP SITE OF UNSPECIFIED FEMALE BREAST SNOMED Code(s): 754736406
--- NOTE | 2018-05-31 12:58 | FL ---
EXAMINATION TYPE: FL guided lumbar puncture LP DATE OF EXAM: 05/31/2018 HISTORY: Weakness Maximal barrier technique was utilized. The skin overlying the L3 transverse process was localized u nder fluoroscopy and the overlying skin prepped and draped. Lidocaine used for local anesthesia. 20 -gauge needle was advanced into the thecal sac under fluoroscopic guidance and cerebrospinal fluid wa s noted to return in the hub of the needle. Approximately 8 cc of cerebrospinal fluid was harvested for analysis and the laboratory. Needle was removed. The patient remained in stable condition, the ne edle was removed. Hemostasis achieved. No immediate complication. 40 seconds fluoroscopy time. Single image documents the procedure. IMPRESSION: Fluoroscopic guided lumbar puncture for cerebrospinal fluid analysis, this procedure perf ormed at undersigned.
[2018-05-31 14:17] LABS: Glucose,CSF 88 mg/dL (40-70); Total Protein,CSF 90 mg/dL (12-60)
--- NOTE | 2018-05-31 17:38 | P.CONS ---
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 She underwent neoadjuvant chemotherapy with good response, but reimaging showed persistent tumor invasion of the chest-wall. She therefore underwent neoadjuvant radiotherapy to a dose of 50.4 finishing on 04/06/2017. Final pathology from mastectomy on 04/28/2017 revealed a Stage IIA (ypT1b, ypN1a). She then was diagnosed with solitary brain metastases to the right temporal lobe, treated with resection followed by radiosurgery finishing on 10/26/2017. More recently, she was found to have systemic recurrence of disease with new lesions in the liver, pleural and supraclavicular adenopathy. She underwent palliative radiotherapy to the Left SCF region and T-spine finishing 03/29/18. The patient and her were seen in my clinic Wednesday when she had increased difficulty taking care of herself at home. The patient is approximately 10 days out from her previous hospitalization at [facility] for seizure. She has tried to do home physical therapy, but has been unable to. She reports that she feels weaker in the lower extremities and that she now requires her 's assistance every time she needs to stand up. When we last saw her one week and a half ago, she was able to ambulate with the assistance of a walker. She also had not been able to drink much recently, and on exam she appears to have thrush. She was sent through the emergency room secondary to the acute onset of lower extremity weakness and dehydration. Upon seeing the patient today, she reports she is improving. She is now able to move the lower extremities better. She does note some pain as well as numbness and tingling along the right hip. Her pelvic MRI from yesterday did show possible bone metastasis in this region. The patient is lying flat as she just had her lumbar puncture done earlier this afternoon. The patient also had repeat MRI of the brain yesterday, which shows persistent dural enhancement near her previous resection site. Review of Systems Constitutional: Denies chills, Denies fever Eyes: denies blurred vision Ears, nose, mouth and throat: Denies headache Cardiovascular: Denies chest pain Respiratory: Denies cough Gastrointestinal: Denies abdominal pain Genitourinary: Denies flank pain Musculoskeletal: right: hip pain Past Medical History Past Medical History: Cancer, GERD/Reflux, Hyperlipidemia, Osteoarthritis (OA) Additional Past Medical History / Comment(s): 2016 left breast cancer/chemo & radiation-pt states the only metastasis she might have is to L sided lymph nodes , 04/06/18 perforated bowel at rectosigmoid junction with adjacent abscess with surgery/colostomy, electrolyte disturbance, lactic acidosis/sepsis, 04/30/18 intraabdominal abscess, dysphasia-passed swallow test, anemia,. 05/10/18 [facility] ER and sent to [facility] d/t L sided weakness, inability to speak/facial twitching/seizure-states she was told she had swelling in the back of her head/ weakness and inability to speak resolved. Other hs: L chest wall cellulitis, generalized arthritis. History of Any Multi-Drug Resistant Organisms: None Reported Past Surgical History: Breast Surgery, Hysterectomy, Orthopedic Surgery, Tonsillectomy Additional Past Surgical History / Comment(s): 03/2018 exploratory laparotomy with sigmoid resection d/t perforated rectum with permanent colostomy, 2016 L breast biopsy and modified radical mastectomy, picc line, mediport, L chest drain Past Anesthesia/Blood Transfusion Reactions: Previous Problems w/ Anesthesia, Motion Sickness, Postoperative Nausea & Vomiting (PONV) Additional Past Anesthesia/Blood Transfusion Reaction / Comm: "hard time coming out" Smoking Status: Former smoker - Past Family History Mother Family Medical History: Cancer Additional Family Medical History / Comment(s): colon CA Father Family Medical History: Cancer Additional Family Medical History / Comment(s): lung cancer Medications and Allergies Home Medications Medication Instructions Recorded Confirmed Type Cholecalciferol [Vitamin D3] 1,000 unit PO BID 08/12/17 05/27/18 History Metoprolol Tartrate [Lopressor] 25 mg PO BID #60 tab 04/11/18 05/27/18 Rx Aspirin [Children's Aspirin] 81 mg PO DAILY 05/27/18 05/27/18 History Atorvastatin [Lipitor] 40 mg PO HS 05/27/18 05/27/18 History Dexamethasone [Decadron] 4 mg PO Q8H 05/27/18 05/27/18 History Ertapenem [INVanz] 1 gm IVPB HS 05/27/18 05/27/18 History levETIRAcetam [Keppra Oral 1,000 mg PO Q12H 05/27/18 05/27/18 History Solution] Allergies Allergy/AdvReac Type Severity Reaction Status Date / Time acetaminophen [From Tylenol] Allergy Mild Rash/Hives Verified 05/27/18 10:32 codeine Allergy Rash/Hives Verified 05/27/18 10:32 diphenhydramine Allergy Swelling Verified 05/27/18 10:32 [From Benadryl] Penicillins Allergy Rash/Hives Verified 05/27/18 10:32 Physical Exam Vitals: Vital Signs Temp Pulse Pulse Resp BP Pulse Ox 05/31/18 12:39 96 16 152/89 96 05/31/18 12:29 97 16 133/85 95 05/31/18 12:21 83 16 111/84 96 05/31/18 07:55 101 H 18 05/31/18 07:52 97.7 F 101 H 18 108/75 05/31/18 05:00 97.7 F 109 H 16 109/70 96 05/30/18 21:00 98.2 F 117 H 16 93/58 97 Intake and Output 05/31/18 05/31/18 05/31/18 06:59 14:59 22:59 Intake Total 590 100 Output Total 450 Balance 590 -350 Intake: Intake, IV Titration 100 Amount cefTRIAXone 2,000 mg In 100 Sodium Chloride 0.9% 100 ml @ 100 mls/hr IVPB Q24HR [facility] Rx#:[id number] Oral 590 Output: Urine 450 Other: Voiding Method Bedpan Bedpan Bedpan # Voids 3 # Bowel Movements 1 Results CBC & Chem 7: 05/31/18 07:33 05/31/18 07:33 Labs: Abnormal Lab Results - Last 24 Hours (Table) 05/31/18 05/31/18 05/31/18 Range/Units 07:33 07:33 12:30 RBC 3.62 L (3.80-5.40) m/uL Plt Count 125 L (150-450) k/uL Neutrophils # 8.2 H (1.3-7.7) k/uL Lymphocytes # 0.3 L (1.0-4.8) k/uL Sodium 135 L (137-145) mmol/L Creatinine 0.34 L (0.52-1.04) mg/dL Glucose 142 H (74-99) mg/dL Calcium 7.5 L (8.4-10.2) mg/dL AST 49 H (14-36) U/L ALT 132 H (9-52) U/L Alkaline Phosphatase 133 H (38-126) U/L Total Protein 3.8 L (6.3-8.2) g/dL Albumin 1.9 L (3.5-5.0) g/dL CSF Glucose 88 H (40-70) mg/dL CSF Total Protein 90 H (12-60) mg/dL Microbiology - Last 24 Hours (Table) 05/31/18 12:30 CSF Gram Stain - Preliminary Cerebral Spinal Fluid CSF Culture - Preliminary 05/27/18 10:44 Blood Culture - Preliminary Blood No Growth after 72 hours MRI - head: report reviewed, image reviewed Assessment and Plan Plan: 1. Right temporal brain metastases: The patient previously underwent radiosurgery to this area and October 2017 following surgical resection. Upon reviewing the patient's most recent MRI, there does appear to be slightly increased vasogenic edema as well as abnormal enhancement along the periphery of the resection cavity. This is worrisome for local recurrence. There is no elsewhere disease in the brain. The patient was evaluated by neurosurgery approximately 2 weeks ago at [facility], and it was not felt she would be a candidate for any further resection. Furthermore, this abnormal region does not explain the patient's bilateral lower extremity weakness. I discussed with the patient last week that I would recommend further radiotherapy to this area, but that she first needed to have her lower extremity weakness addressed. 2. LE Weakness: This has improved. MRI of the entire spine did not reveal any cord compression or new lesions to explain this difficulty. There is some question if the patient could potentially have leptomeningeal involvement, although this is not grossly seen on her imaging. LP was performed today, and we will await cytology. 3. Right hip pain: Pelvic MRI does show metastatic involvement of the right hip. I discussed with the patient that we may be able to do a short course of palliative radiotherapy to this region. As she had an LP earlier today, starting any such treatment today is not feasible but we will continue to monitor her throughout the week. Time with Patient: Greater than 30
--- NOTE | 2018-05-31 23:58 | PN ---
PROGRESS NOTE DATE OF SERVICE: 05/31/2018 REASON FOR FOLLOWUP: Pelvic abscess. INTERVAL HISTORY: The patient is currently afebrile. She is breathing comfortably. Denies significant chest pain, shortness of breath or cough. No abdominal pain. Still has some weakness in the legs, though that has some slight improvement. PHYSICAL EXAMINATION: Blood pressure is 115/69 with a pulse of 103, temperature 97.7. She is 93% on room air. General description is a middle-aged female lying in bed in no distress. RESPIRATORY SYSTEM: Unlabored breathing. Clear to auscultation anteriorly. HEART: S1, S2. Regular rate and rhythm. ABDOMEN: Soft. No tenderness. LABS: Hemoglobin 11.8, white count 8.7, BUN of 14, creatinine 0.34. DIAGNOSTIC IMPRESSION AND PLAN: Patient with a pelvic abscess from a perforated bowel back in March of 2018. Culture at that time was positive for E coli and anaerobic gram-negatives. Patient is currently on IV Rocephin and Flagyl. That will be continued for at least 2 more weeks. Continue with supportive care. MMODL / IJN: [id number] /
[2018-06-01] MEDS: HYDROmorphone 1 MG/ML 1 ML SYRINGE IVP PRN ×4 (00:29→21:11)
[2018-06-01] MEDS: levETIRAcetam ORAL SOLN 500 MG/5 ML CUP PO SCH ×2 (05:38→18:19)
[2018-06-01 07:57] LABS: Basophils % (A) 0 %; Eosinophils % (A) 0 %; HCT 37.2 % (34.0-46.0); HGB 12.5 gm/dL (11.4-16.0); Lymphocytes # (A) 0.3 k/uL (1.0-4.8); Lymphocytes % (A) 3 %; MCH 33.2 pg (25.0-35.0); MCHC 33.6 g/dL (31.0-37.0); MCV 98.7 fL (80.0-100.0); Macrocytosis Slight; Mean Platelet Volume 7.4; Monocytes # (A) 0.3 k/uL (0-1.0); Monocytes % (A) 3 %; Neutrophils # (A) 9.4 k/uL (1.3-7.7); Neutrophils % (A) 93 %; Platelet Count 129 k/uL (150-450); RBC 3.77 m/uL (3.80-5.40); RDW 15.6 % (11.5-15.5); WBC 10.2 k/uL (3.8-10.6)
[2018-06-01 08:17] LABS: ALT 125 U/L (9-52); AST 44 U/L (14-36); Alkaline Phosphatase 157 U/L (38-126); Anion Gap 5 mmol/L; Blood Urea Nitrogen 20 mg/dL (7-17); Calcium 7.6 mg/dL (8.4-10.2); Carbon Dioxide 23 mmol/L (22-30); Chloride 107 mmol/L (98-107); Glucose 144 mg/dL (74-99); Sodium 135 mmol/L (137-145); Total Bilirubin 0.3 mg/dL (0.2-1.3); Total Protein 3.9 g/dL (6.3-8.2)
[2018-06-01] MEDS: cefTRIAXone 2,000 MG in SODIUM CHLORIDE 0.9% 100 ML IVPB SCH (09:04)
[2018-06-01] MEDS: PANTOPRAZOLE 40 MG TABLET PO SCH ×2 (09:04→18:19)
[2018-06-01] MEDS: CHOLECALCIFEROL 1,000 UNIT TAB PO SCH ×2 (09:05→21:06)
[2018-06-01] MEDS: DEXAMETHASONE 4 MG TAB PO SCH ×3 (09:06→21:06)
[2018-06-01] MEDS: metroNIDAZOLE 500 MG TAB PO SCH ×3 (09:07→21:06)
[2018-06-01] MEDS: FLUCONAZOLE 100 MG TAB PO SCH (09:07)
[2018-06-01] MEDS: METOPROLOL TARTRATE 25 MG TAB PO SCH ×2 (09:07→21:06)
[2018-06-01] MEDS: ENOXAPARIN 40 MG/0.4 ML SYRINGE SQ SCH (09:31)
--- NOTE | 2018-06-01 09:51 | P.PN ---
Subjective Progress Note Date: 06/01/18 Patient is doing fairly well today. There was no acute events overnight. Objective - Vital Signs Vital signs: Vital Signs Temp 97.1 F L 06/01/18 05:16 Pulse 96 06/01/18 05:16 Resp 17 06/01/18 05:16 BP 116/75 06/01/18 05:16 Pulse Ox 94 L 06/01/18 05:16 Intake & Output 05/31/18 06/01/18 06/01/18 18:59 06:59 18:59 Intake Total 100 2190 Output Total 450 600 Balance -350 1590 Intake: Intake, IV Titration 100 Amount cefTRIAXone 2,000 mg In 100 Sodium Chloride 0.9% 100 ml @ 100 mls/hr IVPB Q24HR [facility] Rx#:[id number] Oral 2190 Output: Urine 450 Stool 600 Other: Voiding Method Bedpan Bedpan Bedpan # Voids 2 # Bowel Movements 1 1 - Exam General: The patient is awake and alert, in no distress Eye: there is normal conjunctiva bilaterally. Neck: The neck is supple, there is no JVD. Cardiovascular: Normal S1-S2, no S3-S4, no murmurs. Respiratory: Lungs clear to auscultation bilaterally Gastrointestinal: Abdomen is soft, nontender Musculoskeletal: There is no pedal edema. Neurological:. Speech is normal. Skin: Skin is warm and dry - Labs CBC & Chem 7: 06/01/18 07:35 06/01/18 07:35 Labs: Abnormal Lab Results - Last 24 Hours (Table) 05/31/18 06/01/18 06/01/18 Range/Units 12:30 07:35 07:35 RBC 3.77 L (3.80-5.40) m/uL RDW 15.6 H (11.5-15.5) % Plt Count 129 L (150-450) k/uL Neutrophils # 9.4 H (1.3-7.7) k/uL Lymphocytes # 0.3 L (1.0-4.8) k/uL Sodium 135 L (137-145) mmol/L BUN 20 H (7-17) mg/dL Creatinine 0.32 L (0.52-1.04) mg/dL Glucose 144 H (74-99) mg/dL Calcium 7.6 L (8.4-10.2) mg/dL AST 44 H (14-36) U/L ALT 125 H (9-52) U/L Alkaline Phosphatase 157 H (38-126) U/L Total Protein 3.9 L (6.3-8.2) g/dL Albumin 2.0 L (3.5-5.0) g/dL CSF Glucose 88 H (40-70) mg/dL CSF Total Protein 90 H (12-60) mg/dL Microbiology - Last 24 Hours (Table) 05/31/18 12:30 CSF Gram Stain - Preliminary Cerebral Spinal Fluid CSF Culture - Preliminary 05/27/18 10:44 Blood Culture - Preliminary Blood No Growth after 96 hours Assessment and Plan Assessment: 1. LE weakness: Generalized, possibly deconditioning as well as concerns about worsening metastasis to the brain and bone. CPK and TSH is within normal limits. Vit D 28.2 which is borderline low, will replace. MRI C+T+L spine negative. Neurology consulted - recommend LP (to rule out leptomeningeal involvement lab pending). Continue steroids as ordered. FU PT/OT consult 2. Intraabdominal abscess: 05/26 CT AP shows decreased pelvic abscess. Tylenol and Dilaudid IV for pain control. General surgery and infectious disease following. Antibiotic adjusted. Blood culture negative 3. Breast CA: Follows Dr. Michelle gomezPT. With metastatic disease to the brain, MRI of the brain showed recurrent neoplasm with worsening enhancement and adjacent edema to the right temporalis region suggesting recurrent dural based neoplasm. Patient was seen by oncology and radiation oncology. Plan to possibly resume radiation therapy. 4. Seizure prophylaxis: Keppra 1000 mg PO BID. Ativan 1 mg IV PRN for seizure. Seizure and Fall precautions. Neurology consulted 5. Transaminitis: Improving slightly since admission. CT AP on 05/26 shows shows metastatic hepatic lesions measuring up to 5.8. 6. ASCVD risk: Continue ASA 81 mg PO QD and Lipitor 40 mg PO QHS. 7. Hypertension: Monitor vitals, adjust medications as necessary. 9. DVT/GI Prophylaxis: Protonix 40 mg PO BID. Lovenox 40 mg SUBCUT QD. I reviewed her medication list and lab work results. Awaiting CSF fluid culture. Appreciate senior information security consultant's recommendations. PT/OT evaluation. Repeat lab work in the morning. Continue supportive care.
--- NOTE | 2018-06-01 12:26 | P.PN ---
Subjective Progress Note Date: 06/01/18 57-year-old female seen on rounds. Currently resting in bed. Discharge plan in progress. Patient states she's to go to [facility] for rehab. Left lower quadrant Ostomy a large amount of soft brown stool noted. Surgical incision site well approximated. EDISON drain in place creamy whitish purlent Drainage noted in the bulb. White count 10.2 electrolyte AST and ALT trending down afebrile Recent hospitalization for perforated bowel with adjacent ascites status post exploratory laparotomy with sigmoid resection secondary to perforated rectum with creation of a permanent ostomy done in March 2018 Objective - Vital Signs Vital signs: Vital Signs Temp 96.9 F L 06/01/18 11:48 Pulse 94 06/01/18 11:48 Resp 16 06/01/18 11:48 BP 111/68 06/01/18 11:48 Pulse Ox 94 L 06/01/18 05:16 Intake & Output 05/31/18 06/01/18 06/01/18 18:59 06:59 18:59 Intake Total 100 2190 Output Total 450 600 Balance -350 1590 Intake: Intake, IV Titration 100 Amount cefTRIAXone 2,000 mg In 100 Sodium Chloride 0.9% 100 ml @ 100 mls/hr IVPB Q24HR [facility] Rx#:[id number] Oral 2190 Output: Urine 450 Stool 600 Other: Voiding Method Bedpan Bedpan Bedpan # Voids 2 2 # Bowel Movements 1 1 - Exam Physical exam 57-year-old female resting in bed appears in no acute distress denies abdominal pain nausea vomiting dizziness or lightheadedness Lungs adequate air movement bilaterally Heart S1-S2 audible regular Abdomen ostomy left lower quadrant moderate amount of soft brown stool surgical incision site well approximated no redness soft nondistended nontender Extremities no edema - Labs CBC & Chem 7: 06/01/18 07:35 06/01/18 07:35 Labs: Abnormal Lab Results - Last 24 Hours (Table) 05/31/18 06/01/18 06/01/18 Range/Units 12:30 07:35 07:35 RBC 3.77 L (3.80-5.40) m/uL RDW 15.6 H (11.5-15.5) % Plt Count 129 L (150-450) k/uL Neutrophils # 9.4 H (1.3-7.7) k/uL Lymphocytes # 0.3 L (1.0-4.8) k/uL Sodium 135 L (137-145) mmol/L BUN 20 H (7-17) mg/dL Creatinine 0.32 L (0.52-1.04) mg/dL Glucose 144 H (74-99) mg/dL Calcium 7.6 L (8.4-10.2) mg/dL AST 44 H (14-36) U/L ALT 125 H (9-52) U/L Alkaline Phosphatase 157 H (38-126) U/L Total Protein 3.9 L (6.3-8.2) g/dL Albumin 2.0 L (3.5-5.0) g/dL CSF Glucose 88 H (40-70) mg/dL CSF Total Protein 90 H (12-60) mg/dL Microbiology - Last 24 Hours (Table) 05/31/18 12:30 CSF Gram Stain - Preliminary Cerebral Spinal Fluid CSF Culture - Preliminary 05/27/18 10:44 Blood Culture - Preliminary Blood No Growth after 96 hours Assessment and Plan Assessment: Impression History of left breast cancer with mastectomy chemoradiation with metastasis to the liver Recent hospitalization for perforated bowel with adjacent abscess Status post exploratory laparotomy with sigmoid resection secondary to perforated rectum with the creation of a permanent colostomy in March 2018 chronic abdominal abscess Plan Continue recommendations by infectious disease defer to Discharge plan per the attending Pain medication as ordered Will follow with you with further surgical recommendations Progress note dictated for dr almodovar running on behalf of Dr. Yates The above impression and plan of care have been discussed and directed by signing physician. Nohemi Nguyen nurse practitioner acting as scribe for signing physician.
[2018-06-01 14:27] LABS: IgG - CSF 2.7 mg/dL (0.0 - 3.4); IgG Synthesis Rate 3.48 mg/day (0.00 - 3.00); IgG/Albumin Index (CSF) 0.63 (0.00 - 0.77); Immunoglobulin G 192 mg/dL (700 - 1600)
--- NOTE | 2018-06-01 15:27 | P.PN ---
Subjective Progress Note Date: 06/01/18 the patient's lower extremity weakness persists, but she feels that this is improving slightly. Sensation in both legs is normal according to her. bladder sensation is maintained. Objective - Vital Signs Vital signs: Vital Signs Temp 96.9 F L 06/01/18 11:48 Pulse 94 06/01/18 11:48 Resp 16 06/01/18 11:48 BP 111/68 06/01/18 11:48 Pulse Ox 94 L 06/01/18 05:16 Intake & Output 05/31/18 06/01/18 06/01/18 18:59 06:59 18:59 Intake Total 100 2190 Output Total 450 600 Balance -350 1590 Intake: Intake, IV Titration 100 Amount cefTRIAXone 2,000 mg In 100 Sodium Chloride 0.9% 100 ml @ 100 mls/hr IVPB Q24HR [facility] Rx#:[id number] Oral 2190 Output: Urine 450 Stool 600 Other: Voiding Method Bedpan Bedpan Bedpan # Voids 2 2 # Bowel Movements 1 1 - Constitutional General appearance: Present: no acute distress - EENT Eyes: Present: EOMI ENT: Present: hearing grossly normal, normal oropharynx - Respiratory Respiratory: bilateral: CTA - Cardiovascular Rhythm: regular Heart sounds: normal: S1, S2 - Gastrointestinal Gastrointestinal Comment(s): left lower quadrant ostomy General gastrointestinal: Present: normal bowel sounds, soft - Integumentary Integumentary: Present: normal - Neurologic Neurologic Comment(s): bilateral lower extremity weakness, left greater than right. Distal strength is now 3+-4 bilaterally. Approximately see me to isstrength is about 2/5 on the left, and 2+/5 on the right. sensation is normal bilaterally Neurologic: Present: CNII-XII intact - Musculoskeletal Musculoskeletal Comment(s): Bilateral lower extremity weakness, left greater than right Musculoskeletal: Present: generalized weakness - Psychiatric Psychiatric: Present: A&O x's 3 - Labs CBC & Chem 7: 06/01/18 07:35 06/01/18 07:35 Labs: Abnormal Lab Results - Last 24 Hours (Table) 06/01/18 06/01/18 Range/Units 07:35 07:35 RBC 3.77 L (3.80-5.40) m/uL RDW 15.6 H (11.5-15.5) % Plt Count 129 L (150-450) k/uL Neutrophils # 9.4 H (1.3-7.7) k/uL Lymphocytes # 0.3 L (1.0-4.8) k/uL Sodium 135 L (137-145) mmol/L BUN 20 H (7-17) mg/dL Creatinine 0.32 L (0.52-1.04) mg/dL Glucose 144 H (74-99) mg/dL Calcium 7.6 L (8.4-10.2) mg/dL AST 44 H (14-36) U/L ALT 125 H (9-52) U/L Alkaline Phosphatase 157 H (38-126) U/L Total Protein 3.9 L (6.3-8.2) g/dL Albumin 2.0 L (3.5-5.0) g/dL Microbiology - Last 24 Hours (Table) 05/31/18 12:30 CSF Gram Stain - Preliminary Cerebral Spinal Fluid CSF Culture - Preliminary 05/27/18 10:44 Blood Culture - Preliminary Blood No Growth after 96 hours Assessment and Plan (1) Bilateral leg weakness Narrative/Plan: the etiology at this time is still not clear. The patient has been evaluated by radiation oncology, in addition to urology previously. As noted previously there is no evidence of cord compression. brain MRI has been reviewed by radiation oncology. It is felt that there may be some slight progression, but this would not explain bilateral lower extremity weakness. No new lesions were seen. the patient has noted improvement n terms of strength, and especially in sensation. This could be due to steroids. Lumbar puncture results are. Fluid analysis will show elevated protein which is somewhat suspicious. Await cytology. Current Visit: Yes Status: Acute Priority: High Code(s): R29.898 - OTH SYMPTOMS AND SIGNS INVOLVING THE MUSCULOSKELETAL SYSTEM SNOMED Code(s): 1279498 (2) Perforated bowel Narrative/Plan: Ostomy is functioning well. Bowel exam has been benign Current Visit: No Status: Acute Code(s): K63.1 - PERFORATION OF INTESTINE ( NONTRAUMATIC) SNOMED Code(s): 03935346 (3) Metastatic breast cancer Narrative/Plan: The pt likely has some progression, at least in the brain. According to radiation oncologythe patient can receive additional radiation to this area. She has had recent regimen change, but has not been able to start Ibrance, due to her recent surgery. continue AI. Current Visit: Yes Status: Acute Priority: High Code(s): C50.919 - MALIGNANT NEOPLASM OF UNSP SITE OF UNSPECIFIED FEMALE BREAST SNOMED Code(s): 477751619
--- NOTE | 2018-06-01 23:17 | PN ---
PROGRESS NOTE DATE OF SERVICE: 06/01/2018 REASON FOR FOLLOWUP: Pelvic abscess. INTERVAL HISTORY: The patient is currently afebrile. She is breathing comfortably. Denies having any chest pain, shortness of breath, cough. No abdominal pain. No nausea, vomiting, or any worsening weakness. EXAMINATION: Blood pressure 118/68 with a pulse of 94, temperature 96.9. General description is a middle-aged female up in the bed in no distress. RESPIRATORY SYSTEM: Unlabored breathing, clear to auscultation anteriorly. HEART: S1, S2. Regular rate and rhythm. ABDOMEN: Soft, no tenderness. LABS: Hemoglobin is 12.5, white count 10.2 with a BUN of 20, creatinine 0.32. DIAGNOSTIC IMPRESSION AND PLAN: Patient with a abdominal abscess from a perforated bowel. Previous culture positive for E. coli and anaerobic gram-negative. The patient is currently on Rocephin IV and the oral Flagyl to continue for at least 2 more weeks with close outpatient followup. Continue supportive care. MMODL / IJN: [id number] /
[2018-06-02] MEDS: HYDROmorphone 1 MG/ML 1 ML SYRINGE IVP PRN ×4 (04:24→20:51)
[2018-06-02] MEDS: levETIRAcetam ORAL SOLN 500 MG/5 ML CUP PO SCH ×2 (05:42→17:36)
[2018-06-02] MEDS: PANTOPRAZOLE 40 MG TABLET PO SCH ×2 (08:52→17:36)
[2018-06-02] MEDS: cefTRIAXone 2,000 MG in SODIUM CHLORIDE 0.9% 100 ML IVPB SCH (08:52)
[2018-06-02] MEDS: CHOLECALCIFEROL 1,000 UNIT TAB PO SCH ×2 (08:54→20:52)
[2018-06-02] MEDS: DEXAMETHASONE 4 MG TAB PO SCH ×3 (08:54→20:52)
[2018-06-02] MEDS: ENOXAPARIN 40 MG/0.4 ML SYRINGE SQ SCH (08:55)
[2018-06-02] MEDS: FLUCONAZOLE 100 MG TAB PO SCH (08:56)
[2018-06-02] MEDS: METOPROLOL TARTRATE 25 MG TAB PO SCH ×2 (08:57→20:52)
[2018-06-02] MEDS: metroNIDAZOLE 500 MG TAB PO SCH ×3 (08:58→20:53)
[2018-06-02 09:30] LABS: Basophils % (A) 0 %; Eosinophils % (A) 0 %; HCT 42.7 % (34.0-46.0); HGB 13.9 gm/dL (11.4-16.0); Lymphocytes # (A) 0.4 k/uL (1.0-4.8); Lymphocytes % (A) 3 %; MCH 32.5 pg (25.0-35.0); MCHC 32.6 g/dL (31.0-37.0); MCV 99.7 fL (80.0-100.0); Macrocytosis Slight; Mean Platelet Volume 7.6; Monocytes # (A) 0.3 k/uL (0-1.0); Monocytes % (A) 2 %; Neutrophils # (A) 12.4 k/uL (1.3-7.7); Neutrophils % (A) 94 %; Platelet Count 153 k/uL (150-450); RBC 4.29 m/uL (3.80-5.40); RDW 15.9 % (11.5-15.5); WBC 13.2 k/uL (3.8-10.6)
[2018-06-02 09:52] LABS: ALT 119 U/L (9-52); AST 43 U/L (14-36); Albumin 2.4 g/dL (3.5-5.0); Alkaline Phosphatase 152 U/L (38-126); Anion Gap 6 mmol/L; Blood Urea Nitrogen 21 mg/dL (7-17); Calcium 8.2 mg/dL (8.4-10.2); Carbon Dioxide 20 mmol/L (22-30); Chloride 109 mmol/L (98-107); Glucose 146 mg/dL (74-99); Potassium 4.5 mmol/L (3.5-5.1); Sodium 135 mmol/L (137-145); Total Bilirubin 0.4 mg/dL (0.2-1.3); Total Protein 4.5 g/dL (6.3-8.2)
--- NOTE | 2018-06-02 10:10 | P.PN ---
Subjective Progress Note Date: 06/02/18 Patient is doing fairly well today. There was no acute events overnight. Objective - Vital Signs Vital signs: Vital Signs Temp 96.8 F L 06/02/18 05:00 Pulse 92 06/02/18 05:00 Resp 18 06/02/18 05:00 BP 108/73 06/02/18 05:00 Pulse Ox 96 06/02/18 05:00 Intake & Output 06/01/18 06/02/18 06/02/18 18:59 06:59 18:59 Intake Total 1740 Output Total 600 Balance 1140 Intake: Intake, IV Titration 600 Amount cefTRIAXone 2,000 mg In 600 Sodium Chloride 0.9% 100 ml @ 100 mls/hr IVPB Q24HR [facility] Rx#:[id number] Oral 1140 Output: Stool 600 Other: Voiding Method Bedpan Bedpan # Voids 3 1 - Exam General: The patient is awake and alert, in no distress Eye: there is normal conjunctiva bilaterally. Neck: The neck is supple, there is no JVD. Cardiovascular: Normal S1-S2, no S3-S4, no murmurs. Respiratory: Lungs clear to auscultation bilaterally Gastrointestinal: Abdomen is soft, nontender Musculoskeletal: There is no pedal edema. Neurological:. Speech is normal. Skin: Skin is warm and dry - Labs CBC & Chem 7: 06/02/18 09:10 06/02/18 09:10 Labs: Abnormal Lab Results - Last 24 Hours (Table) 05/31/18 06/02/18 06/02/18 Range/Units 12:30 09:10 09:10 WBC 13.2 H (3.8-10.6) k/uL RDW 15.9 H (11.5-15.5) % Neutrophils # 12.4 H (1.3-7.7) k/uL Lymphocytes # 0.4 L (1.0-4.8) k/uL Sodium 135 L (137-145) mmol/L Chloride 109 H (98-107) mmol/L Carbon Dioxide 20 L (22-30) mmol/L BUN 21 H (7-17) mg/dL Creatinine 0.32 L (0.52-1.04) mg/dL Glucose 146 H (74-99) mg/dL Calcium 8.2 L (8.4-10.2) mg/dL AST 43 H (14-36) U/L ALT 119 H (9-52) U/L Alkaline Phosphatase 152 H (38-126) U/L Total Protein 4.5 L (6.3-8.2) g/dL Albumin 2.4 L (3.5-5.0) g/dL CSF Albumin 38.6 H (0.0 - 35.0) mg/dL Serum Albumin 1,730 L (3500 - 5200) mg/dL CSF IgG Synth Rate MS 3.48 H (0.00 - 3.00) mg/day IgG 192 L (700 - 1600) mg/dL Microbiology - Last 24 Hours (Table) 05/27/18 10:44 Blood Culture - Preliminary Blood No Growth after 120 hours 05/31/18 12:30 CSF Gram Stain - Preliminary Cerebral Spinal Fluid CSF Culture - Preliminary Assessment and Plan Assessment: 1. LE weakness: Improved slightly since admission. Generalized, possibly deconditioning as well as concerns about worsening metastasis to the brain and bone. CPK and TSH is within normal limits. Vit D borderline low. MRI C+T+L spine negative. Neurology consulted - LP done (to rule out leptomeningeal involvement). Continue steroids as ordered. FU PT/OT consult 2. Intraabdominal abscess: 05/26 CT AP shows decreased pelvic abscess. Tylenol and Dilaudid IV for pain control. General surgery and infectious disease following. Antibiotic adjusted. Blood culture negative 3. Breast CA: Follows Dr. Michelle Urban. With metastatic disease to the brain, MRI of the brain showed recurrent neoplasm with worsening enhancement and adjacent edema to the right temporalis region suggesting recurrent dural based neoplasm. Patient was seen by oncology and radiation oncology. Plan to possibly resume radiation therapy. Awaiting final plan by radiation oncology. Patient was cleared for discharge by oncology nurse practitioner today 4. Seizure prophylaxis: Keppra 1000 mg PO BID. Ativan 1 mg IV PRN for seizure. Seizure and Fall precautions. Neurology consulted 5. Transaminitis: Improving slightly since admission. CT AP on 05/26 shows shows metastatic hepatic lesions measuring up to 5.8. 6. ASCVD risk: Continue ASA 81 mg PO QD and Lipitor 40 mg PO QHS. 7. Hypertension: Monitor vitals, adjust medications as necessary. 9. DVT/GI Prophylaxis: Protonix 40 mg PO BID. Lovenox 40 mg SUBCUT QD. I reviewed her medication list and lab work results. Awaiting CSF fluid culture. Appreciate analytical consultant's recommendations. PT/OT evaluation. Repeat lab work in the morning. Continue supportive care. Plan to discharge to subacute rehab awaiting social work consult and placement to [facility]
--- NOTE | 2018-06-02 12:37 | P.PN ---
Subjective Progress Note Date: 06/02/18 57-year-old female sitting up in bed appearing in no acute distress. Ostomy functioning moderate amount of stool in the ostomy bag. EDISON drain noted continues to drain. Purulent Drainage.. Surgical incision site well approximated. Discharge plan per the attending White count 13.2 AST 119 ALT 152 alkaline phosphatase 152 Recent hospitalization for perforated bowel with adjacent ascites status post exploratory laparotomy with sigmoid resection secondary to perforated rectum with creation of a permanent ostomy done in March 2018 Objective - Vital Signs Vital signs: Vital Signs Temp 97.7 F 06/02/18 11:56 Pulse 90 06/02/18 11:56 Resp 18 06/02/18 11:56 BP 110/80 06/02/18 11:56 Pulse Ox 96 06/02/18 05:00 Intake & Output 06/01/18 06/02/18 06/02/18 18:59 06:59 18:59 Intake Total 1740 Output Total 600 Balance 1140 Weight 63.503 kg Intake: Intake, IV Titration 600 Amount cefTRIAXone 2,000 mg In 600 Sodium Chloride 0.9% 100 ml @ 100 mls/hr IVPB Q24HR [facility] Rx#:[id number] Oral 1140 Output: Stool 600 Other: Voiding Method Bedpan Bedpan Bedpan # Voids 3 1 - Exam Physical exam 57-year-old female resting in bed appears in no acute distress denies abdominal pain nausea vomiting dizziness or lightheadedness sitting up watching TV states is going to go to a rehab for therapy Lungs adequate air movement bilaterally Heart S1-S2 audible regular Abdomen soft nondistended nontender ostomy left lower quadrant moderate amount of soft brown stool surgical incision site well approximated Extremities no edema - Labs CBC & Chem 7: 06/02/18 09:10 06/02/18 09:10 Labs: Abnormal Lab Results - Last 24 Hours (Table) 05/31/18 06/02/18 06/02/18 Range/Units 12:30 09:10 09:10 WBC 13.2 H (3.8-10.6) k/uL RDW 15.9 H (11.5-15.5) % Neutrophils # 12.4 H (1.3-7.7) k/uL Lymphocytes # 0.4 L (1.0-4.8) k/uL Sodium 135 L (137-145) mmol/L Chloride 109 H (98-107) mmol/L Carbon Dioxide 20 L (22-30) mmol/L BUN 21 H (7-17) mg/dL Creatinine 0.32 L (0.52-1.04) mg/dL Glucose 146 H (74-99) mg/dL Calcium 8.2 L (8.4-10.2) mg/dL AST 43 H (14-36) U/L ALT 119 H (9-52) U/L Alkaline Phosphatase 152 H (38-126) U/L Total Protein 4.5 L (6.3-8.2) g/dL Albumin 2.4 L (3.5-5.0) g/dL CSF Albumin 38.6 H (0.0 - 35.0) mg/dL Serum Albumin 1,730 L (3500 - 5200) mg/dL CSF IgG Synth Rate MS 3.48 H (0.00 - 3.00) mg/day IgG 192 L (700 - 1600) mg/dL Microbiology - Last 24 Hours (Table) 05/31/18 12:30 CSF Gram Stain - Preliminary Cerebral Spinal Fluid CSF Culture - Preliminary 05/27/18 10:44 Blood Culture - Preliminary Blood No Growth after 120 hours Assessment and Plan Assessment: Impression History of left breast cancer with mastectomy chemoradiation with metastasis to the liver Recent hospitalization for perforated bowel with adjacent abscess Status post exploratory laparotomy with sigmoid resection secondary to perforated rectum with the creation of a permanent colostomy in March 2018 chronic abdominal abscess Plan Continue recommendations by infectious disease defer to Discharge plan per the attending Pain medication as ordered Will follow with you with further surgical recommendations Progress note dictated for dr almodovar running on behalf of Dr. Yates The above impression and plan of care have been discussed and directed by signing physician. Nohemi Nguyen nurse practitioner acting as scribe for signing physician.
--- NOTE | 2018-06-02 17:24 | P.PN ---
Subjective Progress Note Date: 06/02/18 Principal diagnosis: metastatic breast cancer - lower extremity weakness The patient has been up sitting in a chair for a couple hours the last few days. She denies headaches, nausea/vomiting but has persistent lower extremity weakness. She feels she can move the extremities a little better but still cannot lift up her legs. They feel "heavy" and she uses her arms to help assist. Objective - Vital Signs Vital signs: Vital Signs Temp 97.7 F 06/02/18 11:56 Pulse 90 06/02/18 16:00 Resp 18 06/02/18 16:00 BP 110/80 06/02/18 11:56 Pulse Ox 96 06/02/18 05:00 Intake & Output 06/01/18 06/02/18 06/02/18 18:59 06:59 18:59 Intake Total 1740 1100 Output Total 600 Balance 1140 1100 Weight 63.503 kg Intake: Intake, IV Titration 600 100 Amount cefTRIAXone 2,000 mg In 600 100 Sodium Chloride 0.9% 100 ml @ 100 mls/hr IVPB Q24HR [facility] Rx#:[id number] Oral 1140 1000 Output: Stool 600 Other: Voiding Method Bedpan Bedpan Bedpan # Voids 3 1 2 - Constitutional General appearance: Present: average body habitus - EENT Eyes: Present: EOMI, PERRLA ENT: Present: hearing grossly normal - Neck Neck: Present: lymphadenopathy (left SCF node palpable) - Respiratory Respiratory: bilateral: CTA - Cardiovascular Rhythm: regular - Gastrointestinal General gastrointestinal: Absent: distended, tenderness - Integumentary Integumentary: Absent: calor, cellulitis - Neurologic Neurologic: Present: CNII-XII intact - Musculoskeletal Musculoskeletal: Present: right sided weakness (lower extremity - 1/5 hip flexion, 3/5 ankle flexion), left sided weakness (lower extremity - 1/5 hip flexion, 3/5 ankle flexion) - Psychiatric Psychiatric: Present: A&O x's 3 - Labs CBC & Chem 7: 06/02/18 09:10 06/02/18 09:10 Labs: Abnormal Lab Results - Last 24 Hours (Table) 06/02/18 06/02/18 Range/Units 09:10 09:10 WBC 13.2 H (3.8-10.6) k/uL RDW 15.9 H (11.5-15.5) % Neutrophils # 12.4 H (1.3-7.7) k/uL Lymphocytes # 0.4 L (1.0-4.8) k/uL Sodium 135 L (137-145) mmol/L Chloride 109 H (98-107) mmol/L Carbon Dioxide 20 L (22-30) mmol/L BUN 21 H (7-17) mg/dL Creatinine 0.32 L (0.52-1.04) mg/dL Glucose 146 H (74-99) mg/dL Calcium 8.2 L (8.4-10.2) mg/dL AST 43 H (14-36) U/L ALT 119 H (9-52) U/L Alkaline Phosphatase 152 H (38-126) U/L Total Protein 4.5 L (6.3-8.2) g/dL Albumin 2.4 L (3.5-5.0) g/dL Microbiology - Last 24 Hours (Table) 05/31/18 12:30 CSF Gram Stain - Preliminary Cerebral Spinal Fluid CSF Culture - Preliminary 05/27/18 10:44 Blood Culture - Preliminary Blood No Growth after 120 hours Assessment and Plan Plan: 1. Bilateral LE weakness: Etiology still uncertain, CSF negative for malignancy. Discharge pending possibly to [facility]. Patient is hoping to go there, but was confused when speaking to the social work case manager earlier. She was concerned she would have significant expenses. 2. R-hip metastatic lesion: Further review of MRI reveals worrisome metastatic lesion in the right femur. This was evident on her February PET-CT. She is not complaining of focal right hip pain today. 3. Brain metastases: The patient does have evidence of local recurrence in the right temporal region. I have recommended she return to our clinic in 2 weeks for repeat evaluation. If she is doing better functionally we will discuss possible brain radiotherapy at that time. She is on Decadron and Keppra. Time with Patient: Less than 30
--- NOTE | 2018-06-02 17:59 | P.PN ---
Subjective Progress Note Date: 06/02/18 Principal diagnosis: BLE pain and weakness, metastatic breast cancer Patient seen today in follow-up. Legs have no pain to touch, she has to lift them with her arms, swelling resolved. She states being active as she can, eating well, no headaches, nausea, difficulty swallowing, shortness of breath, abdominal distention or discomfort, EDISON still draining murphy fluid, ostomy output stable, no bleeding. Objective - Vital Signs Vital signs: Vital Signs Temp 97.7 F 06/02/18 11:56 Pulse 90 06/02/18 16:00 Resp 18 06/02/18 16:00 BP 110/80 06/02/18 11:56 Pulse Ox 96 06/02/18 05:00 Intake & Output 06/01/18 06/02/18 06/02/18 18:59 06:59 18:59 Intake Total 1740 1100 Output Total 600 Balance 1140 1100 Weight 63.503 kg Intake: Intake, IV Titration 600 100 Amount cefTRIAXone 2,000 mg In 600 100 Sodium Chloride 0.9% 100 ml @ 100 mls/hr IVPB Q24HR [facility] Rx#:[id number] Oral 1140 1000 Output: Stool 600 Other: Voiding Method Bedpan Bedpan Bedpan # Voids 3 1 2 - Constitutional General appearance: Present: cooperative, no acute distress, obese - EENT Eyes: Present: anicteric sclerae ENT: Present: hearing grossly normal - Respiratory Respiratory: bilateral: CTA - Cardiovascular Rhythm: regular Heart sounds: normal: S1, S2 Abnormal Heart Sounds: Absent: systolic murmur, diastolic murmur, rub, S3 Gallop , S4 Gallop, click, other - Peripheral edema leg Peripheral Edema: bilateral: None - Gastrointestinal Gastrointestinal Comment(s): LLQ ostomy General gastrointestinal: Present: normal bowel sounds, soft Localized gastrointestinal: tender: RLQ (at EDISON drain insertion site) - Integumentary Integumentary: Present: pale - Musculoskeletal Musculoskeletal: Present: generalized weakness - Psychiatric Psychiatric Comment(s): at times pt conversation is confused Psychiatric: Present: A&O x's 3, appropriate affect - Labs CBC & Chem 7: 06/02/18 09:10 06/02/18 09:10 Labs: Abnormal Lab Results - Last 24 Hours (Table) 06/02/18 06/02/18 Range/Units 09:10 09:10 WBC 13.2 H (3.8-10.6) k/uL RDW 15.9 H (11.5-15.5) % Neutrophils # 12.4 H (1.3-7.7) k/uL Lymphocytes # 0.4 L (1.0-4.8) k/uL Sodium 135 L (137-145) mmol/L Chloride 109 H (98-107) mmol/L Carbon Dioxide 20 L (22-30) mmol/L BUN 21 H (7-17) mg/dL Creatinine 0.32 L (0.52-1.04) mg/dL Glucose 146 H (74-99) mg/dL Calcium 8.2 L (8.4-10.2) mg/dL AST 43 H (14-36) U/L ALT 119 H (9-52) U/L Alkaline Phosphatase 152 H (38-126) U/L Total Protein 4.5 L (6.3-8.2) g/dL Albumin 2.4 L (3.5-5.0) g/dL Microbiology - Last 24 Hours (Table) 05/31/18 12:30 CSF Gram Stain - Preliminary Cerebral Spinal Fluid CSF Culture - Preliminary 05/27/18 10:44 Blood Culture - Preliminary Blood No Growth after 120 hours Assessment and Plan (1) Bilateral leg weakness Narrative/Plan: Unclear origin-CSF neg for leptomeningeal mets, brain lesion not positioned to account for pt deficits/symptoms, and since admit her pain is better, strength is stable. Pt wants rehab and it is recommended so, she will rehabilitate and f/u after. Current Visit: Yes Status: Acute Priority: High Code(s): R29.898 - OTH SYMPTOMS AND SIGNS INVOLVING THE MUSCULOSKELETAL SYSTEM SNOMED Code(s): 2523087 (2) Metastatic breast cancer Narrative/Plan: Pt has been on hold from oral ibrance due to abscess in abd. She cannot resume until infection cleared, EDISON drain still has thick, murphy fluid and the area is meal grinder tender, though much less. Pt can continue monthly faslodex injections for cancer and RANKL inhibitor for bone mets-these are due monthly and not due until about 06/25. She will f/u with Rad Onc for plan for brain mets and monitoring of femur met that can be treated if it becomes painful or concern for malignant fracture. Has f/u sched with Dr. Martinez 08/17 at 4pm Current Visit: Yes Status: Acute Priority: High Code(s): C50.919 - MALIGNANT NEOPLASM OF UNSP SITE OF UNSPECIFIED FEMALE BREAST SNOMED Code(s): 772204327 Time with Patient: Greater than 30
--- NOTE | 2018-06-02 22:54 | P.PN ---
Subjective Progress Note Date: 06/02/18 This patient is a 57-year-old female who was admitted to Hospital for evaluation of bilateral leg weakness. She has a history of metastatic left breast cancer and is undergone chemotherapy for this condition. She also has history of perforated colon that required an emergent exploratory laparotomy with sigmoid resection and descending colostomy procedure done on 04/06/2018. She developed sepsis during this procedure and was treated aggressively with IV antibiotics. Patient underwent MRI of the lumbar spine yesterday for further evaluation of her bilateral leg weakness. Results were reviewed by Dr. Lopez and radiation oncology. We are awaiting results of MRI of the brain that has also been ordered for this patient. The patient has noticed slight improvement with her leg weakness today but still remained significantly paraparetic. Dr. Lopez is ordered lumbar puncture to be done to further evaluate for possibility of leptomeningeal disease secondary to her breast cancer. MRI of the lumbar spine does reveal some changes suggesting possibility of metastatic disease. We will await further recommendations from radiation oncology and Dr. Lopez. This patient has a rather complex medical history with multiple medical conditions contributing to her overall condition. Would recommend social work consultation to determine long-term management goals. We will await the results of her lumbar puncture and if anything is positive for leptomeningeal disease she may also be considered for paraneoplastic syndrome workup. Lumbar puncture could not be completed today as a patient was given Lovenox yesterday. LP will be reattempted tomorrow for further evaluation of possible leptomeningeal carcinomatosis. The patient has noticed slight improvement in her leg strength as compared to a few days ago. She was sent for MRI of the brain today with and without gadolinium. 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 The patient is a 81 currently being treated with Decadron. Would consider possible neurosurgical consultation for this patient and transferred to a tertiary neurosurgical unit for their expert opinion. Would also consider radiation therapy to her lumbar spine due to the recent MRI results suggesting diffuse bony changes. Patient also underwent MRI of the pelvis today which reveals osseous metastatic lesions in the right hip. This patient has evidence of metastatic breast cancer. Imaging studies done thus far show widespread metastatic spread of her disease. Would need to consider cold status with this patient and also whether further neurosurgical evaluation is of any benefit given her recent MRI finding of the brain. We will await further discussion between Dr. Lopez and the patient regarding her wishes for further treatment. Would also await further recommendations from Jerica Wilkinosn who is working with Dr. Lopez in terms of long- term management for this patient. The patient is resting comfortably in bed. She has noted improvement with her leg strength as compared to a few days ago. Patient underwent lumbar puncture for further evaluation of leptomeningeal carcinomatosis. Her spinal fluid came back negative with no evidence of malignancy. She is able to move her feet better than a few days ago but still has difficulty lifting the legs off of the bed and sustaining them an upright position. As noted her brain MRI didn't reveal evidence of recurrence of tumor and this will be further evaluated by radiation therapy in 2 weeks as she follows up in the outpatient clinic. She appears to be in very good spirits but still has some episodes of mild confusion. Given her MRI findings of the brain once again we will await further decision from the family and Dr. Lopez as to whether they would like to seek out neurosurgical evaluation and treatment. Her overall prognosis at this time remains very guarded. Her overall prognosis at this time remains very guarded. Objective - Vital Signs Vital signs: Vital Signs Temp 97.7 F 06/02/18 11:56 Pulse 90 06/02/18 16:00 Resp 18 06/02/18 16:00 BP 110/80 06/02/18 11:56 Pulse Ox 96 06/02/18 05:00 Intake & Output 06/02/18 06/02/18 06/03/18 06:59 18:59 06:59 Intake Total 1740 1460 Output Total 600 Balance 1140 1460 Weight 63.503 kg Intake: Intake, IV Titration 600 100 Amount cefTRIAXone 2,000 mg In 600 100 Sodium Chloride 0.9% 100 ml @ 100 mls/hr IVPB Q24HR [facility] Rx#:[id number] Oral 1140 1360 Output: Stool 600 Other: Voiding Method Bedpan Bedpan # Voids 1 2 - Exam Physical examination: PHYSICAL EXAMINATION: Patient is resting comfortably in bed. VITAL SIGNS: Blood pressure is [110/80]. Heart rate is [90]. Respiration is [18] . Temperature is [97.7]. HEENT: Head is atraumatic, neck is supple, there were no carotid bruits. CHEST: Lungs are clear to auscultation and percussion. CARDIAC: S1, S2 normal rate and rhythm. There is no murmur. ABDOMEN: Soft and nontender. Bowel sounds are present. EXTREMITIES: There is no pedal edema. Peripheral pulses are present, Neurological examination: Patient's neurological examination is unchanged from yesterday. The patient has slight improvement with her lower extremity muscle strength as compared to yesterday. - Labs CBC & Chem 7: 06/02/18 09:10 06/02/18 09:10 Labs: Abnormal Lab Results - Last 24 Hours (Table) 06/02/18 06/02/18 Range/Units 09:10 09:10 WBC 13.2 H (3.8-10.6) k/uL RDW 15.9 H (11.5-15.5) % Neutrophils # 12.4 H (1.3-7.7) k/uL Lymphocytes # 0.4 L (1.0-4.8) k/uL Sodium 135 L (137-145) mmol/L Chloride 109 H (98-107) mmol/L Carbon Dioxide 20 L (22-30) mmol/L BUN 21 H (7-17) mg/dL Creatinine 0.32 L (0.52-1.04) mg/dL Glucose 146 H (74-99) mg/dL Calcium 8.2 L (8.4-10.2) mg/dL AST 43 H (14-36) U/L ALT 119 H (9-52) U/L Alkaline Phosphatase 152 H (38-126) U/L Total Protein 4.5 L (6.3-8.2) g/dL Albumin 2.4 L (3.5-5.0) g/dL Microbiology - Last 24 Hours (Table) 05/27/18 10:44 Blood Culture - Final Blood No Growth after 144 hours 05/31/18 12:30 CSF Gram Stain - Preliminary Cerebral Spinal Fluid CSF Culture - Preliminary Assessment and Plan (1) Bilateral leg weakness Current Visit: Yes Status: Acute Priority: High Code(s): R29.898 - OTH SYMPTOMS AND SIGNS INVOLVING THE MUSCULOSKELETAL SYSTEM SNOMED Code(s): 0998078 (2) Brain metastases Current Visit: Yes Status: Acute Code(s): C79.31 - SECONDARY MALIGNANT NEOPLASM OF BRAIN SNOMED Code(s): 73305951 (3) Breast cancer, left breast Current Visit: No Status: Acute Code(s): C50.912 - MALIGNANT NEOPLASM OF UNSPECIFIED SITE OF LEFT FEMALE BREAST SNOMED Code(s): 646506634 (4) Cerebral edema Current Visit: No Status: Acute Code(s): G93.6 - CEREBRAL EDEMA SNOMED Code(s): 0976427 Plan: This patient is a 57-year-old female with a history of multiple complex medical issues related to her diagnosis of left breast cancer. According to the patient she was diagnosed about 3 years ago as having stage IV breast cancer. She had metastatic lesions to the brain which was recently treated by neurosurgery and [facility] in April this year. She had to undergo a right-sided craniotomy procedure for this. She had been making slow progress but this past few days has been expressing severe abdominal pain. She has a history of intra-abdominal abscess in the past as well. She is being evaluated further for this condition. She has been taking Keppra monotherapy for seizure prophylaxis. She is not aware of her last Keppra blood level. This will be ordered for tomorrow morning for her and her dose will be adjusted as necessary. She is to continue on her current dose of Keppra 1000 mg by mouth twice a day. She is also been placed on Decadron and a dosage of 6 mg every 6 hours. We will continue close neurological follow-up for the patient. She is scheduled to have MRI of the brain tomorrow for further evaluation. Would also recommend routine EEG to be done tomorrow. Her Keppra blood level has been sent to the laboratory and will likely be drawn first thing tomorrow morning. This patient's overall prognosis at this time remains very guarded. We are waiting the results of her MRI of the cervical thoracic and lumbar spine to give further recommendations. Given her history of metastatic stage IV breast cancer we would also recommend to consider lumbar puncture for this patient to do CSF analysis for possible metastatic cancer cells to the CSF. LP is to further evaluate for possibility of leptomeningeal carcinomatosis secondary to her breast cancer. Lumbar puncture could not be performed today as a patient was given Lovenox yesterday. Lumbar puncture will be reattempted tomorrow for further evaluation of leptomeningeal carcinomatosis in this patient. As noted she is scheduled for MRI of the brain tomorrow and we will await those results. MRI of the lumbar spine was reviewed today by Dr. Lopez and radiation oncology. There are some changes suggesting possibility of metastatic spread to the lumbar spine. Patient may need to be reconsidered for possible radiation therapy to the lumbar spine. The patient underwent MRI of the brain today the results of which are noted above. MRI shows worsening enhancement in the right temporal lobe. This is just recurrence of neoplasm involving the dural surface. MRI of the pelvis also reveals 2 large metastatic lesions involving the right hip. This may be also contributing to her difficulty in walking and ambulation. We strongly recommend Dr. Lopez and Dr. Ye to discuss all of these findings with the patient and her in detail. Would consider neurosurgical consultation and evaluation of her MRI findings today if they wish to be more aggressive for treatment. Patient's test results were reviewed by Dr. Ye today with the patient. Plans are to possibly discharge the patient to [facility] for short-term rehab. We've also suggested possibility of using [facility] physical therapy as outpatient to improve her leg strength. As noted spinal tap came back negative for leptomeningeal carcinomatosis. Once again we'll defer to Dr. Lopez and Dr. Ye in terms of further ongoing treatment of her underlying cancer. Her overall prognosis at this time remains very guarded. We will await further recommendations from oncology. We had a long discussion with this patient and she would like to continue aggressive treatment and management of her underlying breast cancer. Her overall prognosis at this time remains very guarded.
--- NOTE | 2018-06-02 23:45 | PN ---
PROGRESS NOTE DATE OF SERVICE: 06/02/2018. REASON FOR FOLLOWUP: Pelvic abscess. INTERVAL HISTORY: The patient is currently afebrile. She is breathing comfortably. Denies having any chest pain, shortness of breath or cough. No abdominal pain and no new symptoms. EXAMINATION: Blood pressure is 105/72 with a pulse of 101, temperature 96.8. She is 93% on room air. General description is a middle-aged female lying in bed in no distress. Respiratory system: Unlabored breathing, clear to auscultation anteriorly. Heart S1, S2. Regular rate and rhythm. ABDOMEN: Soft, no tenderness. LABS: Hemoglobin 13.8, white count 13.2 with BUN of 21, creatinine 0.32. DIAGNOSTIC IMPRESSION AND PLAN: Patient with a pelvic abscess from a perforated bowel. Previous culture positive for E coli and anaerobic gram-negative. The patient is currently covered with Rocephin and Flagyl. Continue for now and continue supportive care. MMODL / IJN: [id number] /
[2018-06-03] MEDS: HYDROmorphone 1 MG/ML 1 ML SYRINGE IVP PRN ×2 (01:34→05:18)
[2018-06-03] MEDS: levETIRAcetam ORAL SOLN 500 MG/5 ML CUP PO SCH ×2 (05:18→17:08)
[2018-06-03] MEDS: CHOLECALCIFEROL 1,000 UNIT TAB PO SCH ×2 (07:57→22:19)
[2018-06-03] MEDS: PANTOPRAZOLE 40 MG TABLET PO SCH ×2 (07:57→17:08)
[2018-06-03] MEDS: cefTRIAXone 2,000 MG in SODIUM CHLORIDE 0.9% 100 ML IVPB SCH (07:57)
[2018-06-03] MEDS: DEXAMETHASONE 4 MG TAB PO SCH ×3 (07:58→22:19)
[2018-06-03] MEDS: metroNIDAZOLE 500 MG TAB PO SCH ×3 (07:58→22:19)
[2018-06-03] MEDS: ENOXAPARIN 40 MG/0.4 ML SYRINGE SQ SCH (07:58)
[2018-06-03] MEDS: METOPROLOL TARTRATE 25 MG TAB PO SCH ×2 (07:58→22:19)
[2018-06-03] MEDS: FLUCONAZOLE 100 MG TAB PO SCH (07:59)
[2018-06-03 08:57] LABS: Basophils % (A) 0 %; Eosinophils % (A) 0 %; HCT 43.1 % (34.0-46.0); HGB 13.9 gm/dL (11.4-16.0); Lymphocytes # (A) 0.5 k/uL (1.0-4.8); Lymphocytes % (A) 4 %; MCH 32.6 pg (25.0-35.0); MCHC 32.4 g/dL (31.0-37.0); MCV 100.8 fL (80.0-100.0); Macrocytosis Slight; Mean Platelet Volume 7.8; Monocytes # (A) 0.3 k/uL (0-1.0); Monocytes % (A) 2 %; Neutrophils # (A) 9.9 k/uL (1.3-7.7); Neutrophils % (A) 93 %; Platelet Count 122 k/uL (150-450); RBC 4.27 m/uL (3.80-5.40); RDW 15.7 % (11.5-15.5); WBC 10.6 k/uL (3.8-10.6)
[2018-06-03 09:18] LABS: ALT 115 U/L (9-52); AST 44 U/L (14-36); Albumin 2.6 g/dL (3.5-5.0); Alkaline Phosphatase 159 U/L (38-126); Anion Gap 6 mmol/L; Blood Urea Nitrogen 21 mg/dL (7-17); Calcium 8.9 mg/dL (8.4-10.2); Carbon Dioxide 24 mmol/L (22-30); Chloride 104 mmol/L (98-107); Glucose 138 mg/dL (74-99); Potassium 4.6 mmol/L (3.5-5.1); Sodium 134 mmol/L (137-145); Total Bilirubin 0.3 mg/dL (0.2-1.3); Total Protein 4.7 g/dL (6.3-8.2)
--- NOTE | 2018-06-03 09:51 | P.DS ---
Providers Date of admission: 05/27/18 13:48 Expected date of discharge: 06/03/18 Attending physician: Goldie Estrella MD Consults: 05/27/18 13:48 Consult Physician Urgent Consulting Provider: Nika Martinez Consult Reason/Comments: History of breast cancer Do you want consulting provider notified?: Yes Consult Physician Urgent Consulting Provider: Connie Yates Consult Reason/Comments: Abdominal pain Do you want consulting provider notified?: Yes Consult Physician Urgent Consulting Provider: Volodymyr Murillo Consult Reason/Comments: Pelvic abscess Do you want consulting provider notified?: Yes 05/27/18 13:51 Consult Physician Urgent Consulting Provider: Zena Feldman Consult Reason/Comments: Bilateral leg weakness Do you want consulting provider notified?: Yes 05/31/18 09:51 Consult Physician Routine Consulting Provider: Charlie Ye Consult Reason/Comments: brain mets Do you want consulting provider notified?: Yes Primary care physician: [facility] Course: This is a 57-year-old female with a complex past medical history noted below significant for metastatic breast cancer and a history of perforated bowel status post resection with colostomy complicated by intra-abdominal abscess requiring a EDISON drain that presented to the hospital with worsening lower extremity weakness. Patient was discharged from [facility] last month. At that time she underwent a right temporal oral craniotomy for brain metastasis. She was admitted to the hospital. Was seen and evaluated by multiple specialists including oncology, radiation oncology, neurology, and Gen. surgery. Below is a list of her medical problems addressed during this hospitalization. 1. LE weakness: Improved slightly since admission. Generalized, possibly deconditioning as well as concerns about worsening metastasis to the brain and bone. CPK and TSH is within normal limits. Vit D borderline low. MRI C+T+L spine negative. Neurology consulted - LP done negative for leptomeningeal involvement. Continue steroids as ordered. FU PT/OT consult 2. Intraabdominal abscess: 05/26 CT AP shows decreased pelvic abscess. Plan to finish 10 days course of IV ceftriaxone and oral Flagyl. Blood culture negative. Follow-up with infectious disease and general surgery as directed 3. Breast CA: Follows Dr. Martinez outPT. With metastatic disease to the brain, MRI of the brain showed recurrent neoplasm with worsening enhancement and adjacent edema to the right temporalis region suggesting recurrent dural based neoplasm. Patient was seen by oncology and radiation oncology. Plan to possibly resume radiation therapy. Awaiting final plan by radiation oncology. 4. Seizure prophylaxis: Keppra 1000 mg PO BID. 5. Transaminitis: Improving slightly since admission. CT AP on 05/26 shows shows metastatic hepatic lesions measuring up to 5.8. 6. ASCVD risk: Continue ASA 81 mg PO QD and Lipitor 40 mg PO QHS. 7. Hypertension: Monitor vitals, adjust medications as necessary. 8. Right hip metastatic lesion noted on MRI Plan - Discharge Summary Discharge Rx Participant: No New Discharge Prescriptions: New cefTRIAXone [Rocephin] 2,000 mg IVPB Q24HR #10 vial HYDROcodone/APAP 10-325MG [[place] 10-325] 1 each PO Q8H PRN #9 tab PRN Reason: Moderate Pain metroNIDAZOLE [Flagyl] 500 mg PO TID #30 tab Pantoprazole [Protonix] 40 mg PO DAILY #30 tablet. Continue Metoprolol Tartrate [Lopressor] 25 mg PO BID #60 tab levETIRAcetam [Keppra Oral Solution] 1,000 mg PO Q12H Atorvastatin [Lipitor] 40 mg PO HS Aspirin [Children's Aspirin] 81 mg PO DAILY Dexamethasone [Decadron] 4 mg PO Q8H Changed Cholecalciferol [Vitamin D3] 2,000 unit PO DAILY #30 Discontinued Ertapenem [INVanz] 1 gm IVPB HS Discharge Medication List Metoprolol Tartrate [Lopressor] 25 mg PO BID #60 tab 04/11/18 [Rx] Aspirin [Children's Aspirin] 81 mg PO DAILY 05/27/18 [History] Atorvastatin [Lipitor] 40 mg PO HS 05/27/18 [History] Dexamethasone [Decadron] 4 mg PO Q8H 05/27/18 [History] levETIRAcetam [Keppra Oral Solution] 1,000 mg PO Q12H 05/27/18 [History] Cholecalciferol [Vitamin D3] 2,000 unit PO DAILY #30 06/03/18 [Rx] HYDROcodone/APAP 10-325MG [[place] 10-325] 1 each PO Q8H PRN #9 tab 06/03/18 [Rx] Pantoprazole [Protonix] 40 mg PO DAILY #30 tablet. 06/03/18 [Rx] cefTRIAXone [Rocephin] 2,000 mg IVPB Q24HR #10 vial 06/03/18 [Rx] metroNIDAZOLE [Flagyl] 500 mg PO TID #30 tab 06/03/18 [Rx] Follow up Appointment(s)/Referral(s): [facility], [NON-STAFF] - As Needed Charlie Ye MD [STAFF PHYSICIAN] - 06/21/18 1:00 pm (Follow up Appt with Dr Ye Wednesday, June 21, 2018 at 1pm) Moiz Celis MD [Primary Care Provider] - 1-2 days Nika Martinez MD [STAFF PHYSICIAN] - 1 Week Discharge Disposition: TRANSFER TO SNF/ECF
[2018-06-03] MEDS: HYDROcodone/APAP 10-325MG 1 EACH TAB PO PRN (11:46)
[2018-06-03] MEDS ORDERED: HYDROmorphone 1 MG/ML 1 ML SYRINGE IVP STA (15:11)
[2018-06-03] MEDS: MORPHINE SULFATE ER 15 MG TABLET PO SCH (22:19)
[2018-06-04] MEDS: HYDROcodone/APAP 10-325MG 1 EACH TAB PO PRN ×2 (03:18→15:16)
[2018-06-04] MEDS: levETIRAcetam ORAL SOLN 500 MG/5 ML CUP PO SCH ×2 (06:07→15:15)
[2018-06-04] MEDS: metroNIDAZOLE 500 MG TAB PO SCH ×3 (07:28→20:27)
[2018-06-04] MEDS: CHOLECALCIFEROL 1,000 UNIT TAB PO SCH ×2 (07:28→20:27)
[2018-06-04] MEDS: ENOXAPARIN 40 MG/0.4 ML SYRINGE SQ SCH (07:28)
[2018-06-04] MEDS: DEXAMETHASONE 4 MG TAB PO SCH ×3 (07:28→20:27)
[2018-06-04] MEDS: METOPROLOL TARTRATE 25 MG TAB PO SCH ×2 (07:28→20:27)
[2018-06-04] MEDS: FLUCONAZOLE 100 MG TAB PO SCH (07:28)
[2018-06-04] MEDS: cefTRIAXone 2,000 MG in SODIUM CHLORIDE 0.9% 100 ML IVPB SCH (07:28)
[2018-06-04] MEDS: PANTOPRAZOLE 40 MG TABLET PO SCH ×2 (07:28→15:17)
[2018-06-04] MEDS: MORPHINE SULFATE ER 15 MG TABLET PO SCH ×2 (07:33→20:27)
[2018-06-04 07:52] LABS: Albumin 2.2 g/dL (3.5-5.0); Anion Gap 4 mmol/L; Blood Urea Nitrogen 25 mg/dL (7-17); Calcium 8.5 mg/dL (8.4-10.2); Carbon Dioxide 26 mmol/L (22-30); Chloride 103 mmol/L (98-107); Glucose 126 mg/dL (74-99); Sodium 133 mmol/L (137-145); Total Bilirubin 0.5 mg/dL (0.2-1.3); Total Protein 4.1 g/dL (6.3-8.2)
[2018-06-04 08:04] LABS: ALT 95 U/L (9-52); AST 40 U/L (14-36); Potassium 4.6 mmol/L (3.5-5.1)
[2018-06-04 08:05] LABS: Alkaline Phosphatase 116 U/L (38-126)
--- NOTE | 2018-06-04 08:05 | PN ---
PROGRESS NOTE DATE OF SERVICE: 06/03/2018. REASON FOR FOLLOWUP: Abdominal abscess. INTERVAL HISTORY: The patient is currently afebrile. She is breathing comfortably, was complaining of some abdominal pain. No nausea, no vomiting or any back pain. EXAMINATION: Blood pressure 126/80 with a pulse of 99, temperature 97. She is 94% on room air. General description is a middle aged female lying in bed in no distress. Respiratory system: Unlabored breathing. Clear to auscultation anteriorly. Heart S1, S2. Regular rate and rhythm. ABDOMEN: Soft. Incision is healed. EDISON drain still have purulent secretion. LABS: Hemoglobin 13.9, white count 10.6 with a BUN of 21, creatinine 0.35. DIAGNOSTIC IMPRESSION AND PLAN: Patient with abdominal abscess from a perforated bowel with initial culture positive for E coli and currently on Rocephin and Flagyl. As the patient known to Dr. Aguillon, he will follow the patient as of tomorrow. Continue supportive care. MMODL / IJN: [id number] /
[2018-06-04 08:15] LABS: HGB 13.1 gm/dL (11.4-16.0); MCH 33.2 pg (25.0-35.0); MCHC 33.5 g/dL (31.0-37.0); MCV 99.2 fL (80.0-100.0); Macrocytosis Slight; Mean Platelet Volume 8.5; Platelet Count 101 k/uL (150-450); RBC 3.93 m/uL (3.80-5.40)
--- NOTE | 2018-06-04 09:32 | P.PN ---
Subjective Progress Note Date: 06/04/18 Principal diagnosis: This is a 57-year-old female with a complex past medical history noted below significant for metastatic breast cancer and a history of perforated bowel status post resection with colostomy complicated by intra-abdominal abscess requiring a EDISON drain that presented to the hospital with worsening lower extremity weakness. Patient was discharged from [facility] last month. At that time she underwent a right temporal oral craniotomy for brain metastasis. She was admitted to the hospital. Was seen and evaluated by multiple specialists including oncology, radiation oncology, neurology, and Gen. surgery. Below is a list of her medical problems addressed during this hospitalization. Patient in good spirits today reports that her pain is well controlled, rated at 0-1. No acute events overnight, patient reports that she is moving her bowels as well. Reporting limited right hip range of motion secondary to pain Objective - Vital Signs Vital signs: Vital Signs Temp 97.9 F 06/04/18 05:00 Pulse 94 06/04/18 07:44 Resp 16 06/04/18 07:44 BP 123/86 06/04/18 05:00 Pulse Ox 96 06/04/18 05:00 Intake & Output 06/03/18 06/04/18 06/04/18 18:59 06:59 18:59 Intake Total 590 Output Total 100 600 600 Balance -100 -10 -600 Intake: Oral 590 Output: Urine 100 Stool 600 600 Other: Voiding Method Bedpan Bedpan Bedpan # Voids 1 3 - Exam Constitutional: No acute distress, conversant, pleasant Eyes: Anicteric sclerae, moist conjunctiva, no lid-lag, PERRLA ENMT: NC/AT,Oropharynx clear, no erythema, exudates Neck:Supple, FROM, no masses, or JVD, No carotid bruits; No thyromegaly Lungs: Clear to auscultation, Clear to percussion, Normal respiratory effort, no accessory muscle use Cardiovascular: Heart regular in rate and rhythm, No murmurs, gallops, or rubs no peripheral edema Abdominal: Soft Nontender, nom distended, no guarding, no rebound or rigidity, Normoactive bowel sounds No hepatomegaly, No splenomegaly, No palpable mass No abdominal wall hernia noted Skin: Normal temperature, tone, texture, turgor, No induration No subcutaneous nodules, No rash, lesions, No ulcers Extremities:No digital cyanosis No clubbing, Pedal pulses intact and symmetrical Radial pulses intact, No calf tenderness Psychiatric: Alert and oriented to person, place and time, Appropriate affect Intact judgement Neuro: Muscles Strength 5/5 in all 4 extremities, Sensation to light touch grossly present throughout, Cranial nerves II-XII grossly intact. No focal sensory deficits - Labs CBC & Chem 7: 06/04/18 06:51 06/04/18 06:51 Labs: Abnormal Lab Results - Last 24 Hours (Table) 06/04/18 06/04/18 Range/Units 06:51 06:51 RDW 16.0 H (11.5-15.5) % Plt Count 101 L (150-450) k/uL Sodium 133 L (137-145) mmol/L BUN 25 H (7-17) mg/dL Creatinine 0.29 L (0.52-1.04) mg/dL Glucose 126 H (74-99) mg/dL AST 40 H (14-36) U/L ALT 95 H (9-52) U/L Total Protein 4.1 L (6.3-8.2) g/dL Albumin 2.2 L (3.5-5.0) g/dL Microbiology - Last 24 Hours (Table) 05/31/18 12:30 CSF Gram Stain - Preliminary Cerebral Spinal Fluid CSF Culture - Preliminary Assessment and Plan Assessment: 1. LE weakness: Improved slightly since admission. Generalized, possibly deconditioning as well as concerns about worsening metastasis to the brain and bone. CPK and TSH is within normal limits. Vit D borderline low. MRI C+T+L spine negative. Neurology consulted - LP done negative for leptomeningeal involvement. Continue steroids as ordered. FU PT/OT consult 2. Intraabdominal abscess: 05/26 CT AP shows decreased pelvic abscess. Plan to finish 10 days course of IV ceftriaxone and oral Flagyl. Blood culture negative. Follow-up with infectious disease and general surgery as directed 3. Breast CA: Follows Dr. Michelle Urban. With metastatic disease to the brain, MRI of the brain showed recurrent neoplasm with worsening enhancement and adjacent edema to the right temporalis region suggesting recurrent dural based neoplasm. Patient was seen by oncology and radiation oncology. Plan to possibly resume radiation therapy. Awaiting final plan by radiation oncology. 4. Seizure prophylaxis: Keppra 1000 mg PO BID. 5. Transaminitis: Improving slightly since admission. CT AP on 05/26 shows shows metastatic hepatic lesions measuring up to 5.8. 6. ASCVD risk: Continue ASA 81 mg PO QD and Lipitor 40 mg PO QHS. 7. Hypertension: Monitor vitals, adjust medications as necessary. 8. Right hip metastatic lesion noted on MRI with associated right hip pain patient started on MS Contin 50 mg by mouth twice a day yesterday. Reports pain is adequately controlled Plan: Anticipated discharge on Wednesday pending insurance approval patient unable to be placed at [facility] yesterday
[2018-06-04 10:38] LABS: Band Neutrophils % 2 %; Neutrophils % (M) 89 %; Nucleated Red Blood Cells 2 /100 WBC (0-0); Total Cells Counted 200
[2018-06-04 10:39] LABS: Lymphocytes # (M) 0.44 k/uL (1.0-4.8); Monocytes # (M) 0.44 k/uL (0-1.0); WBC 8.7 k/uL (3.8-10.6)
[2018-06-04] MEDS: ERGOCALCIFEROL 50,000 UNIT CAP PO SCH (12:38)
[2018-06-05] MEDS: HYDROcodone/APAP 10-325MG 1 EACH TAB PO PRN ×3 (01:58→23:43)
[2018-06-05] MEDS: levETIRAcetam ORAL SOLN 500 MG/5 ML CUP PO SCH ×2 (06:04→17:26)
[2018-06-05] MEDS: DEXAMETHASONE 4 MG TAB PO SCH ×3 (07:49→21:13)
[2018-06-05] MEDS: CHOLECALCIFEROL 1,000 UNIT TAB PO SCH ×2 (07:49→21:12)
[2018-06-05] MEDS: PANTOPRAZOLE 40 MG TABLET PO SCH ×2 (07:49→17:26)
[2018-06-05] MEDS: METOPROLOL TARTRATE 25 MG TAB PO SCH ×2 (07:49→21:12)
[2018-06-05] MEDS: MORPHINE SULFATE ER 15 MG TABLET PO SCH ×2 (07:50→21:13)
[2018-06-05] MEDS: FLUCONAZOLE 100 MG TAB PO SCH (07:50)
[2018-06-05] MEDS: metroNIDAZOLE 500 MG TAB PO SCH ×3 (07:50→21:13)
[2018-06-05] MEDS: cefTRIAXone 2,000 MG in SODIUM CHLORIDE 0.9% 100 ML IVPB SCH (07:50)
[2018-06-05] MEDS: ENOXAPARIN 40 MG/0.4 ML SYRINGE SQ SCH (07:50)
--- NOTE | 2018-06-05 09:44 | P.PN ---
Subjective Progress Note Date: 06/05/18 Principal diagnosis: This is a 57-year-old female with a complex past medical history noted below significant for metastatic breast cancer and a history of perforated bowel status post resection with colostomy complicated by intra-abdominal abscess requiring a EDISON drain that presented to the hospital with worsening lower extremity weakness. Patient was discharged from [facility] last month. At that time she underwent a right temporal oral craniotomy for brain metastasis. She was admitted to the hospital. Was seen and evaluated by multiple specialists including oncology, radiation oncology, neurology, and Gen. surgery. Below is a list of her medical problems addressed during this hospitalization. Patient in good spirits today reports that her pain is well controlled, rated at 7 this morning. No acute events overnight, patient reports that she is moving her bowels as well as her ostomy bag is full Reporting limited right hip range of motion secondary to pain Objective - Vital Signs Vital signs: Vital Signs Temp 97.5 F L 06/05/18 05:00 Pulse 101 H 06/05/18 05:00 Resp 16 06/05/18 05:00 BP 113/75 06/05/18 05:00 Pulse Ox 97 06/05/18 05:00 Intake & Output 06/04/18 06/05/18 06/05/18 18:59 06:59 18:59 Output Total 1100 Balance -1100 Weight 77 kg Output: Stool 1100 Other: Voiding Method Bedpan Bedpan # Voids 1 1 - Exam Constitutional: No acute distress, conversant, pleasant Eyes: Anicteric sclerae, moist conjunctiva, no lid-lag, PERRLA ENMT: NC/AT,Oropharynx clear, no erythema, exudates Neck:Supple, FROM, no masses, or JVD, No carotid bruits; No thyromegaly Lungs: Clear to auscultation, Clear to percussion, Normal respiratory effort, no accessory muscle use Cardiovascular: Heart regular in rate and rhythm, No murmurs, gallops, or rubs no peripheral edema Abdominal: Soft Nontender, nom distended, no guarding, no rebound or rigidity, Normoactive bowel sounds No hepatomegaly, No splenomegaly, No palpable mass No abdominal wall hernia noted Skin: Normal temperature, tone, texture, turgor, No induration No subcutaneous nodules, No rash, lesions, No ulcers Extremities:No digital cyanosis No clubbing, Pedal pulses intact and symmetrical Radial pulses intact, No calf tenderness Psychiatric: Alert and oriented to person, place and time, Appropriate affect Intact judgement Neuro: Muscles Strength 5/5 in all 4 extremities, Sensation to light touch grossly present throughout, Cranial nerves II-XII grossly intact. No focal sensory deficits - Labs CBC & Chem 7: 06/04/18 06:51 06/04/18 06:51 Labs: Abnormal Lab Results - Last 24 Hours (Table) 06/04/18 Range/Units 06:51 Neutrophils # (Manual) 7.90 H (1.3-7.7) k/uL Lymphocytes # (Manual) 0.44 L (1.0-4.8) k/uL Nucleated RBCs 2 H (0-0) /100 WBC Microbiology - Last 24 Hours (Table) 05/31/18 12:30 CSF Gram Stain - Final Cerebral Spinal Fluid CSF Culture - Final Assessment and Plan Plan: Anticipated discharge on Wednesday pending insurance approval patient unable to be placed at [facility] yesterday
[2018-06-06] MEDS: levETIRAcetam ORAL SOLN 500 MG/5 ML CUP PO SCH ×2 (06:28→17:01)
[2018-06-06] MEDS: MORPHINE SULFATE ER 15 MG TABLET PO SCH ×2 (09:13→20:17)
[2018-06-06] MEDS: PANTOPRAZOLE 40 MG TABLET PO SCH ×2 (09:13→17:01)
[2018-06-06] MEDS: ENOXAPARIN 40 MG/0.4 ML SYRINGE SQ SCH (09:13)
[2018-06-06] MEDS: cefTRIAXone 2,000 MG in SODIUM CHLORIDE 0.9% 100 ML IVPB SCH (09:13)
[2018-06-06] MEDS: CHOLECALCIFEROL 1,000 UNIT TAB PO SCH ×2 (09:13→20:18)
[2018-06-06] MEDS: DEXAMETHASONE 4 MG TAB PO SCH ×3 (09:14→20:18)
[2018-06-06] MEDS: metroNIDAZOLE 500 MG TAB PO SCH ×3 (09:14→20:18)
[2018-06-06] MEDS: METOPROLOL TARTRATE 25 MG TAB PO SCH ×2 (09:14→20:17)
[2018-06-06] MEDS: FLUCONAZOLE 100 MG TAB PO SCH (09:14)
--- NOTE | 2018-06-06 11:16 | P.PN ---
Subjective Progress Note Date: 06/06/18 Principal diagnosis: Lower extremity weakness Patient seen and examined. No acute events overnight. She has no complaints this morning. Pending placement. Objective - Vital Signs Vital signs: Vital Signs Temp 98.2 F 06/06/18 05:00 Pulse 100 06/06/18 05:00 Resp 16 06/06/18 05:00 BP 124/89 06/06/18 05:00 Pulse Ox 95 06/06/18 05:00 Intake & Output 06/05/18 06/06/18 06/06/18 18:59 06:59 18:59 Intake Total 1010 Output Total 800 500 Balance -800 510 Weight 77 kg Intake: Oral 1010 Output: Urine 100 Stool 800 400 Other: Voiding Method Bedpan Bedpan # Voids 1 1 - Exam General: [non toxic], [no distress], [appears at stated age] Derm: [warm], [dry] Head: [atraumatic], [normocephalic], [symmetric] Eyes: [EOMI], [no lid lag], [anicteric sclera] Mouth: [no lip lesion], [mucus membranes moist] Cardiovascular: [S1S2 reg], [no murmur], [positive DP pulse bilateral], [R chest port] Lungs: [CTA bilateral], [no rhonchi, no rales] , [no accessory muscle use] Abdominal: [soft], [EDISON drain intact], [no guarding], [no appreciable organomegaly], [midline abdominal scar], [Colostomy bag intact with stool] Ext: [no gross muscle atrophy], [no edema], [no contractures] Neuro: [2/5 LLE and 1/5 RLE] Psych: [Alert], [oriented], [appropriate affect] - Labs CBC & Chem 7: 06/04/18 06:51 06/04/18 06:51 Assessment and Plan Assessment: Assessment and Plan 1. LE weakness: Generalized, possibly deconditioning but concerns for spinal abscess or metastatic disease. CT brain negative for metastatic disease to the brain. CPK and TSH is within normal limits. Vit D 28.2 which is borderline low, will replace. MRI C+T+L spine negative. Neurology consulted - recommended MRI brain and LP (to rule out leptomeningeal involvement). MRI brain shows worsening enhancement and edema in the R temporal region indicating recurrent dural neoplasm with worsening local mass effect, LP is negative for leptomeningeal carcinomatosis per Neuro. MRI pelvis shows 2 larger metastatic lesions in the R hip. Pain management with Channing 10 Q8H PRN, MS Contin 15 mg PO BID. Patient pending insurance acceptance for [employer]. FU PT/OT 2. Brain metastasis: Local recurrence. Not thought to be the cause of the LE weakness. Plans for Rad-Onc to evaluate in the outPT setting for possible radiation therapy. Continue Keppra 1000 mg PO BID and Decadron 4 mg PO TID in the meantime. Seizure and Fall precautions. 3. Intraabdominal abscess: Patient is afebrile but has a leukocytosis of 13.2 ( she is also on Decadron at home, resolved on discharge). Lactic acid 2.5 to 1.8. 05/26 CT AP shows decreased pelvic abscess. Tylenol, Channing and MS Contin for pain control. BCx prelim negative after 144H. Gen Sx consulted - continue IV Abx and EDISON drain. Plans to finish total of 10 days of IV Rocephin and PO Flagyl. Continue Rocephin 1g IV QD (day 8 today) and Flagyl 500 mg PO TID (day 8 today). FU BCx (final), Dr. Yates and Dr. Aguillon in the outPT setting. 4. Hyponatremia: Na 133 from 136 on admission. Chronic and asymptomatic. Given IVF during hospitalization. 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 Will continue to monitor. Water restriction. 5. Breast CA: Follows Dr. Martinez outPT. With metastatic disease to the brain, liver and bone. Biopsy proven ER+ [place]- HER2/OSCAR 2+. Current Rx with Faslodex and Xgeva. Heme-Onc consulted, recommended FU with Rad-Onc and Onc in the outPT setting (possible radiation for brain mets, appointments are made). Continue Decadron and Keppra in the meantime. 6. Prerenal azotemia: BUN 25 Cr 0.29. Likely due to dehydration. Encourage PO hydration. Avoid nephrotoxins. 7. Transaminitis: AST 40, ALT 95 ALK 116 (T. Bili OK, appears no obstruction). CT AP on 05/26 shows shows metastatic hepatic lesions measuring up to 5.8. 8. Hypertension: BP 124/89. Continue Metoprolol 25 mg PO BID. Monitor vitals, adjust medications as necessary. 9. DVT/GI Prophylaxis: Protonix 40 mg PO BID. Lovenox 40 mg SUBCUT QD. Onc, Rad-Onc appointments set up for patient. Will need close FU with ID and General Surgery. Needs 2 more days of antibiotics. Plans for [facility] re[facility], pending insurance.
--- NOTE | 2018-06-06 18:49 | P.PN ---
Subjective Progress Note Date: 06/06/18 Principal diagnosis: Metastatic Cancer Breast inability to ambulate No acute events overnight Objective - Vital Signs Vital signs: Vital Signs Temp 98 F 06/06/18 12:23 Pulse 80 06/06/18 12:23 Resp 16 06/06/18 12:23 BP 134/91 06/06/18 12:23 Pulse Ox 95 06/06/18 12:23 Intake & Output 06/05/18 06/06/18 06/06/18 18:59 06:59 18:59 Intake Total 1010 Output Total 800 500 Balance -800 510 Weight 77 kg Intake: Oral 1010 Output: Urine 100 Stool 800 400 Other: Voiding Method Bedpan Bedpan Bedpan # Voids 1 1 - Exam Constitutional General appearance: Present: cooperative, no acute distress, obese - EENT Eyes: Present: anicteric sclerae ENT: Present: hearing grossly normal - Respiratory Respiratory: bilateral: CTA - Cardiovascular Rhythm: regular Heart sounds: normal: S1, S2 Abnormal Heart Sounds: Absent: systolic murmur, diastolic murmur, rub, S3 Gallop , S4 Gallop, click, other - Peripheral edema leg Peripheral Edema: bilateral: None - Gastrointestinal Gastrointestinal Comment(s): LLQ ostomy General gastrointestinal: Present: normal bowel sounds, soft Localized gastrointestinal: tender: RLQ (at EDISON drain insertion site) - Integumentary Integumentary: Present: pale - Musculoskeletal Musculoskeletal: Present: generalized weakness - Psychiatric Psychiatric Comment(s): at times pt conversation is confused Psychiatric: Present: A&O x's 3, appropriate affect - Labs CBC & Chem 7: 06/04/18 06:51 06/04/18 06:51 Assessment and Plan Plan: 1. Inability to Ambulate, Decreased BLE Sensation: - Unclear origin-CSF neg for leptomeningeal mets, brain lesion not positioned to account for pt deficits/symptoms, and since admit her pain is better, strength is stable. the plan is to continue with rehab at [facility] 2. Metastatic Breast Cancer - Brain, Bone, Liver - Under the care of Dr. Martinez - Current treatment with Faslodex and Xgevan (Continue and next due 06/25) - Overall Prognosis is poor - Continue to hold Ibrance until abdominal abscess resolved - Follow up with Rad Onc Re: Mets to Brain and if Femur Mets are painful palliative radiation - Follow-up Dr. Martinez as scheduled - Wean Dex per Radiation Onc 3. Chronic Illness Myopathy: - rehabilitation on discharge
--- NOTE | 2018-06-07 00:19 | PN ---
PROGRESS NOTE DATE OF SERVICE: 06/06/2018. REASON FOR FOLLOWUP: Abdominal abscess. INTERVAL HISTORY: The patient is currently afebrile. She seemed to be breathing comfortably. Denies having any chest pain, shortness of breath or cough. No nausea, vomiting and no diarrhea. Oral output in the drainage catheter has decreased. EXAMINATION: Blood pressure 138/75 with a pulse of 90, temperature 97.5. She is 95% on room air. General description is a middle-aged female lying in bed in no distress. Respiratory system: Unlabored breathing, clear to auscultation anteriorly. Heart S1, S2. Regular rate and rhythm. Abdomen soft. No tenderness. LABS: No new labs have been obtained today. DIAGNOSTIC IMPRESSION AND PLAN: Patient with abdominal abscess from status post diverting colostomy. Plan at this time: Keep the patient on Rocephin and Flagyl for another 10 days to finish course of therapy with close outpatient followup. Continue supportive care. MMODL / IJN: [id number] /
[2018-06-07] MEDS: levETIRAcetam ORAL SOLN 500 MG/5 ML CUP PO SCH ×2 (06:15→16:37)
[2018-06-07] MEDS: PANTOPRAZOLE 40 MG TABLET PO SCH ×2 (08:00→16:37)
[2018-06-07] MEDS: HYDROcodone/APAP 10-325MG 1 EACH TAB PO PRN (08:48)
[2018-06-07] MEDS: CHOLECALCIFEROL 1,000 UNIT TAB PO SCH ×2 (09:52→21:22)
[2018-06-07] MEDS: cefTRIAXone 2,000 MG in SODIUM CHLORIDE 0.9% 100 ML IVPB SCH (09:52)
[2018-06-07] MEDS: DEXAMETHASONE 4 MG TAB PO SCH ×3 (09:52→21:22)
[2018-06-07] MEDS: FLUCONAZOLE 100 MG TAB PO SCH (09:53)
[2018-06-07] MEDS: ENOXAPARIN 40 MG/0.4 ML SYRINGE SQ SCH (09:53)
[2018-06-07] MEDS: METOPROLOL TARTRATE 25 MG TAB PO SCH ×2 (09:54→21:22)
[2018-06-07] MEDS: MORPHINE SULFATE ER 15 MG TABLET PO SCH ×2 (09:54→21:21)
[2018-06-07] MEDS: metroNIDAZOLE 500 MG TAB PO SCH ×3 (09:54→21:21)
--- NOTE | 2018-06-07 10:00 | P.PN ---
Subjective Progress Note Date: 06/07/18 Principal diagnosis: Generalized weakness Patient was seen and examined. No acute events overnight. Per nurse, increased frequency urination. Patient denies any dysuria or difficulty urinating. No fever or chills. No abdominal pain. She has no complaints this morning. She is awaiting placement. Objective - Vital Signs Vital signs: Vital Signs Temp 97.7 F 06/07/18 04:36 Pulse 84 06/07/18 04:36 Resp 16 06/07/18 04:36 BP 113/80 06/07/18 04:36 Pulse Ox 95 06/07/18 04:36 Intake & Output 06/06/18 06/07/18 06/07/18 18:59 06:59 18:59 Intake Total 340 Output Total 100 Balance 240 Intake: Intake, IV Titration 100 Amount cefTRIAXone 2,000 mg In 100 Sodium Chloride 0.9% 100 ml @ 100 mls/hr IVPB Q24HR [facility] Rx#:[id number] Oral 240 Output: Urine 100 Other: Voiding Method Bedpan Bedpan # Voids 8 3 # Bowel Movements 1 - Exam General: [non toxic], [no distress], [appears at stated age] Derm: [warm], [dry] Head: [atraumatic], [normocephalic], [symmetric] Eyes: [EOMI], [no lid lag], [anicteric sclera] Mouth: [no lip lesion], [mucus membranes moist] Cardiovascular: [S1S2 reg], [no murmur], [positive DP pulse bilateral], [R chest port] Lungs: [CTA bilateral], [no rhonchi, no rales] , [no accessory muscle use] Abdominal: [soft], [no guarding], [no appreciable organomegaly], [midline abdominal scar], [Colostomy bag intact with stool] Ext: [no gross muscle atrophy], [no edema], [no contractures] Neuro: [2/5 LLE and 1/5 RLE] Psych: [Alert], [oriented], [appropriate affect] - Labs CBC & Chem 7: 06/04/18 06:51 06/04/18 06:51 Assessment and Plan Assessment: Assessment and Plan 1. LE weakness: Generalized, possibly deconditioning but concerns for spinal abscess or metastatic disease. CT brain negative for metastatic disease to the brain. CPK and TSH is within normal limits. Vit D 28.2 which is borderline low, will replace. MRI C+T+L spine negative. Neurology consulted - recommended MRI brain and LP (to rule out leptomeningeal involvement). MRI brain shows worsening enhancement and edema in the R temporal region indicating recurrent dural neoplasm with worsening local mass effect, LP is negative for leptomeningeal carcinomatosis per Neuro. MRI pelvis shows 2 larger metastatic lesions in the R hip. Pain management with Kelly 10 Q8H PRN, MS Contin 15 mg PO BID. Patient pending insurance acceptance. FU PT/OT 2. Brain metastasis: Local recurrence. Not thought to be the cause of the LE weakness. Plans for Rad-Onc to evaluate in the outPT setting for possible radiation therapy. Continue Keppra 1000 mg PO BID and Decadron 4 mg PO TID in the meantime. Seizure and Fall precautions. 3. Intraabdominal abscess: Patient is afebrile but has a leukocytosis of 13.2 ( she is also on Decadron at home, resolved on discharge). Lactic acid 2.5 to 1.8. 05/26 CT AP shows decreased pelvic abscess. Tylenol, Kelly and MS Contin for pain control. BCx prelim negative after 144H. Gen Sx consulted - continue IV Abx and EDISON drain. Plans to finish 10 more days of IV Rocephin and PO Flagyl. Continue Rocephin 1g IV QD and Flagyl 500 mg PO TID. FU Dr. Yates and Dr. Aguillon in the outPT setting. 4. Hyponatremia: Na 133 from 136 on admission. Chronic and asymptomatic. Given IVF during hospitalization. 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 Will continue to monitor. Water restriction. 5. Breast CA: Follows Dr. Martinez outPT. With metastatic disease to the brain, liver and bone. Biopsy proven ER+ [place]- HER2/OSCAR 2+. Current Rx with Faslodex and Xgeva. Heme-Onc consulted, recommended FU with Rad-Onc and Onc in the outPT setting (possible radiation for brain mets, appointments are made). Continue Decadron and Keppra in the meantime. 6. Prerenal azotemia: BUN 25 Cr 0.29. Likely due to dehydration. Encourage PO hydration. Avoid nephrotoxins. 7. Transaminitis: AST 40, ALT 95 ALK 116 (T. Bili OK, appears no obstruction). CT AP on 05/26 shows shows metastatic hepatic lesions measuring up to 5.8. 8. Hypertension: BP 113/80. Continue Metoprolol 25 mg PO BID. Monitor vitals, adjust medications as necessary. 9. DVT/GI Prophylaxis: Protonix 40 mg PO BID. Lovenox 40 mg SUBCUT QD. Onc, Rad-Onc appointments set up for patient. Will need close FU with ID and General Surgery. Needs 10 days of Abx on discharge. Discussed with case management, pending insurance authorization, rejected from [employer], other applications sent out.
--- NOTE | 2018-06-07 14:58 | PN ---
PROGRESS NOTE DATE OF SERVICE: 06/07/2018 REASON FOR FOLLOWUP: Abdominal abscess. INTERVAL HISTORY: The patient is currently afebrile. She is breathing comfortably. She is waiting for placement in the group home. Denies significant chest pain. Occasional cough. No abdominal pain. Overall, output in the drainage tube has decreased. PHYSICAL EXAMINATION: Blood pressure 123/65 with a pulse of 79, temperature 98. She is 97% on room air. General description is a middle-aged female, lying in bed in no distress. RESPIRATORY SYSTEM: Unlabored breathing, clear to auscultation anteriorly. HEART: S1, S2. Regular rate and rhythm. ABDOMEN: Soft, no tenderness. LABS: Hemoglobin is 13.1, white count 8.7, BUN of 25, creatinine 0.29. DIAGNOSTIC IMPRESSION AND PLAN: Patient with abdominal abscess from perforated bowel in a patient who did have metastatic breast cancer. Patient is currently on Rocephin and oral Flagyl to continue another 10 days to [address] abdominal, pelvis before completion of antibiotic to make sure abscess completely resolved. Continue supportive care. MMODL / IJN: [id number] /
--- NOTE | 2018-06-07 22:26 | CT ---
EXAMINATION TYPE: CT brain wo con DATE OF EXAM: 06/07/2018 COMPARISON: 05/27/2018 HISTORY: ams, left arm weakness, slurred speech CT DLP: 943.0 mGycm Automated exposure control for dose reduction was used. FINDINGS: There is right temporal craniotomy defect. There is hypodensity in the anterior right temporal lobe w [place] matter. There is no midline shift. There is no sign of intracranial hemorrhage. Calvarium is int act otherwise. Ventricles of normal size. IMPRESSION: POSTSURGICAL CHANGES WITH EDEMA IN THE RIGHT TEMPORAL LOBE. THIS APPEARS UNCHANGED COMPARED TO LAST E XAM. NO ACUTE INTRACRANIAL ABNORMALITY.
[2018-06-07] MEDS: ACETAMINOPHEN TAB 325 MG TAB PO PRN (23:30)
[2018-06-08] MEDS: HYDROcodone/APAP 10-325MG 1 EACH TAB PO PRN ×3 (02:42→20:20)
[2018-06-08] MEDS: levETIRAcetam ORAL SOLN 500 MG/5 ML CUP PO SCH ×2 (06:16→17:02)
[2018-06-08] MEDS: metroNIDAZOLE 500 MG TAB PO SCH ×3 (08:39→21:05)
[2018-06-08] MEDS: DEXAMETHASONE 4 MG TAB PO SCH ×3 (08:39→21:05)
[2018-06-08] MEDS: ENOXAPARIN 40 MG/0.4 ML SYRINGE SQ SCH (08:39)
[2018-06-08] MEDS: cefTRIAXone 2,000 MG in SODIUM CHLORIDE 0.9% 100 ML IVPB SCH (08:39)
[2018-06-08] MEDS: PANTOPRAZOLE 40 MG TABLET PO SCH ×2 (08:39→17:02)
[2018-06-08] MEDS: METOPROLOL TARTRATE 25 MG TAB PO SCH ×2 (08:39→21:04)
[2018-06-08] MEDS: MORPHINE SULFATE ER 15 MG TABLET PO SCH ×2 (08:39→21:03)
[2018-06-08] MEDS: FLUCONAZOLE 100 MG TAB PO SCH (08:39)
[2018-06-08] MEDS: CHOLECALCIFEROL 1,000 UNIT TAB PO SCH ×2 (10:50→21:05)
--- NOTE | 2018-06-08 13:44 | P.PN ---
Subjective Progress Note Date: 06/08/18 Principal diagnosis: placement Patient was seen and examined. No acute events overnight. Patient has no complaints this morning. She is pending placement Objective - Vital Signs Vital signs: Vital Signs Temp 98.0 F 06/08/18 11:46 Pulse 86 06/08/18 11:46 Resp 16 06/08/18 11:46 BP 113/79 06/08/18 11:46 Pulse Ox 97 06/08/18 11:46 Intake & Output 06/07/18 06/08/18 06/08/18 18:59 06:59 18:59 Intake Total 150 Output Total 180 Balance 150 -180 Intake: Oral 150 Output: Urine 60 Stool 120 Other: Voiding Method Bedpan Bedpan Bedpan # Voids 6 1 # Bowel Movements 1 - Exam General: [non toxic], [no distress], [appears at stated age] Derm: [warm], [dry] Head: [atraumatic], [normocephalic], [symmetric] Eyes: [EOMI], [no lid lag], [anicteric sclera] Mouth: [no lip lesion], [mucus membranes moist] Cardiovascular: [S1S2 reg], [no murmur], [positive DP pulse bilateral], [R chest port] Lungs: [CTA bilateral], [no rhonchi, no rales] , [no accessory muscle use] Abdominal: [soft], [no guarding], [no appreciable organomegaly], [midline abdominal scar], [Colostomy bag intact with stool] Ext: [no gross muscle atrophy], [no edema], [no contractures] Neuro: [2/5 LLE and 1/5 RLE] Psych: [Alert], [oriented], [appropriate affect] - Labs CBC & Chem 7: 06/04/18 06:51 06/04/18 06:51 Assessment and Plan Assessment: Assessment and Plan 1. LE weakness: Generalized, possibly deconditioning but concerns for spinal abscess or metastatic disease. CT brain negative for metastatic disease to the brain. CPK and TSH is within normal limits. Vit D 28.2 which is borderline low, will replace. MRI C+T+L spine negative. Neurology consulted - recommended MRI brain and LP (to rule out leptomeningeal involvement). MRI brain shows worsening enhancement and edema in the R temporal region indicating recurrent dural neoplasm with worsening local mass effect, LP is negative for leptomeningeal carcinomatosis per Neuro. MRI pelvis shows 2 larger metastatic lesions in the R hip. Pain management with Mary D 10 Q8H PRN, MS Contin 15 mg PO BID. Patient pending insurance acceptance. FU PT/OT 2. Brain metastasis: Local recurrence. Not thought to be the cause of the LE weakness. Plans for Rad-Onc to evaluate in the outPT setting for possible radiation therapy. Continue Keppra 1000 mg PO BID and Decadron 4 mg PO TID in the meantime. Seizure and Fall precautions. 3. Intraabdominal abscess: Patient is afebrile but has a leukocytosis of 13.2 ( she is also on Decadron at home, resolved on discharge). Lactic acid 2.5 to 1.8. 05/26 CT AP shows decreased pelvic abscess. Tylenol, Mary D and MS Contin for pain control. BCx negative. Gen Sx consulted - continue IV Abx and EDISON drain. Plans to finish 10 more days of IV Rocephin and PO Flagyl. Continue Rocephin 1g IV QD and Flagyl 500 mg PO TID. FU Dr. Yates and Dr. Aguillon in the outPT setting. 4. Hyponatremia: Na 133 from 136 on admission. Chronic and asymptomatic. Given IVF during hospitalization. 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 Will continue to monitor. Water restriction. 5. Breast CA: Follows Dr. Michelle gomezPT. With metastatic disease to the brain, liver and bone. Biopsy proven ER+ [place]- HER2/OSCAR 2+. Current Rx with Faslodex and Xgeva. Heme-Onc consulted, recommended FU with Rad-Onc and Onc in the outPT setting (possible radiation for brain mets, appointments are made). Continue Decadron and Keppra in the meantime. 6. Prerenal azotemia: BUN 25 Cr 0.29. Likely due to dehydration. Encourage PO hydration. Avoid nephrotoxins. 7. Transaminitis: AST 40, ALT 95 ALK 116 (T. Bili [place], appears no obstruction). CT AP on 05/26 shows shows metastatic hepatic lesions measuring up to 5.8. 8. Hypertension: BP 113/79. Continue Metoprolol 25 mg PO BID. Monitor vitals, adjust medications as necessary. 9. DVT/GI Prophylaxis: Protonix 40 mg PO BID. Lovenox 40 mg SUBCUT QD. Onc, Rad-Onc appointments set up for patient. Will need close FU with ID and General Surgery. Needs 10 days of Abx on discharge. Discussed with case management, pending insurance authorization.
--- NOTE | 2018-06-08 21:56 | PN ---
PROGRESS NOTE DATE OF SERVICE: 06/08/2018 REASON FOR FOLLOWUP: Abdominal abscess. INTERVAL HISTORY: The patient is currently afebrile. She is breathing comfortably. Denies any chest pain, shortness of breath or cough. No worsening abdominal pain. Output in the EDISON has decreased. EXAMINATION: Blood pressure is 128/80, pulse of 106, temperature 96.8, she is 96% on room air. GENERAL DESCRIPTION: A middle-aged female lying in bed in no distress. RESPIRATORY SYSTEM: Unlabored breathing. Clear to auscultation anteriorly. HEART: S1, S2. Regular rate and rhythm. ABDOMEN: Soft, no tenderness. LABS: Hemoglobin 13.1, white count of 8.7. No CBC done today. DIAGNOSTIC IMPRESSION AND PLAN: Patient with pelvic abscess from perforated bowel. The patient is currently covered with Rocephin and Flagyl. Continue for another 10 days on discharge. Waiting for placement. Recommending obtaining a CT of the abdomen and pelvis before discontinuation of antibiotic to make sure the abscess is completely resolved. Continue supportive care. Questions were answered. MMODL / IJN: [id number] /
[2018-06-09] MEDS: levETIRAcetam ORAL SOLN 500 MG/5 ML CUP PO SCH ×2 (06:13→17:17)
[2018-06-09] MEDS: PANTOPRAZOLE 40 MG TABLET PO SCH ×2 (09:20→17:17)
[2018-06-09] MEDS: CHOLECALCIFEROL 1,000 UNIT TAB PO SCH ×2 (09:21→21:01)
[2018-06-09] MEDS: DEXAMETHASONE 4 MG TAB PO SCH ×3 (09:21→21:01)
[2018-06-09] MEDS: METOPROLOL TARTRATE 25 MG TAB PO SCH ×2 (09:22→21:01)
[2018-06-09] MEDS: FLUCONAZOLE 100 MG TAB PO SCH (09:22)
[2018-06-09] MEDS: MORPHINE SULFATE ER 15 MG TABLET PO SCH ×2 (09:23→21:03)
[2018-06-09] MEDS: metroNIDAZOLE 500 MG TAB PO SCH ×3 (09:26→21:01)
[2018-06-09] MEDS: cefTRIAXone 2,000 MG in SODIUM CHLORIDE 0.9% 100 ML IVPB SCH (09:39)
[2018-06-09] MEDS: ENOXAPARIN 40 MG/0.4 ML SYRINGE SQ SCH (09:39)
[2018-06-09 10:23] VITALS: BMI 28.2
--- NOTE | 2018-06-09 13:01 | P.PN ---
Subjective Progress Note Date: 06/09/18 Principal diagnosis: Placement Patient was seen and examined. No acute events overnight. Pain well- controlled per patient. Eating well. at bedside. She has no complaints this morning. Pending placement. Objective - Vital Signs Vital signs: Vital Signs Temp 97.8 F 06/09/18 12:24 Pulse 94 06/09/18 12:24 Resp 16 06/09/18 12:24 BP 122/81 06/09/18 12:24 Pulse Ox 95 06/09/18 05:00 Intake & Output 06/08/18 06/09/18 06/09/18 18:59 06:59 18:59 Intake Total 100 420 Output Total 180 670 Balance -80 -250 Weight 77 kg Intake: Intake, IV Titration 100 Amount cefTRIAXone 2,000 mg In 100 Sodium Chloride 0.9% 100 ml @ 100 mls/hr IVPB Q24HR [facility] Rx#:[id number] Oral 420 Output: Urine 60 150 Stool 120 520 Other: Voiding Method Bedpan Bedpan Bedpan # Voids 2 - Exam General: [non toxic], [no distress], [appears at stated age] Derm: [warm], [dry] Head: [atraumatic], [normocephalic], [symmetric] Eyes: [EOMI], [no lid lag], [anicteric sclera] Mouth: [no lip lesion], [mucus membranes moist] Cardiovascular: [S1S2 reg], [no murmur], [positive DP pulse bilateral], [R chest port] Lungs: [CTA bilateral], [no rhonchi, no rales] , [no accessory muscle use] Abdominal: [soft], [no guarding], [no appreciable organomegaly], [midline abdominal scar], [Colostomy bag intact with stool] Ext: [no gross muscle atrophy], [no edema], [no contractures] Neuro: [2/5 LLE and 1/5 RLE] Psych: [Alert], [oriented], [appropriate affect] - Labs CBC & Chem 7: 06/04/18 06:51 06/04/18 06:51 Assessment and Plan Assessment: Assessment and Plan 1. LE weakness: Generalized, possibly deconditioning but concerns for spinal abscess or metastatic disease. CT brain negative for metastatic disease to the brain. CPK and TSH is within normal limits. Vit D 28.2 which is borderline low, will replace. MRI C+T+L spine negative. Neurology consulted - recommended MRI brain and LP (to rule out leptomeningeal involvement). MRI brain shows worsening enhancement and edema in the R temporal region indicating recurrent dural neoplasm with worsening local mass effect, LP is negative for leptomeningeal carcinomatosis per Neuro. MRI pelvis shows 2 larger metastatic lesions in the R hip. Pain management with [place] 10 Q8H PRN, MS Contin 15 mg PO BID. Patient pending insurance acceptance. FU PT/OT 2. Brain metastasis: Local recurrence. Not thought to be the cause of the LE weakness. Plans for Rad-Onc to evaluate in the outPT setting for possible radiation therapy. Continue Keppra 1000 mg PO BID and Decadron 4 mg PO TID in the meantime. Seizure and Fall precautions. 3. Intraabdominal abscess: Patient is afebrile but has a leukocytosis of 13.2 ( she is also on Decadron at home, resolved on discharge). Lactic acid 2.5 to 1.8. 05/26 CT AP shows decreased pelvic abscess. Tylenol, [place] and MS Contin for pain control. BCx negative. Gen Sx consulted - continue IV Abx and EDISON drain. Plans to finish 10 more days of IV Rocephin and PO Flagyl on discharge. Continue Rocephin 1g IV QD and Flagyl 500 mg PO TID. FU Dr. Yates and Dr. Aguillon in the outPT setting. 4. Hyponatremia: Na 133 from 136 on admission. Chronic and asymptomatic. Given IVF during hospitalization. 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 Will continue to monitor. Water restriction. 5. Breast CA: Follows Dr. Martinez outPT. With metastatic disease to the brain, liver and bone. Biopsy proven ER+ [place]- HER2/OSCAR 2+. Current Rx with Faslodex and Xgeva. Heme-Onc consulted, recommended FU with Rad-Onc and Onc in the outPT setting (possible radiation for brain mets, appointments are made). Continue Decadron and Keppra in the meantime. 6. Prerenal azotemia: BUN 25 Cr 0.29. Likely due to dehydration. Encourage PO hydration. Avoid nephrotoxins. 7. Transaminitis: AST 40, ALT 95 ALK 116 (T. Bili [place], appears no obstruction). CT AP on 05/26 shows shows metastatic hepatic lesions measuring up to 5.8. 8. Hypertension: BP 122/81. Continue Metoprolol 25 mg PO BID. Monitor vitals, adjust medications as necessary. 9. DVT/GI Prophylaxis: Protonix 40 mg PO BID. Lovenox 40 mg SUBCUT QD. Onc, Rad-Onc appointments set up for patient. Will need close FU with ID and General Surgery. Needs 10 days of Abx on discharge. Discussed with case management, pending insurance authorization.
--- NOTE | 2018-06-09 14:36 | PN ---
PROGRESS NOTE DATE OF SERVICE: 06/09/2018 REASON FOR FOLLOWUP: Abdominal abscess. INTERVAL HISTORY: The patient is currently afebrile. She is breathing comfortably. Currently waiting for placement. Denies having any chest pain or shortness of breath or cough or any worsening abdominal pain. PHYSICAL EXAMINATION: Blood pressure is 122/81 with a pulse of 94, temperature 97.8. General description is a middle-aged female, lying in bed in no distress. RESPIRATORY SYSTEM: Unlabored breathing, clear to auscultation anteriorly. HEART: S1, S2. Regular rate and rhythm. ABDOMEN: Soft, no tenderness. LABS: No new labs have been obtained today. DIAGNOSTIC IMPRESSION AND PLAN: Patient with abdominal abscess from perforated bowel. Previous culture positive for Escherichia coli and anaerobes. Patient is currently covered with Rocephin and Flagyl, to continue for another week to 10 days recommending a repeat [address] before completing antibiotic therapy. Continue supportive care. MMODL / IJN: [id number] /
--- NOTE | 2018-06-09 16:21 | P.PN ---
Subjective Progress Note Date: 06/09/18 Principal diagnosis: Metastatic Cancer Breast inability to ambulate No acute events overnight, patient is agitated, at bedside. Many questions regarding ibrance. Objective - Vital Signs Vital signs: Vital Signs Temp 97.8 F 06/09/18 12:24 Pulse 94 06/09/18 12:24 Resp 16 06/09/18 12:24 BP 122/81 06/09/18 12:24 Pulse Ox 95 06/09/18 05:00 Intake & Output 06/08/18 06/09/18 06/09/18 18:59 06:59 18:59 Intake Total 100 420 Output Total 180 670 Balance -80 -250 Weight 77 kg Intake: Intake, IV Titration 100 Amount cefTRIAXone 2,000 mg In 100 Sodium Chloride 0.9% 100 ml @ 100 mls/hr IVPB Q24HR [facility] Rx#:[id number] Oral 420 Output: Urine 60 150 Stool 120 520 Other: Voiding Method Bedpan Bedpan Bedpan # Voids 2 4 # Bowel Movements 1 - Exam Constitutional General appearance: Present: cooperative, no acute distress, obese - EENT Eyes: Present: anicteric sclerae ENT: Present: hearing grossly normal - Respiratory Respiratory: bilateral: CTA - Cardiovascular Rhythm: regular Heart sounds: normal: S1, S2 Abnormal Heart Sounds: Absent: systolic murmur, diastolic murmur, rub, S3 Gallop , S4 Gallop, click, other - Peripheral edema leg Peripheral Edema: bilateral: None - Gastrointestinal Gastrointestinal Comment(s): LLQ ostomy General gastrointestinal: Present: normal bowel sounds, soft Localized gastrointestinal: tender: RLQ (at EDISON drain insertion site) - Integumentary Integumentary: Present: pale - Musculoskeletal Musculoskeletal: Present: generalized weakness - Psychiatric Psychiatric Comment(s): at times pt conversation is confused Psychiatric: Present: A&O x's 3, appropriate affect - Labs CBC & Chem 7: 06/04/18 06:51 06/04/18 06:51 Assessment and Plan Plan: 1. Inability to Ambulate, Decreased BLE Sensation: - Unclear origin-CSF neg for leptomeningeal mets, brain lesion not positioned to account for pt deficits/symptoms, and since admit her pain is better, strength is stable. the plan is to continue with rehab at [facility] 2. Metastatic Breast Cancer - Brain, Bone, Liver - Under the care of Dr. Michelle - Current treatment with Faslodex and Xgevan (Continue and next due 06/25) - Overall Prognosis is poor - Continue to hold Ibrance until abdominal abscess resolved - Follow up with Rad Onc Re: Mets to Brain and if Femur Mets are painful palliative radiation - Follow-up Dr. Martinez as scheduled - Wean Dex per Radiation Onc 3. Chronic Illness Myopathy: - rehabilitation on discharge Greater than 30 minutes spent with patient and discussing plan after discharge for rehab and when restarting ibrance, discussed resolution of abscess and completion of antibiotics, after follow-up in ofice.
[2018-06-09] MEDS: HYDROcodone/APAP 10-325MG 1 EACH TAB PO PRN (19:40)
[2018-06-10] MEDS: HYDROcodone/APAP 10-325MG 1 EACH TAB PO PRN (06:11)
[2018-06-10] MEDS: levETIRAcetam ORAL SOLN 500 MG/5 ML CUP PO SCH ×2 (06:13→18:25)
[2018-06-10] MEDS: ENOXAPARIN 40 MG/0.4 ML SYRINGE SQ SCH (07:11)
[2018-06-10] MEDS: METOPROLOL TARTRATE 25 MG TAB PO SCH ×2 (07:11→22:43)
[2018-06-10] MEDS: MORPHINE SULFATE ER 15 MG TABLET PO SCH ×2 (07:11→22:42)
[2018-06-10] MEDS: metroNIDAZOLE 500 MG TAB PO SCH ×3 (07:12→22:43)
[2018-06-10] MEDS: CHOLECALCIFEROL 1,000 UNIT TAB PO SCH ×2 (07:13→22:43)
[2018-06-10] MEDS: DEXAMETHASONE 4 MG TAB PO SCH ×3 (07:13→22:43)
[2018-06-10] MEDS: FLUCONAZOLE 100 MG TAB PO SCH (07:13)
[2018-06-10] MEDS: PANTOPRAZOLE 40 MG TABLET PO SCH ×2 (07:13→18:25)
[2018-06-10] MEDS: cefTRIAXone 2,000 MG in SODIUM CHLORIDE 0.9% 100 ML IVPB SCH (07:13)
--- NOTE | 2018-06-10 14:03 | P.PN ---
Subjective Progress Note Date: 06/10/18 Principal diagnosis: Generalized weakness Patient was seen and examined. No acute events overnight. Patient has no complaints this morning. Objective - Vital Signs Vital signs: Vital Signs Temp 98.1 F 06/10/18 12:15 Pulse 96 06/10/18 12:15 Resp 16 06/10/18 12:15 BP 123/88 06/10/18 12:15 Pulse Ox 96 06/10/18 12:15 Intake & Output 06/09/18 06/10/18 06/10/18 18:59 06:59 18:59 Intake Total 1080 360 Output Total 400 400 Balance -400 680 360 Weight 77 kg Intake: Oral 1080 360 Output: Stool 400 400 Other: Voiding Method Bedpan Bedpan Bedpan # Voids 4 3 2 # Bowel Movements 1 - Exam General: [non toxic], [no distress], [appears at stated age] Derm: [warm], [dry] Head: [atraumatic], [normocephalic], [symmetric] Eyes: [EOMI], [no lid lag], [anicteric sclera] Mouth: [no lip lesion], [mucus membranes moist] Cardiovascular: [S1S2 reg], [no murmur], [positive DP pulse bilateral], [R chest port] Lungs: [CTA bilateral], [no rhonchi, no rales] , [no accessory muscle use] Abdominal: [soft], [no guarding], [no appreciable organomegaly], [midline abdominal scar], [Colostomy bag intact with stool] Ext: [no gross muscle atrophy], [no edema], [no contractures] Neuro: [2/5 LLE and 1/5 RLE] Psych: [Alert], [oriented], [appropriate affect] - Labs CBC & Chem 7: 06/04/18 06:51 06/04/18 06:51 Assessment and Plan Assessment: Assessment and Plan 1. LE weakness: Generalized, possibly deconditioning but concerns for spinal abscess or metastatic disease. CT brain negative for metastatic disease to the brain. CPK and TSH is within normal limits. Vit D 28.2 which is borderline low, will replace. MRI C+T+L spine negative. Neurology consulted - recommended MRI brain and LP (to rule out leptomeningeal involvement). MRI brain shows worsening enhancement and edema in the R temporal region indicating recurrent dural neoplasm with worsening local mass effect, LP is negative for leptomeningeal carcinomatosis per Neuro. MRI pelvis shows 2 larger metastatic lesions in the R hip. Pain management with [place] 10 Q8H PRN, MS Contin 15 mg PO BID. Patient pending insurance acceptance. FU PT/OT 2. Brain metastasis: Local recurrence. Not thought to be the cause of the LE weakness. Plans for Rad-Onc to evaluate in the outPT setting for possible radiation therapy. Continue Keppra 1000 mg PO BID and Decadron 4 mg PO TID in the meantime. Seizure and Fall precautions. 3. Intraabdominal abscess: Patient is afebrile but has a leukocytosis of 13.2 ( she is also on Decadron at home, resolved on discharge). Lactic acid 2.5 to 1.8. 05/26 CT AP shows decreased pelvic abscess. Tylenol, [place] and MS Contin for pain control. BCx negative. Gen Sx consulted - continue IV Abx and EDISON drain. Plans to finish 10 more days of IV Rocephin and PO Flagyl on discharge. Continue Rocephin 1g IV QD and Flagyl 500 mg PO TID. FU Dr. Yates and Dr. Aguillon in the outPT setting. 4. Hyponatremia: Na 133 from 136 on admission. Chronic and asymptomatic. Given IVF during hospitalization. 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 Will continue to monitor. Water restriction. 5. Breast CA: Follows Dr. Martinez outPT. With metastatic disease to the brain, liver and bone. Biopsy proven ER+ [place]- HER2/OSCAR 2+. Current Rx with Faslodex and Xgeva. Heme-Onc consulted, recommended FU with Rad-Onc and Onc in the outPT setting (possible radiation for brain mets, appointments are made). Continue Decadron and Keppra in the meantime. 6. Prerenal azotemia: BUN 25 Cr 0.29. Likely due to dehydration. Encourage PO hydration. Avoid nephrotoxins. 7. Transaminitis: AST 40, ALT 95 ALK 116 (T. Bili [place], appears no obstruction). CT AP on 05/26 shows shows metastatic hepatic lesions measuring up to 5.8. 8. Hypertension: BP 123/88. Continue Metoprolol 25 mg PO BID. Monitor vitals, adjust medications as necessary. 9. DVT/GI Prophylaxis: Protonix 40 mg PO BID. Lovenox 40 mg SUBCUT QD. Onc, Rad-Onc appointments set up for patient. Will need close FU with ID and General Surgery. Needs 10 days of Abx on discharge. Discussed with case management, pending insurance authorization. If her insurance is not accepted, we will explore other options of placement. I believe that the patient might be hospice appropriate given her poor prognosis. Home with home health and 24H supervision is another option. I will discuss these options with the patient and her as she defers all of her medical decisions to him.
--- NOTE | 2018-06-10 15:13 | PN ---
PROGRESS NOTE DATE OF SERVICE: 06/10/2018 REASON FOR FOLLOWUP: Abdominal abscess. INTERVAL HISTORY: The patient is currently afebrile, breathing comfortably. Waiting for placement. No chest pain, no cough or abdominal pain. No nausea, vomiting. PHYSICAL EXAMINATION: Blood pressure 123/88 with a pulse of 93, temperature 98.1, she is 96% on room air. General description is a middle-aged female, lying in bed in no distress. RESPIRATORY SYSTEM: Unlabored breathing, clear to auscultation anteriorly. HEART: S1, S2. Regular rate and rhythm. ABDOMEN: Soft, no tenderness. LABS: No new lab has been obtained today. DIAGNOSTIC IMPRESSION AND PLAN: Patient with abdominal abscess from a perforated bowel, status post diverting colostomy. Currently, Rocephin and Flagyl, currently for 10 days with close outpatient followup. Continue supportive care. MMODL / IJN: [id number] /
--- NOTE | 2018-06-10 19:37 | P.PN ---
Subjective Progress Note Date: 06/10/18 Principal diagnosis: Metastatic Cancer Breast inability to ambulate No acute events overnight, patient is agitated, at bedside. Objective - Vital Signs Vital signs: Vital Signs Temp 98.1 F 06/10/18 12:15 Pulse 96 06/10/18 12:15 Resp 16 06/10/18 12:15 BP 123/88 06/10/18 12:15 Pulse Ox 96 06/10/18 12:15 Intake & Output 06/09/18 06/10/18 06/10/18 18:59 06:59 18:59 Intake Total 1080 360 Output Total 400 400 Balance -400 680 360 Weight 77 kg Intake: Oral 1080 360 Output: Stool 400 400 Other: Voiding Method Bedpan Bedpan Bedpan # Voids 4 3 2 # Bowel Movements 1 - Exam Constitutional General appearance: Present: cooperative, no acute distress, obese - EENT Eyes: Present: anicteric sclerae ENT: Present: hearing grossly normal - Respiratory Respiratory: bilateral: CTA - Cardiovascular Rhythm: regular Heart sounds: normal: S1, S2 Abnormal Heart Sounds: Absent: systolic murmur, diastolic murmur, rub, S3 Gallop , S4 Gallop, click, other - Peripheral edema leg Peripheral Edema: bilateral: None - Gastrointestinal Gastrointestinal Comment(s): LLQ ostomy General gastrointestinal: Present: normal bowel sounds, soft Localized gastrointestinal: tender: RLQ (at EDISON drain insertion site) - Integumentary Integumentary: Present: pale - Musculoskeletal Musculoskeletal: Present: generalized weakness - Psychiatric Psychiatric Comment(s): at times pt conversation is confused Psychiatric: Present: A&O x's 3, appropriate affect - Labs CBC & Chem 7: 06/04/18 06:51 06/04/18 06:51 Assessment and Plan Plan: 1. Inability to Ambulate, Decreased BLE Sensation: - Unclear origin-CSF neg for leptomeningeal mets, brain lesion not positioned to account for pt deficits/symptoms, and since admit her pain is better, strength is stable. the plan is to continue with re[facility] 2. Metastatic Breast Cancer - Brain, Bone, Liver - Under the care of Dr. Martinez - Current treatment with Faslodex and Xgeva (Continue and next due 06/25) - Overall Prognosis is poor - Continue to hold Ibrance until abdominal abscess resolved - Follow up with Rad Onc Re: Mets to Brain and if Femur Mets are painful palliative radiation - Follow-up Dr. Martinez as scheduled - Wean Dex per Radiation Onc 3. Chronic Illness Myopathy: - rehabilitation on discharge was not present during follow-up today, I did discuss case with Social WOrk and question regarding goals of care, palliative treatment, rehabiliation versus hospice care. I will be by in the morning to discuss further with patient and together. I will in the mean time discuss further with her Primary Oncologist Dr. Martinez.
[2018-06-11] MEDS: levETIRAcetam ORAL SOLN 500 MG/5 ML CUP PO SCH ×2 (06:32→18:34)
[2018-06-11 07:59] LABS: Anion Gap 5 mmol/L; Blood Urea Nitrogen 13 mg/dL (7-17); Calcium 7.9 mg/dL (8.4-10.2); Carbon Dioxide 24 mmol/L (22-30); Chloride 102 mmol/L (98-107); Glucose 141 mg/dL (74-99); Potassium 4.4 mmol/L (3.5-5.1); Sodium 131 mmol/L (137-145)
[2018-06-11 08:00] LABS: Anisocytosis Slight; HCT 38.3 % (34.0-46.0); HGB 12.4 gm/dL (11.4-16.0); MCH 32.9 pg (25.0-35.0); MCHC 32.4 g/dL (31.0-37.0); MCV 101.3 fL (80.0-100.0); Macrocytosis Slight; Mean Platelet Volume 8.5; RBC 3.78 m/uL (3.80-5.40); RDW 16.7 % (11.5-15.5); WBC 4.5 k/uL (3.8-10.6)
[2018-06-11] MEDS: METOPROLOL TARTRATE 25 MG TAB PO SCH ×2 (08:43→22:07)
[2018-06-11] MEDS: ERGOCALCIFEROL 50,000 UNIT CAP PO SCH (08:44)
[2018-06-11] MEDS: PANTOPRAZOLE 40 MG TABLET PO SCH ×2 (08:44→18:34)
[2018-06-11] MEDS: DEXAMETHASONE 4 MG TAB PO SCH ×3 (08:44→22:07)
[2018-06-11] MEDS: MORPHINE SULFATE ER 15 MG TABLET PO SCH ×2 (08:44→22:06)
[2018-06-11] MEDS: CHOLECALCIFEROL 1,000 UNIT TAB PO SCH ×2 (08:44→22:07)
[2018-06-11] MEDS: metroNIDAZOLE 500 MG TAB PO SCH ×3 (08:44→22:07)
[2018-06-11] MEDS: ENOXAPARIN 40 MG/0.4 ML SYRINGE SQ SCH (08:45)
[2018-06-11] MEDS: FLUCONAZOLE 100 MG TAB PO SCH (08:45)
[2018-06-11] MEDS: cefTRIAXone 2,000 MG in SODIUM CHLORIDE 0.9% 100 ML IVPB SCH (08:46)
[2018-06-11 08:49] LABS: Platelet Count 52 k/uL (150-450)
[2018-06-11] MEDS: IOPAMIDOL-300 CONTRAST 30 ML VIAL (ORAL USE) PO PRN ×2 (16:14→17:23)
--- NOTE | 2018-06-11 17:32 | PN ---
PROGRESS NOTE DATE OF SERVICE: 06/11/2018 REASON FOR FOLLOWUP: Abdominal abscess. INTERVAL HISTORY: The patient did have overall change in her clinical condition. She has been complaining of more abdominal pain today since morning. Pain intensity has been almost 9-1/2 out of 10, mostly around her EDISON site insertion, more of a dull aching pain. Some nausea but no vomiting and no liquidy stools in her colostomy bag. Denies any chest pain, shortness of breath or cough. REVIEW OF SYSTEMS: Positive points mentioned in HPI. Rest of the systems have been negative. Past medical and surgical history reviewed. No change in medication reviewed. PHYSICAL EXAMINATION: Blood pressure 141/85 with a pulse of 109, temperature 98. She is 93% on room air. General description is a middle-aged female lying in bed in no distress. RESPIRATORY SYSTEM: Unlabored breathing. Clear to auscultation anteriorly. HEART: S1, S2. Regular rate and rhythm. ABDOMEN: Soft. Mildly distended. Tender around the EDISON site. Overall drainage from EDISON has decreased but still remains purulent. EXTREMITIES: No edema of the feet. NEUROLOGIC: Awake, alert, oriented x3. Mood and affect normal. LABS: Hemoglobin is 12.4, white count 4.5, creatinine 0.24, potassium 4.4. DIAGNOSTIC IMPRESSION AND PLAN: Patient with abdominal/pelvic abscess from a perforated bowel, status post diverting colostomy. Those cultures positive for E coli and anaerobic gram negative. The patient has been getting antibiotic therapy for the same, now with a new abdominal pain and slight distention. Will go ahead and obtain a CT of abdomen and pelvis with oral contrast to rule out any other intraabdominal pathology. Will keep the patient on Rocephin and the Flagyl at this point, adjusting it further based on the clinical response as well as investigation with the CT. Family was present at the bedside. Their questions and concerns were answered. MMODL / IJN: [id number] /
[2018-06-11] MEDS ORDERED: MORPHINE SULFATE 2 MG/ML SYRINGE IVP STA (17:36)
--- NOTE | 2018-06-11 19:06 | P.PN ---
Subjective Progress Note Date: 06/11/18 Principal diagnosis: Abdominal pain Patient was seen and examined. Complains of abdominal, RLE pain. 05/25 in severity. No nausea or vomiting. Family is at bedside. Scheduled for CT AP. Objective - Vital Signs Vital signs: Vital Signs Temp 98 F 06/11/18 12:47 Pulse 109 H 06/11/18 12:47 Resp 18 06/11/18 12:47 BP 141/85 06/11/18 12:47 Pulse Ox 93 L 06/11/18 12:47 Intake & Output 06/10/18 06/11/18 06/11/18 18:59 06:59 18:59 Intake Total 360 Output Total 550 1 Balance -190 -1 Intake: Oral 360 Output: Urine 150 Stool 400 1 Other: Voiding Method Bedpan Bedpan Bedpan # Voids 2 2 - Exam General: [non toxic], [no distress], [appears at stated age] Derm: [warm], [dry] Head: [atraumatic], [normocephalic], [symmetric] Eyes: [EOMI], [no lid lag], [anicteric sclera] Mouth: [no lip lesion], [mucus membranes moist] Cardiovascular: [S1S2 reg], [no murmur], [positive DP pulse bilateral], [R chest port] Lungs: [CTA bilateral], [no rhonchi, no rales] , [no accessory muscle use] Abdominal: [tenderness RLQ with no rebound], [no guarding], [no appreciable organomegaly], [midline abdominal scar], [Colostomy bag intact with stool] Ext: [no gross muscle atrophy], [no edema], [no contractures] Neuro: [2/5 LLE and 1/5 RLE] Psych: [Alert], [oriented], [appropriate affect] - Labs CBC & Chem 7: 06/11/18 06:48 06/11/18 06:48 Labs: Abnormal Lab Results - Last 24 Hours (Table) 06/11/18 06/11/18 Range/Units 06:48 06:48 RBC 3.78 L (3.80-5.40) m/uL MCV 101.3 H (80.0-100.0) fL RDW 16.7 H (11.5-15.5) % Plt Count 52 L (150-450) k/uL Sodium 131 L (137-145) mmol/L Creatinine 0.24 L (0.52-1.04) mg/dL Glucose 141 H (74-99) mg/dL Calcium 7.9 L (8.4-10.2) mg/dL Assessment and Plan Assessment: Assessment and Plan 1. LE weakness: Generalized, possibly deconditioning but concerns for spinal abscess or metastatic disease. CT brain negative for metastatic disease to the brain. CPK and TSH is within normal limits. Vit D 28.2 which is borderline low, will replace. MRI C+T+L spine negative. Neurology consulted - recommended MRI brain and LP (to rule out leptomeningeal involvement). MRI brain shows worsening enhancement and edema in the R temporal region indicating recurrent dural neoplasm with worsening local mass effect, LP is negative for leptomeningeal carcinomatosis per Neuro. MRI pelvis shows 2 larger metastatic lesions in the R hip. Pain management with [place] 10 Q8H PRN, MS Contin 15 mg PO BID. Patient pending insurance acceptance. FU PT/OT 2. Brain metastasis: Local recurrence. Not thought to be the cause of the LE weakness. Plans for Rad-Onc to evaluate in the outPT setting for possible radiation therapy. Continue Keppra 1000 mg PO BID and Decadron 4 mg PO TID in the meantime. Seizure and Fall precautions. 3. Intraabdominal abscess: Patient is afebrile but has a leukocytosis of 13.2 ( she is also on Decadron at home, resolved on discharge). Lactic acid 2.5 to 1.8. 05/26 CT AP shows decreased pelvic abscess. Tylenol, [place] and MS Contin for pain control. BCx negative. Gen Sx consulted - continue IV Abx and EDISON drain. Plans to finish 10 more days of IV Rocephin and PO Flagyl on discharge. Continue Rocephin 1g IV QD and Flagyl 500 mg PO TID. FU Dr. Yates and Dr. Aguillon in the outPT setting. 4. Hyponatremia: Na 131 from 136 on admission. Chronic and asymptomatic. Given IVF during hospitalization. 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 Will continue to monitor. Water restriction. 5. Breast CA: Follows Dr. Martinez outPT. With metastatic disease to the brain, liver and bone. Biopsy proven ER+ [place]- HER2/OSCAR 2+. Current Rx with Faslodex and Xgeva. Heme-Onc consulted, recommended FU with Rad-Onc and Onc in the outPT setting (possible radiation for brain mets, appointments are made). Continue Decadron and Keppra in the meantime. 6. Transaminitis: AST 40, ALT 95 ALK 116 (T. Bili [place], appears no obstruction). CT AP on 05/26 shows shows metastatic hepatic lesions measuring up to 5.8. 7. Hypertension: BP 141/85. Continue Metoprolol 25 mg PO BID. Monitor vitals, adjust medications as necessary. 8. DVT/GI Prophylaxis: Protonix 40 mg PO BID. Lovenox 40 mg SUBCUT QD. Resolved: Pre-renal azotemia. Onc, Rad-Onc appointments set up for patient. Will need close FU with ID and General Surgery. Needs 10 days of Abx on discharge. Discussed with case management, pending insurance authorization. If her insurance is not accepted, we will explore other options of placement. I believe that the patient might be hospice appropriate given her poor prognosis. Home with home health and 24H supervision is another option. Discussed with daughter and of the patient the options of Hospice and advanced care planning. This discussion took about 30 minutes. Answered all questions by the family. They will think about it and discuss the option with the patient. They prefer that I do not speak to her about Hospital and end of life care.
--- NOTE | 2018-06-11 19:40 | CT ---
EXAMINATION TYPE: CT abdomen pelvis w con DATE OF EXAM: 06/11/2018 COMPARISON: 04/30/2018 HISTORY: Abdominal pain. CT DLP: 847.1 mGycm Automated exposure control for dose reduction was used. TECHNIQUE: Helical acquisition of images was performed from the lung bases through the pelvis. CONTRAST: Performed with Oral Contrast and with IV Contrast, patient injected with 100ml mL of Isovue 300. FINDINGS: There is mild left pleural effusion. There is irregular 10 cm area of hypodensity in the superior rig ht lobe of the liver consistent with tumor. There is small pericardial effusion. There is minimal ple ural thickening at the right posterior lung base. There are small hiatal hernia. Spleen appears normal. There is no pancreatic mass. Gallbladder is somewhat contracted. There is no adrenal mass. There is 5 mm calculus lower pole left kidney. Kidneys have normal size. Th ere is no hydronephrosis. There is 1.5 cm cyst lower pole left kidney. There is left lower quadrant c olostomy noted. There is no ascites. There is drainage catheter in the pelvis. There is some residual density in the posterior lower pelvis on the left side that measures 3 x 2 cm. Bladder distends smoo thly. There is no inguinal hernia. There is subcutaneous edema around the lateral pelvis. There is re tained fecal material in the right colon. There is subcutaneous edema over the lower lumbar spine. IMPRESSION: COMPARED TO LAST CT SCAN THERE IS INCREASE IN SIZE OF THE LIVER MASS CONSISTENT WITH PROGRESSION OF T UMOR. PREVIOUS CENTRAL PORTION MEASURES 5.5 CM ON OLD EXAM AND NOW MEASURES 6 BY 7 CM. THERE IS NEW LEFT PLEURAL EFFUSION. THERE IS NEW SUBCUTANEOUS EDEMA AROUND THE PELVIS COMPARED TO OLD EXAM. THERE IS RESIDUAL ABSCESS IN THE PELVIS ON OLD EXAM that HAS MOSTLY CLEARED ON TODAY'S EXAM.
[2018-06-12] MEDS: levETIRAcetam ORAL SOLN 500 MG/5 ML CUP PO SCH ×2 (06:12→17:24)
[2018-06-12] MEDS: PANTOPRAZOLE 40 MG TABLET PO SCH ×2 (07:45→17:24)
[2018-06-12] MEDS: DEXAMETHASONE 4 MG TAB PO SCH ×3 (07:45→22:49)
[2018-06-12] MEDS: CHOLECALCIFEROL 1,000 UNIT TAB PO SCH ×2 (07:45→22:49)
[2018-06-12] MEDS: metroNIDAZOLE 500 MG TAB PO SCH ×3 (07:46→22:46)
[2018-06-12] MEDS: ENOXAPARIN 40 MG/0.4 ML SYRINGE SQ SCH (07:46)
[2018-06-12] MEDS: MORPHINE SULFATE ER 15 MG TABLET PO SCH ×2 (07:46→22:46)
[2018-06-12] MEDS: FLUCONAZOLE 100 MG TAB PO SCH (07:46)
[2018-06-12] MEDS: METOPROLOL TARTRATE 25 MG TAB PO SCH ×2 (07:47→22:46)
[2018-06-12] MEDS: cefTRIAXone 2,000 MG in SODIUM CHLORIDE 0.9% 100 ML IVPB SCH (07:57)
[2018-06-12] MEDS: ACETAMINOPHEN TAB 325 MG TAB PO PRN (08:06)
[2018-06-12] MEDS: HYDROcodone/APAP 10-325MG 1 EACH TAB PO PRN (10:54)
[2018-06-12] MEDS ORDERED: FUROSEMIDE 10 MG/ML 4 ML VIAL IV STA (16:06)
--- NOTE | 2018-06-12 16:27 | P.PN ---
Subjective Progress Note Date: 06/12/18 Principal diagnosis: generalized weakness Patient was seen and examined. No acute events overnight. Patient reports abdominal pain has completely resolved. No bowel movement yet but colostomy bag full and changed in the AM. Wanting to go home. Objective - Vital Signs Vital signs: Vital Signs Temp 98 F 06/12/18 11:48 Pulse 106 H 06/12/18 11:48 Resp 20 06/12/18 11:48 BP 101/71 06/12/18 11:48 Pulse Ox 93 L 06/12/18 11:48 Intake & Output 06/11/18 06/12/18 06/12/18 18:59 06:59 18:59 Output Total 1 Balance -1 Output: Stool 1 Other: Voiding Method Bedpan Bedpan Bedpan Incontinent Incontinent # Voids 1 - Exam General: [non toxic], [no distress], [appears at stated age] Derm: [warm], [dry] Head: [atraumatic], [normocephalic], [symmetric] Eyes: [EOMI], [no lid lag], [anicteric sclera] Mouth: [no lip lesion], [mucus membranes moist] Cardiovascular: [S1S2 reg], [no murmur], [positive DP pulse bilateral], [R chest port] Lungs: [CTA bilateral], [no rhonchi, no rales] , [no accessory muscle use] Abdominal: [soft], [no guarding], [no appreciable organomegaly], [midline abdominal scar], [Colostomy bag intact with stool] Ext: [no gross muscle atrophy], [no edema], [no contractures] Neuro: [2/5 LLE and 1/5 RLE] Psych: [Alert], [oriented], [appropriate affect] - Labs CBC & Chem 7: 06/11/18 06:48 06/11/18 06:48 Assessment and Plan Assessment: Assessment and Plan 1. Abdominal pain: Resolved from yesterday. CT AP shows increased liver mass size, L pleural effusion and subcutaneous edema. Pain control with [place] and MS Contin. Aggressive bowel regimen. Will continue to monitor. 2. LE weakness: Generalized, possibly deconditioning but concerns for spinal abscess or metastatic disease. CT brain negative for metastatic disease to the brain. CPK and TSH is within normal limits. Vit D 28.2 which is borderline low, will replace. MRI C+T+L spine negative. Neurology consulted - recommended MRI brain and LP (to rule out leptomeningeal involvement). MRI brain shows worsening enhancement and edema in the R temporal region indicating recurrent dural neoplasm with worsening local mass effect, LP is negative for leptomeningeal carcinomatosis per Neuro. MRI pelvis shows 2 larger metastatic lesions in the R hip. Pain management with [place] 10 Q8H PRN, MS Contin 15 mg PO BID. Patient pending insurance acceptance. FU PT/OT 3. Brain metastasis: Local recurrence. Not thought to be the cause of the LE weakness. Plans for Rad-Onc to evaluate in the outPT setting for possible radiation therapy. Continue Keppra 1000 mg PO BID and Decadron 4 mg PO TID in the meantime. Seizure and Fall precautions. 4. Intraabdominal abscess: Patient is afebrile but has a leukocytosis of 13.2 ( she is also on Decadron at home, resolved on discharge). Lactic acid 2.5 to 1.8. 05/26 CT AP shows decreased pelvic abscess. Tylenol, [place] and MS Contin for pain control. BCx negative. Gen Sx consulted - continue IV Abx and EDISON drain. Plans to finish 10 more days of IV Rocephin and PO Flagyl on discharge. Continue Rocephin 1g IV QD and Flagyl 500 mg PO TID. FU Dr. Yates and Dr. Aguillon in the outPT setting. 5. Hyponatremia: Na 131 from 136 on admission. Chronic and asymptomatic. Given IVF during hospitalization. 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 Will continue to monitor. Water restriction. 6. Breast CA: Follows Dr. Martinez outPT. With metastatic disease to the brain, liver and bone. Biopsy proven ER+ MO- HER2/OSCAR 2+. Current Rx with Faslodex and Xgeva. Heme-Onc consulted, recommended FU with Rad-Onc and Onc in the outPT setting (possible radiation for brain mets, appointments are made). Continue Decadron and Keppra in the meantime. 7. Transaminitis: AST 40, ALT 95 ALK 116 (T. Bili OK, appears no obstruction). CT AP on 05/26 shows shows metastatic hepatic lesions measuring up to 5.8. 8. Hypertension: BP 101/71. Continue Metoprolol 25 mg PO BID. Monitor vitals, adjust medications as necessary. 9. DVT/GI Prophylaxis: Protonix 40 mg PO BID. Lovenox 40 mg SUBCUT QD. Resolved: Pre-renal azotemia. Onc, Rad-Onc appointments set up for patient. Will need close FU with ID and General Surgery. Needs 10 days of Abx on discharge. Discussed with case management, pending insurance authorization. If her insurance is not accepted, we will explore other options of placement. I believe that the patient might be hospice appropriate given her poor prognosis. Home with home health and 24H supervision is another option. Family presented with options, to sue.
--- NOTE | 2018-06-12 18:09 | PN ---
PROGRESS NOTE DATE OF SERVICE: 06/12/2018. REASON FOR FOLLOWUP: Abdominal/pelvic abscess. INTERVAL HISTORY: The patient is currently afebrile. The patient's abdominal pain has improved compared to yesterday. The patient denies having any nausea, no vomiting. Denies any chest pain. No shortness of breath. No cough. EXAMINATION: Blood pressure is 101/71 with a pulse of 106, temperature 98. She is 93% on room air. General description is a middle aged female lying in bed in no distress. Respiratory system: Unlabored breathing. Clear to auscultation anteriorly. Heart S1, S2 regular rate and rhythm. Abdomen soft, no tenderness. LABS: No new labs have been obtained today. The patient did have a CT abdomen and pelvis completed yesterday which did show overall resolution of the pelvic abscess. Did show increase in the size of the hepatic metastasis. DIAGNOSTIC IMPRESSION AND PLAN: Patient with abdominal abscess from the perforated bowel with currently showing resolution. These CT images will be reviewed with radiologist tomorrow and if there was no evidence of any abscess, recommend discontinuation of the EDISON drain as well as the PICC line and we will give a short course of oral antibiotic. This was explained in detail with the patient and the daughter. All the questions answered. MMODL / IJN: [id number] /
[2018-06-13] MEDS: HYDROcodone/APAP 10-325MG 1 EACH TAB PO PRN (01:32)
[2018-06-13] MEDS: levETIRAcetam ORAL SOLN 500 MG/5 ML CUP PO SCH ×2 (05:34→17:41)
[2018-06-13] MEDS: ENOXAPARIN 40 MG/0.4 ML SYRINGE SQ SCH (08:32)
[2018-06-13] MEDS: MORPHINE SULFATE ER 15 MG TABLET PO SCH ×2 (08:35→21:22)
[2018-06-13] MEDS: metroNIDAZOLE 500 MG TAB PO SCH ×3 (08:36→23:16)
[2018-06-13] MEDS: DOCUSATE 100 MG CAP PO SCH (08:36)
[2018-06-13] MEDS: METOPROLOL TARTRATE 25 MG TAB PO SCH ×2 (08:36→21:22)
[2018-06-13] MEDS: DEXAMETHASONE 4 MG TAB PO SCH ×3 (08:36→21:22)
[2018-06-13] MEDS: CHOLECALCIFEROL 1,000 UNIT TAB PO SCH ×2 (08:36→21:22)
[2018-06-13] MEDS: PANTOPRAZOLE 40 MG TABLET PO SCH ×2 (08:36→17:42)
[2018-06-13] MEDS: cefTRIAXone 2,000 MG in SODIUM CHLORIDE 0.9% 100 ML IVPB SCH (08:37)
--- NOTE | 2018-06-13 12:09 | PN ---
PROGRESS NOTE DATE OF SERVICE: 06/13/2018 REASON FOR FOLLOW UP: Abdominal/pelvic abscess. INTERVAL HISTORY: The patient is currently afebrile. She is breathing comfortably. Denies having any chest pain, shortness of breath. The abdominal pain has improved. No nausea, no vomiting. No liquidy stool in the colostomy bag. PHYSICAL EXAMINATION: Blood pressure 120/95 with a pulse of 113, temperature 97, she is 93% on room air. General description is a middle aged female, lying in bed in no distress. RESPIRATORY SYSTEM: Unlabored breathing, clear to auscultation anteriorly. HEART: S1, S2. Regular rate and rhythm. ABDOMEN: Mild distention. No guarding or rigidity. LABS: No new labs have been obtained. Her white count was normal at 4.5 is of Wednesday. The patient's CT abdominal, pelvis was reviewed with the radiologist, and the previous documented pelvic abscess resolved. A small diverticulum was seen. DIAGNOSTIC IMPRESSION AND PLAN: Patient with a pelvic abscess from a perforated bowel. This has been adequately treated with resolution of the abscess on a CT that was done on 06/11. There is no need for any IV antibiotic on discharge, she will be given a short course of oral Ceftin and Flagyl. RN has been advised to contact the Surgery for removal of the EDISON. All cultures are . MMODL / IJN: [id number] /
--- NOTE | 2018-06-13 13:53 | P.PN ---
Subjective Progress Note Date: 06/13/18 Principal diagnosis: Metastatic Cancer Breast inability to ambulate No acute events overnight, spoke to Dr. Martinez today and home hospice is appropriate if patient and family choose. Objective - Vital Signs Vital signs: Vital Signs Temp 97.9 F 06/13/18 12:15 Pulse 130 H 06/13/18 12:15 Resp 18 06/13/18 12:15 BP 127/90 06/13/18 12:15 Pulse Ox 92 L 06/13/18 12:15 Intake & Output 06/12/18 06/13/18 06/13/18 18:59 06:59 18:59 Intake Total 1190 Output Total 1 Balance 1189 Intake: Oral 1190 Output: Stool 1 Other: Voiding Method Incontinent Incontinent Incontinent # Voids 2 2 - Exam Constitutional General appearance: Present: cooperative, no acute distress, obese - EENT Eyes: Present: anicteric sclerae ENT: Present: hearing grossly normal - Respiratory Respiratory: bilateral: CTA - Cardiovascular Rhythm: regular Heart sounds: normal: S1, S2 Abnormal Heart Sounds: Absent: systolic murmur, diastolic murmur, rub, S3 Gallop , S4 Gallop, click, other - Peripheral edema leg Peripheral Edema: bilateral: None - Gastrointestinal Gastrointestinal Comment(s): LLQ ostomy General gastrointestinal: Present: normal bowel sounds, soft Localized gastrointestinal: tender: RLQ (at EDISON drain insertion site) - Integumentary Integumentary: Present: pale - Musculoskeletal Musculoskeletal: Present: generalized weakness - Psychiatric Psychiatric Comment(s): at times pt conversation is confused Psychiatric: Present: A&O x's 3, appropriate affect - Labs CBC & Chem 7: 06/11/18 06:48 06/11/18 06:48 Assessment and Plan Plan: 1. Inability to Ambulate, Decreased BLE Sensation: - Unclear origin-CSF neg for leptomeningeal mets, brain lesion not positioned to account for pt deficits/symptoms, and since admit her pain is better, strength is stable. the plan is to continue with rehab at [facility] 2. Metastatic Breast Cancer - Brain, Bone, Liver - Under the care of Dr. Martinez - Current treatment with Faslodex and Xgeva (Continue and next due 06/25) - Overall Prognosis is poor - Continue to hold Ibrance until abdominal abscess resolved - Follow up with Rad Onc Re: Mets to Brain and if Femur Mets are painful palliative radiation - Follow-up Dr. Martinez as scheduled - Wean Dex per Radiation Onc 3. Chronic Illness Myopathy: - rehabilitation on discharge I spoke to Dr. Martinez and Hospice consultation is appropriate for patient, although does not want to stop her Ibrance and/or injections she is receiving. Would in patient rehab be option?
[2018-06-13 15:36] LABS: Anisocytosis Slight; HCT 36.8 % (34.0-46.0); HGB 12.5 gm/dL (11.4-16.0); MCH 33.6 pg (25.0-35.0); MCHC 34.1 g/dL (31.0-37.0); MCV 98.6 fL (80.0-100.0); Macrocytosis Slight; Mean Platelet Volume 9.1; RBC 3.73 m/uL (3.80-5.40); RDW 16.6 % (11.5-15.5); WBC 2.9 k/uL (3.8-10.6)
[2018-06-13 15:49] LABS: Platelet Count 51 k/uL (150-450)
--- NOTE | 2018-06-13 18:22 | P.PN ---
Subjective Progress Note Date: 06/13/18 The patient was seen and examined at the bedside. The patient notes that she no longer has abdominal pain. She otherwise denied nausea, vomiting, fever, chills , diarrhea, cough, or chest pain. Objective - Vital Signs Vital signs: Vital Signs Temp 97.9 F 06/13/18 12:15 Pulse 130 H 06/13/18 12:15 Resp 18 06/13/18 12:15 BP 127/90 06/13/18 12:15 Pulse Ox 92 L 06/13/18 12:15 Intake & Output 06/12/18 06/13/18 06/13/18 18:59 06:59 18:59 Intake Total 1190 Output Total 1 Balance 1189 Intake: Oral 1190 Output: Stool 1 Other: Voiding Method Incontinent Incontinent Incontinent # Voids 2 2 - Exam General: Non-toxic, in no acute distress HEENT: NC/AT, anicteric sclerae, moist conjunctiva, no lid-lag, PERRLA, oropharynx clear, no erythema, exudates Cardiovascular: S1/S2 wnl, no murmurs, rubs, or gallops Lungs: Clear to auscultation, normal respiratory effort, no accessory muscle use , R chest port Abdominal: Soft, nontender, non-distended, no guarding, midline scar, colostomy bag in place Skin: Warm, dry Extremities: No edema or contractures Psychiatric: Alert and oriented to person, place and time, appropriate affect, Intact judgment Neuro: CN II-XII grossly intact, RLE strength 1/5 and LLE strength 2/5 - Labs CBC & Chem 7: 06/13/18 15:04 06/11/18 06:48 Labs: Abnormal Lab Results - Last 24 Hours (Table) 06/13/18 Range/Units 15:04 WBC 2.9 L (3.8-10.6) k/uL RBC 3.73 L (3.80-5.40) m/uL RDW 16.6 H (11.5-15.5) % Plt Count 51 L (150-450) k/uL Assessment and Plan Plan: Abdominal pain secondary to metastatic breast ca - C/w pain control w/ [place] and MS Contin - Will discuss hospice w/ patient in light of metastatic malignancy - C/w bowel regimen Brain metastatic disease - Patient to be seen by Rad-Onc as an outpatient - C/ Keppra 1000 mg bid and Decadron 4 mg po TID Intra-abdominal abscess - C/w Ceftriaxone and Flagyl for now. Patient will need ID and Gen Surgery f/u on discharge Thrombocytopenia - Will repeat CBC in am. In light of gradual decrease in platelets, low T score and thereby will hold off on AC for now. - Will check HIT Abs Metastatic breast ca - C/w Xgeva HTN - C/w Lopressor 25 mg po bid DVT//GI proph - Lovenox, Protonix Discussed with: Patient Anticipated discharge date: 06/15/[address]: [facility] A total of 35 minutes was spent on the care of this complex patient more than 50 % of the time was spent in counseling and care coordination.
--- NOTE | 2018-06-13 23:39 | P.PN ---
Subjective Progress Note Date: 06/13/18 Interval history: The patient is a 57-year-old female who 2 months ago had Jade's procedure secondary to perforated rectosigmoid junction following chemotherapy. She had purulent drainage for several weeks. She reports in the last 3+ days no further drainage from her EDISON site and pelvic abscess. Repeat CT of the abdomen and pelvis has been performed demonstrating collapse of previous abscess pocket. She denies any current fevers. She is tolerating diet. She does however have progression of her breast cancer in her liver. Objective: Physical Exam: Gen.: Well-developed female in no acute distress. HEENT: Moist buccal mucosa. No sclera icterus. No nasal drainage. Neck: Supple without lymphadenopathy. No jugular venous distention. Chest: Nonlabored respirations. Abdomen: EDISON intact. No peritonitis. Nondistended. Ostomy pink, patent and functioning. Musculoskeletal: No clubbing, cyanosis, or edema. Neuro: No focal or lateralizing signs. Psych: Appropriate affect. Studies: CT of the abdomen and pelvis demonstrates resolution of previous abscess pocket. Assessment: 1. Perforated sigmoid colon following chemotherapy 2. History of intra-abdominal pelvic abscess Plan: 1. EDISON drain may be discontinued at this time. 2. Continue IV antibiotics following discharge Objective - Vital Signs Vital signs: Vital Signs Temp 97.9 F 06/13/18 12:15 Pulse 130 H 06/13/18 12:15 Resp 18 06/13/18 12:15 BP 127/90 06/13/18 12:15 Pulse Ox 92 L 06/13/18 12:15 Intake & Output 06/13/18 06/13/18 06/14/18 06:59 18:59 06:59 Intake Total 1190 100 Output Total 1 Balance 1189 100 Intake: Oral 1190 100 Output: Stool 1 Other: Voiding Method Incontinent Incontinent # Voids 2 - Labs CBC & Chem 7: 06/13/18 15:04 06/11/18 06:48 Labs: Abnormal Lab Results - Last 24 Hours (Table) 06/13/18 Range/Units 15:04 WBC 2.9 L (3.8-10.6) k/uL RBC 3.73 L (3.80-5.40) m/uL RDW 16.6 H (11.5-15.5) % Plt Count 51 L (150-450) k/uL
[2018-06-14] MEDS: levETIRAcetam ORAL SOLN 500 MG/5 ML CUP PO SCH ×2 (05:33→16:31)
[2018-06-14] MEDS: cefTRIAXone 2,000 MG in SODIUM CHLORIDE 0.9% 100 ML IVPB SCH (08:35)
[2018-06-14] MEDS: DOCUSATE 100 MG CAP PO SCH (08:36)
[2018-06-14] MEDS: metroNIDAZOLE 500 MG TAB PO SCH ×3 (08:36→21:22)
[2018-06-14] MEDS: ENOXAPARIN 40 MG/0.4 ML SYRINGE SQ SCH (08:36)
[2018-06-14] MEDS: METOPROLOL TARTRATE 25 MG TAB PO SCH ×2 (08:36→21:22)
[2018-06-14] MEDS: DEXAMETHASONE 4 MG TAB PO SCH ×3 (08:36→21:22)
[2018-06-14] MEDS: CHOLECALCIFEROL 1,000 UNIT TAB PO SCH ×2 (08:36→21:22)
[2018-06-14] MEDS: PANTOPRAZOLE 40 MG TABLET PO SCH ×2 (08:36→16:31)
[2018-06-14] MEDS: MORPHINE SULFATE ER 15 MG TABLET PO SCH ×2 (08:37→21:21)
[2018-06-14 09:38] LABS: Anisocytosis Slight; HCT 38.5 % (34.0-46.0); HGB 13.1 gm/dL (11.4-16.0); MCH 33.2 pg (25.0-35.0); MCHC 33.9 g/dL (31.0-37.0); Macrocytosis Slight; RBC 3.93 m/uL (3.80-5.40); RDW 16.6 % (11.5-15.5); WBC 2.2 k/uL (3.8-10.6)
[2018-06-14 09:54] LABS: Platelet Count 42 k/uL (150-450)
--- NOTE | 2018-06-14 13:08 | P.PN ---
Subjective Progress Note Date: 06/14/18 Principal diagnosis: Metastatic Cancer Breast inability to ambulate Left lower extremity with increased swelling, numbness, and cold to touch Objective - Vital Signs Vital signs: Vital Signs Temp 97.7 F 06/14/18 05:00 Pulse 134 H 06/14/18 05:00 Resp 16 06/14/18 05:00 BP 150/93 06/14/18 05:00 Pulse Ox 92 L 06/14/18 05:00 Intake & Output 06/13/18 06/14/18 06/14/18 18:59 06:59 18:59 Intake Total 300 Balance 300 Intake: Oral 300 Other: Voiding Method Incontinent Incontinent Incontinent - Exam Constitutional General appearance: Present: cooperative, no acute distress, obese - EENT Eyes: Present: anicteric sclerae ENT: Present: hearing grossly normal - Respiratory Respiratory: bilateral: CTA - Cardiovascular Rhythm: regular Heart sounds: normal: S1, S2 Abnormal Heart Sounds: Absent: systolic murmur, diastolic murmur, rub, S3 Gallop , S4 Gallop, click, other - Peripheral edema leg Peripheral Edema: LLE + edema, decreased sensation and colg - Gastrointestinal Gastrointestinal Comment(s): LLQ ostomy General gastrointestinal: Present: normal bowel sounds, soft Localized gastrointestinal: tender: RLQ (at EDISON drain insertion site) - Integumentary Integumentary: Present: pale - Musculoskeletal Musculoskeletal: Present: generalized weakness - Psychiatric Psychiatric Comment(s): at times pt conversation is confused Psychiatric: Present: A&O x's 3, appropriate affect - Labs CBC & Chem 7: 06/14/18 08:55 06/11/18 06:48 Labs: Abnormal Lab Results - Last 24 Hours (Table) 06/13/18 06/14/18 Range/Units 15:04 08:55 WBC 2.9 L 2.2 L (3.8-10.6) k/uL RBC 3.73 L (3.80-5.40) m/uL RDW 16.6 H 16.6 H (11.5-15.5) % Plt Count 51 L 42 L (150-450) k/uL Assessment and Plan Plan: 1. Inability to Ambulate, Decreased BLE Sensation: - Unclear origin-CSF neg for leptomeningeal mets, brain lesion not positioned to account for pt deficits/symptoms, and since admit her pain is better, strength is stable. the plan is to continue with rehab at [facility] 2. Metastatic Breast Cancer - Brain, Bone, Liver - Under the care of Dr. Martinez - Current treatment with Faslodex and Xgeva (Continue and next due 06/25) - Overall Prognosis is poor - Continue to hold Ibrance until abdominal abscess resolved - Follow up with Rad Onc Re: Mets to Brain and if Femur Mets are painful palliative radiation - Follow-up Dr. Martinez as scheduled - Wean Dex per Radiation Onc 3. Chronic Illness Myopathy: - rehabilitation on discharge I spoke to Dr. Martinez and Hospice consultation is appropriate for patient, although hesistant to stop treatments. Long discussion with patient, Dr. Ye today regarding comfort measures although not present during discussion.
--- NOTE | 2018-06-14 13:24 | P.PN ---
Subjective Progress Note Date: 06/14/18 Principal diagnosis: metastatic breast cancer Since our last visit the patient has not progressed. She still has no strength in her legs, and today her left leg feels cold. She has confusion at times. Objective - Vital Signs Vital signs: Vital Signs Temp 97.7 F 06/14/18 05:00 Pulse 134 H 06/14/18 05:00 Resp 16 06/14/18 05:00 BP 150/93 06/14/18 05:00 Pulse Ox 92 L 06/14/18 05:00 Intake & Output 06/13/18 06/14/18 06/14/18 18:59 06:59 18:59 Intake Total 300 Balance 300 Intake: Oral 300 Other: Voiding Method Incontinent Incontinent Incontinent - Constitutional General appearance: Present: disheveled - EENT Eyes: Present: PERRLA ENT: Present: hearing grossly normal - Neck Neck: Absent: lymphadenopathy - Integumentary Integumentary: Present: calor - Labs CBC & Chem 7: 06/14/18 08:55 06/11/18 06:48 Labs: Abnormal Lab Results - Last 24 Hours (Table) 06/13/18 06/14/18 Range/Units 15:04 08:55 WBC 2.9 L 2.2 L (3.8-10.6) k/uL RBC 3.73 L (3.80-5.40) m/uL RDW 16.6 H 16.6 H (11.5-15.5) % Plt Count 51 L 42 L (150-450) k/uL Assessment and Plan Plan: 1. Decline in performance status - progression metastatic breast cancer. I had a long discussion with the patient and her family including . They are all in agreement that the patient can no longer tolerate any aggressive therapies. Despite a negative LP I remain concerned that patient presents with leptomeningeal disease resulting in her confusion and extremity weakness. They are agreeable to move forward with a hospice consultation. They are hoping for placement in a hospice facility as the family is concerned they will not be able to care for her at home. Time with Patient: Greater than 30
--- NOTE | 2018-06-14 16:07 | P.PN ---
Subjective Progress Note Date: 06/14/18 Patient is a 57-year-old female with past medical history of stage IV breast CA s/p chemotherapy and radiation w/ perforated colon requiring ex-lap w/ sigmoid resection and descending colostomy on 04/06/18 complicated by intra-abdominal abscess dx on 04/30/18, s/p EDISON drain, presented on 05/10 and was sent to [facility] for R temporal metastatic lesion w/ edema requiring R temporal craniotomy, w/ discharge on 05/07. The patient then presented on 05/27 for gradually worsening sahara LE weakness and abdominal pain. Neurology was consulted and recommended MRI brain and LP for possible leptominingeal involvement. LP was negative for leptomeningeal carcinomatosis as per neurology. MRI C/T/L was unremarkable. MRI brain showed worsening enhancement and edema of R tmeporal region concerning for recurrent dural neoplasm. Findings of MRI brain however did not correlate w/ the patient's clinical weakness as per neurology. She was though continued on Decadron and Keppra. She also had MRI of pelvis which revealed 2 metastatic osseous lesions in the R hip. The patient was continued on Ertapenem for intraabdominal abscess initially which was then switched to Ceftriaxone and Flagyl. Oncology dicussed the goals of care with the patient and her in light of widespread progressive metastatic disease. The patient and her agreed to move forward w/ a hospice consultation and ideally a placement in a hospice facility. Hospice meeting arranged for today. The patient seen and examined with at the bedside. The patient earlier today noted sahara LE pain. Upon examination, was found to have LLE cooler than the right with decreased pulses. Discussed with the patient and her who endorsed that in light of poor prognosis and decision to move forward with hospice care, interventions for a possible thrombus in the LLE would cause undue pain and discomfort to the patient. Decision was made to monitor the leg with conservative measures. was informed of the possibility of worsening circulation w/ possible of gangrene and loss of limb. The patient endorsed continued mild abdominal pain but otherwise denied nausea, vomiting, fever, chills, chest pain, SOB, cough, or dizziness. Objective - Vital Signs Vital signs: Vital Signs Temp 97.7 F 06/14/18 05:00 Pulse 134 H 06/14/18 05:00 Resp 16 06/14/18 05:00 BP 150/93 10/30/18 05:00 Pulse Ox 92 L 06/14/18 05:00 Intake & Output 06/13/18 06/14/18 06/14/18 18:59 06:59 18:59 Intake Total 300 Balance 300 Intake: Oral 300 Other: Voiding Method Incontinent Incontinent Incontinent - Exam General: Non-toxic, in no acute distress HEENT: NC/AT, anicteric sclerae, moist conjunctiva, no lid-lag, PERRLA, oropharynx clear, no erythema, exudates Cardiovascular: S1/S2 wnl, no murmurs, rubs, or gallops Lungs: Clear to auscultation, normal respiratory effort, no accessory muscle use , R chest port Abdominal: Soft, nontender, non-distended, no guarding, midline scar, colostomy bag in place Skin: Warm, dry Extremities: 1+ pitting edema sahara w/ 2+ DP and PT pulses on R and absent on L Psychiatric: Alert and oriented to person, place and time, appropriate affect, Intact judgment Neuro: CN II-XII grossly intact, RLE strength 1/5 and LLE strength 2/5 - Labs CBC & Chem 7: 06/14/18 08:55 06/11/18 06:48 Labs: Abnormal Lab Results - Last 24 Hours (Table) 06/13/18 06/14/18 Range/Units 15:04 08:55 WBC 2.9 L 2.2 L (3.8-10.6) k/uL RBC 3.73 L (3.80-5.40) m/uL RDW 16.6 H 16.6 H (11.5-15.5) % Plt Count 51 L 42 L (150-450) k/uL Assessment and Plan Plan: Stage 4 Breast Ca w/ mets to liver - Hospice referral placed. Pt likely for transfer to Hospice-house - C/w pain control w/ Rex and MS Contin - C/w bowel regimen Cold LLE w/ decreased pulses, possible thrombus - Discussed in length w/ patient and her - Declined intervention and wish for only conservative measures at this time since patient likely to be transferred to hospice. Brain metastatic disease - C/ Keppra 1000 mg bid and Decadron 4 mg po TID - Seizure and fall precautions Intra-abdominal abscess - C/w Ceftriaxone and Flagyl for now Thrombocytopenia - HIT Abs pending HTN - C/w Lopressor 25 mg po bid DVT//GI proph - Lovenox, Protonix Discussed with: Patient, Anticipated discharge date: 06/15/[address]: Hospice facility A total of 35 minutes was spent on the care of this complex patient more than 50 % of the time was spent in counseling and care coordination. Time with Patient: Greater than 30
--- NOTE | 2018-06-14 17:58 | PN ---
PROGRESS NOTE DATE OF SERVICE: 06/14/2018 REASON FOR FOLLOWUP: Pelvic abscess. INTERVAL HISTORY: The patient is currently afebrile. Denies having any chest pain. No shortness of breath or cough. Some abdominal pain, mostly around the EDISON site. No nausea, no vomiting and no diarrhea. PHYSICAL EXAMINATION: Her blood pressure is 150/93 with a pulse of 134, temperature 97.7. She is 92% on room air. General description is a middle-aged female lying in bed in no distress. RESPIRATORY SYSTEM: Unlabored breathing. Clear to auscultation anteriorly. HEART: S1, S2. Regular rate and rhythm. ABDOMEN: Soft. Mildly distended. No guarding or rigidity. LABS: Hemoglobin 13.1, white count 2.2. DIAGNOSTIC IMPRESSION AND PLAN: Patient with a pelvic abscess from perforated bowel, status post diverting colostomy. Patient received more than 2 months of IV antibiotic therapy and CT did show resolution of the pelvic abscess. EDISON to be discontinued by the surgeon today. Currently on Rocephin and Flagyl. They will be transitioned to oral Ceftin and Flagyl at discharge. No need for any IV discharge antibiotics. was present at bedside. Questions were answered. In view of the worsening metastatic disease seen on the CT, patient may be an appropriate candidate for possible hospice-oriented care. Continue with supportive care. MMODL / IJN: [id number] /
--- NOTE | 2018-06-14 19:18 | P.PN ---
Subjective Progress Note Date: 06/14/18 Interval history: The patient is a 57-year-old female who 2 months ago had Jade's procedure secondary to perforated rectosigmoid junction following chemotherapy. She had purulent drainage for several weeks. Her EDISON site at pelvic abscess is draining minimal outputs. She reports generalized fatigue. Objective: Physical Exam: Gen.: Well-developed female in no acute distress. HEENT: Moist buccal mucosa. No sclera icterus. No nasal drainage. Neck: Supple without lymphadenopathy. No jugular venous distention. Chest: Nonlabored respirations. Abdomen: EDISON discontinued at bedside. Ostomy pink, patent and functioning. Musculoskeletal: No clubbing, cyanosis, or edema. Neuro: No focal or lateralizing signs. Psych: Lethargic Assessment: 1. Perforated sigmoid colon following chemotherapy 2. History of intra-abdominal pelvic abscess Plan: 1. EDISON discontinued at bedside without incident Objective - Vital Signs Vital signs: Vital Signs Temp 97.7 F 06/14/18 05:00 Pulse 134 H 06/14/18 05:00 Resp 16 06/14/18 05:00 BP 150/93 06/14/18 05:00 Pulse Ox 92 L 06/14/18 05:00 Intake & Output 06/14/18 06/14/18 06/15/18 06:59 18:59 06:59 Intake Total 300 Balance 300 Intake: Oral 300 Other: Voiding Method Incontinent Incontinent - Labs CBC & Chem 7: 06/14/18 08:55 06/11/18 06:48 Labs: Abnormal Lab Results - Last 24 Hours (Table) 06/14/18 Range/Units 08:55 WBC 2.2 L (3.8-10.6) k/uL RDW 16.6 H (11.5-15.5) % Plt Count 42 L (150-450) k/uL
[2018-06-14] MEDS ORDERED: SODIUM CHLORIDE 0.9% 500 ML 500 ML IV STA (21:58)
[2018-06-14] MEDS ORDERED: METOPROLOL TARTRATE 25 MG TAB PO STA (21:58)
[2018-06-14] MEDS: SODIUM CHLORIDE 0.9% 1,000 ML IV SCH (22:06)
[2018-06-15] MEDS: HYDROcodone/APAP 10-325MG 1 EACH TAB PO PRN ×2 (01:50→16:25)
[2018-06-15 04:38] VITALS: BP 134/87; TEMP 97.9
[2018-06-15] MEDS: SODIUM CHLORIDE 0.9% 1,000 ML IV SCH (05:55)
[2018-06-15] MEDS: levETIRAcetam ORAL SOLN 500 MG/5 ML CUP PO SCH ×2 (05:55→16:26)
[2018-06-15] MEDS: cefTRIAXone 2,000 MG in SODIUM CHLORIDE 0.9% 100 ML IVPB SCH (07:35)
[2018-06-15] MEDS: metroNIDAZOLE 500 MG TAB PO SCH (07:35)
[2018-06-15] MEDS: DOCUSATE 100 MG CAP PO SCH (07:36)
[2018-06-15] MEDS: MORPHINE SULFATE ER 15 MG TABLET PO SCH ×2 (07:36→22:05)
[2018-06-15] MEDS: DEXAMETHASONE 4 MG TAB PO SCH ×3 (07:36→22:06)
[2018-06-15] MEDS: PANTOPRAZOLE 40 MG TABLET PO SCH ×2 (07:37→16:27)
[2018-06-15] MEDS: CHOLECALCIFEROL 1,000 UNIT TAB PO SCH ×2 (07:37→22:06)
[2018-06-15] MEDS: METOPROLOL TARTRATE 25 MG TAB PO SCH ×2 (07:37→22:05)
--- NOTE | 2018-06-15 14:35 | P.PN ---
Subjective Progress Note Date: 06/15/18 Patient is a 57-year-old female with past medical history of stage IV breast CA s/p chemotherapy and radiation w/ perforated colon requiring ex-lap w/ sigmoid resection and descending colostomy on 04/06/18 complicated by intra-abdominal abscess dx on 04/30/18, s/p EDISON drain, presented on 05/10 and was sent to [facility] for R temporal metastatic lesion w/ edema requiring R temporal craniotomy, w/ discharge on 05/07. The patient then presented on 05/27 for gradually worsening sahara LE weakness and abdominal pain. Neurology was consulted and recommended MRI brain and LP for possible leptominingeal involvement. LP was negative for leptomeningeal carcinomatosis as per neurology. MRI C/T/L was unremarkable. MRI brain showed worsening enhancement and edema of R tmeporal region concerning for recurrent dural neoplasm. Findings of MRI brain however did not correlate w/ the patient's clinical weakness as per neurology. She was though continued on Decadron and Keppra. She also had MRI of pelvis which revealed 2 metastatic osseous lesions in the R hip. The patient was continued on Ertapenem for intraabdominal abscess initially which was then switched to Ceftriaxone and Flagyl. Oncology dicussed the goals of care with the patient and her in light of widespread progressive metastatic disease. The patient and her agreed to move forward w/ a hospice consultation and ideally a placement in a hospice facility. On 06/14/18, the patient noted sahara LE pain. Upon examination, was found to have LLE cooler than the right with decreased pulses. Discussed with the patient and her who endorsed that in light of poor prognosis and decision to move forward with hospice care, interventions for a possible thrombus in the LLE would cause undue pain and discomfort to the patient. Decision was made to monitor the leg with conservative measures. was informed of the possibility of worsening circulation w/ possible of gangrene and loss of limb. The patient was transitioned to comfort care and code status changed to No-Code. Hospice meeting took place and the patient's was advised to provide financial information for authorization of hospice facility. Notified by the rn case management that the had not yet provided the information. Patient seen and examined at the bedside. She notes mild continued abdominal pain but otherwise denied any active complaints including chest pain, SOB, nausea, vomiting, fever, chills, diarrhea, visual disturbances, or headaches. Objective - Vital Signs Vital signs: Vital Signs Temp 97.9 F 06/15/18 04:37 Pulse 132 H 06/15/18 08:00 Resp 16 06/15/18 04:37 BP 134/87 06/15/18 04:37 Pulse Ox 90 L 06/15/18 04:37 Intake & Output 06/14/18 06/15/18 06/15/18 18:59 06:59 18:59 Intake Total 1250 400 Balance 1250 400 Intake: Intake, IV Titration 1250 350 Amount Sodium Chloride 0.9% 1, 750 250 000 ml @ 125 mls/hr IV . Q8H ABHISHEK Rx#:[id number] Sodium Chloride 0.9% 500 500 ml 500 ml @ 999 mls/hr IV .Q31M STA Rx#:[id number] cefTRIAXone 2,000 mg In 100 Sodium Chloride 0.9% 100 ml @ 100 mls/hr IVPB Q24HR ABHISHEK Rx#:[id number] Oral 50 Other: Voiding Method Incontinent Incontinent Diaper Incontinent # Voids 1 - Exam General: Non-toxic, in no acute distress, lethargic HEENT: NC/AT, anicteric sclerae, moist conjunctiva, no lid-lag, PERRLA, oropharynx clear, no erythema, exudates Cardiovascular: S1/S2 wnl, no murmurs, rubs, or gallops Lungs: Clear to auscultation, normal respiratory effort, no accessory muscle use , R chest port Abdominal: Soft, nontender, non-distended, no guarding, midline scar, colostomy bag in place Skin: Warm, dry Extremities: 1+ pitting edema sahara w/ 2+ DP and PT pulses on R and absent on L Psychiatric: Alert and oriented to person, place and time, appropriate affect, Intact judgment Neuro: CN II-XII grossly intact, RLE strength 2/5 and LLE strength 2/5 - Labs CBC & Chem 7: 06/14/18 08:55 06/11/18 06:48 Assessment and Plan Plan: Stage 4 Breast Ca w/ mets to liver and brain - Patient planned for transfer to Hospice facility. Currently in comfort care only. Awaiting authorization - C/w pain control w/ [place] and MS Contin - C/w bowel regimen Cold LLE w/ decreased pulses, possible thrombus - Discussed in length w/ patient and her - Declined intervention and wish for only conservative measures at this time since patient to be transferred to hospice. Brain metastatic disease - C/ Keppra 1000 mg bid and Decadron 4 mg po TID - Seizure and fall precautions Intra-abdominal abscess - C/w Ceftriaxone and Flagyl for now Thrombocytopenia - HIT Abs pending HTN - C/w Lopressor 25 mg po bid DVT//GI proph - Lovenox, Protonix Discussed with: Patient, Anticipated discharge date: 06/16/[address]: Hospice facility A total of 45 minutes was spent on the care of this complex patient more than 50 % of the time was spent in counseling and care coordination.
--- NOTE | 2018-06-15 20:03 | P.PN ---
Subjective Progress Note Date: 06/15/18 Principal diagnosis: Metastatic Cancer Breast inability to ambulate Left lower extremity with increased swelling, numbness, and cold to touch, and patient have decided to proceed with transfer to hospice facility. Objective - Vital Signs Vital signs: Vital Signs Temp 97.9 F 06/15/18 04:37 Pulse 134 H 06/15/18 16:00 Resp 16 06/15/18 16:00 BP 134/87 06/15/18 04:37 Pulse Ox 90 L 06/15/18 04:37 Intake & Output 06/15/18 06/15/18 06/16/18 06:59 18:59 06:59 Intake Total 1250 400 Balance 1250 400 Weight 77 kg Intake: Intake, IV Titration 1250 350 Amount Sodium Chloride 0.9% 1, 750 250 000 ml @ 125 mls/hr IV . Q8H ABHISHEK Rx#:[id number] Sodium Chloride 0.9% 500 500 ml 500 ml @ 999 mls/hr IV .Q31M STA Rx#:[id number] cefTRIAXone 2,000 mg In 100 Sodium Chloride 0.9% 100 ml @ 100 mls/hr IVPB Q24HR ABHISHEK Rx#:[id number] Oral 50 Other: Voiding Method Incontinent Diaper Incontinent # Voids 1 1 - Exam Constitutional General appearance: Present: cooperative, no acute distress, obese - EENT Eyes: Present: anicteric sclerae ENT: Present: hearing grossly normal - Respiratory Respiratory: bilateral: CTA - Cardiovascular Rhythm: regular Heart sounds: normal: S1, S2 Abnormal Heart Sounds: Absent: systolic murmur, diastolic murmur, rub, S3 Gallop , S4 Gallop, click, other - Peripheral edema leg Peripheral Edema: LLE + edema, decreased sensation and colg - Gastrointestinal Gastrointestinal Comment(s): LLQ ostomy General gastrointestinal: Present: normal bowel sounds, soft Localized gastrointestinal: tender: RLQ (at EDISON drain insertion site) - Integumentary Integumentary: Present: pale - Musculoskeletal Musculoskeletal: Present: generalized weakness - Psychiatric Psychiatric Comment(s): at times pt conversation is confused Psychiatric: Present: A&O x's 3, appropriate affect - Labs CBC & Chem 7: 06/14/18 08:55 06/11/18 06:48 Assessment and Plan Plan: 1. Inability to Ambulate, Decreased BLE Sensation: - Unclear origin-CSF neg for leptomeningeal mets, brain lesion not positioned to account for pt deficits/symptoms, and since admit her pain is better, strength is stable. the plan is to continue with rehab at [facility] 2. Metastatic Breast Cancer - Brain, Bone, Liver - Under the care of Dr. Martinez - Current treatment with Faslodex and Xgeva (Continue and next due 06/25) - Overall Prognosis is poor - Continue to hold Ibrance until abdominal abscess resolved - Follow up with Rad Onc Re: Mets to Brain and if Femur Mets are painful palliative radiation - Follow-up Dr. Martinez as scheduled - Wean Dex per Radiation Onc 3. Chronic Illness Myopathy: - rehabilitation on discharge PLan: To transfer to inpatient hopsice facility at discharge, we are agreeable that this is a resonable option given her over all metastatic diagnosis, declining status, and poor prognosis.
[2018-06-16] MEDS: HYDROcodone/APAP 10-325MG 1 EACH TAB PO PRN ×2 (00:18→07:48)
[2018-06-16] MEDS: levETIRAcetam ORAL SOLN 500 MG/5 ML CUP PO SCH (06:16)
[2018-06-16] MEDS: MORPHINE SULFATE ER 15 MG TABLET PO SCH (07:49)
[2018-06-16 08:19] VITALS: PULSE 148; RESP 36
[2018-06-16] MEDS ORDERED: MORPHINE SULFATE IR 15 MG TABLET PO PRN (08:27)
[2018-06-16] MEDS ORDERED: LORazepam 1 MG TAB PO PRN (08:28)
[2018-06-16] MEDS ORDERED: BISACODYL 5 MG TABLET.DR PO STA (08:28)
[2018-06-16] MEDS: DOCUSATE 100 MG CAP PO SCH (10:48)
[2018-06-16] MEDS: DEXAMETHASONE 4 MG TAB PO SCH (10:48)
[2018-06-16] MEDS: PANTOPRAZOLE 40 MG TABLET PO SCH (10:48)
[2018-06-16] MEDS: METOPROLOL TARTRATE 25 MG TAB PO SCH (10:48)
--- NOTE | 2018-06-16 11:07 | P.PN ---
Subjective Progress Note Date: 06/16/18 Patient is a 57-year-old female with past medical history of stage IV breast CA s/p chemotherapy and radiation w/ perforated colon requiring ex-lap w/ sigmoid resection and descending colostomy on 04/06/18 complicated by intra-abdominal abscess dx on 04/30/18, s/p EDISON drain, presented on 05/10 and was sent to [facility] for R temporal metastatic lesion w/ edema requiring R temporal craniotomy, w/ discharge on 05/07. The patient then presented on 05/27 for gradually worsening sahara LE weakness and abdominal pain. Neurology was consulted and recommended MRI brain and LP for possible leptominingeal involvement. LP was negative for leptomeningeal carcinomatosis as per neurology. MRI C/T/L was unremarkable. MRI brain showed worsening enhancement and edema of R tmeporal region concerning for recurrent dural neoplasm. Findings of MRI brain however did not correlate w/ the patient's clinical weakness as per neurology. She was though continued on Decadron and Keppra. She also had MRI of pelvis which revealed 2 metastatic osseous lesions in the R hip. The patient was continued on Ertapenem for intraabdominal abscess initially which was then switched to Ceftriaxone and Flagyl. Oncology dicussed the goals of care with the patient and her in light of widespread progressive metastatic disease. The patient and her agreed to move forward w/ a hospice consultation and ideally a placement in a hospice facility. On 06/14/18, the patient noted sahara LE pain. Upon examination, was found to have LLE cooler than the right with decreased pulses. Discussed with the patient and her who endorsed that in light of poor prognosis and decision to move forward with hospice care, interventions for a possible thrombus in the LLE would cause undue pain and discomfort to the patient. Decision was made to monitor the leg with conservative measures. was informed of the possibility of worsening circulation w/ possible of gangrene and loss of limb. The patient was transitioned to comfort care and code status changed to No-Code. Hospice meeting took place and the patient's was advised to provide financial information for authorization of hospice facility. Notified by the heel caser that the had not yet provided the information. The patient seen and examined at the bedside. She appeared more lethargic today and c/o continued mild-moderate LE and abdominal pain. She continues to have sahara LE weakness unchanged from prior. Objective - Vital Signs Vital signs: Vital Signs Temp 97.9 F 06/15/18 04:37 Pulse 148 H 06/16/18 08:18 Resp 36 H 06/16/18 08:18 BP 134/87 06/15/18 04:37 Pulse Ox 92 L 06/15/18 22:00 Intake & Output 06/15/18 06/16/18 06/16/18 18:59 06:59 18:59 Intake Total 400 120 Balance 400 120 Weight 77 kg 77 kg Intake: Intake, IV Titration 350 Amount Sodium Chloride 0.9% 1, 250 000 ml @ 125 mls/hr IV . Q8H ABHISHEK Rx#:[id number] cefTRIAXone 2,000 mg In 100 Sodium Chloride 0.9% 100 ml @ 100 mls/hr IVPB Q24HR ABHISHEK Rx#:[id number] Oral 50 120 Other: Voiding Method Diaper Diaper Diaper Incontinent Incontinent Incontinent # Voids 1 1 - Exam General: Lethargic F, appears older than stated age HEENT: NC/AT, anicteric sclerae, moist conjunctiva, no lid-lag, PERRLA Cardiovascular: S1/S2 wnl, no murmurs, rubs, or gallops Lungs: Tachypnic, clear to auscultation, no accessory muscle use Abdominal: Tenderness to palpation, mildly distended abdomen, midline scar, dressing over EDISON drain site, clean, no guarding Extremities: 1+ LE edema sahara, cold sahara LEs w/ L colder than R up to level of the knee Psychiatric: Alert and oriented to person and place only, appropriate affect, intact judgment Neuro: CN II-XII grossly intact, Strength 2/2 in sahara LE, Speech intact, Sensation to light touch grossly intact throughout - Labs CBC & Chem 7: 06/14/18 08:55 06/11/18 06:48 Assessment and Plan Plan: Stage 4 Breast Ca w/ mets to liver and brain - Patient planned for transfer to Hospice facility. Currently in comfort care only. Will consider inpatient hospice if authorization not completed today - Increase MS-ER to 15 mg q8h and switched [place] to MS-IR 15 mg q4h prn - Bowel regimen Cold sahara LEs w/ decreased pulses, possible thrombus - Discussed in length w/ patient and her - Declined intervention and wish for only conservative measures at this time since patient to be transferred to hospice Tachycardia and Tachypnea - Likely secondary to progressive malignancy Brain metastatic disease - C/ Keppra 1000 mg bid and Decadron 4 mg po TID - Seizure and fall precautions Intra-abdominal abscess, resolved - Will hold off on Abxs for now since patient being transferred to comfort care and Hospice. Thrombocytopenia - HIT Abs 0.047, < 1% change of MATA positivity HTN - C/w Lopressor 25 mg po bid DVT//GI proph - Protonix Discussed with: Patient, Anticipated discharge date: 06/17/[address]: Hospice facility A total of 45 minutes was spent on the care of this complex patient more than 50 % of the time was spent in counseling and care coordination.
--- NOTE | 2018-06-16 14:57 | P.DS ---
Providers Date of admission: 05/27/18 13:48 Expected date of discharge: 06/16/18 Attending physician: Goldie Estrella MD Consults: 05/27/18 13:48 Consult Physician Urgent Consulting Provider: Nika Martinez Consult Reason/Comments: History of breast cancer Do you want consulting provider notified?: Yes Consult Physician Urgent Consulting Provider: Connie Yates Consult Reason/Comments: Abdominal pain Do you want consulting provider notified?: Yes Consult Physician Urgent Consulting Provider: Volodymyr Murillo Consult Reason/Comments: Pelvic abscess Do you want consulting provider notified?: Yes 05/27/18 13:51 Consult Physician Urgent Consulting Provider: Zena Feldman Consult Reason/Comments: Bilateral leg weakness Do you want consulting provider notified?: Yes 05/31/18 09:51 Consult Physician Routine Consulting Provider: Charlie Ye Consult Reason/Comments: brain mets Do you want consulting provider notified?: Yes 06/14/18 09:20 Consult Physician Stat Consulting Provider: Dustin Estrella Consult Reason/Comments: cold, painful left leg Do you want consulting provider notified?: Yes Primary care physician: [facility] Course: Patient is a 57-year-old female with past medical history of stage IV breast CA s/p chemotherapy and radiation w/ perforated colon requiring ex-lap w/ sigmoid resection and descending colostomy on 04/06/18 complicated by intra-abdominal abscess dx on 04/30/18, s/p EDISON drain, presented on 05/10 and was sent to [facility] for R temporal metastatic lesion w/ edema requiring R temporal craniotomy, w/ discharge on 05/07. The patient then presented on 05/27 for gradually worsening yana LE weakness and abdominal pain. Neurology was consulted and recommended MRI brain and LP for possible leptominingeal involvement. LP was negative for leptomeningeal carcinomatosis as per neurology. MRI C/T/L was unremarkable. 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 Findings of MRI brain however did not correlate w/ the patient's clinical weakness as per neurology. She was though continued on dexamethasone and Keppra. She also had MRI of pelvis which revealed 2 metastatic osseous lesions in the R hip. The patient was continued on Ertapenem for intraabdominal abscess initially which was then switched to Ceftriaxone and Flagyl. Oncology dicussed the goals of care with the patient and her in light of widespread progressive metastatic disease. The patient and her decided to move forward with hospice placement in a facility. The patient was also noted to have yana LE pain. Upon examination, was found to have LLE cooler than the right with decreased pulses. Discussed with the patient and her who endorsed that in light of poor prognosis and decision to move forward with hospice care, interventions for a possible thrombus in the LLE would cause undue pain and discomfort to the patient. Decision was made to monitor the leg with conservative measures. was informed of the possibility of worsening circulation w/ possible of gangrene and loss of limb. The patient was transitioned to No-Code status and was made comfort care only. She is being discharged to a hospice facility. Physical Examination General: Lethargic F, appears older than stated age HEENT: NC/AT, anicteric sclerae, moist conjunctiva, no lid-lag, PERRLA Cardiovascular: S1/S2 wnl, no murmurs, rubs, or gallops Lungs: Tachypnic, clear to auscultation, no accessory muscle use Abdominal: Tenderness to palpation, mildly distended abdomen, midline scar, dressing over EDISON drain site, clean, no guarding Extremities: 1+ LE edema yana, cold yana LEs w/ L colder than R up to level of the knee Psychiatric: Alert and oriented to person and place only, appropriate affect, intact judgment Neuro: CN II-XII grossly intact, Strength 2/2 in yana LE, Speech intact, Sensation to light touch grossly intact throughout Discharge diagnosis: Stage 4 Breast Cancer w/ metastatic disease to the liver and brain, [id number], Severe protein calorie malnutrition, suspected LLE arterial thrombus, YANA LE weakness w/ 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 Pertinent Studies: MRI C/T/L spine (05/27/18): Normal cervical thoracic and lumbar spinal cord. No compression fracture. Decreased T1 signal in upper thoracic vertebre. Inhomogeneous enhancement of these vertebre. It is not clear if there is metastatic diseasae or variable response to radiation. [place] degenerative disc changes in the lower cervical spine. Brain MRI w/ and w/o contrast (05/30/18): Worsening enhancement and adjacent edema R temporal region suggestive of recurrent dural based neoplasm and worsening local mass effect. Pelvic MRI w/ and w/o contrast (05/30/18): Suspected osseous metastatic lesions w/ 2 larger lesions in the R hip. Abd/Pelvis CT w/ contrast (06/11/18): Increase in size of the liver mass consistent w/ progression of tumor. Previous central portion 5.5 cm now measures 6 by 7 cm. Patient Condition at Discharge: Poor Plan - Discharge Summary Discharge Rx Participant: No New Discharge Prescriptions: New Pantoprazole [Protonix] 40 mg PO DAILY #30 tablet. LORazepam [Ativan] 1 mg PO Q4H PRN 3 Days #30 tab PRN Reason: Anxiety MORPHINE ORAL STEWART CONC 20mg/mL [Roxanol Oral Soln Conc 20MG/ML] 5 mg PO Q4H PRN 4 Days #30 ml PRN Reason: Pain Control Continue Metoprolol Tartrate [Lopressor] 25 mg PO BID #60 tab levETIRAcetam [Keppra Oral Solution] 1,000 mg PO Q12H Atorvastatin [Lipitor] 40 mg PO HS Dexamethasone [Decadron] 4 mg PO Q8H Changed Cholecalciferol [Vitamin D3] 2,000 unit PO DAILY #30 Discontinued Aspirin [Children's Aspirin] 81 mg PO DAILY Ertapenem [INVanz] 1 gm IVPB HS Discharge Medication List Metoprolol Tartrate [Lopressor] 25 mg PO BID #60 tab 04/11/18 [Rx] Atorvastatin [Lipitor] 40 mg PO HS 05/27/18 [History] Dexamethasone [Decadron] 4 mg PO Q8H 05/27/18 [History] levETIRAcetam [Keppra Oral Solution] 1,000 mg PO Q12H 05/27/18 [History] Cholecalciferol [Vitamin D3] 2,000 unit PO DAILY #30 06/03/18 [Rx] Pantoprazole [Protonix] 40 mg PO DAILY #30 tablet. 06/03/18 [Rx] LORazepam [Ativan] 1 mg PO Q4H PRN 3 Days #30 tab 06/16/18 [Rx] MORPHINE ORAL STEWART CONC 20mg/mL [Roxanol Oral Soln Conc 20MG/ML] 5 mg PO Q4H PRN 4 Days #30 ml 06/16/18 [Rx] Follow up Appointment(s)/Referral(s): Niraj Aguillon MD [STAFF PHYSICIAN] - 1 Week Connie Yates MD [STAFF PHYSICIAN] - 06/14/18 11:20 am [facility], [NON-STAFF] - As Needed Charlie Ye MD [STAFF PHYSICIAN] - 06/28/18 1:00 pm (Follow up Appt with Dr Ephraim Fofana, June 28, 2018 at 1pm. If not discharged from Rehab, call and reschedule appointment) Moiz Celis MD [Primary Care Provider] - 1-2 days Nika Martinez MD [STAFF PHYSICIAN] - 1 Week Patient Instructions/Handouts: Hydrocodone/Acetaminophen (By mouth), Metronidazole (By mouth), Pantoprazole (By mouth), Narcotic-Analgesic/ Acetaminophen (By mouth) Activity/Diet/Wound Care/Special Instructions: REGULAR DIET ACTIVITY LIMITED UNTIL SEEN BY AND PER PHYSICAL THERAPY Discharge Disposition: [facility] TO HOSPICE MED FACILTY
[2018-06-16] MEDS ORDERED: MORPHINE SULFATE ER 15 MG TABLET PO SCH (16:00)
== END 2018-06-16 15:46 | disposition hospice, inpatient (51) | DRG 862 ==
LOC: EC 09:56 → 5ONC 13:48 → 3NMEDONC 05-29 12:39
PROVIDERS: ADMIT Family Medicine; ATTEND Family Medicine
PROC: 009U3ZX Drainage of Spinal Canal, Percutaneous Approach, Diagnostic (ICD-10-PCS; principal; 2018-05-31)
DX: T81.44XA Sepsis following a procedure, initial encounter (principal); A41.9 Sepsis, unspecified organism; K65.1 Peritoneal abscess; G93.6 Cerebral edema; E43 Unspecified severe protein-calorie malnutrition; I74.3 Embolism and thrombosis of arteries of the lower extremities; C78.2 Secondary malignant neoplasm of pleura; G82.20 Paraplegia, unspecified; C79.31 Secondary malignant neoplasm of brain; C78.7 Secondary malignant neoplasm of liver and intrahepatic bile duct; C77.3 Secondary and unspecified malignant neoplasm of axilla and upper limb lymph nodes; C77.0 Secondary and unspecified malignant neoplasm of lymph nodes of head, face and neck; C79.89 Secondary malignant neoplasm of other specified sites; C79.51 Secondary malignant neoplasm of bone; E22.2 Syndrome of inappropriate secretion of antidiuretic hormone; C79.49 Secondary malignant neoplasm of other parts of nervous system; J90 Pleural effusion, not elsewhere classified; Z66 Do not resuscitate; Z51.5 Encounter for palliative care; T81.43XA Infection following a procedure, organ and space surgical site, initial encounter; G93.89 Other specified disorders of brain; D69.6 Thrombocytopenia, unspecified; G72.89 Other specified myopathies; E83.51 Hypocalcemia; R62.7 Adult failure to thrive; G89.29 Other chronic pain; E86.0 Dehydration; G40.909 Epilepsy, unspecified, not intractable, without status epilepticus; E78.5 Hyperlipidemia, unspecified; M19.91 Primary osteoarthritis, unspecified site; I25.10 Atherosclerotic heart disease of native coronary artery without angina pectoris; I10 Essential (primary) hypertension; K21.9 Gastro-esophageal reflux disease without esophagitis; R73.9 Hyperglycemia, unspecified; T38.0X5A Adverse effect of glucocorticoids and synthetic analogues, initial encounter; R32 Unspecified urinary incontinence; Z17.0 Estrogen receptor positive status [ER+]; Z68.28 Body mass index [BMI] 28.0-28.9, adult; Z79.2 Long term (current) use of antibiotics; Z79.82 Long term (current) use of aspirin; Z79.818 Long term (current) use of other agents affecting estrogen receptors and estrogen levels; Z79.899 Other long term (current) drug therapy; Z71.3 Dietary counseling and surveillance; Z85.3 Personal history of malignant neoplasm of breast; Z92.21 Personal history of antineoplastic chemotherapy; Z92.3 Personal history of irradiation; Z90.710 Acquired absence of both cervix and uterus; Z90.12 Acquired absence of left breast and nipple; Z87.81 Personal history of (healed) traumatic fracture; Z87.891 Personal history of nicotine dependence; Z90.49 Acquired absence of other specified parts of digestive tract; Z93.3 Colostomy status; Z88.6 Allergy status to analgesic agent; Z88.5 Allergy status to narcotic agent; Z88.0 Allergy status to penicillin; Z88.8 Allergy status to other drugs, medicaments and biological substances; Z80.0 Family history of malignant neoplasm of digestive organs; Z80.1 Family history of malignant neoplasm of trachea, bronchus and lung
CPT/HCPCS: 36415; 62270; 70450; 70553; 72156; 72157; 72158; 72197; 74177; 80048; 80053; 80177; 81001; 82040; 82042; 82150; 82306; 82550; 82784; 82945; 83605; 83690; 83873; 83916; 84157; 84443; 85025; 85027; 86022; 87040; 87070; 87205; 88108; 93005; 96361; 96374; 96375; 99284